=== PATIENT | male | born 1965 | race Two or more races ===

== ENCOUNTER → 2017-10-03 | Outpatient (CLI) | payer OTHER ==
--- NOTE | 2017-10-03 09:25 | MR ---
EXAMINATION TYPE: MR lumbar spine wo con DATE OF EXAM: 10/03/2017 COMPARISON: NONE HISTORY: Lumbosacral intervertebral disc disorder TECHNIQUE: Multiplanar, multisequence images of the lumbar spine were acquired. FINDINGS: There is a questionable exophytic lower pole left renal lesion seen on coronal survey image 3 only. T he lumbar spine maintains vertebral body heights and alignment. There is a focal T1/T2 hyperintense s ubcentimeter vertebral body hemangioma of L4. Hemangiomas also seen of L2. Slightly T1 hyperintense p robable hemangiomas also seen of L3. Conus medullaris is unremarkable terminating at T12-L1. L1-L2: Normal disc appearance without desiccation. No herniation, protrusion or disc bulging. No ca nal stenosis is present. Foramina are patent bilaterally. L2-L3: There is a broad-based disc bulge with disc desiccation without neural foraminal narrowing or spinal canal stenosis. L3-L4: A broad-based disc bulge is seen in combination with mild facet arthropathy. This results in m inimal bilateral neural foraminal narrowing. No spinal canal stenosis. L4-L5: There is a broad-based disc bulge with slight focality centrally relating to a very small disc herniation. No spinal canal stenosis or neural foraminal narrowing is seen. L5-S1: There is a central disc herniation/extrusion with annular tear and 4 mm cranial disc extension . There is no significant spinal canal stenosis or neural foraminal narrowing. IMPRESSION: 1. Small central disc herniation at L5-S1 with 4 mm cranial disc extension. No spinal canal stenosis or neural foraminal narrowing. 2. Very small central disc herniation at L4-L5 with no spinal canal stenosis or neural foraminal narr owing. 3. Degenerative disc disease at L3-L4 resulting in minimal bilateral neural foraminal narrowing. 4. Questionable left lower pole exophytic lesion seen on survey image 3 only. Renal ultrasound is rec ommended for further evaluation.
== END | disposition home or self-care (01) ==
LOC: RADMRIMAIN 08:02
PROVIDERS: ATTEND Family Medicine
DX: M99.73 Connective tissue and disc stenosis of intervertebral foramina of lumbar region (principal); M51.27 Other intervertebral disc displacement, lumbosacral region; M51.36 Other intervertebral disc degeneration, lumbar region
CPT/HCPCS: 72148

== ENCOUNTER 2018-11-29 12:45 | Day surgery (SDC) | payer OTHER ==
[2018-11-26 13:57] VITALS: BMI 28.2
--- NOTE | 2018-11-29 07:39 | P.GSHP ---
History of Present Illness H&P Date: 11/29/18 CHIEF COMPLAINT: Inguinal hernia, left HISTORY OF PRESENT ILLNESS: The patient is a 53-year-old male who presents with a history of swelling and pain along the left groin. He's noted increased swelling including pain of the area. Now he presents for repair of his inguinal hernia. PAST MEDICAL HISTORY: Please see list. PAST SURGICAL HISTORY: Please see list. MEDICATIONS: Please see list. ALLERGIES: Please see list. SOCIAL HISTORY: No illicit drug use FAMILY HISTORY: No reports of Crohn disease or ulcerative colitis. REVIEW OF ORGAN SYSTEMS: CONSTITUTIONAL: No reports of fevers or chills. No reports of weight loss despite prior attempts. GI: Denies any blood in stools or constipation. PHYSICAL EXAM: VITAL SIGNS: Stable GENERAL: Well-developed pleasant male in no acute distress. HEENT: No scleral icterus. Extraocular movements grossly intact. Moist buccal mucosa. NECK: Supple without lymphadenopathy. CHEST: Unlabored respirations. Equal bilateral excursions. CARDIOVASCULAR: Regular rate and rhythm. Distal 2+ pulses. ABDOMEN: Soft, nondistended. No peritoneal signs. Palpable defect of the left groin. MUSCULOSKELETAL: No clubbing, cyanosis, or edema. ASSESSMENT: 1. Inguinal hernia, left PLAN: 1. Recommend proceeding with a robotic inguinal repair with mesh with possible bilateral approach. 2. Benefits and risks of surgical intervention was discussed including possibility of open technique. 3. DVT prophylaxis. 4. Antibiotic prophylaxis. Past Medical History Past Medical History: Musculoskeletal Disorder, Prostate Disorder, Sleep Apnea/CPAP/BIPAP Additional Past Medical History / Comment(s): uses CPAP, back & leg pain related to herniated discs History of Any Multi-Drug Resistant Organisms: None Reported Additional Past Surgical History / Comment(s): epidural pain procedures, colonoscopy Past Anesthesia/Blood Transfusion Reactions: No Reported Reaction Smoking Status: Current every day smoker - Past Family History Brother(s) Family Medical History: Cancer Medications and Allergies Home Medications Medication Instructions Recorded Confirmed Type Acetaminophen Tab [Tylenol Tab] 500 mg PO Q6H PRN 11/26/18 11/26/18 History Gabapentin [Neurontin] 100 mg PO BID 11/26/18 11/26/18 History Ibuprofen [Motrin] 400 mg PO Q6HR PRN 11/26/18 11/26/18 History PARoxetine [Paxil] 20 mg PO DAILY 11/26/18 11/26/18 History traMADol HCL [Ultram] 50 mg PO TID 11/26/18 11/26/18 History Allergies Allergy/AdvReac Type Severity Reaction Status Date / Time No Known Allergies Allergy Verified 11/26/18 10:54
[~2018-11-29 12:45] MED LIST: DEXAMETHASONE SOD PHOSPHATE 10 MG/ML 1 ML VIAL IV ONE; HEPARIN SODIUM,PORCINE 5,000 UNIT/ML 1 ML VIAL SQ ONE; KETOROLAC 30 MG/ML 1 ML VIAL IVP SCH; LIDOCAINE 1% 20 ML VIAL (10MG/ML) FOR IV START INTRADERMA PRN; ONDANSETRON 4 MG/2 ML VIAL IVP ONE; ONDANSETRON 4 MG/2 ML VIAL IVP PRN; ceFAZolin IN SWFI 2 GM/20 ML SYRINGE IVP ONE
[2018-11-29] MEDS: LACTATED RINGERS 1,000 ML IV SCH (13:12)
[2018-11-29] MEDS ORDERED: fentaNYL (PF) 50 MCG/ML 2 ML AMP ONE (14:19)
[2018-11-29] MEDS ORDERED: NEOSTIGMINE 1 MG/ML 10 ML VIAL ONE (14:19)
[2018-11-29] MEDS ORDERED: GLYCOPYRROLATE 0.2 MG/ML 2 ML VIAL ONE (14:19)
[2018-11-29] MEDS ORDERED: PHENYLEPHRINE-0.9% NACL SYG 1 MG/10 ML SYRINGE ONE (14:19)
[2018-11-29] MEDS ORDERED: ROCURONIUM BROMIDE 10 MG/ML 10 ML VIAL IV ONE (14:19)
[2018-11-29] MEDS ORDERED: SUCCINYLCHOLINE CHLORIDE 100 MG/5 ML SYR IV ONE (14:19)
[2018-11-29] MEDS ORDERED: LIDOCAINE 1% INJ 10MG/ML (20 ML MDV) ONE (14:19)
[2018-11-29] MEDS ORDERED: MIDAZOLAM 2 MG/2 ML VIAL ONE (14:19)
[2018-11-29] MEDS ORDERED: PROPOFOL 10 MG/ML 20 ML VIAL IV ONE (14:19)
[2018-11-29] MEDS ORDERED: LIDOCAINE 1%-EPI 1:100,000 20 ML VIAL SQ ONE (14:39)
[2018-11-29 16:15] VITALS: TEMP 98.5
[2018-11-29] MEDS: HYDROmorphone 0.5 MG/0.5 ML SYRINGE IVP PRN ×3 (16:20→16:38)
[2018-11-29] MEDS ORDERED: TAMSULOSIN 0.4 MG CAP.ER.24H PO STA (16:33)
--- NOTE | 2018-11-29 16:33 | P.OP ---
Date of Procedure: 11/29/18 Description of Procedure: SURGEON: TERESITA BUTLER MD PREOPERATIVE DIAGNOSES: 1. Initial left inguinal hernia 2. Depressive disorder 3. Chronic pain syndrome 4. Obstructive sleep apnea 5. Obstructive uropathy POSTOPERATIVE DIAGNOSES: 1. Initial left inguinal hernia, indirect 3 cm, reducible 2. Depressive disorder 3. Chronic pain syndrome 4. Obstructive sleep apnea 5. Obstructive uropathy OPERATION: 1. Robotic assisted da Stephanie Xi laparoscopic reduction and repair of left inguinal hernia repair with ventralight ST mesh, 11.4 cm. Anesthesia: GETA, local Estimated Blood Loss (ml): 5 Pathology: other (Left inguinal sac) Condition: stable Disposition: floor COMPLICATIONS: None. Operative Findings: 1. Large left inguinal indirect hernia, 3 cm, Nyhus type II 2. Console time 32 minutes INDICATIONS: The patient is a 53-year-old gentleman who presents with history of left inguinal hernia. Now presents for definitive surgical intervention. Laparoscopic versus open and robotic approaches were discussed. Benefits and risks including bleeding, infection, injury to the vas deferens as well as sterility and chronic groin pain were reviewed. Placement of mesh was also described. Informed consent was obtained. DESCRIPTION: In the preoperative area, the patient was marked with indelible marker along the left groin. The patient was brought to the operating room and laid in supine position. After general induction, the abdomen had been prepped and draped in standard sterile fashion. Ioban draping was also placed. Prior to incision, a timeout protocol was confirmed with surgical team regarding patient's name including procedures to be performed and location along the left groin. Initial positioning for the robotic assisted ports were selected whereby 20 cm superior to the target anatomy, 0 degree 5 mm laparoscopic trocar entry was performed at the left upper quadrant. The abdomen was insufflated to 15 mmHg which he had tolerated well. Diagnostic laparoscopy demonstrated moderate omental adhesions from his previous open appendectomy. Additionally the sigmoid colon was incarcerated into the left groin with a large indirect left inguinal hernia over 3 cm in size. The right groin was unremarkable. Next, along the epigastrium, 8 mm robot trocar was placed. An 8-mm robotic trocar was placed under direct visualization at the right upper quadrant. The 5 mm port was exchanged for a 8 mm trocar. All trocars were positioned between 8 to 10-cm apart from each other. The patient was placed in steep reverse Trendelenburg position, 14. The [employer] XI robot was primed, draped, prepared for docking along the upper abdomen of the patient. I then went to the [employer] Xi console. The assistant activities director was at bedside for exchange of the robot arms and equipment. At the left groin, over 3 cm direct inguinal hernia was identified. The hernia sac was evaginated whereby the peritoneum was scored using Endo scissors with cautery. The hernia sac had reached to the scrotum and was transected using Vessel sealer. Once completely reduced into the abdominal cavity, the peritoneal sac of the hernia was identified. The sac was resected and then passed off for further pathological analysis. The size of the hernia defect was 3 cm with intraoperative films obtained. Using a 2-0 VLOC, the peritoneal defect of the left inguinal hernia site was closed using a pursestring suture. The defect was found to be completely closed with complete reduction of the left inguinal hernia was confirmed. As an onlay, an 11.[address] mesh by [employer] was cut in half and entered into the abdominal cavity via the 8 mm trocar. The mesh was tacked to the pelvis using 2-0 VLOC x 9-inch length sutures. The robot was undocked from the patient's bedside. I then rescrubbed into the case. Insufflation was released from the abdominal cavity and all instruments were removed from the abdominal cavity. Additional palm pressure was applied along the left groin as well as releasing any air along the scrotum and left groin. The rest of incisions were reapproximated using 4-0 Monocryl in a running subcuticular fashion. Local anesthetic was placed along the incision including for a groin block. Incisions were cleansed using dilute hydrogen peroxide. Liquid glue was applied to the skin. At the end of the procedure, the needle, sponge and instrument counts had been verified correct by the surgical elastic knitter. The patient had tolerated the procedure well and was taken to the postanesthesia care unit in stable condition. Intraoperative findings were described to the patient's family who were pleased with the level of care. Plan - Discharge Summary Discharge Rx Participant: Yes New Discharge Prescriptions: New Tamsulosin HCl [Flomax] 0.4 mg PO DAILY #30 cap Ibuprofen [Motrin] 600 mg PO Q8HR PRN #30 tab PRN Reason: Pain Continue PARoxetine [Paxil] 20 mg PO DAILY Ibuprofen [Motrin] 400 mg PO Q6HR PRN PRN Reason: Pain Acetaminophen Tab [Tylenol] 500 mg PO Q6H PRN PRN Reason: Pain traMADol HCL [Ultram] 50 mg PO TID Gabapentin [Neurontin] 100 mg PO BID Discharge Medication List Acetaminophen Tab [Tylenol] 500 mg PO Q6H PRN 11/26/18 [History] Gabapentin [Neurontin] 100 mg PO BID 11/26/18 [History] Ibuprofen [Motrin] 400 mg PO Q6HR PRN 11/26/18 [History] PARoxetine [Paxil] 20 mg PO DAILY 11/26/18 [History] traMADol HCL [Ultram] 50 mg PO TID 11/26/18 [History] Ibuprofen [Motrin] 600 mg PO Q8HR PRN #30 tab 11/29/18 [Rx] Tamsulosin HCl [Flomax] 0.4 mg PO DAILY #30 cap 11/29/18 [Rx] Follow up Appointment(s)/Referral(s): Teresita Butler MD [STAFF PHYSICIAN] - 12/11/18 Patient Instructions/Handouts: Laparoscopic Herniorrhaphy (DC) Activity/Diet/Wound Care/Special Instructions: No lifting over 4 pounds in 10 days until, December 06. October shower. No bath tub soaks until December 06 Discharge Disposition: HOME SELF-CARE
[2018-11-29] MEDS ORDERED: IBUPROFEN 200 MG TAB PO ONE (17:11)
[2018-11-29 17:15] VITALS: BP 107/83; PULSE 94; RESP 16
== END 2018-11-29 17:42 | disposition home or self-care (01) ==
LOC: OR 12:45
PROVIDERS: ATTEND Surgery Plastic and Reconstructive Surgery
DX: K40.30 Unilateral inguinal hernia, with obstruction, without gangrene, not specified as recurrent (principal); K40.90 Unilateral inguinal hernia, without obstruction or gangrene, not specified as recurrent; F32.9 Major depressive disorder, single episode, unspecified; G89.4 Chronic pain syndrome; G47.33 Obstructive sleep apnea (adult) (pediatric); N40.1 Benign prostatic hyperplasia with lower urinary tract symptoms; N13.8 Other obstructive and reflux uropathy; F17.200 Nicotine dependence, unspecified, uncomplicated; Z99.89 Dependence on other enabling machines and devices; Z79.891 Long term (current) use of opiate analgesic; Z79.1 Long term (current) use of non-steroidal anti-inflammatories (NSAID); Z79.899 Other long term (current) drug therapy
CPT/HCPCS: 88302; 49650; C1781; J2250; J1644; J1100; J2710; J2405; J2001; J3010; J2370; J0330; J2704; J1170; J0690

== ENCOUNTER → 2019-03-12 | Outpatient (CLI) | payer SELFPAY ==
--- NOTE | 2019-03-12 11:23 | US ---
EXAMINATION TYPE: US prostate transrectal DATE OF EXAM: 03/12/2019 COMPARISON: NONE CLINICAL HISTORY: N40.0 Benign prostatic hyperplasia without lower u. This examination was performed using the transrectal probe. EXAM MEASUREMENTS: Gland Size: 5.3 x 3.2 x 5.2cm Volume: 46.8 Predicted PSA: 5.6 Actual PSA (if available): not available No recent bloodwork for PSA, patient has trouble urinating. No masses seen in prostate, heterogeneous central zone. IMPRESSION: Heterogenous central zone relating to mild benign prostatic hyperplasia. No sonographic suspicious masses in the peripheral zone on today's exam. Predicted PSA = volume x 0.12 ng/ml Calculated Volume = 0.5236 x L x W x H
== END | disposition home or self-care (01) ==
LOC: RADUSWWP 08:14
PROVIDERS: ATTEND Family Medicine
DX: N40.0 Benign prostatic hyperplasia without lower urinary tract symptoms (principal)
CPT/HCPCS: 76872

== ENCOUNTER 2021-08-01 16:55 | Emergency (ER) | payer MEDICAID ==
[2021-08-01 17:02] VITALS: TEMP 98.9
[2021-08-01] MEDS ORDERED: ASPIRIN 81 MG PO STA (17:04)
[2021-08-01] MEDS ORDERED: KETOROLAC 15 MG/ML 1 ML VIAL IVP STA (17:11)
--- NOTE | 2021-08-01 17:20 | ED ---
General Adult HPI - General Chief complaint: Chest Pain Stated complaint: Chest pain Time Seen by Provider: 08/01/21 17:02 Source: patient, RN notes reviewed, old records reviewed Mode of arrival: wheelchair Limitations: no limitations - History of Present Illness Initial comments: Patient is a 55-year-old male with past medical history remarkable for sleep apnea, tobacco use presents emergency Department complaining of a two-day history of left-sided chest pain. Describes it sharp and worse with certain movements of his left arm, as well as torso. Denies any known trauma or injuries. States he woke up with it late Monday night, early fret Monday morning. Describes it as running along the inferior aspect of one of his ribs on the left side. States she'll fill it on left front as well as under his armpit. States it is pleuritic in nature, as it is slightly worsened when he takes a deep breath in. Denies any fevers, chills, cough. Denies any history of blood clots. Denies any orthopnea, PND. Does have an implanted sleep apnea device. Is not on hormonal therapy. No cardiac history. Patient became concerned as the pain did not improve at home. - Related Data Home Medications Medication Instructions Recorded Confirmed Gabapentin [Neurontin] 100 mg PO BID 11/26/18 08/01/21 PARoxetine [Paxil] 20 mg PO DAILY 11/26/18 08/01/21 traMADol HCL [Ultram] 50 mg PO TID PRN 11/26/18 08/01/21 Previous Rx's Medication Instructions Recorded Tamsulosin HCl [Flomax] 0.4 mg PO DAILY #30 cap 11/29/18 Lidocaine 5% Patch [Lidoderm 5% 1 patch TOPICAL DAILY PRN 7 Days 08/01/21 Patch] #7 patch methocarbamoL [Robaxin] 750 mg PO BID PRN 7 Days #14 tab 08/01/21 Allergies Allergy/AdvReac Type Severity Reaction Status Date / Time No Known Allergies Allergy Verified 08/01/21 18:05 Review of Systems ROS Statement: Those systems with pertinent positive or pertinent negative responses have been documented in the HPI. Review of Systems: CONST: Denies fever EYES: Denies blurry vision ENT: Denies nasal congestion C/V: Endorses chest wall pain. RESP: Denies shortness of breath GI: Denies abdominal pain : Denies dysuria SKIN: Denies rash. MSK: Denies joint pain. NEURO: Denies headache ROS Other: All systems not noted in ROS Statement are negative. Past Medical History Past Medical History: Musculoskeletal Disorder, Prostate Disorder, Sleep Apnea/CPAP/BIPAP Additional Past Medical History / Comment(s): uses CPAP, back & leg pain related to herniated discs History of Any Multi-Drug Resistant Organisms: None Reported Additional Past Surgical History / Comment(s): epidural pain procedures, colonoscopy Past Anesthesia/Blood Transfusion Reactions: No Reported Reaction Past Psychological History: Depression Smoking Status: Current every day smoker Past Alcohol Use History: None Reported Past Drug Use History: None Reported - Past Family History Brother(s) Family Medical History: Cancer General Exam - General Exam Comments Initial Comments: General: Appears in no acute distress. HEAD: Normal with no signs of head trauma. EYES: PERRLA, EOMI, conjunctiva normal, no discharge. Pupils are 3 mm equal bilaterally. ENT: Hearing grossly intact, normal oropharynx. RESPIRATORY: Clear breath sounds bilaterally. No wheezes, rales, or rhonchi. No hypoxia. C/V: Regular rate and rhythm. S1 and S2 auscultated, no edema, peripheral pulses 2+ and intact throughout. Patient's chest pain is reproducible on palpation Along the inferior aspect of rib 7 or 8 the midclavicular line, as as well as mildly in the midaxillary line. Does not appear to be a radiculopathy. ABD: Abd is soft, nontender, nondistended EXT: Normal range of motion, no obvious deformity SKIN: No rashes or lesions observed on exposed skin. NEURO: Alert and oriented 4. Limitations: no limitations Course Vital Signs 08/01/21 16:58 Temperature 98.9 F Pulse Rate 93 Respiratory 16 Rate Blood Pressure 137/76 O2 Sat by Pulse 97 Oximetry Medical Decision Making - Medical Decision Making Based on the patient's presentation and physical exam, I'm concerned for possible cardiac primary cause for his current symptoms. Also could be musculoskeletal in nature. However due to his age and risk factors we will obtain a cardiac workup. This will include a d-dimer, as the patient does not perc out. He was in agreement this plan. He will receive an aspirin as well as IV Toradol. Troponin, screening EKG, chest x-ray as well as d-dimer will be obtained. EKG showed no signs of ischemia. Laboratory studies were remarkable for a mild leukocytosis of 13. D-dimer is within normal limits. Troponin is negative. Remainder the labs are unremarkable. Chest x-ray revealed no acute cardiopulmonary process. Reevaluation come patient's pain is somewhat improved. I did discuss with him the results of his negative workup. Heart score is low at 2. I believe it is safe for him to be discharged home at this time. He was in agreement this plan. We discussed his pain appears to be mostly skeletal chest wall pain based on the workup as well as evaluation. I will provide the patient with a prescription for Robaxin, lidocaine patches. I instructed the patient to follow up with their PCP in the next 3 days. I explained that the patient should return to the emergency department if they experience any worsening symptoms. Strict return precautions were discussed with the patient. The patient expressed understanding of these instructions. I answered all questions that the patient had. The patient was discharged home in good condition with their prescriptions and follow up information. - Lab Data Result diagrams: 08/01/21 17:30 08/01/21 17:30 Lab Results 08/01/21 08/01/21 08/01/21 Range/Units 17:30 17:30 17:30 WBC 13.2 H (3.8-10.6) k/uL RBC 4.96 (4.30-5.90) m/uL Hgb 15.8 (13.0-17.5) gm/dL Hct 47.0 (39.0-53.0) % MCV 94.6 (80.0-100.0) fL MCH 31.8 (25.0-35.0) pg MCHC 33.6 (31.0-37.0) g/dL RDW 12.6 (11.5-15.5) % Plt Count 230 (150-450) k/uL MPV 8.6 Neutrophils % 70 % Lymphocytes % 21 % Monocytes % 5 % Eosinophils % 3 % Basophils % 1 % Neutrophils # 9.1 H (1.3-7.7) k/uL Lymphocytes # 2.7 (1.0-4.8) k/uL Monocytes # 0.6 (0-1.0) k/uL Eosinophils # 0.4 (0-0.7) k/uL Basophils # 0.1 (0-0.2) k/uL PT 10.4 (9.0-12.0) sec INR 1.0 (<1.2) APTT 26.1 (22.0-30.0) sec D-Dimer 0.39 (<0.60) mg/L FEU Sodium 140 (137-145) mmol/L Potassium 3.9 (3.5-5.1) mmol/L Chloride 104 (98-107) mmol/L Carbon Dioxide 27 (22-30) mmol/L Anion Gap 9 mmol/L BUN 10 (9-20) mg/dL Creatinine 0.80 (0.66-1.25) mg/dL Est GFR (CKD-EPI)AfAm >90 (>60 ml/min/1.73 sqM) Est GFR (CKD-EPI)NonAf >90 (>60 ml/min/1.73 sqM) Glucose 120 H (74-99) mg/dL Calcium 9.3 (8.4-10.2) mg/dL Magnesium 1.9 (1.6-2.3) mg/dL Total Bilirubin 0.4 (0.2-1.3) mg/dL AST 24 (17-59) U/L ALT 17 (4-49) U/L Alkaline Phosphatase 50 (38-126) U/L Troponin I (0.000-0.034) ng/mL Total Protein 7.2 (6.3-8.2) g/dL Albumin 4.5 (3.5-5.0) g/dL 08/01/21 Range/Units 17:30 WBC (3.8-10.6) k/uL RBC (4.30-5.90) m/uL Hgb (13.0-17.5) gm/dL Hct (39.0-53.0) % MCV (80.0-100.0) fL MCH (25.0-35.0) pg MCHC (31.0-37.0) g/dL RDW (11.5-15.5) % Plt Count (150-450) k/uL MPV Neutrophils % % Lymphocytes % % Monocytes % % Eosinophils % % Basophils % % Neutrophils # (1.3-7.7) k/uL Lymphocytes # (1.0-4.8) k/uL Monocytes # (0-1.0) k/uL Eosinophils # (0-0.7) k/uL Basophils # (0-0.2) k/uL PT (9.0-12.0) sec INR (<1.2) APTT (22.0-30.0) sec D-Dimer (<0.60) mg/L FEU Sodium (137-145) mmol/L Potassium (3.5-5.1) mmol/L Chloride (98-107) mmol/L Carbon Dioxide (22-30) mmol/L Anion Gap mmol/L BUN (9-20) mg/dL Creatinine (0.66-1.25) mg/dL Est GFR (CKD-EPI)AfAm (>60 ml/min/1.73 sqM) Est GFR (CKD-EPI)NonAf (>60 ml/min/1.73 sqM) Glucose (74-99) mg/dL Calcium (8.4-10.2) mg/dL Magnesium (1.6-2.3) mg/dL Total Bilirubin (0.2-1.3) mg/dL AST (17-59) U/L ALT (4-49) U/L Alkaline Phosphatase (38-126) U/L Troponin I <0.012 (0.000-0.034) ng/mL Total Protein (6.3-8.2) g/dL Albumin (3.5-5.0) g/dL - EKG Data -: EKG Interpreted by Me EKG Comments: 12-lead Electrocardiogram Interpretation Note EKG was reviewed and interpreted by myself. 12-lead ECG performed at 1713 is interpreted by me as revealing normal sinus rhythm at a rate of 81 beats per minute. [place] is normal. CO interval is 171 ms, QRS duration is 90 ms, QTc is 379 ms.. There were no ST or T wave abnormalities to suggest myocardial ischemia or injury. R wave progression across the precordium was satisfactory. By my interpretation this EKG is non-diagnostic for acute ischemia. Disposition Clinical Impression: Chest wall pain, Musculoskeletal pain Disposition: HOME SELF-CARE Condition: Good Instructions (If sedation given, give patient instructions): Chest Wall Pain (ED) Prescriptions: Lidocaine 5% Patch [Lidoderm 5% Patch] 1 patch TOPICAL DAILY PRN 7 Days #7 patch PRN Reason: Pain methocarbamoL [Robaxin] 750 mg PO BID PRN 7 Days #14 tab PRN Reason: Pain Is patient prescribed a controlled substance at d/c from ED?: No Referrals: Jt Liang MD [Primary Care Provider] - 1-2 days
[2021-08-01 18:06] LABS: Basophils # (A) 0.1 k/uL (0-0.2); Basophils % (A) 1 %; Eosinophils # (A) 0.4 k/uL (0-0.7); Eosinophils % (A) 3 %; HGB 15.8 gm/dL (13.0-17.5); Lymphocytes # (A) 2.7 k/uL (1.0-4.8); Lymphocytes % (A) 21 %; MCH 31.8 pg (25.0-35.0); MCHC 33.6 g/dL (31.0-37.0); MCV 94.6 fL (80.0-100.0); Mean Platelet Volume 8.6; Monocytes # (A) 0.6 k/uL (0-1.0); Monocytes % (A) 5 %; Neutrophils # (A) 9.1 k/uL (1.3-7.7); Neutrophils % (A) 70 %; Platelet Count 230 k/uL (150-450); RBC 4.96 m/uL (4.30-5.90); RDW 12.6 % (11.5-15.5); WBC 13.2 k/uL (3.8-10.6)
[2021-08-01 18:16] LABS: ALT 17 U/L (4-49); AST 24 U/L (17-59); African American GFR (CKD) >90 (>60 ml/min/1.73 sqM); Albumin 4.5 g/dL (3.5-5.0); Alkaline Phosphatase 50 U/L (38-126); Anion Gap 9 mmol/L; Blood Urea Nitrogen 10 mg/dL (9-20); Calcium 9.3 mg/dL (8.4-10.2); Carbon Dioxide 27 mmol/L (22-30); Chloride 104 mmol/L (98-107); Glucose 120 mg/dL (74-99); Magnesium 1.9 mg/dL (1.6-2.3); Non-African American GFR(CKD) >90 (>60 ml/min/1.73 sqM); Potassium 3.9 mmol/L (3.5-5.1); Sodium 140 mmol/L (137-145); Total Bilirubin 0.4 mg/dL (0.2-1.3); Total Protein 7.2 g/dL (6.3-8.2)
--- NOTE | 2021-08-01 18:19 | XR ---
EXAMINATION TYPE: XR chest 2V DATE OF EXAM: 08/01/2021 COMPARISON: NONE HISTORY: Chest pain TECHNIQUE: 2 views FINDINGS: Heart and mediastinum are normal. Lungs are clear. There is device implanted over the right anterior chest. There is no pleural effusion. There are no hilar masses. Bony thorax is intact. IMPRESSION: No active cardiopulmonary disease. Normal heart.
[2021-08-01 18:20] LABS: Partial Thromboplastin Time 26.1 sec (22.0-30.0); Prothrombin Time 10.4 sec (9.0-12.0)
[2021-08-01] MEDS ORDERED: LIDOCAINE 5% PATCH TOPICAL STA (18:47)
[2021-08-01 19:06] VITALS: BP 130/85; PULSE 74; RESP 18
== END 2021-08-01 19:14 | disposition home or self-care (01) ==
LOC: EC 16:55
DX: R07.89 Other chest pain (principal); F32.A Depression, unspecified; F17.200 Nicotine dependence, unspecified, uncomplicated
CPT/HCPCS: 99285; 96374; 36415; 93005; 85379; 80053; 83735; 84484; 85025; 85610; 85730; 71046; J1885

== ENCOUNTER 2021-09-10 14:22 | Inpatient (IN) | payer MEDICAID ==
[2021-09-10 14:55] LABS: Basophils # (A) 0.1 k/uL (0-0.2); Basophils % (A) 0 %; Eosinophils # (A) 0.2 k/uL (0-0.7); Eosinophils % (A) 1 %; HCT 42.6 % (39.0-53.0); HGB 14.2 gm/dL (13.0-17.5); Lymphocytes # (A) 0.8 k/uL (1.0-4.8); Lymphocytes % (A) 4 %; MCHC 33.4 g/dL (31.0-37.0); MCV 95.9 fL (80.0-100.0); Mean Platelet Volume 9.3; Monocytes # (A) 1.1 k/uL (0-1.0); Monocytes % (A) 6 %; Neutrophils % (A) 89 %; Platelet Count 151 k/uL (150-450); RBC 4.44 m/uL (4.30-5.90); WBC 19.1 k/uL (3.8-10.6)
[2021-09-10 15:10] LABS: ALT 65 U/L (4-49); AST 28 U/L (17-59); African American GFR (CKD) >90 (>60 ml/min/1.73 sqM); Alkaline Phosphatase 51 U/L (38-126); Anion Gap 5 mmol/L; Blood Urea Nitrogen 22 mg/dL (9-20); Calcium 8.5 mg/dL (8.4-10.2); Carbon Dioxide 31 mmol/L (22-30); Chloride 104 mmol/L (98-107); Glucose 157 mg/dL (74-99); Non-African American GFR(CKD) >90 (>60 ml/min/1.73 sqM); Potassium 3.9 mmol/L (3.5-5.1); Sodium 140 mmol/L (137-145); Total Bilirubin 0.6 mg/dL (0.2-1.3); Total Protein 6.3 g/dL (6.3-8.2)
--- NOTE | 2021-09-10 15:18 | XR ---
EXAMINATION TYPE: XR chest 2V DATE OF EXAM: 09/10/2021 COMPARISON: X-ray dated 08/01/2021 HISTORY: Weakness and palpitations with lower leg edema and elevated blood pressure TECHNIQUE: Frontal and lateral views of the chest are obtained. FINDINGS: Grossly unremarkable lungs. No pleural effusion or pneumothorax. No gross cardiomegaly. A stimulator device is seen superimposed on the right midlung zone, stable. No gross aggressive bone lesion. IMPRESSION: No definite acute pulmonary abnormality or gross lung lesion identified.
--- NOTE | 2021-09-10 15:38 | ED ---
General Adult HPI - General Chief complaint: Arrhythmia/Palpitations Stated complaint: Heart palpitations,weakness Time Seen by Provider: 09/10/21 14:25 Source: patient, RN notes reviewed, old records reviewed Mode of arrival: ambulatory Limitations: no limitations - History of Present Illness Initial comments: This is a 55-year-old male who presents emergency Department complaining that over the last 2-3 days he has noticed increased swelling of both of his feet he feels as though his abdomen is more distended and he feels as though his face posterior than normal. Patient also was noted that he is not urinating as much as he hasn't passed. Patient denies any problems breathing. Patient denies any chest pain. Patient denies any abdominal pain. Patient states he does feel some palpitations on occasion. Patient states the symptoms don't last for long but they come and go. Patient states she's had chronic lower back pain that he's been seeing a physician for. Patient denies any headache patient denies any lightheadedness or dizziness. Patient denies any numbness or weakness. Patient states he has tingling of both of his hands on occasion. - Related Data Home Medications Medication Instructions Recorded Confirmed PARoxetine [Paxil] 20 mg PO DAILY 11/26/18 09/10/21 traMADol HCL [Ultram] 50 mg PO TID PRN 11/26/18 09/10/21 Gabapentin 300 mg PO BID 09/10/21 09/10/21 Lidocaine 5% Patch [Lidoderm 5% 1 patch TOPICAL DAILY 09/10/21 09/10/21 Patch] Previous Rx's Medication Instructions Recorded Tamsulosin HCl [Flomax] 0.4 mg PO DAILY #30 cap 11/29/18 Allergies Allergy/AdvReac Type Severity Reaction Status Date / Time No Known Allergies Allergy Verified 09/10/21 16:34 Review of Systems ROS Statement: Those systems with pertinent positive or pertinent negative responses have been documented in the HPI. ROS Other: All systems not noted in ROS Statement are negative. Past Medical History Past Medical History: Musculoskeletal Disorder, Prostate Disorder, Sleep Apnea/CPAP/BIPAP Additional Past Medical History / Comment(s): uses CPAP, back & leg pain related to herniated discs History of Any Multi-Drug Resistant Organisms: None Reported Additional Past Surgical History / Comment(s): epidural pain procedures, colonoscopy Past Anesthesia/Blood Transfusion Reactions: No Reported Reaction Past Psychological History: Depression Smoking Status: Current every day smoker Past Alcohol Use History: None Reported Past Drug Use History: None Reported - Past Family History Brother(s) Family Medical History: Cancer General Exam - General Exam Comments Initial Comments: GENERAL: Patient is well-developed and well-nourished. Patient is nontoxic and well- hydrated and is in mild distress. ENT: Neck is soft and supple. No significant lymphadenopathy is noted. Oropharynx is clear. Moist mucous membranes. Neck has full range of motion without eliciting any pain. EYES: The sclera were anicteric and conjunctiva were pink and moist. Extraocular movements were intact and pupils were equal round and reactive to light. Eyelids were unremarkable. PULMONARY: Unlabored respirations. Good breath sounds bilaterally. No audible rales rhonchi or wheezing was noted. CARDIOVASCULAR: There is a regular rate and rhythm without any murmurs gallops or rubs. ABDOMEN: Soft and nontender with normal bowel sounds. SKIN: Skin is clear with no lesions or rashes and otherwise unremarkable. NEUROLOGIC: Patient is alert and oriented x3. Cranial nerves II through XII are grossly intact. Motor and sensory are also intact. Normal speech, volume and content. Symmetrical smile. MUSCULOSKELETAL: Normal extremities with adequate strength and full range of motion. 1+ edema bilateral legs LYMPHATICS: No significant lymphadenopathy is noted PSYCHIATRIC: Normal psychiatric evaluation. Limitations: no limitations Course Vital Signs 09/10/21 09/10/21 09/10/21 14:25 15:14 16:38 Temperature 98.5 F Pulse Rate 74 72 67 Respiratory 20 16 16 Rate Blood Pressure 171/89 170/96 157/91 O2 Sat by Pulse 96 95 93 L Oximetry Medical Decision Making - Medical Decision Making EKG shows sinus rhythm at 66 bpm NJ interval 152 QRS is 88 QT interval 367 QTC is 380. Patient's EKG shows no ST segment elevation or depression. - Lab Data Result diagrams: 09/10/21 14:41 09/10/21 14:41 Lab Results 09/10/21 09/10/21 09/10/21 Range/Units 14:41 14:41 14:41 WBC 19.1 H (3.8-10.6) k/uL RBC 4.44 (4.30-5.90) m/uL Hgb 14.2 (13.0-17.5) gm/dL Hct 42.6 (39.0-53.0) % MCV 95.9 (80.0-100.0) fL MCH 32.0 (25.0-35.0) pg MCHC 33.4 (31.0-37.0) g/dL RDW 14.0 (11.5-15.5) % Plt Count 151 (150-450) k/uL MPV 9.3 Neutrophils % 89 % Lymphocytes % 4 % Monocytes % 6 % Eosinophils % 1 % Basophils % 0 % Neutrophils # 17.0 H (1.3-7.7) k/uL Lymphocytes # 0.8 L (1.0-4.8) k/uL Monocytes # 1.1 H (0-1.0) k/uL Eosinophils # 0.2 (0-0.7) k/uL Basophils # 0.1 (0-0.2) k/uL Sodium 140 (137-145) mmol/L Potassium 3.9 (3.5-5.1) mmol/L Chloride 104 (98-107) mmol/L Carbon Dioxide 31 H (22-30) mmol/L Anion Gap 5 mmol/L BUN 22 H (9-20) mg/dL Creatinine 0.61 L (0.66-1.25) mg/dL Est GFR (CKD-EPI)AfAm >90 (>60 ml/min/1.73 sqM) Est GFR (CKD-EPI)NonAf >90 (>60 ml/min/1.73 sqM) Glucose 157 H (74-99) mg/dL Calcium 8.5 (8.4-10.2) mg/dL Magnesium (1.6-2.3) mg/dL Total Bilirubin 0.6 (0.2-1.3) mg/dL AST 28 (17-59) U/L ALT 65 H (4-49) U/L Alkaline Phosphatase 51 (38-126) U/L Troponin I 0.080 H* (0.000-0.034) ng/mL NT-Pro-B Natriuret Pep pg/mL Total Protein 6.3 (6.3-8.2) g/dL Albumin 4.0 (3.5-5.0) g/dL TSH (0.465-4.680) mIU/L Free T4 (0.78-2.19) ng/dL 09/10/21 09/10/21 Range/Units 14:41 15:45 WBC (3.8-10.6) k/uL RBC (4.30-5.90) m/uL Hgb (13.0-17.5) gm/dL Hct (39.0-53.0) % MCV (80.0-100.0) fL MCH (25.0-35.0) pg MCHC (31.0-37.0) g/dL RDW (11.5-15.5) % Plt Count (150-450) k/uL MPV Neutrophils % % Lymphocytes % % Monocytes % % Eosinophils % % Basophils % % Neutrophils # (1.3-7.7) k/uL Lymphocytes # (1.0-4.8) k/uL Monocytes # (0-1.0) k/uL Eosinophils # (0-0.7) k/uL Basophils # (0-0.2) k/uL Sodium (137-145) mmol/L Potassium (3.5-5.1) mmol/L Chloride (98-107) mmol/L Carbon Dioxide (22-30) mmol/L Anion Gap mmol/L BUN (9-20) mg/dL Creatinine (0.66-1.25) mg/dL Est GFR (CKD-EPI)AfAm (>60 ml/min/1.73 sqM) Est GFR (CKD-EPI)NonAf (>60 ml/min/1.73 sqM) Glucose (74-99) mg/dL Calcium (8.4-10.2) mg/dL Magnesium 2.6 H (1.6-2.3) mg/dL Total Bilirubin (0.2-1.3) mg/dL AST (17-59) U/L ALT (4-49) U/L Alkaline Phosphatase (38-126) U/L Troponin I (0.000-0.034) ng/mL NT-Pro-B Natriuret Pep 1240 pg/mL Total Protein (6.3-8.2) g/dL Albumin (3.5-5.0) g/dL TSH 0.300 L (0.465-4.680) mIU/L Free T4 0.64 L (0.78-2.19) ng/dL Disposition Clinical Impression: Palpitations, Pedal edema, Elevated troponin, Leukocytosis, Hypothyroid Disposition: ADMITTED IP TO THIS HOSP Referrals: Jt Liang MD [Primary Care Provider] - 1-2 days Time of Disposition: 19:12
[2021-09-10 15:54] LABS: Magnesium 2.6 mg/dL (1.6-2.3)
[2021-09-10 17:20] LABS: T4, Free (Free Thyroxine) 0.64 ng/dL (0.78-2.19)
[2021-09-10 19:13] LABS: Amorphous Sediment,Urine Rare /hpf; Appearance,Urine Cloudy (Clear); Bilirubin,Urine Negative (Negative); Blood,Urine Negative (Negative); Color,Urine Yellow; Glucose,Urine (UA) Negative (Negative); Ketones,Urine Negative (Negative); Leukocyte Esterase,Urine Negative (Negative); Mucus,Urine Rare /hpf; Nitrite,Urine Negative (Negative); PH, Urine 7.5 (5.0-8.0); Protein,Urine Trace (Negative); RBC,Urine 1 /hpf (0-5); Specific Gravity,Urine 1.019 (1.001-1.035); Urobilinogen,Urine <2.0 mg/dL (<2.0); WBC,Urine 1 /hpf (0-5)
[2021-09-10] MEDS: traMADol 50 MG TAB PO PRN (23:28)
[2021-09-10] MEDS: GABAPENTIN 300 MG CAP PO SCH (23:29)
[2021-09-11] MEDS ORDERED: ASPIRIN 325 MG TAB PO STA (00:31)
[2021-09-11] MEDS ORDERED: CLOPIDOGREL 75 MG TAB PO STA (00:31)
[2021-09-11] MEDS ORDERED: METOPROLOL TARTRATE 25 MG TAB PO STA (00:31)
[2021-09-11] MEDS ORDERED: ATORVASTATIN 80 MG TAB PO STA (00:32)
--- NOTE | 2021-09-11 04:54 | P.HPIM ---
History of Present Illness H&P Date: 09/10/21 The patient is a 53-year-old male with a PMH of BPH and chronic lower back pain, who presents to the emergency room with complaints of lower extremity swelling. The patient reports that over the past 2-3 days, he has noticed that his legs, scrotum, and abdomen have been gradually becoming swollen and distended. He also reports decreased urine output during this time. He denied any history of congestive heart failure. Reports experiencing PND but denied orthopnea. Denies fainting dysuria, urgency. Denied abdominal pain, chest discomfort, palpitations, nausea, vomiting, abdominal pain, diarrhea. Denied cough, fever, chills. Chest x-ray was unremarkable. With EKG showing sinus rhythm with sinus arrhythmia at 66 bpm. Laboratory evaluation was remarkable for WBC count of 19.1, troponin 0.080, proBNP 1240, TSH 0.3, free T4 0.64, glucose 157, and an unremarkable UA. Review of systems: Pertinent positives and negatives as discussed in HPI, a complete review of systems was performed and all other systems are negative. Physical examination: General: non toxic, no distress, appears at stated age, overweight Derm: no unusual rashes/lesions no unusual ecchymoses, warm, dry Head: atraumatic, normocephalic, symmetric Eyes: EOMI, no lid lag, anicteric sclera, pupils equal round reactive to light ENT: Nose and ears atraumatic, no thrush, no pharyngeal erythema Neck: No thyromegaly, no cervical lymphadenopathy, trachea midline, supple Mouth: no lip lesion, mucus membranes moist Cardiovascular: S1S2 reg, no murmur, positive posterior tibial pulse bilateral, 1+ bilateral lower extremity pitting edema to mid zavala, capillary refill less than 2 seconds Lungs: CTA bilateral, no rhonchi, no rales , no accessory muscle use Abdominal: soft, nontender to palpation, no guarding, no appreciable organomegaly, normal bowel sounds Ext: no gross muscle atrophy, muscle strength 5 out of 5 in all 4 extremities grossly, no contractures, Neuro: CN II-XI grossly intact, light touch intact all 4 extremities, finger to nose within normal limits, Psych: Alert, oriented, appropriate affect : No scrotal or penile abnormalities noted, tomasz testes palpable and non-tender Assessment/plan Bilateral lower extremity edema, suspected CHF -Obtain echocardiogram -Cardiology consult -[facility] -Cardiac monitoring Elevated troponin -Trend for now -Cardiac monitoring -Patient denying chest discomfort or shortness of breath Leukocytosis -Unclear etiology -F/u blood cultures -Monitor CBC for now Low TSH and Free T4 -Suspected secondary to acute illness -Obtain repeat TSH prior to discharge DVT prophylaxis -Heparin subq The patient is admitted with an anticipated greater than 2 midnight stay for evaluation of LE edema CODE STATUS: Full Code Discussed with: Patient Anticipated discharge date: 09/[address]: Home Past Medical History Past Medical History: Musculoskeletal Disorder, Prostate Disorder, Sleep Apnea/CPAP/BIPAP Additional Past Medical History / Comment(s): apnea implant, back & leg pain related to herniated discs History of Any Multi-Drug Resistant Organisms: None Reported Additional Past Surgical History / Comment(s): epidural pain procedures, colonoscopy Past Anesthesia/Blood Transfusion Reactions: No Reported Reaction Past Psychological History: Depression Smoking Status: Current every day smoker Past Alcohol Use History: None Reported Additional Past Alcohol Use History / Comment(s): down to <ppd for 30 years Past Drug Use History: None Reported - Past Family History Brother(s) Family Medical History: Cancer Medications and Allergies Home Medications Medication Instructions Recorded Confirmed Type PARoxetine [Paxil] 20 mg PO DAILY 11/26/18 09/10/21 History traMADol HCL [Ultram] 50 mg PO TID PRN 11/26/18 09/10/21 History Tamsulosin HCl [Flomax] 0.4 mg PO DAILY #30 cap 11/29/18 09/10/21 Rx Gabapentin 300 mg PO BID 09/10/21 09/10/21 History Lidocaine 5% Patch [Lidoderm 5% 1 patch TOPICAL DAILY 09/10/21 09/10/21 History Patch] Allergies Allergy/AdvReac Type Severity Reaction Status Date / Time No Known Allergies Allergy Verified 09/10/21 16:34 Physical Exam Vitals: Vital Signs Temp Pulse Pulse Resp BP BP Pulse Ox 09/10/21 21:37 70 16 164/93 95 09/10/21 19:40 98.5 F 68 18 137/67 93 L 09/10/21 16:38 67 16 157/91 93 L 09/10/21 15:14 72 16 170/96 95 09/10/21 14:25 98.5 F 74 20 171/89 96 Intake and Output 09/10/21 09/10/21 09/10/21 06:59 14:59 22:59 Intake Total 485 Balance 485 Intake: Oral 485 Other: # Voids 1 Weight 97.522 kg 97.522 kg Results CBC & Chem 7: 09/10/21 14:41 09/10/21 14:41 Labs: Abnormal Lab Results - Last 24 Hours (Table) 09/10/21 09/10/21 09/10/21 Range/Units 14:41 14:41 14:41 WBC 19.1 H (3.8-10.6) k/uL Neutrophils # 17.0 H (1.3-7.7) k/uL Lymphocytes # 0.8 L (1.0-4.8) k/uL Monocytes # 1.1 H (0-1.0) k/uL Carbon Dioxide 31 H (22-30) mmol/L BUN 22 H (9-20) mg/dL Creatinine 0.61 L (0.66-1.25) mg/dL Glucose 157 H (74-99) mg/dL Magnesium (1.6-2.3) mg/dL ALT 65 H (4-49) U/L Troponin I 0.080 H* (0.000-0.034) ng/mL TSH (0.465-4.680) mIU/L Free T4 (0.78-2.19) ng/dL Urine Protein (Negative) Amorphous Sediment (None) /hpf Urine Mucus (None) /hpf 09/10/21 09/10/21 Range/Units 15:45 18:57 WBC (3.8-10.6) k/uL Neutrophils # (1.3-7.7) k/uL Lymphocytes # (1.0-4.8) k/uL Monocytes # (0-1.0) k/uL Carbon Dioxide (22-30) mmol/L BUN (9-20) mg/dL Creatinine (0.66-1.25) mg/dL Glucose (74-99) mg/dL Magnesium 2.6 H (1.6-2.3) mg/dL ALT (4-49) U/L Troponin I (0.000-0.034) ng/mL TSH 0.300 L (0.465-4.680) mIU/L Free T4 0.64 L (0.78-2.19) ng/dL Urine Protein Trace H (Negative) Amorphous Sediment Rare H (None) /hpf Urine Mucus Rare H (None) /hpf
[2021-09-11] MEDS: FUROSEMIDE 10 MG/ML 4 ML VIAL IV SCH ×3 (06:45→20:39)
[2021-09-11] MEDS: traMADol 50 MG TAB PO PRN ×3 (08:07→21:58)
[2021-09-11] MEDS: PARoxetine 20 MG TAB PO SCH (08:07)
[2021-09-11] MEDS: TAMSULOSIN 0.4 MG CAP.ER.24H PO SCH (08:07)
[2021-09-11] MEDS: GABAPENTIN 300 MG CAP PO SCH ×2 (08:07→20:39)
[2021-09-11 09:18] LABS: HCT 43.3 % (39.0-53.0); HGB 14.2 gm/dL (13.0-17.5); MCH 31.7 pg (25.0-35.0); MCHC 32.7 g/dL (31.0-37.0); MCV 96.9 fL (80.0-100.0); Mean Platelet Volume 9.6; Platelet Count 143 k/uL (150-450); RBC 4.46 m/uL (4.30-5.90); RDW 14.1 % (11.5-15.5); WBC 15.9 k/uL (3.8-10.6)
[2021-09-11 09:25] LABS: African American GFR (CKD) >90 (>60 ml/min/1.73 sqM); Anion Gap 5 mmol/L; Blood Urea Nitrogen 19 mg/dL (9-20); Calcium 8.6 mg/dL (8.4-10.2); Carbon Dioxide 36 mmol/L (22-30); Chloride 101 mmol/L (98-107); Glucose 104 mg/dL (74-99); Magnesium 2.4 mg/dL (1.6-2.3); Non-African American GFR(CKD) >90 (>60 ml/min/1.73 sqM); Potassium 3.3 mmol/L (3.5-5.1); Sodium 142 mmol/L (137-145)
[2021-09-11] MEDS ORDERED: POTASSIUM CHLORIDE ER 20 MEQ TAB.ER PO STA (11:00)
--- NOTE | 2021-09-11 13:36 | ECHOF ---
Referral Reason:chf MEASUREMENTS -------- HEIGHT: 182.9 cm WEIGHT: 97.5 kg BP: 167/80 RVIDd: 3.3 cm (< 3.3) IVSd: 1.2 cm (0.6 - 1.1) LVIDd: 5.1 cm (3.9 - 5.3) LVPWd: 1.2 cm (0.6 - 1.1) IVSs: 1.8 cm LVIDs: 3.9 cm LVPWs: 1.6 cm LA Diam: 3.3 cm (2.7 - 3.8) LAESV Index (A-L): 28.57 ml/m Ao Diam: 3.3 cm (2.0 - 3.7) AV Cusp: 2.0 cm (1.5 - 2.6) MV EXCURSION: 8.330 mm (> 18.000) MV EF SLOPE: 73 mm/s (70 - 150) EPSS: 0.6 cm MV E Liang: 1.41 m/s MV DecT: 107 ms MV A Liang: 1.00 m/s MV E/A Ratio: 1.42 RAP: 15.00 mmHg RVSP: 51.02 mmHg FINDINGS -------- Sinus rhythm. This was a technically adequate study. The left ventricular size is normal. Left ventricular wall thickness is normal. Overall left vent ricular systolic function is normal with, an EF between 55 - 60 %. The right ventricle is mildly enlarged. LA is midly dilated 29-33ml/m2. The right atrium is normal in size. Interatrial and interventricular septum intact. Trace amount of aortic regurgitation. The mitral valve is normal. Mild tricuspid regurgitation present. There is moderate pulmonary hypertension. The right ventric ular systolic pressure, as measured by Doppler, is 51.02mmHg. Trace/mild (physiologic) pulmonic regurgitation. The aortic root size is normal. The inferior vena cava is dilated with no significant inspiratory collapse which is consistent estima champ right atrial pressure of >15 mmHg. There is no pericardial effusion. CONCLUSIONS -------- 1. The left ventricular size is normal. 2. Left ventricular wall thickness is normal. 3. Overall left ventricular systolic function is normal with, an EF between 55 - 60 %. 4. The right ventricle is mildly enlarged. 5. LA is midly dilated 29-33ml/m2. 6. Trace amount of aortic regurgitation. 7. Mild tricuspid regurgitation present. 8. There is moderate pulmonary hypertension. 9. The right ventricular systolic pressure, as measured by Doppler, is 51.02mmHg. 10. Trace/mild (physiologic) pulmonic regurgitation. 11. The inferior vena cava is dilated with no significant inspiratory collapse which is consistent es timated right atrial pressure of >15 mmHg. 12. There is no pericardial effusion. TIRE SPECIALIST: Tena Durant RDCS
--- NOTE | 2021-09-11 13:58 | P.PN ---
Subjective Progress Note Date: 09/11/21 History of Present Illness H&P Date: 09/10/21 The patient is a 53-year-old male with a PMH of BPH and chronic lower back pain, who presents to the emergency room with complaints of lower extremity swelling. The patient reports that over the past 2-3 days, he has noticed that his legs, scrotum, and abdomen have been gradually becoming swollen and distended. He als o reports decreased urine output during this time. He denied any history of congestive heart failure. Reports experiencing PND but denied orthopnea. Denies fainting dysuria, urgency. Denied abdominal pain, chest discomfort, palpitations, nausea, vomiting, abdominal pain, diarrhea. Denied cough, fever, chills. Chest x-ray was unremarkable. With EKG showing sinus rhythm with sinus arrhythmia at 66 bpm. Laboratory evaluation was remarkable for WBC count of 19.1, troponin 0.080, proBNP 1240, TSH 0.3, free T4 0.64, glucose 157, and an unremarkable UA. Objective - Vital Signs Vital signs: Vital Signs Temp 98.0 F 09/11/21 08:06 Pulse 64 09/11/21 13:07 Resp 18 09/11/21 12:00 BP 153/85 09/11/21 12:00 Pulse Ox 95 09/11/21 12:00 Intake & Output 09/10/21 09/11/21 09/11/21 18:59 06:59 18:59 Intake Total 970 Output Total 1900 Balance 970 -1900 Weight 97.522 kg 101.7 kg Intake: Oral 970 Output: Urine 1900 Other: Voiding Method Toilet Toilet Urinal # Voids 2 - Exam General: non toxic, no distress, appears at stated age Derm: warm, dry Head: atraumatic, normocephalic, symmetric Eyes: EOMI, no lid lag, anicteric sclera Mouth: no lip lesion, mucus membranes moist Cardiovascular: S1S2 reg, no murmur, positive posterior tibial pulse bilateral, Lungs: CTA bilateral, no rhonchi, no rales , no accessory muscle use Abdominal: soft, nontender to palpation, no guarding, no appreciable organomegaly Ext: no gross muscle atrophy, 1+ pitting edema bilaterally, no contractures Neuro: CN II-XI grossly intact, no focal neuro deficits Psych: Alert, oriented, appropriate affect - Labs CBC & Chem 7: 09/11/21 08:32 09/11/21 08:32 Labs: Abnormal Lab Results - Last 24 Hours (Table) 09/10/21 09/10/21 09/10/21 Range/Units 14:41 14:41 14:41 WBC 19.1 H (3.8-10.6) k/uL Plt Count (150-450) k/uL Neutrophils # 17.0 H (1.3-7.7) k/uL Lymphocytes # 0.8 L (1.0-4.8) k/uL Monocytes # 1.1 H (0-1.0) k/uL Potassium (3.5-5.1) mmol/L Carbon Dioxide 31 H (22-30) mmol/L BUN 22 H (9-20) mg/dL Creatinine 0.61 L (0.66-1.25) mg/dL Glucose 157 H (74-99) mg/dL Magnesium (1.6-2.3) mg/dL ALT 65 H (4-49) U/L Troponin I 0.080 H* (0.000-0.034) ng/mL TSH (0.465-4.680) mIU/L Free T4 (0.78-2.19) ng/dL Urine Protein (Negative) Amorphous Sediment (None) /hpf Urine Mucus (None) /hpf 09/10/21 09/10/21 09/11/21 Range/Units 15:45 18:57 01:05 WBC (3.8-10.6) k/uL Plt Count (150-450) k/uL Neutrophils # (1.3-7.7) k/uL Lymphocytes # (1.0-4.8) k/uL Monocytes # (0-1.0) k/uL Potassium (3.5-5.1) mmol/L Carbon Dioxide (22-30) mmol/L BUN (9-20) mg/dL Creatinine (0.66-1.25) mg/dL Glucose (74-99) mg/dL Magnesium 2.6 H (1.6-2.3) mg/dL ALT (4-49) U/L Troponin I 0.054 H* (0.000-0.034) ng/mL TSH 0.300 L (0.465-4.680) mIU/L Free T4 0.64 L (0.78-2.19) ng/dL Urine Protein Trace H (Negative) Amorphous Sediment Rare H (None) /hpf Urine Mucus Rare H (None) /hpf 09/11/21 09/11/21 Range/Units 08:32 08:32 WBC 15.9 H (3.8-10.6) k/uL Plt Count 143 L (150-450) k/uL Neutrophils # (1.3-7.7) k/uL Lymphocytes # (1.0-4.8) k/uL Monocytes # (0-1.0) k/uL Potassium 3.3 L (3.5-5.1) mmol/L Carbon Dioxide 36 H (22-30) mmol/L BUN (9-20) mg/dL Creatinine (0.66-1.25) mg/dL Glucose 104 H (74-99) mg/dL Magnesium 2.4 H (1.6-2.3) mg/dL ALT (4-49) U/L Troponin I (0.000-0.034) ng/mL TSH (0.465-4.680) mIU/L Free T4 (0.78-2.19) ng/dL Urine Protein (Negative) Amorphous Sediment (None) /hpf Urine Mucus (None) /hpf Assessment and Plan Assessment: Assessment and plan: Bilateral lower extremity edema, suspected CHF -Echocardiogram showed EF 55-60% with normal systolic function. Right ventricular is mildly enlarged. Left atrium is mildly dilated. Trace amount of regurgitation. Mild tricuspid regurgitation. Moderate pulmonary hypertension. Right ventricular systolic pressure is 51 mm -Cardiology following -Resume diuresis per cardiology -Due to the finding on echo we need to rule out PE. We'll Order CT of the chest and lower extremity venous Doppler -Cardiac monitoring Elevated troponin -Patient denies any chest pain or shortness of breath. With the Lorcet swelling order venous Doppler lower extremities and order CT of the chest to rule out PE -Cardiac monitoring Leukocytosis -Unclear etiology. Patient afebrile. Could be reactive secondary to above -Improving -F/u blood cultures -Monitor CBC for now Low TSH and Free T4 -Suspected due to euthyroid sick syndrome -Obtain repeat TSH prior to discharge Chronic back pain -Patient was restarted on Neurontin. He stated that he was having withdrawal symptoms since he was off gabapentin for 1 week and this may be caused his above symptoms DVT prophylaxis -Heparin subq The patient is admitted with an anticipated greater than 2 midnight stay for evaluation of LE edema CODE STATUS: Full Code Discussed with: Patient
--- NOTE | 2021-09-11 14:35 | P.CRDCN ---
History of Present Illness Consult date: 09/11/21 History of present illness: History of present illness: This is a 55-year-old male with past medical history of chronic back pain, obstructive sleep apnea, benign prostatic hypertrophy, tobacco use and dependence. Patient gives history over the past 3 days of having edema to his face, abdomen and legs and that his blood pressure was elevated. He thought it was related to worsening of his chronic back pain. He denies any chest pain. States he had an episode of palpitations that lasted for about 1 hour and went away and then subsequently had a couple episodes that were brief. He is also concerned that he had decreased urine output over the past 3 days. Yesterday morning he woke up and his arms "felt weird" and he came into the hospital for further evaluation. EKG sinus rhythm WBC 19.1, hemoglobin 14.2. CO2 31, BUN 22 creatinine 0.61. Magnesium 2.6. Ot her electrolytes within normal limits. AST 28, ALT 65 and alkaline phosphatase 51. Troponin 0.080 and 0.054. ProBNP 1240. TSH 0.3 and free T4 0.64. Echocardiogram reveals EF of 55-60%, trace aortic regurgitation, mild tricuspid regurgitation, moderate pulmonary hypertension, RVSP 51.02 mmHg. Inferior vena cava dilated with no significant respiratory collapse which is consistent with right arterial pressure greater than 15 mmHg. Chest x-ray reveals no definite acute pulmonary abnormality Review Of Systems: Constitutional: No fever, no chills. No weakness, fatigue or lethargy. EENT: No headache. No dizziness. reports facial edema Lungs: No shortness of breath, cough, no sputum production. No wheezing. Cardiovascular: No chest pain, reports lower extremity edema. No palpitatio ns. No paroxysmal nocturnal dyspnea. No orthopnea. No lightheadedness or dizziness. No syncopal episodes. Abdominal: No abdominal pain. No nausea, vomiting. No diarrhea. No constipation. No bloody or tarry stools.. No loss of appetite. Genitourinary: No dyuria, reports decreased urine output. No urinary retention. Musculoskeletal: No myalgias. No muscle weakness, no gait dysfunction, no frequent falls. No back pain. No neck pain. Integumentary: No wounds, no lesions. No rash or pruritus. No unusual bruising. Neurologic: No aphasia. No facial droop. No change in mentation. No head injury. No headache. No paralysis. No paresthesia. Psychiatric: No depression. No anxiety. Endocrine: No abnormal blood sugars. Physical examination: Gen: This is a a 55-year-old male. He is resting in bed and appears to be comfortable and in no acute distress. HEENT: Head is atraumatic, normocephalic. Pupils equal, round. Sclerae is anicteric. NECK: Supple. No JVD. No lymphadenopathy. No thyromegaly. LUNGS: Clear to auscultation. No wheezes or rhonchi. No intercostal retrac tions. HEART: Regular rate and rhythm. No murmur. ABDOMEN: Soft. Bowel sounds are present. No masses. No tenderness. EXTREMITIES: 1+ pedal edema. No calf tenderness. NEUROLOGICAL: Patient is awake, alert and oriented x3. Cranial nerves 2 through 12 are grossly intact. Assessment: Edema and possible ascites of unclear etiology, no clear signs of heart failure Palpitations Decreased urine output without renal failure Elevated troponins without chest pain Abnormal TSH and free T4 Moderate pulmonary hypertension Plan: Patient is currently on Lasix 40 mg IV every 12 hours Monitor I&O and daily weights Monitor renal function and electrolytes Further recommendations to follow based upon clinical course Thank you kindly for this consultation. Nurse practitioner note has been reviewed, I agree with documented findings and plan of care. Patient was seen and examined. Past Medical History Past Medical History: Musculoskeletal Disorder, Prostate Disorder, Sleep Apnea/CPAP/BIPAP Additional Past Medical History / Comment(s): apnea implant, back & leg pain related to herniated discs History of Any Multi-Drug Resistant Organisms: None Reported Additional Past Surgical History / Comment(s): epidural pain procedures, colonoscopy Past Anesthesia/Blood Transfusion Reactions: No Reported Reaction Past Psychological History: Depression Smoking Status: Current every day smoker Past Alcohol Use History: None Reported Additional Past Alcohol Use History / Comment(s): down to <ppd for 30 years Past Drug Use History: None Reported - Past Family History Brother(s) Family Medical History: Cancer Medications and Allergies Home Medications Medication Instructions Recorded Confirmed Type PARoxetine [Paxil] 20 mg PO DAILY 11/26/18 09/10/21 History traMADol HCL [Ultram] 50 mg PO TID PRN 11/26/18 09/10/21 History Tamsulosin HCl [Flomax] 0.4 mg PO DAILY #30 cap 11/29/18 09/10/21 Rx Gabapentin 300 mg PO BID 09/10/21 09/10/21 History Lidocaine 5% Patch [Lidoderm 5% 1 patch TOPICAL DAILY 09/10/21 09/10/21 History Patch] Allergies Allergy/AdvReac Type Severity Reaction Status Date / Time No Known Allergies Allergy Verified 09/10/21 16:34 Physical Exam Vitals: Vital Signs Temp Pulse Pulse Resp BP BP Pulse Ox 09/11/21 08:06 98.0 F 61 18 156/82 95 09/11/21 04:00 58 L 16 167/80 95 09/11/21 00:00 69 16 149/70 94 L 09/10/21 21:37 70 16 164/93 95 09/10/21 19:40 98.5 F 68 18 137/67 93 L 09/10/21 16:38 67 16 157/91 93 L 09/10/21 15:14 72 16 170/96 95 09/10/21 14:25 98.5 F 74 20 171/89 96 Intake and Output 09/10/21 09/11/21 09/11/21 22:59 06:59 14:59 Intake Total 485 485 Output Total 900 Balance 485 485 -900 Intake: Oral 485 485 Output: Urine 900 Other: Voiding Method Toilet Toilet Toilet Urinal # Voids 1 2 Weight 97.522 kg 101.7 kg Results 09/11/21 08:32 09/11/21 08:32 Cardiac Enzymes 09/10/21 09/10/21 09/11/21 Range/Units 14:41 14:41 01:05 AST 28 (17-59) U/L Troponin I 0.080 H* 0.054 H* (0.000-0.034) ng/mL CBC 09/10/21 09/11/21 Range/Units 14:41 08:32 WBC 19.1 H 15.9 H (3.8-10.6) k/uL RBC 4.44 4.46 (4.30-5.90) m/uL Hgb 14.2 14.2 (13.0-17.5) gm/dL Hct 42.6 43.3 (39.0-53.0) % Plt Count 151 143 L (150-450) k/uL Comprehensive Metabolic Panel 09/10/21 09/11/21 Range/Units 14:41 08:32 Sodium 140 142 (137-145) mmol/L Potassium 3.9 3.3 L (3.5-5.1) mmol/L Chloride 104 101 (98-107) mmol/L Carbon Dioxide 31 H 36 H (22-30) mmol/L BUN 22 H 19 (9-20) mg/dL Creatinine 0.61 L 0.70 (0.66-1.25) mg/dL Glucose 157 H 104 H (74-99) mg/dL Calcium 8.5 8.6 (8.4-10.2) mg/dL AST 28 (17-59) U/L ALT 65 H (4-49) U/L Alkaline Phosphatase 51 (38-126) U/L Total Protein 6.3 (6.3-8.2) g/dL Albumin 4.0 (3.5-5.0) g/dL Current Medications Generic Name Dose Route Start Last Admin Trade Name Freq PRN Reason Stop Dose Admin Furosemide 40 mg 09/11/21 05:00 09/11/21 10:38 Furosemide 10 Mg/Ml 4 Ml Vial IV 40 mg Q12HR AL Administration Gabapentin 300 mg 09/10/21 23:30 09/11/21 08:07 Gabapentin 300 Mg Cap PO 300 mg BID AL Administration Paroxetine HCl 20 mg 09/11/21 09:00 09/11/21 08:07 Paroxetine 20 Mg Tab PO 20 mg DAILY AL Administration Tamsulosin HCl 0.4 mg 09/11/21 09:00 09/11/21 08:07 Tamsulosin 0.4 Mg Cap.Er.24h PO 0.4 mg DAILY AL Administration Tramadol HCl 50 mg 09/10/21 22:48 09/11/21 08:07 Tramadol 50 Mg Tab PO 50 mg TID PRN Administration Pain Intake and Output 09/10/21 09/11/21 09/11/21 22:59 06:59 14:59 Intake Total 485 485 Output Total 900 Balance 485 485 -900 Intake: Oral 485 485 Output: Urine 900 Other: Voiding Method Toilet Toilet Toilet Urinal # Voids 1 2 Weight 97.522 kg 101.7 kg 09/11/21 08:32 09/11/21 08:32
--- NOTE | 2021-09-11 15:00 | CT ---
EXAMINATION TYPE: CT chest angio for PE DATE OF EXAM: 09/11/2021 COMPARISON: None HISTORY: Exertional dyspnea. CT DLP: 542.6 mGycm Automated exposure control for dose reduction was used. CONTRAST: Performed with IV Contrast, patient injected with 100ml mL of Isovue 370. There are Three-D postprocessed images. Images obtained from the thoracic inlet to the diaphragm with IV contrast. There is no mediastinal adenopathy. Thoracic aorta is intact. There is no evidence of aneurysm or dis section. Heart size is normal. There is no pericardial effusion. There is normal contrast opacificati on of the pulmonary arteries. No filling defect. There is small right pleural effusion. There is lobulated soft tissue mass measuring almost 3 cm in the posterior segment of the left upper lobe. There is a small 2.5 x 0.5 cm linear infiltrate in the lateral aspect of the left upper lobe. The bon y thorax is intact. There is no compression fracture. Sternum is intact. IMPRESSION: No evidence of pulmonary embolism. Masslike infiltrate left upper lobe suspicious for tumor. Follow-up is recommended. Small right pleural effusion and right basilar atelectasis.
--- NOTE | 2021-09-11 15:39 | US ---
EXAMINATION TYPE: US venous doppler duplex LE DATE OF EXAM: 09/11/2021 2:51 PM COMPARISON: NONE CLINICAL HISTORY: Swelling. Swelling. No hx of DVT. Patient does not take blood thinners. SIDE PERFORMED: Bilateral TECHNIQUE: The lower extremity deep venous system is examined utilizing real time linear array sonog brandon with graded compression, doppler sonography and color-flow sonography. VESSELS IMAGED: Common Femoral Vein Deep Femoral Vein Greater Saphenous Vein * Femoral Vein Popliteal Vein Small Saphenous Vein * Proximal Calf Veins (* superficial vessels) Right Leg: No evidence of DVT in veins imaged. Left Leg: No evidence of DVT in veins imaged. IMPRESSION: No evidence of deep vein thrombosis in both legs.
[2021-09-11] MEDS: ACETAMINOPHEN TAB 325 MG TAB PO PRN (17:12)
[2021-09-12] MEDS: FUROSEMIDE 10 MG/ML 4 ML VIAL IV SCH (07:46)
[2021-09-12] MEDS: TAMSULOSIN 0.4 MG CAP.ER.24H PO SCH (07:47)
[2021-09-12] MEDS: SPIRONOLACTONE 25 MG TAB PO SCH (07:47)
[2021-09-12] MEDS: GABAPENTIN 300 MG CAP PO SCH ×2 (07:47→20:26)
[2021-09-12] MEDS: PARoxetine 20 MG TAB PO SCH (07:47)
[2021-09-12] MEDS: traMADol 50 MG TAB PO PRN ×3 (07:47→22:41)
[2021-09-12 11:11] LABS: Basophils % (A) 0 %; Eosinophils % (A) 0 %; HCT 46.4 % (39.0-53.0); HGB 15.1 gm/dL (13.0-17.5); Lymphocytes # (A) 0.9 k/uL (1.0-4.8); Lymphocytes % (A) 5 %; MCHC 32.5 g/dL (31.0-37.0); MCV 95.3 fL (80.0-100.0); Mean Platelet Volume 9.6; Monocytes # (A) 1.6 k/uL (0-1.0); Monocytes % (A) 9 %; Neutrophils # (A) 14.9 k/uL (1.3-7.7); Neutrophils % (A) 84 %; Platelet Count 144 k/uL (150-450); RBC 4.87 m/uL (4.30-5.90); RDW 13.7 % (11.5-15.5); WBC 17.7 k/uL (3.8-10.6)
[2021-09-12] MEDS ORDERED: bisacodyL 5 MG TABLET.DR PO PRN (11:13)
[2021-09-12] MEDS ORDERED: MAGNESIUM HYDROXIDE 2,400 MG/10 ML CUP PO PRN (11:13)
[2021-09-12 11:42] LABS: ALT 67 U/L (4-49); AST 27 U/L (17-59); African American GFR (CKD) >90 (>60 ml/min/1.73 sqM); Alkaline Phosphatase 53 U/L (38-126); Anion Gap 7 mmol/L; Blood Urea Nitrogen 27 mg/dL (9-20); Calcium 8.5 mg/dL (8.4-10.2); Carbon Dioxide 39 mmol/L (22-30); Chloride 94 mmol/L (98-107); Glucose 90 mg/dL (74-99); Magnesium 2.3 mg/dL (1.6-2.3); Non-African American GFR(CKD) >90 (>60 ml/min/1.73 sqM); Sodium 140 mmol/L (137-145); Total Bilirubin 0.6 mg/dL (0.2-1.3); Total Protein 6.6 g/dL (6.3-8.2)
[2021-09-12 11:43] LABS: Potassium 2.7 mmol/L (3.5-5.1)
[2021-09-12] MEDS ORDERED: Potassium Replacement Protocol 1 EACH MISC MISCELLANE PRN (12:05)
[2021-09-12] MEDS: POTASSIUM CHLORIDE ER 20 MEQ TAB.ER PO SCH ×2 (12:10→14:10)
--- NOTE | 2021-09-12 12:11 | P.PN ---
Subjective Progress Note Date: 09/12/21 History of present illness: This is a 55-year-old male with past medical history of chronic back pain, obst ructive sleep apnea, benign prostatic hypertrophy, tobacco use and dependence. Patient gives history over the past 3 days of having edema to his face, abdomen and legs and that his blood pressure was elevated. He thought it was related to worsening of his chronic back pain. He denies any chest pain. States he had an episode of palpitations that lasted for about 1 hour and went away and then ndiaye bsequently had a couple episodes that were brief. He is also concerned that he had decreased urine output over the past 3 days. Yesterday morning he woke up and his arms "felt weird" and he came into the hospital for further evaluation. EKG sinus rhythm WBC 19.1, hemoglobin 14.2. CO2 31, BUN 22 creatinine 0.61. Magnesium 2.6. Other electrolytes within normal limits. AST 28, ALT 65 and alkaline phosphatase 51. Troponin 0.080 and 0.054. ProBNP 1240. TSH 0.3 and free T4 0.64. Echocardiogram reveals EF of 55-60%, trace aortic regurgitation, mild tricuspid regurgitation, moderate pulmonary hypertension, RVSP 51.02 mmHg. Inferior vena cava dilated with no significant respiratory collapse which is consistent with right arterial pressure greater than 15 mmHg. Chest x-ray reveals no definite acute pulmonary abnormality 09/12/2021 Overall edema is improving and patient has been urinating well on IV Lasix. He denies having any shortness of breath. Patient is complaining of constipation. monitoring tech is sinus rhythm. Patient will be started on Aldactone 12.5 mg daily. He is currently on Lasix 40 mg IV every 12 hours. Potassium is 2.7 and will be replaced with potassium 40 mEq 2. Recheck potassium tomorrow anticipate this will be improved with the addition of Aldactone. Reviewed results of CTA with the patient and recommended pulmonary consultation for further workup. CTA of the chest revealed no evidence of pulmonary embolism. Masslike infi ltrate left upper lobe suspicious for tumor. Ultrasound of lower extremities negative for DVT bilaterally. Physical examination: Gen: This is a a 55-year-old male. He is resting in bed and appears to be comfortable and in no acute distress. HEENT: Head is atraumatic, normocephalic. Pupils equal, round. Sclerae is anicteric. NECK: Supple. No JVD. No lymphadenopathy. No thyromegaly. LUNGS: Clear to auscultation. No wheezes or rhonchi. No intercostal retractions. HEART: Regular rate and rhythm. No murmur. ABDOMEN: Soft. Bowel sounds are present. No masses. No tenderness. EXTREMITIES: Trace bilateral pedal edema. No calf tenderness. NEUROLOGICAL: Patient is awake, alert and oriented x3. Cranial nerves 2 through 12 are grossly intact. Assessment: Edema and possible ascites of unclear etiology, no clear signs of heart failure Palpitations Decreased urine output without renal failure Elevated troponins without chest pain Abnormal TSH and free T4 Moderate pulmonary hypertension Masslike infiltrate left upper lobe suspicious for tumor on CT Plan: Patient is currently on Lasix 40 mg IV every 12 hours Add Aldactone 12.5 mg daily Replace potassium Monitor I&O and daily weights Monitor renal function and electrolytes Recommend pulmonary medicine evaluation for abnormal CAT scan results Further recommendations to follow based upon clinical course Thank you kindly for this consultation. Nurse practitioner note has been reviewed, I agree with documented findings and plan of care. Patient was seen and examined. Objective - Vital Signs Vital signs: Vital Signs Temp 98.7 F 09/12/21 07:43 Pulse 69 09/12/21 08:00 Resp 18 09/12/21 07:43 BP 145/68 09/12/21 07:43 Pulse Ox 94 L 09/12/21 07:43 Intake & Output 09/11/21 09/12/21 09/12/21 18:59 06:59 18:59 Intake Total 485 Output Total 3300 1900 Balance -3300 -1415 Weight 96.5 kg Intake: Oral 485 Output: Urine 3300 1900 Other: Voiding Method Toilet Urinal Urinal Urinal - Labs CBC & Chem 7: 09/12/21 10:26 09/12/21 10:26 Labs: Abnormal Lab Results - Last 24 Hours (Table) 09/11/21 09/11/21 Range/Units 15:15 15:15 D-Dimer 1.87 H (<0.60) mg/L FEU TSH 0.195 L (0.465-4.680) mIU/L Microbiology - Last 24 Hours (Table) 09/10/21 19:25 Blood Culture - Preliminary Blood No Growth after 24 hours 09/10/21 19:10 Blood Culture - Preliminary Blood No Growth after 24 hours
[2021-09-12] MEDS ORDERED: POTASSIUM CHLORIDE ER 20 MEQ TAB.ER PO SCH (13:00)
--- NOTE | 2021-09-12 14:36 | P.CNPUL ---
History of Present Illness Consult date: 09/12/21 Reason for consult: lung mass History of present illness: [age]-year-old male patient was admitted to the hospital because of increased edema and swelling of the face abdomen and legs and elevated blood pressure. The patient is a chronic smoker. No angina. No palpitation. He has some chronic exertional dyspnea. He was having several episodes of palpitation also. He came into the hospital and his EKG was in normal sinus rhythm. The patient white cell count was at 19.0 with hemoglobin 14.2 and a serum bicarb of 31 with a mean of 22 and a creatinine of 0.6. LFTs were nonelevated. Troponin was at 0.08 and 0.05 respectively and the proBNP level was 1240. The patient had a TSH of 0.3 with a free T4 of 0.64. At the same time, the echo of the heart showed a preserved LV function with an EF around 55-60% and the patient has a mild MR, mild TR, moderate degree of pulmonary hypertension with a PA pressure of 51. The patient had signs of right ventricular overload with absence of IVC collapsibility with inspiration. Chest x-ray showed no acute abnormalities. CT angiogram of the chest was done that showed no evidence of any pulmonary embolism. Nevertheless, a note was made of a 3 cm lesion in the left upper lobe there was quite suspicious for tumor. There is also some background COPD. No significant mediastinal lymphadenopathy. Small right-sided pleural effusion was also noted. Review of Systems Constitutional: No fever, no chills. No weakness, fatigue or lethargy. EENT: No headache. No dizziness. reports facial edema Lungs: No shortness of breath, cough, no sputum production. No wheezing. Cardiovascular: No chest pain, reports lower extremity edema. No palpitations. No paroxysmal nocturnal dyspnea. No orthopnea. No lightheadedness or dizziness. No syncopal episodes. Abdominal: No abdominal pain. No nausea, vomiting. No diarrhea. No constipation. No bloody or tarry stools.. No loss of appetite. Genitourinary: No dyuria, reports decreased urine output. No urinary retention. Musculoskeletal: No myalgias. No muscle weakness, no gait dysfunction, no frequent falls. No back pain. No neck pain. Integumentary: No wounds, no lesions. No rash or pruritus. No unusual bruising. Neurologic: No aphasia. No facial droop. No change in mentation. No head injury. No headache. No paralysis. No paresthesia. Psychiatric: No depression. No anxiety. Endocrine: No abnormal blood sugars. Past Medical History Past Medical History: Musculoskeletal Disorder, Prostate Disorder, Sleep Apnea/CPAP/BIPAP Additional Past Medical History / Comment(s): apnea implant, back & leg pain related to herniated discs History of Any Multi-Drug Resistant Organisms: None Reported Additional Past Surgical History / Comment(s): epidural pain procedures, colonoscopy Past Anesthesia/Blood Transfusion Reactions: No Reported Reaction Past Psychological History: Depression Smoking Status: Current every day smoker Past Alcohol Use History: None Reported Additional Past Alcohol Use History / Comment(s): down to <ppd for 30 years Past Drug Use History: None Reported - Past Family History Brother(s) Family Medical History: Cancer Medications and Allergies Home Medications Medication Instructions Recorded Confirmed Type PARoxetine [Paxil] 20 mg PO DAILY 11/26/18 09/10/21 History traMADol HCL [Ultram] 50 mg PO TID PRN 11/26/18 09/10/21 History Tamsulosin HCl [Flomax] 0.4 mg PO DAILY #30 cap 11/29/18 09/10/21 Rx Gabapentin 300 mg PO BID 09/10/21 09/10/21 History Lidocaine 5% Patch [Lidoderm 5% 1 patch TOPICAL DAILY 09/10/21 09/10/21 History Patch] Allergies Allergy/AdvReac Type Severity Reaction Status Date / Time No Known Allergies Allergy Verified 09/10/21 16:34 Physical Exam Vitals: Vital Signs Temp Pulse Resp BP Pulse Ox 09/12/21 11:10 65 18 154/83 93 L 09/12/21 08:00 69 09/12/21 07:43 98.7 F 69 18 145/68 94 L 09/12/21 04:00 97.8 F 60 16 148/75 95 09/12/21 02:00 62 16 09/12/21 00:00 98.2 F 62 16 137/66 96 09/11/21 20:00 98.4 F 52 L 16 148/74 98 09/11/21 15:21 98.6 F 76 18 143/67 95 Intake and Output 09/11/21 09/12/21 09/12/21 22:59 06:59 14:59 Intake Total 485 Output Total 2700 600 1400 Balance -8230 -863 -4648 Intake: Oral 485 Output: Urine 2700 600 1400 Other: Voiding Method Toilet Urinal Urinal Urinal Weight 96.5 kg Gen: This is a a 55-year-old male. He is resting in bed and appears to be comfortable and in no acute distress. The patient is currently on room air oxygen with a pulse ox of 93%. Blood pressure is under adequate control with a most recent BP is 154/83 Head exam was generally normal. There was no scleral icterus or corneal arcus. Mucous membranes were moist. HEENT: Head is atraumatic, normocephalic. Pupils equal, round. Sclerae is anicteric. NECK: Supple. No JVD. No lymphadenopathy. No thyromegaly. LUNGS: Clear to auscultation. No wheezes or rhonchi. No intercostal retractions. HEART: Regular rate and rhythm. No murmur. ABDOMEN: Soft. Bowel sounds are present. No masses. No tenderness. EXTREMITIES: 1+ pedal edema. No calf tenderness. Examination of the skin revealed no evidence of significant rashes, suspicious appearing nevi or other concerning lesions. NEUROLOGICAL: Patient is awake, alert and oriented x3. Cranial nerves 2 through 12 are grossly intact. Results - Laboratory Findings CBC and BMP: 09/12/21 10:26 09/12/21 10:26 PT/INR, D-dimer D-Dimer 1.87 mg/L FEU (<0.60) H 09/11/21 15:15 Abnormal lab findings: Abnormal Labs 09/10/21 09/10/21 09/10/21 14:41 14:41 14:41 WBC 19.1 H Plt Count Neutrophils # 17.0 H Lymphocytes # 0.8 L Monocytes # 1.1 H D-Dimer Potassium Chloride Carbon Dioxide 31 H BUN 22 H Creatinine 0.61 L Glucose 157 H Magnesium ALT 65 H Troponin I 0.080 H* TSH Free T4 Urine Protein Amorphous Sediment Urine Mucus 09/10/21 09/10/21 09/11/21 15:45 18:57 01:05 WBC Plt Count Neutrophils # Lymphocytes # Monocytes # D-Dimer Potassium Chloride Carbon Dioxide BUN Creatinine Glucose Magnesium 2.6 H ALT Troponin I 0.054 H* TSH 0.300 L Free T4 0.64 L Urine Protein Trace H Amorphous Sediment Rare H Urine Mucus Rare H 09/11/21 09/11/21 09/11/21 08:32 08:32 15:15 WBC 15.9 H Plt Count 143 L Neutrophils # Lymphocytes # Monocytes # D-Dimer 1.87 H Potassium 3.3 L Chloride Carbon Dioxide 36 H BUN Creatinine Glucose 104 H Magnesium 2.4 H ALT Troponin I TSH Free T4 Urine Protein Amorphous Sediment Urine Mucus 09/11/21 09/12/21 09/12/21 15:15 10:26 10:26 WBC 17.7 H Plt Count 144 L Neutrophils # 14.9 H Lymphocytes # 0.9 L Monocytes # 1.6 H D-Dimer Potassium 2.7 L* Chloride 94 L Carbon Dioxide 39 H BUN 27 H Creatinine Glucose Magnesium ALT 67 H Troponin I TSH 0.195 L Free T4 Urine Protein Amorphous Sediment Urine Mucus - Diagnostic Findings Chest x-ray: image reviewed CT scan - chest: image reviewed Assessment and Plan Plan: 1 left upper lobe related mass measuring 3 cm in size, high likelihood for malignancy 2 COPD with some scattered bilateral emphysematous changes as evident on the CAT scan of the chest, no signs of any acute exacerbation this point in time 3 hypertension 4 moderate degree of pulmonary hypertension based on echocardiogram with preserved LV function 5 obstructive sleep apnea. 6 BPH 7 chronic back pain 8 smoker Plan Obtain a CAT scan of the abdomen and pelvis to rule out any intra- abdominal/pelvic mass contributing to his abdominal and lower oximetry edema. I've already discussed the finding of the CAT scan of the chest with the patient did of visit is a concern for malignancy based on the CAT scan findings. My recommendation essentially is outpatient follow-up on this abnormality. The patient will need further investigation including PFT, PET scan and depending on those findings we'll make further decision if a biopsy is needed. For now, continue optimizing this patient volume status. Patient is being subjected to diuresis. Replace potassium. Continue diuretics. Control blood pressure. Smoking cessation counseling was done. We'll continue to follow.
[2021-09-12] MEDS: IOPAMIDOL CONTRAST (ORAL USE) VIAL PO PRN ×2 (15:04→15:59)
--- NOTE | 2021-09-12 16:55 | P.PN ---
Subjective Progress Note Date: 09/12/21 History of Present Illness H&P Date: 09/10/21 The patient is a 53-year-old male with a PMH of BPH and chronic lower back pain, who presents to the emergency room with complaints of lower extremity swelling. The patient reports that over the past 2-3 days, he has noticed that his legs, scrotum, and abdomen have been gradually becoming swollen and distended. He als o reports decreased urine output during this time. He denied any history of congestive heart failure. Reports experiencing PND but denied orthopnea. Denies fainting dysuria, urgency. Denied abdominal pain, chest discomfort, palpitations, nausea, vomiting, abdominal pain, diarrhea. Denied cough, fever, chills. Chest x-ray was unremarkable. With EKG showing sinus rhythm with sinus arrhythmia at 66 bpm. Laboratory evaluation was remarkable for WBC count of 19.1, troponin 0.080, proBNP 1240, TSH 0.3, free T4 0.64, glucose 157, and an unremarkable UA. Interval history: September 12 she was seen and examined at the bedside. Computed tomography scan of the chest yesterday showed 3 cm lobular soft tissue mass suspicious for malignancy. Pulmonary consulted and he ordered a computed tomography scan of the abdomen to rule out intra-abdominal malignancy that could explain his lower extremity edema. Patient denies any chest pain or shortness of breath. Potassium today 2.7 Objective - Vital Signs Vital signs: Vital Signs Temp 98.4 F 09/12/21 15:15 Pulse 66 09/12/21 15:15 Resp 18 09/12/21 15:15 BP 147/73 09/12/21 15:15 Pulse Ox 93 L 09/12/21 15:15 Intake & Output 09/11/21 09/12/21 09/12/21 18:59 06:59 18:59 Intake Total 485 Output Total 3300 1900 1400 Balance -3300 -1415 -1400 Weight 96.5 kg Intake: Oral 485 Output: Urine 3300 1900 1400 Other: Voiding Method Toilet Urinal Urinal Urinal - Exam General: non toxic, no distress, appears at stated age Derm: warm, dry Head: atraumatic, normocephalic, symmetric Eyes: EOMI, no lid lag, anicteric sclera Mouth: no lip lesion, mucus membranes moist Cardiovascular: S1S2 reg, no murmur, positive posterior tibial pulse bilateral, Lungs: CTA bilateral, no rhonchi, no rales , no accessory muscle use Abdominal: soft, nontender to palpation, no guarding, no appreciable organomegaly Ext: no gross muscle atrophy, 1+ pitting edema bilaterally, no contractures Neuro: CN II-XI grossly intact, no focal neuro deficits Psych: Alert, oriented, appropriate affect - Labs CBC & Chem 7: 09/12/21 10:26 09/12/21 10: Labs: Abnormal Lab Results - Last 24 Hours (Table) 09/12/21 09/12/21 Range/Units 10: 10: WBC 17.7 H (3.8-10.6) k/uL Plt Count 144 L (150-450) k/uL Neutrophils # 14.9 H (1.3-7.7) k/uL Lymphocytes # 0.9 L (1.0-4.8) k/uL Monocytes # 1.6 H (0-1.0) k/uL Potassium 2.7 L* (3.5-5.1) mmol/L Chloride 94 L (98-107) mmol/L Carbon Dioxide 39 H (22-30) mmol/L BUN 27 H (9-20) mg/dL ALT 67 H (4-49) U/L Microbiology - Last 24 Hours (Table) 09/10/21 19:25 Blood Culture - Preliminary Blood No Growth after 24 hours 09/10/21 19:10 Blood Culture - Preliminary Blood No Growth after 24 hours Assessment and Plan Assessment: Assessment and plan: Lung mass -New Finding, 3 cm lobulated soft tissue mass in the left upper lobe suspicious for malignancy -Pulmonary following -CT of the abdomen with contrast ordered to rule out intra-abdominal malignancy that could explain his lower extremity edema Bilateral lower extremity edema -Echocardiogram showed EF 55-60% with normal systolic function. Right ventricular is mildly enlarged. Left atrium is mildly dilated. Trace amount of regurgitation. Mild tricuspid regurgitation. Moderate pulmonary hypertension. Right ventricular systolic pressure is 51 mm -Cardiology following -Resume diuresis per cardiology -Lower extremity Doppler negative for DVT. A CT of the chest was negative for PE but showed evidence of lung mass -Cardiac monitoring Severe hypokalemia -Replaced -Secondary to diuretics -Decrease Lasix to 40 mg by mouth daily Elevated troponin -Patient denies any chest pain or shortness of breath.Computed tomography scan of the chest was negative for PE -Cardiac monitoring Leukocytosis -Could be secondary to malignancy -Pending computed tomography scan of the abdomen -Unclear etiology. Patient afebrile. -F/u blood cultures -Monitor CBC for now Low TSH and Free T4 -Suspected due to euthyroid sick syndrome -Obtain repeat TSH prior to discharge Chronic back pain -Patient was restarted on Neurontin. He stated that he was having withdrawal symptoms since he was off gabapentin for 1 week and this may be caused his above symptoms DVT prophylaxis -Heparin subq The patient is admitted with an anticipated greater than 2 midnight stay for evaluation of LE edema CODE STATUS: Full Code
--- NOTE | 2021-09-12 17:27 | CT ---
EXAMINATION TYPE: CT abdomen pelvis w con DATE OF EXAM: 09/12/2021 COMPARISON: None HISTORY: Abdominal swelling. CT DLP: 1455.9 mGycm Automated exposure control for dose reduction was used. CONTRAST: Performed with IV Contrast, patient injected with 100ml mL of Isovue 300. Images obtained from the diaphragm to the floor the pelvis with oral and IV contrast. Lung bases are clear with infiltrate. No pleural effusion. Heart size is normal. There is no pericard ial effusion. There is some pleural thickening right lung base. Liver and spleen are intact. Stomach is intact. The bile ducts are not dilated. There is no pancreati c mass. Gallbladder appears normal. There is no adrenal mass. Kidneys show satisfactory contrast opacification. There is no hydronephrosi s. Ureters are not dilated. There is no retroperitoneal adenopathy. Bladder distends smoothly. There is no inguinal hernia. There is no free fluid in the pelvis. There is lipoma in the right gluteal mus jamie. There is no mesenteric edema. No ascites or free air. No sign of a bowel obstruction. There is no edna dence of thickened appendix. Lumbar vertebrae have normal alignment. There is no compression fracture. Posterior elements are inta ct. There is mild spur formation. Bony pelvis is intact. The hip joints are intact. There is mild sub cutaneous edema over the posterior lumbar spine. There is mild edema around the umbilicus in the subc utaneous fat. IMPRESSION: There is some mild pleural reaction and thickening at the lateral right lung base. No evidence of renal stone or obstruction. No evidence of appendicitis. Mild subcutaneous edema.
[2021-09-12] MEDS: ACETAMINOPHEN TAB 325 MG TAB PO PRN (18:33)
[2021-09-13 07:55] LABS: Basophils # (A) 0.1 k/uL (0-0.2); Basophils % (A) 1 %; Eosinophils % (A) 0 %; HCT 44.1 % (39.0-53.0); HGB 14.5 gm/dL (13.0-17.5); Lymphocytes % (A) 6 %; MCH 31.2 pg (25.0-35.0); MCHC 32.9 g/dL (31.0-37.0); MCV 95.1 fL (80.0-100.0); Mean Platelet Volume 9.5; Monocytes # (A) 0.8 k/uL (0-1.0); Monocytes % (A) 5 %; Neutrophils # (A) 14.2 k/uL (1.3-7.7); Neutrophils % (A) 87 %; Platelet Count 136 k/uL (150-450); RBC 4.64 m/uL (4.30-5.90); RDW 13.5 % (11.5-15.5); WBC 16.3 k/uL (3.8-10.6)
[2021-09-13 08:17] LABS: ALT 59 U/L (4-49); AST 26 U/L (17-59); African American GFR (CKD) >90 (>60 ml/min/1.73 sqM); Albumin 3.9 g/dL (3.5-5.0); Alkaline Phosphatase 49 U/L (38-126); Anion Gap 7 mmol/L; Blood Urea Nitrogen 18 mg/dL (9-20); Calcium 8.6 mg/dL (8.4-10.2); Carbon Dioxide 35 mmol/L (22-30); Chloride 97 mmol/L (98-107); Glucose 136 mg/dL (74-99); Magnesium 2.4 mg/dL (1.6-2.3); Non-African American GFR(CKD) >90 (>60 ml/min/1.73 sqM); Potassium 3.4 mmol/L (3.5-5.1); Sodium 139 mmol/L (137-145); Total Bilirubin 0.6 mg/dL (0.2-1.3); Total Protein 6.4 g/dL (6.3-8.2)
[2021-09-13] MEDS: TAMSULOSIN 0.4 MG CAP.ER.24H PO SCH (08:27)
[2021-09-13] MEDS: GABAPENTIN 300 MG CAP PO SCH (08:27)
[2021-09-13] MEDS: SPIRONOLACTONE 25 MG TAB PO SCH (08:27)
[2021-09-13] MEDS: PARoxetine 20 MG TAB PO SCH (08:28)
[2021-09-13] MEDS: traMADol 50 MG TAB PO PRN (08:28)
[2021-09-13] MEDS ORDERED: FUROSEMIDE 40 MG TAB PO SCH (09:00)
[2021-09-13] MEDS ORDERED: POTASSIUM CHLORIDE ER 20 MEQ TAB.ER PO STA (09:38)
[2021-09-13] MEDS ORDERED: LOSARTAN 50 MG TAB PO SCH (10:15)
[2021-09-13 11:25] VITALS: BP 163/85; PULSE 63; RESP 16; TEMP 98.1
--- NOTE | 2021-09-13 13:02 | P.PN ---
Subjective This is a 55-year-old male with past medical history of chronic back pain, obstructive sleep apnea, benign prostatic hypertrophy, tobacco use and dep endence. Patient gives history over the past 3 days of having edema to his face, abdomen and legs and that his blood pressure was elevated. He thought it was related to worsening of his chronic back pain. He denies any chest pain. States he had an episode of palpitations that lasted for about 1 hour and went away and then subsequently had a couple episodes that were brief. He is also concerned that he had decreased urine output over the past 3 days. Yesterday morning he woke up and his arms "felt weird" and he came into the hospital for further evaluation. Echocardiogram revealed EF of 55-60%, trace aortic regurgitation, mild tricuspid regurgitation, moderate pulmonary hypertension, RVSP 51.02 mmHg. Inferior vena cava dilated with no significant respiratory collapse which is consistent with right arterial pressure greater than 15 mmHg. Chest x-ray revealed no definite acute pulmonary abnormality 09/13/2021 Patient seen and examined at bedside. Overall edema is improving and patient has been urinating well on IV Lasix. He denies having any shortness of breath. Patient is complaining of constipation. phototypesetting equipment monitor is sinus rhythm. Patient is currently on Lasix PO 40mg daily, Aldactone 12.5 mg daily. Patient with -4715mL fluid balance. CT A/P revealed mild edema around the umbilicus in the subcutaneous fat, mild subcutaneous edema over posterior lumbar spine, pleural thickening in the right lung base, heart size normal PHYSICAL EXAMINATION Gen: This is a a 55-year-old male. He is resting in bed and appears to be comfortable and in no acute distress. GENERAL: Well-appearing, well-nourished and in no acute distress. NECK: Supple without JVD or thyromegaly. LUNGS: Breath sounds clear to auscultation bilaterally. Respiration equal and unlabored. No wheezes, rales or rhonchi. HEART: Regular rate and rhythm without murmurs, rubs or gallops. S1 and S2 heard. EXTREMITIES: Normal range of motion, no edema. No clubbing or cyanosis. Peripheral pulses intact. ASSESSMENT Edema and possible ascites of unclear etiology, no clear signs of heart failure Palpitations Decreased urine output without renal failure Elevated troponins without chest pain Abnormal TSH and free T4 Moderate pulmonary hypertension Masslike infiltrate left upper lobe suspicious for tumor on CT PLAN: Agree with transition to PO lasix Continue Aldactone 12.5 mg daily Replace potassium From cardiology perspective, patient is discharged home. Follow up outpatient with Dr. Veronica Nurse practitioner note has been reviewed, I agree with documented findings and plan of care. Patient was seen and examined. Objective - Vital Signs Vital signs: Vital Signs Temp 98.1 F 09/13/21 11:23 Pulse 63 09/13/21 11:23 Resp 16 09/13/21 11:23 BP 163/85 09/13/21 11:23 Pulse Ox 93 L 09/13/21 11:23 Intake & Output 09/12/21 09/13/21 09/13/21 18:59 06:59 18:59 Intake Total 118 600 Output Total 1400 Balance -1282 600 Weight 97.2 kg Intake: Oral 118 600 Output: Urine 1400 Other: Voiding Method Urinal Urinal # Voids 2 1 - Labs CBC & Chem 7: 09/13/21 07:30 09/13/21 07:30 Labs: Abnormal Lab Results - Last 24 Hours (Table) 09/13/21 09/13/21 Range/Units 07:30 07:30 WBC 16.3 H (3.8-10.6) k/uL Plt Count 136 L (150-450) k/uL Neutrophils # 14.2 H (1.3-7.7) k/uL Potassium 3.4 L (3.5-5.1) mmol/L Chloride 97 L (98-107) mmol/L Carbon Dioxide 35 H (22-30) mmol/L Creatinine 0.64 L (0.66-1.25) mg/dL Glucose 136 H (74-99) mg/dL Magnesium 2.4 H (1.6-2.3) mg/dL ALT 59 H (4-49) U/L Microbiology - Last 24 Hours (Table) 09/10/21 19:25 Blood Culture - Preliminary Blood No Growth after 48 hours 09/10/21 19:10 Blood Culture - Preliminary Blood No Growth after 48 hours
--- NOTE | 2021-09-13 15:00 | P.DS ---
Providers Date of admission: 09/11/21 00:29 Attending physician: Sully Melo MD Consults: 09/10/21 19:14 Consult Physician Urgent Consulting Provider: [facility] Consult Reason/Comments: Elevated troponin, pedal edema Do you want consulting provider notified?: Yes 09/12/21 10:13 Consult Physician Routine Consulting Provider: Pato Ramirez Consult Reason/Comments: mass on CTA Do you want consulting provider notified?: Yes 09/12/21 11:10 Consult Physician Routine Consulting Provider: Pato Ramirez Consult Reason/Comments: lung mass Do you want consulting provider notified?: Yes Primary care physician: [facility] Course: The patient is a 53-year-old male with a PMH of BPH and chronic lower back pain, who presents to the emergency room with complaints of lower extremity swelling. The patient reports that over the past 2-3 days, he has noticed that his legs, scrotum, and abdomen have been gradually becoming swollen and distended. He also reports decreased urine output during this time. He denied any history of congestive heart failure. Reports experiencing PND but denied orthopnea. Denies fainting dysuria, urgency. Denied abdominal pain, chest discomfort, palpitations, nausea, vomiting, abdominal pain, diarrhea. Denied cough, fever, chills. Chest x-ray was unremarkable. With EKG showing sinus rhythm with sinus arrhythmia at 66 bpm. Laboratory evaluation was remarkable for WBC count of 19.1, troponin 0.080, proBNP 1240, TSH 0.3, free T4 0.64, glucose 157, and an unremarkable UA. Interval history: September 12 she was seen and examined at the bedside. Computed tomography scan of the chest yesterday showed 3 cm lobular soft tissue mass suspicious for malignancy. Pulmonary consulted and he ordered a computed tomography scan of the abdomen to rule out intra-abdominal malignancy that could explain his lower extremity edema. Patient denies any chest pain or shortness of breath. Potassium today 2.7 Hospital course in detail the problem list: Left upper lobe Lung mass -New Finding, 3 cm lobulated soft tissue mass in the left upper lobe suspicious for malignancy -Pulmonary following -CT of the abdomen with contrast unremarkable -Pulmonary recommended outpatient follow-up for PET scan and possible biopsy -Pulmonary cleared patient for discharge Bilateral lower extremity edema -Echocardiogram showed EF 55-60% with normal systolic function. Right ventricular is mildly enlarged. Left atrium is mildly dilated. Trace amount of regurgitation. Mild tricuspid regurgitation. Moderate pulmonary hypertension. Right ventricular systolic pressure is 51 mm -Cardiology following -Resume diuresis per cardiology -Lower extremity Doppler negative for DVT. A CT of the chest was negative for PE but showed evidence of lung mass -Cardiac monitoring -Cardiology recommended the patient be discharged on oral Lasix and Aldactone -Patient needs to follow-up with primary care physician within a week to check basic metabolic profile Severe hypokalemia -Replaced -Secondary to diuretics -Decrease Lasix to 40 mg by mouth daily Elevated troponin -Patient denies any chest pain or shortness of breath.Computed tomography scan of the chest was negative for PE -Echo reviewed as above -Cardiology cleared the patient for discharge -Cardiac monitoring Hypertension -Patient started on losartan 50 mg daily -Patient needs to follow with primary care physician within a week to check his blood profile Leukocytosis -Could be secondary to malignancy -Computed tomography scan of the abdomen came back unremarkable -Unclear etiology. Patient afebrile. -Blood culture no growth for 48 hours -PCP to monitor CBC count Low TSH and Free T4 -Suspected due to euthyroid sick syndrome -Obtain repeat TSH prior to discharge Chronic back pain -Patient was restarted on Neurontin. He stated that he was having withdrawal symptoms since he was off gabapentin for 1 week and this may be caused his above symptoms Physical examination on discharge: Gen: This is a a 55-year-old male. He is resting in bed and appears to be comfortable and in no acute distress. GENERAL: Well-appearing, well-nourished and in no acute distress. NECK: Supple without JVD or thyromegaly. LUNGS: Breath sounds clear to auscultation bilaterally. Respiration equal and unlabored. No wheezes, rales or rhonchi. HEART: Regular rate and rhythm without murmurs, rubs or gallops. S1 and S2 heard. EXTREMITIES: Normal range of motion, plus edema bilaterally. No clubbing or cyanosis. Peripheral pulses intact. Patient Condition at Discharge: Stable Plan - Discharge Summary Discharge Rx Participant: Yes New Discharge Prescriptions: New Spironolactone [Aldactone] 12.5 mg PO DAILY #30 tab Furosemide [Lasix] 40 mg PO DAILY #30 tab Losartan [Cozaar] 50 mg PO DAILY #30 tab Continue PARoxetine [Paxil] 20 mg PO DAILY traMADol HCL [Ultram] 50 mg PO TID PRN PRN Reason: Pain Tamsulosin HCl [Flomax] 0.4 mg PO DAILY #30 cap Gabapentin 300 mg PO BID Lidocaine 5% Patch [Lidoderm 5% Patch] 1 patch TOPICAL DAILY Discharge Medication List PARoxetine [Paxil] 20 mg PO DAILY 11/26/18 [History] traMADol HCL [Ultram] 50 mg PO TID PRN 11/26/18 [History] Tamsulosin HCl [Flomax] 0.4 mg PO DAILY #30 cap 11/29/18 [Rx] Gabapentin 300 mg PO BID 09/10/21 [History] Lidocaine 5% Patch [Lidoderm 5% Patch] 1 patch TOPICAL DAILY 09/10/21 [History] Furosemide [Lasix] 40 mg PO DAILY #30 tab 09/13/21 [Rx] Losartan [Cozaar] 50 mg PO DAILY #30 tab 09/13/21 [Rx] Spironolactone [Aldactone] 12.5 mg PO DAILY #30 tab 09/13/21 [Rx] Follow up Appointment(s)/Referral(s): Jt Liang MD [Primary Care Provider] - 1-2 days Acosta Veronica MD [STAFF PHYSICIAN] - 1 Week Pato Ramirez MD [STAFF PHYSICIAN] - 1 Week Patient Instructions/Handouts: Heart Healthy Diet (DC), Positron Emission Tomography Scan (DC) Activity/Diet/Wound Care/Special Instructions: Activities as tolerated. Heart healthy diet on discharge. Follow with primary care physician 1 week to check basic metabolic profile PET scan set-up outpatient for 10/01/21 at 8am - patient has paperwork and pres cription Discharge Disposition: HOME SELF-CARE
--- NOTE | 2021-09-13 15:38 | P.PN ---
Subjective Progress Note Date: 09/13/21 Principal diagnosis: Lung mass [age]-year-old male patient was admitted to the hospital because of increased edema and swelling of the face abdomen and legs and elevated blood pressure. The patient is a chronic smoker. No angina. No palpitation. He has some chronic exertional dyspnea. He was having several episodes of palpitation also. He came into the hospital and his EKG was in normal sinus rhythm. The patient white cell count was at 19.0 with hemoglobin 14.2 and a serum bicarb of 31 with a mean of 22 and a creatinine of 0.6. LFTs were nonelevated. Troponin was at 0.08 and 0.05 respectively and the proBNP level was 1240. The patient had a TSH of 0.3 with a free T4 of 0.64. At the same time, the echo of the heart showed a preserved LV function with an EF around 55-60% and the patient has a mild MR, mild TR, moderate degree of pulmonary hypertension with a PA pressure of 51. The patient had signs of right ventricular overload with absence of IVC collapsibility with inspiration. Chest x-ray showed no acute abnormalities. CT angiogram of the chest was done that showed no evidence of any pulmonary embolism. Nevertheless, a note was made of a 3 cm lesion in the left upper lobe there was quite suspicious for tumor. There is also some background COPD. No significant mediastinal lymphadenopathy. Small right-sided pleural effusion was also noted. On 09/13/2021 patient seen in follow-up on selective care unit, he is awake and alert, in no acute distress, breathing comfortably, room air pulse ox is 93-96%, no complaints of dyspnea cough, wheezing no complaint of chest discomfort. Vital signs have been stable, patient has been afebrile. Patient continues on oral diuretics, he is currently on oral Lasix 40 mg once daily, he is in -1282 and a negative fluid balance. Overall his net fluid volume status is improving, lower extremity edema is improved although patient still has some residual mild lower extremity edema. CT of the abdomen and pelvis showed no evidence of renal stone or obstruction, mild subcutaneous edema, no adrenal mass, no ascites or free air no sign of bowel obstruction. Objective - Vital Signs Vital signs: Vital Signs Temp 98.1 F 09/13/21 11:23 Pulse 63 09/13/21 11:23 Resp 16 09/13/21 11:23 BP 163/85 09/13/21 11:23 Pulse Ox 93 L 09/13/21 11:23 Intake & Output 09/12/21 09/13/21 09/13/21 18:59 06:59 18:59 Intake Total 118 720 Output Total 1400 Balance -1282 720 Weight 97.2 kg Intake: Oral 118 720 Output: Urine 1400 Other: Voiding Method Urinal Urinal # Voids 2 1 - Exam GENERAL EXAM: Alert, very pleasant, 55-year-old white male, on room air with a pulse ox of 93-96% comfortable in no apparent distress. HEAD: Normocephalic/atraumatic. EYES: Normal reaction of pupils, equal size. Conjunctiva pink, sclera white. NOSE: Clear with pink turbinates. THROAT: No erythema or exudates. NECK: No masses, no JVD, no thyroid enlargement, no adenopathy. CHEST: No chest wall deformity. Symmetrical expansion. LUNGS: Equal air entry with diminished breath sounds at the bases CVS: Regular rate and rhythm, normal S1 and S2, no gallops, no murmurs, no rubs ABDOMEN: Soft, nontender. No hepatosplenomegaly, normal bowel sounds, no guardi ng or rigidity. EXTREMITIES: No clubbing, mild pretibial edema, no cyanosis, 2+ pulses and upper and lower extremities. MUSCULOSKELETAL: Muscle strength and tone normal. SPINE: No scoliosis or deformity SKIN: No rashes CENTRAL NERVOUS SYSTEM: Alert and oriented -3. No focal deficits, tone is normal in all 4 extremities. PSYCHIATRIC: Alert and oriented -3. Appropriate affect. Intact judgment and insight. - Labs CBC & Chem 7: 09/13/21 07:30 09/13/21 07:30 Labs: Abnormal Lab Results - Last 24 Hours (Table) 09/13/21 09/13/21 Range/Units 07:30 07:30 WBC 16.3 H (3.8-10.6) k/uL Plt Count 136 L (150-450) k/uL Neutrophils # 14.2 H (1.3-7.7) k/uL Potassium 3.4 L (3.5-5.1) mmol/L Chloride 97 L (98-107) mmol/L Carbon Dioxide 35 H (22-30) mmol/L Creatinine 0.64 L (0.66-1.25) mg/dL Glucose 136 H (74-99) mg/dL Magnesium 2.4 H (1.6-2.3) mg/dL ALT 59 H (4-49) U/L Microbiology - Last 24 Hours (Table) 09/10/21 19:25 Blood Culture - Preliminary Blood No Growth after 48 hours 09/10/21 19:10 Blood Culture - Preliminary Blood No Growth after 48 hours Assessment and Plan Plan: Assessment: 1 left upper lobe related mass measuring 3 cm in size, high likelihood for malignancy 2 COPD with some scattered bilateral emphysematous changes as evident on the CAT scan of the chest, no signs of any acute exacerbation this point in time 3 hypertension 4 moderate degree of pulmonary hypertension based on echocardiogram with preserved LV function 5 obstructive sleep apnea. 6 BPH 7 chronic back pain 8 smoker Plan: Patient is stable from pulmonary perspective No worsening dyspnea, he is on room air, vital signs are stable CT of the abdomen and pelvis showed no evidence of ascites Patient continues on oral diuretics His overall net fluid volume status is improving, lower extremity edema is improving he will need outpatient follow-up and outpatient workup in regards to his left upper lobe mass He will need outpatient PFT. PET scan and decision will be made to proceed with bronchoscopy with possible biopsies based on the findings of his PET scan and PFTs This was discussed with the patient who is agreeable with the plan I have personally seen and examined the patient, performed the documentation and the assessment and plan as written. Number of minutes spent on the visit: [10] Time with Patient: Less than 30
== END 2021-09-13 16:00 | disposition home or self-care (01) | DRG 181 ==
LOC: EC 14:22 → 3SCARD 19:14 → OBSVTOIN 09-11 00:29
PROVIDERS: ADMIT Internal Medicine; ATTEND Internal Medicine
DX: C34.12 Malignant neoplasm of upper lobe, left bronchus or lung (principal); J90 Pleural effusion, not elsewhere classified; R18.8 Other ascites; D72.829 Elevated white blood cell count, unspecified; E03.9 Hypothyroidism, unspecified; E87.6 Hypokalemia; Z71.6 Tobacco abuse counseling; F17.210 Nicotine dependence, cigarettes, uncomplicated; F32.A Depression, unspecified; G47.33 Obstructive sleep apnea (adult) (pediatric); G89.29 Other chronic pain; I10 Essential (primary) hypertension; I27.20 Pulmonary hypertension, unspecified; J44.9 Chronic obstructive pulmonary disease, unspecified; K59.00 Constipation, unspecified; N40.0 Benign prostatic hyperplasia without lower urinary tract symptoms; T50.2X5A Adverse effect of carbonic-anhydrase inhibitors, benzothiadiazides and other diuretics, initial encounter; Z79.899 Other long term (current) drug therapy; R77.8 Other specified abnormalities of plasma proteins; Z98.890 Other specified postprocedural states
CPT/HCPCS: 36415; 71046; 71275; 74177; 80048; 80053; 81001; 83735; 83880; 84439; 84443; 84484; 85025; 85027; 85379; 87040; 93005; 93306; 93970; 99285

== ENCOUNTER → 2021-10-01 | Outpatient (CLI) | payer MEDICAID ==
--- NOTE | 2021-10-03 20:37 | PE ---
EXAMINATION TYPE: PET CT fusion skull to thigh DATE OF EXAM: 10/01/2021 COMPARISON: CTA chest September 11, 2021. CT abdomen and pelvis September 12, 2021 HISTORY: Abnormal CT, solitary pulmonary nodule TECHNIQUE: Following the intravenous administration of 10.99 mCi of F-18 FDG, whole body images are performed from the skull base to the midthigh. Images are reviewed on the computer in the coronal, a xial, and sagittal planes. Reconstructed rotating images are created on independent workstation and reviewed on the computer. A localization and attenuation correction CT is performed in conjunction with the PET scan. Blood glucose level equals 128 SCAN: Initial Scan FINDINGS: SKULL BASE AND NECK: No areas of abnormal hypermetabolic uptake. CHEST, MEDIASTINUM, AND HILAR REGION: Background mild underlying emphysematous changes redemonstrated . Persistent suspicious lobulated 2.5 x 2.5 cm nodule in the posterior aspect left upper lobe axial i mage 76 with abnormal hypermetabolic uptake, max SUV is 7.02 on axial image 78. No additional areas of abnormal hypermetabolic uptake. No suspicious adenopathy. ABDOMEN AND PELVIS: Normal excretion is seen. No definitive adrenal masses. OSSEOUS STRUCTURES: Abnormal hypermetabolic uptake in the left anterolateral sixth rib corresponding to area of lytic destruction near axial image 113, max SUV is 5.09. Additional subtle lytic lesion in the right upper sacrum axial image 205 with more prominent subtle l ytic area lateral to this showing abnormal hypermetabolic uptake. Suspicious sclerotic lesion left humeral head with abnormal hypermetabolic uptake. OTHER CT: Stimulator device in the right anterior neck is present. Low lung volumes with mild cardiom egaly. Bladder has mild to moderate concentric wall thickening. IMPRESSION: Confirmation of suspicious lesion suspected malignancy left upper lobe with subtle osseou s metastatic disease.
== END | disposition home or self-care (01) ==
LOC: RADPETMAIN 07:29
PROVIDERS: ATTEND Internal Medicine
DX: R91.1 Solitary pulmonary nodule (principal)
CPT/HCPCS: 78815; A9552

== ENCOUNTER 2021-10-14 12:44 | Day surgery (SDC) | payer MEDICAID ==
[2021-10-12 11:26] VITALS: BMI 28.2
[~2021-10-14 12:44] MED LIST changes: +ALBUTEROL NEB (CONC) 2.5 MG/0.5 ML INHALATION ONE; -DEXAMETHASONE SOD PHOSPHATE 10 MG/ML 1 ML VIAL IV ONE; -HEPARIN SODIUM,PORCINE 5,000 UNIT/ML 1 ML VIAL SQ ONE; -KETOROLAC 30 MG/ML 1 ML VIAL IVP SCH; +LACTATED RINGERS 1,000 ML IV SCH; -LIDOCAINE 1% 20 ML VIAL (10MG/ML) FOR IV START INTRADERMA PRN; +LIDOCAINE 2% (PF) 20 MG/ML 5 ML VIAL INHALATION ONE; +LIDOCAINE VISCOUS 300 MG/15 ML CUP MUCOUS MEM ONE; -ONDANSETRON 4 MG/2 ML VIAL IVP ONE; -ONDANSETRON 4 MG/2 ML VIAL IVP PRN; +SODIUM CHLORIDE 0.9% 1,000 ML IV SCH; -ceFAZolin IN SWFI 2 GM/20 ML SYRINGE IVP ONE
[2021-10-14] MEDS ORDERED: fentaNYL (PF) 50 MCG/ML 2 ML AMP ONE (14:16)
[2021-10-14] MEDS ORDERED: LIDOCAINE 2% INJ 20 MG/ML (2 ML VIAL) ONE (14:16)
[2021-10-14] MEDS ORDERED: PROPOFOL 10 MG/ML 20 ML VIAL IV ONE (14:16)
[2021-10-14] MEDS ORDERED: SUCCINYLCHOLINE CHLORIDE 100 MG/5 ML SYR IV ONE (14:16)
[2021-10-14] MEDS ORDERED: MIDAZOLAM 2 MG/2 ML VIAL ONE (14:16)
[2021-10-14] MEDS ORDERED: ePHEDrine 50 MG/ML 1 ML VIAL ONE (14:16)
[2021-10-14] MEDS ORDERED: SODIUM CHLORIDE 0.9% 500 ML 500 ML IV ONE (15:29)
--- NOTE | 2021-10-14 15:37 | P.PCN ---
Date of Procedure: 10/14/21 Operative Findings: Operative Findings: 1 right upper lobe mass Postoperative Diagnosis: 1 left upper lobe mass 2 endobronchial tumor visualized in the apical posterior subsegment in the left upper lobe (PRATEEK) Procedure(s) Performed: 1 flexible bronchoscopy, airway inspection 2 navigation bronchoscopy, transbronchial biopsy of a left upper lobe mass, bronchial alveolar lavage of the left upper lobe (PRATEEK) Surgeon: Pato Ramirez Pharmacy Operations Manager #1: Xenia Urban Estimated Blood Loss (ml): 0 cc Pathology: TBBX of the left upper lobe, brushing of the left upper lobe mass, bronchioloalveolar lavage of the left upper lobe mass Condition: stable Disposition: same day Operative Findings: The patient had a preoperative computed tomography scan of the chest using the Veran protocol. The CAT scan images were reviewed. The left upper lobe opacity was identified it was mapped appropriately. The CAT scan images are uploaded into a USB and then into the [employer] Navigation tower. After obtaining the consent the patient was taken to the OR suite he was intubated and put on mechanical ventilation by anesthesia then the scope was advanced to the ET tube until the Trachea was seen and it was normal and then the anup appears normal then the scope advanced to the left main and PRATEEK LB1- LB3 were seen and there was an endobronchial lesion originating from the apical posterior segment of the left upper lobe. This was seen in one of the subsegments on the tip of the tumor was quite dark and. And necrotic. Centrally, endobronchial lesion was more vascular and shiny. Following that, the scope advanced to the lingula and the LB4 and LB5 were seen and no endobronchial lesions were seen the scope retracted and advanced to the left lower lobes LB6 to LB12 were seen one by one and no endobronchial lesions, then the scope was retracted back to the anup and advanced to the Right main and RUL RB1 and RB2 and RB3 were seen one by one and no endobronchial lesions were seen the scope. The bronchoscope was then retracted and advanced to the BI and RML RB4 and RB5 were seen and no endobronchial lesions were seen then it was retracted and advanced to the RLL RB6 to RB12 were seen one by one and no endobronchial lesions. Navigation bronchoscopy was performed. The main anup and the secondary anup on the left were used as the reference points and appropriate calibration was done. Following that, using a navigation guidance , the bronchoscope was advanced to the left upper lobe posterior segment and various transbronchial biopsies of the left upper lobe opacity was done without any complications. I also performed and the bronchial biopsies of the left upper lobe endobronchial tumor and multiple fragments of tissue was obtained. Following that, the endobronchial brushing of the left upper lobe mass was done . Minimal endobronchial bleeding was encountered. A bronchial lavage (BAL) of the left upper lobe apico posterior segment was done. A total of 80 mL of fluid was infused and 20 mL was suctioned back and this will be sent for cytology and microbial cultures. The bronchoscope was removed, the patient will be extubated and then transferred to recovery. A follow-up chest x-ray will be done in recovery.
[2021-10-14 16:21] VITALS: TEMP 97
[2021-10-14] MEDS ORDERED: LABETALOL 5 MG/ML VIAL MDV IVP ONE ×2 (16:30→16:49)
[2021-10-14 17:14] VITALS: BP 162/89; PULSE 80; RESP 18
--- NOTE | 2021-10-14 20:59 | CT ---
EXAMINATION TYPE: CT Chest wo con Veran Protocol DATE OF EXAM: 10/14/2021 COMPARISON: PET scan dated 10/01/2021 HISTORY: navigational bronch, pulmonary mass CT DLP: 606 mGycm Automated exposure control for dose reduction was used. TECHNIQUE: Preoperative planning CT of the chest as per Veran protocol without IV contrast administra tion. FINDINGS: Known left upper lobe posterior segment lesion measuring 2.6 cm. Adjacent tubular structure probably representing bronchial impaction, endobronchial tumor spread cannot be excluded. Areas of focal infil tration seen in the left upper lobe, possibly metastatic. Subcentimeter nodules seen in the left lowe r lobe, lingula, middle lobe and right lower lobe, metastatic nodules cannot be excluded. Filling def ect is seen within the inferior aspect of the trachea as well as the right main bronchus, possibly re presenting intraluminal secretions. Mild COPD changes. No gross cardiomegaly. No pleural or pericardial effusion. Scattered arterial atherosclerotic calcification. The ascending a donna measures 4.1 cm. No obvious pathologically enlarged lymph nodes in the chest by this nonenhanced CT scan. Suspected stimulator device is seen in the right upper chest wall. Bulky liver with suspect ed hepatic steatosis. Faint hyperdensity is seen in the superior aspect of the right hepatic lobe, po ssibly artifactual. Lytic lesion is seen within the anterior aspect of the left sixth rib, possibly m etastatic. Recommend correlation with bone scan/PET scan results. IMPRESSION: PREOPERATIVE PLANNING CT FOR A KNOWN LEFT UPPER LUNG LOBE POSTERIOR LESION DEMONSTRATING OTHER FINDIN GS DETAILED ABOVE.
[2021-10-15 05:26] LABS: Appearance,BF Blood Tinged
== END 2021-10-14 18:00 | disposition home or self-care (01) ==
LOC: ORWHC2ENDO 12:44
PROVIDERS: ATTEND Internal Medicine Critical Care Medicine
DX: D49.1 Neoplasm of unspecified behavior of respiratory system (principal); J85.0 Gangrene and necrosis of lung; I10 Essential (primary) hypertension; I27.20 Pulmonary hypertension, unspecified; J90 Pleural effusion, not elsewhere classified; N40.0 Benign prostatic hyperplasia without lower urinary tract symptoms; R60.0 Localized edema; G89.29 Other chronic pain; M54.9 Dorsalgia, unspecified; G47.30 Sleep apnea, unspecified; Z80.9 Family history of malignant neoplasm, unspecified; F17.200 Nicotine dependence, unspecified, uncomplicated; Z98.890 Other specified postprocedural states; Z79.891 Long term (current) use of opiate analgesic; Z79.899 Other long term (current) drug therapy
CPT/HCPCS: 87798 ×3; 87496; 87498; 87529; 88104; 88305; 89050; 88342; 87252; 87502; 87634; 88341; 87070; 87205; 87116; 87102; 87077; 87186; 87206; 71250; 31625; 31623; 31624; 31627; J2250; J3010; J0330; J2704; J2001

== ENCOUNTER → 2021-11-02 | Outpatient (CLI) | payer MEDICAID ==
--- NOTE | 2021-11-02 17:13 | CT ---
EXAMINATION TYPE: CT brain wo con CT DLP: 1331 mGycm, Automated exposure control for dose reduction was used. 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 hx of lung ca TECHNIQUE: Brain: Multiple axial CT images of the brain were obtained without IV contrast. FINDINGS: Brain: Extra-axial spaces: No abnormal extra-axial fluid collections. Ventricular system: Within normal limits Cerebral parenchyma: No acute intraparenchymal hemorrhage or mass effect. The cordero-white junction is well differentiated. Cerebellum: Unremarkable. Mass effect: No evidence of midline shift. Intracranial vasculature: unremarkable Soft tissues: Normal. Calvarium/osseous structures: No depressed skull fracture. Paranasal sinuses and mastoid air cells: Mild scattered paranasal sinus disease. Visualized orbits: Orbital contents are intact. IMPRESSION: No acute intracranial process.
== END | disposition home or self-care (01) ==
LOC: RADCTMAIN 16:32
PROVIDERS: ATTEND Family Medicine
DX: R41.0 Disorientation, unspecified (principal)
CPT/HCPCS: 70450

== ENCOUNTER 2021-11-04 14:28 | Inpatient (IN) | payer MEDICAID ==
[2021-11-04] MEDS ORDERED: FLUCONAZOLE 150 MG TAB PO STA (15:00)
--- NOTE | 2021-11-04 15:12 | ED ---
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 Patient comes in today because the states over the last 2 weeks is becoming more and more confused. And his edema in his legs is getting worse and his throat is sore because he has thrush is gotten considerably worse. Patient has run out of the nystatin liquid. Patient has had no recent trauma. Patient denies headache patient denies any numbness or focal weakness. Patient denies any chest pain palpitations difficulty breathing or shortness of breath. Patient denies any recent fever chills or cough. Patient denies any abdominal pain patient denies nausea vomiting diarrhea. states the confusion is extremely bad to clear the night and the patient is unable to sleep and he gets up and walks around all night long and is very confused and often doesn't know what she is talking about. - Related Data Home Medications Medication Instructions Recorded Confirmed PARoxetine [Paxil] 20 mg PO DAILY 11/26/18 11/04/21 traMADol HCL [Ultram] 100 mg PO TID PRN 11/26/18 11/04/21 Gabapentin 300 mg PO Q6H 09/10/21 11/04/21 Tamsulosin HCl [Flomax] 0.4 mg PO HS 10/12/21 11/04/21 Empagliflozin [Jardiance] 25 mg PO DAILY 11/04/21 11/04/21 Furosemide [Lasix] 80 mg PO DAILY 11/04/21 11/04/21 Losartan Potassium 100 mg PO HS 11/04/21 11/04/21 Metoprolol Tartrate [Lopressor] 25 mg PO BID 11/04/21 11/04/21 Potassium Chloride ER [K-Dur 20] 40 meq PO BID 11/04/21 11/04/21 amLODIPine [Norvasc] 10 mg PO HS 11/04/21 11/04/21 fentaNYL 50MCG/HR PATCH [Duragesic 50 mcg TRANSDERM Q72H 11/04/21 11/04/21 50MCG/HR] Allergies Allergy/AdvReac Type Severity Reaction Status Date / Time No Known Allergies Allergy Verified 11/04/21 18:08 Review of Systems ROS Statement: Those systems with pertinent positive or pertinent negative responses have been documented in the HPI. ROS Other: All systems not noted in ROS Statement are negative. Past Medical History Past Medical History: Hypertension, Musculoskeletal Disorder, Prostate Disorder, Sleep Apnea/CPAP/BIPAP Additional Past Medical History / Comment(s): started having high blood pressure September 2021, mass in lung and lower spine,apnea implant-upper rt chest, back & leg pain related to herniated discs,hx enlarged prostate History of Any Multi-Drug Resistant Organisms: None Reported Past Surgical History: Hernia Repair Additional Past Surgical History / Comment(s): epidural pain procedures, c olonoscopy,left inguinal hernia repair Past Anesthesia/Blood Transfusion Reactions: Postoperative Nausea & Vomiting (PONV) Past Psychological History: Depression Smoking Status: Current every day smoker Past Alcohol Use History: None Reported Past Drug Use History: None Reported - Past Family History Brother(s) Family Medical History: Cancer Additional Family Medical History / Comment(s): had liver CA at age 12. General Exam - General Exam Comments Initial Comments: GENERAL: Patient is well-developed and well-nourished. Patient is nontoxic and well- hydrated and is in distress. ENT: Neck is soft and supple. No significant lymphadenopathy is noted. Patient has thrush in the oropharynx as well as the tongue.. Neck has full range of motion without eliciting any pain. EYES: The sclera were anicteric and conjunctiva were pink and moist. Extraocular movements were intact and pupils were equal round and reactive to light. Eyelids were unremarkable. PULMONARY: Unlabored respirations. Good breath sounds bilaterally. No audible rales rhonchi or wheezing was noted. CARDIOVASCULAR: There is a regular rate and rhythm without any murmurs gallops or rubs. ABDOMEN: Soft and nontender with normal bowel sounds. SKIN: Skin is clear with no lesions or rashes and otherwise unremarkable. NEUROLOGIC: Patient is alert and oriented x3. Cranial nerves II through XII are grossly intact. Motor and sensory are also intact. Normal speech, volume and content. Symmetrical smile. MUSCULOSKELETAL: Normal extremities with adequate strength and full range of motion. Patient is 4+ edema LYMPHATICS: No significant lymphadenopathy is noted PSYCHIATRIC: Normal psychiatric evaluation. Limitations: no limitations Course Vital Signs 11/04/21 11/04/21 11/04/21 14:35 15:04 15:30 Temperature 98.4 F Pulse Rate 87 95 Respiratory 18 18 Rate Blood Pressure 153/93 149/99 151/104 O2 Sat by Pulse 98 95 Oximetry 11/04/21 11/04/21 11/04/21 16:30 17:45 18:11 Temperature Pulse Rate 85 162 H 152 H Respiratory 18 18 Rate Blood Pressure 146/102 117/95 O2 Sat by Pulse 90 L 95 Oximetry 11/04/21 18:30 Temperature Pulse Rate 117 H Respiratory 18 Rate Blood Pressure 154/92 O2 Sat by Pulse 94 L Oximetry Medical Decision Making - Medical Decision Making EKG shows sinus rhythm at 64 bpm MD interval 248 uracil 98 QT interval 390 QTC is 399. Patient's EKG shows no ST segment elevation or depression. Patient's EKG shows atrial fibrillation with rapid ventricular response at 147 bpm QRS interval is 93 Q-T intervals 279 QTC is 363. Patient was started on Cardizem after Cardizem bolus. Patient was also started on heparin at this time. I spoke with sounds physician's and he agreed to admit the patient admitted the patient wrote a minute or so I consult cardiology. Patient had a EKG done after Cardizem was started. EKG showed sinus rhythm had converted at a rate of 81 bpm MD interval 243 QRS is 92 QT interval 370 QTC is 407. Patient's EKG shows no ST segment elevation. - Lab Data Result diagrams: 11/04/21 15:12 11/04/21 15:12 Lab Results 11/04/21 11/04/21 11/04/21 Range/Units 15:12 15:12 15:12 WBC 11.5 H (3.8-10.6) k/uL RBC 3.97 L (4.30-5.90) m/uL Hgb 12.3 L (13.0-17.5) gm/dL Hct 36.6 L (39.0-53.0) % MCV 92.1 (80.0-100.0) fL MCH 31.0 (25.0-35.0) pg MCHC 33.6 (31.0-37.0) g/dL RDW 14.0 (11.5-15.5) % Plt Count 189 (150-450) k/uL MPV 7.9 Neutrophils % 89 % Lymphocytes % 7 % Monocytes % 4 % Eosinophils % 0 % Basophils % 0 % Neutrophils # 10.2 H (1.3-7.7) k/uL Lymphocytes # 0.8 L (1.0-4.8) k/uL Monocytes # 0.4 (0-1.0) k/uL Eosinophils # 0.0 (0-0.7) k/uL Basophils # 0.0 (0-0.2) k/uL PT 10.0 (9.0-12.0) sec INR 0.9 (<1.2) APTT 20.1 L (22.0-30.0) sec Sodium (137-145) mmol/L Potassium (3.5-5.1) mmol/L Chloride (98-107) mmol/L Carbon Dioxide (22-30) mmol/L Anion Gap mmol/L BUN (9-20) mg/dL Creatinine (0.66-1.25) mg/dL Est GFR (CKD-EPI)AfAm (>60 ml/min/1.73 sqM) Est GFR (CKD-EPI)NonAf (>60 ml/min/1.73 sqM) Glucose (74-99) mg/dL Plasma Lactic Acid Garret (0.7-2.0) mmol/L Calcium (8.4-10.2) mg/dL Total Bilirubin (0.2-1.3) mg/dL AST (17-59) U/L ALT (4-49) U/L Alkaline Phosphatase (38-126) U/L Ammonia (<30) umol/L Troponin I (0.000-0.034) ng/mL Total Protein (6.3-8.2) g/dL Albumin (3.5-5.0) g/dL Urine Color Colorless Urine Appearance Clear (Clear) Urine pH 7.5 (5.0-8.0) Ur Specific Victoria 1.012 (1.001-1.035) Urine Protein Negative (Negative) Urine Glucose (UA) 4+ H (Negative) Urine Ketones Negative (Negative) Urine Blood Negative (Negative) Urine Nitrite Negative (Negative) Urine Bilirubin Negative (Negative) Urine Urobilinogen <2.0 (<2.0) mg/dL Ur Leukocyte Esterase Negative (Negative) Urine Opiates Screen Not Detected (NotDetected) Ur Oxycodone Screen Not Detected (NotDetected) Urine Methadone Screen Not Detected (NotDetected) Ur Propoxyphene Screen Not Detected (NotDetected) Ur Barbiturates Screen Not Detected (NotDetected) U Tricyclic Antidepress Not Detected (NotDetected) Ur Phencyclidine Scrn Not Detected (NotDetected) Ur Amphetamines Screen Not Detected (NotDetected) U Methamphetamines Scrn Not Detected (NotDetected) U Benzodiazepines Scrn Not Detected (NotDetected) Urine Cocaine Screen Not Detected (NotDetected) U Marijuana (THC) Screen Not Detected (NotDetected) 11/04/21 11/04/21 11/04/21 Range/Units 15:12 15:12 15:12 WBC (3.8-10.6) k/uL RBC (4.30-5.90) m/uL Hgb (13.0-17.5) gm/dL Hct (39.0-53.0) % MCV (80.0-100.0) fL MCH (25.0-35.0) pg MCHC (31.0-37.0) g/dL RDW (11.5-15.5) % Plt Count (150-450) k/uL MPV Neutrophils % % Lymphocytes % % Monocytes % % Eosinophils % % Basophils % % Neutrophils # (1.3-7.7) k/uL Lymphocytes # (1.0-4.8) k/uL Monocytes # (0-1.0) k/uL Eosinophils # (0-0.7) k/uL Basophils # (0-0.2) k/uL PT (9.0-12.0) sec INR (<1.2) APTT (22.0-30.0) sec Sodium 139 (137-145) mmol/L Potassium 2.5 L* (3.5-5.1) mmol/L Chloride 94 L (98-107) mmol/L Carbon Dioxide 41 H* (22-30) mmol/L Anion Gap 4 mmol/L BUN 22 H (9-20) mg/dL Creatinine 0.65 L (0.66-1.25) mg/dL Est GFR (CKD-EPI)AfAm >90 (>60 ml/min/1.73 sqM) Est GFR (CKD-EPI)NonAf >90 (>60 ml/min/1.73 sqM) Glucose 353 H (74-99) mg/dL Plasma Lactic Acid Garret 1.4 (0.7-2.0) mmol/L Calcium 8.5 (8.4-10.2) mg/dL Total Bilirubin 0.6 (0.2-1.3) mg/dL AST 18 (17-59) U/L ALT 41 (4-49) U/L Alkaline Phosphatase 93 (38-126) U/L Ammonia 15 (<30) umol/L Troponin I 0.039 H* (0.000-0.034) ng/mL Total Protein 5.8 L (6.3-8.2) g/dL Albumin 3.4 L (3.5-5.0) g/dL Urine Color Urine Appearance (Clear) Urine pH (5.0-8.0) Ur Specific Victoria (1.001-1.035) Urine Protein (Negative) Urine Glucose (UA) (Negative) Urine Ketones (Negative) Urine Blood (Negative) Urine Nitrite (Negative) Urine Bilirubin (Negative) Urine Urobilinogen (<2.0) mg/dL Ur Leukocyte Esterase (Negative) Urine Opiates Screen (NotDetected) Ur Oxycodone Screen (NotDetected) Urine Methadone Screen (NotDetected) Ur Propoxyphene Screen (NotDetected) Ur Barbiturates Screen (NotDetected) U Tricyclic Antidepress (NotDetected) Ur Phencyclidine Scrn (NotDetected) Ur Amphetamines Screen (NotDetected) U Methamphetamines Scrn (NotDetected) U Benzodiazepines Scrn (NotDetected) Urine Cocaine Screen (NotDetected) U Marijuana (THC) Screen (NotDetected) Critical Care Time Critical Care Time: Yes Total Critical Care Time: 35 Disposition Clinical Impression: Atrial fibrillation with rapid ventricular response, Peripheral edema, Thrush, History of lung cancer, Altered mental status, Hypokalemia Disposition: ADMITTED IP TO THIS [facility] Time of Disposition: 17:57
[2021-11-04 15:47] LABS: Lactic Acid, Venous 1.4 mmol/L (0.7-2.0)
[2021-11-04] MEDS ORDERED: HYDROmorphone 0.5 MG/0.5 ML SYRINGE IVP STA (15:49)
[2021-11-04 15:50] LABS: Appearance,Urine Clear (Clear); Bilirubin,Urine Negative (Negative); Blood,Urine Negative (Negative); Color,Urine Colorless; Glucose,Urine (UA) 4+ (Negative); Ketones,Urine Negative (Negative); Leukocyte Esterase,Urine Negative (Negative); Nitrite,Urine Negative (Negative); PH, Urine 7.5 (5.0-8.0); Protein,Urine Negative (Negative); Specific Gravity,Urine 1.012 (1.001-1.035); Urobilinogen,Urine <2.0 mg/dL (<2.0)
[2021-11-04 15:53] LABS: ALT 41 U/L (4-49); AST 18 U/L (17-59); African American GFR (CKD) >90 (>60 ml/min/1.73 sqM); Albumin 3.4 g/dL (3.5-5.0); Alkaline Phosphatase 93 U/L (38-126); Blood Urea Nitrogen 22 mg/dL (9-20); Calcium 8.5 mg/dL (8.4-10.2); Chloride 94 mmol/L (98-107); Glucose 353 mg/dL (74-99); Non-African American GFR(CKD) >90 (>60 ml/min/1.73 sqM); Sodium 139 mmol/L (137-145); Total Bilirubin 0.6 mg/dL (0.2-1.3); Total Protein 5.8 g/dL (6.3-8.2)
[2021-11-04 15:54] LABS: Basophils % (A) 0 %; Eosinophils % (A) 0 %; HCT 36.6 % (39.0-53.0); HGB 12.3 gm/dL (13.0-17.5); Lymphocytes # (A) 0.8 k/uL (1.0-4.8); Lymphocytes % (A) 7 %; MCHC 33.6 g/dL (31.0-37.0); MCV 92.1 fL (80.0-100.0); Mean Platelet Volume 7.9; Monocytes # (A) 0.4 k/uL (0-1.0); Monocytes % (A) 4 %; Neutrophils # (A) 10.2 k/uL (1.3-7.7); Neutrophils % (A) 89 %; Platelet Count 189 k/uL (150-450); RBC 3.97 m/uL (4.30-5.90); WBC 11.5 k/uL (3.8-10.6)
[2021-11-04 15:58] LABS: Amphetamine Screen,Urine Not Detected (NotDetected); Barbiturate Screen,Urine Not Detected (NotDetected); Benzodiazepines Screen,Urine Not Detected (NotDetected); Cocaine Screen,Urine Not Detected (NotDetected); Methadone Screen, Urine Not Detected (NotDetected); Opiate Screen,Urine Not Detected (NotDetected); Oxycodone Screen, Urine Not Detected (NotDetected); Phencyclidine Screen,Urine Not Detected (NotDetected); Tricyclic Antidepressant,Urine Not Detected (NotDetected); Urn Cannabinoid Scrn Not Detected (NotDetected)
[2021-11-04 15:59] LABS: Anion Gap 4 mmol/L
[2021-11-04 16:01] LABS: INR 0.9 (<1.2); Partial Thromboplastin Time 20.1 sec (22.0-30.0)
--- NOTE | 2021-11-04 16:03 | XR ---
EXAMINATION TYPE: XR chest 2V DATE OF EXAM: 11/04/2021 COMPARISON: 09/10/2021 TECHNIQUE: PA and lateral views submitted. HISTORY: Altered mental status FINDINGS: Left perihilar mass or consolidation. Large area of mass or consolidation in the medial aspect left u pper lobe. Additional masslike density in the left upper lobe measuring 2 cm. Suspect sclerotic meek e of the anterior margin of the left rib cage. Underlying metastases suspected. There is a stimulator metallic device with a catheter extending cephalad. Right lung grossly clear as visualized. Metallic device obscures portion of the lung. IMPRESSION: 1. Multifocal areas of consolidation involving the left lung. Suspect neoplasm favored over pneumonia . Bony metastasis to the anterior left rib cage suspected. Recommend CT chest.
[2021-11-04 16:14] LABS: Carbon Dioxide 41 mmol/L (22-30); Potassium 2.5 mmol/L (3.5-5.1)
[2021-11-04] MEDS ORDERED: POTASSIUM CHLORIDE 20 MEQ in WATER FOR INJECTION 1 100ML.BAG IVPB STA (16:27)
[2021-11-04] MEDS ORDERED: POTASSIUM CHLORIDE ER 20 MEQ TAB.ER PO STA (16:28)
[2021-11-04] MEDS ORDERED: HEPARIN SODIUM 1,000 UN/ML (10ML VL) IV ONE (17:54)
[2021-11-04] MEDS ORDERED: DILTIAZEM DRIP BOLUS FROM BAG 1 MG SOLN IV ONE (17:54)
[2021-11-04] MEDS: HEPARIN SOD,PORK IN 0.45% NACL 25,000 UNIT in 0.45% NACL 1 250ML.BAG IV SCH (18:08)
[2021-11-04] MEDS: DILTIAZEM 125 MG in SODIUM CHLORIDE 0.9% 100 ML IV SCH (18:10)
[2021-11-04] MEDS: GABAPENTIN 300 MG CAP PO SCH (19:22)
[2021-11-04] MEDS: traMADol 50 MG TAB PO PRN (19:33)
[2021-11-04 20:48] LABS: Glucose,Whole Blood 226 mg/dL (75-99)
--- NOTE | 2021-11-04 20:59 | P.PN ---
Progress Note - Text Progress Note Date: 11/04/21 patient met inpatient admission criteria, he is no doc , and should go to media monitor team EM, ED financial secretary notified.
[2021-11-04] MEDS ORDERED: METOPROLOL TARTRATE 25 MG TAB PO SCH (21:00)
[2021-11-04] MEDS: amLODIPine 10 MG TAB PO SCH (22:38)
[2021-11-04] MEDS: POTASSIUM CHLORIDE ER 20 MEQ TAB.ER PO SCH (22:39)
[2021-11-04] MEDS: HYDROcodone/APAP 5-325MG 1 EACH TAB PO PRN (22:43)
[2021-11-05] MEDS: GABAPENTIN 300 MG CAP PO SCH ×4 (02:19→21:58)
[2021-11-05] MEDS: traMADol 50 MG TAB PO PRN ×2 (04:23→13:54)
[2021-11-05] MEDS: DILTIAZEM 125 MG in SODIUM CHLORIDE 0.9% 100 ML IV SCH (04:25)
[2021-11-05 06:34] LABS: Glucose,Whole Blood 171 mg/dL (75-99)
[2021-11-05] MEDS: INSULIN ASPART (NovoLOG) 100 UNIT/ML VIAL SQ SCH ×4 (06:40→21:45)
[2021-11-05 07:53] LABS: African American GFR (CKD) >90 (>60 ml/min/1.73 sqM); Anion Gap 11 mmol/L; Blood Urea Nitrogen 17 mg/dL (9-20); Calcium 8.1 mg/dL (8.4-10.2); Carbon Dioxide 33 mmol/L (22-30); Chloride 96 mmol/L (98-107); Glucose 156 mg/dL (74-99); Non-African American GFR(CKD) >90 (>60 ml/min/1.73 sqM); Sodium 140 mmol/L (137-145)
[2021-11-05 08:10] LABS: Potassium 2.5 mmol/L (3.5-5.1)
[2021-11-05 08:11] LABS: Basophils # (A) 0.1 k/uL (0-0.2); Basophils % (A) 0 %; Eosinophils % (A) 0 %; HCT 34.3 % (39.0-53.0); HGB 11.7 gm/dL (13.0-17.5); Lymphocytes # (A) 0.9 k/uL (1.0-4.8); Lymphocytes % (A) 8 %; MCH 31.9 pg (25.0-35.0); MCHC 34.2 g/dL (31.0-37.0); MCV 93.4 fL (80.0-100.0); Mean Platelet Volume 7.9; Monocytes # (A) 0.3 k/uL (0-1.0); Monocytes % (A) 3 %; Neutrophils # (A) 9.4 k/uL (1.3-7.7); Neutrophils % (A) 87 %; Platelet Count 157 k/uL (150-450); RBC 3.67 m/uL (4.30-5.90); RDW 13.4 % (11.5-15.5); WBC 10.8 k/uL (3.8-10.6)
[2021-11-05] MEDS ORDERED: Potassium Replacement Protocol 1 EACH MISC MISCELLANE PRN (08:27)
[2021-11-05] MEDS ORDERED: FUROSEMIDE 80 MG TAB PO SCH (09:00)
[2021-11-05] MEDS ORDERED: FLUCONAZOLE 150 MG TAB PO SCH (09:00)
[2021-11-05] MEDS ORDERED: FUROSEMIDE 10 MG/ML 4 ML VIAL IV SCH (09:00)
[2021-11-05] MEDS ORDERED: DILTIAZEM 125 MG in SODIUM CHLORIDE 0.9% 100 ML IV SCH (09:00)
[2021-11-05] MEDS ORDERED: ASPIRIN 325 MG TAB PO SCH (09:00)
[2021-11-05] MEDS: PARoxetine 20 MG TAB PO SCH (09:06)
[2021-11-05] MEDS: METOPROLOL TARTRATE 50 MG TAB PO SCH ×2 (09:06→21:58)
[2021-11-05] MEDS: POTASSIUM CHLORIDE ER 20 MEQ TAB.ER PO SCH ×5 (09:08→21:58)
[2021-11-05 09:49] LABS: T4, Free (Free Thyroxine) 0.61 ng/dL (0.78-2.19)
[2021-11-05] MEDS: NON FORMULARY DRUG (Empagliflozin [Jardiance] 25 MG Tablet) PO SCH (10:10)
[2021-11-05] MEDS ORDERED: DEXTROSE 5% IN WATER 100 ML with AMIODARONE 150 MG IV ONE (11:08)
[2021-11-05] MEDS ORDERED: AMIODARONE 360 MG in DEXTROSE 5% IN WATER 200 ML IV ONE ×2 (11:08)
--- NOTE | 2021-11-05 11:27 | XR ---
EXAMINATION TYPE: XR chest 1V portable DATE OF EXAM: 11/05/2021 COMPARISON: Chest x-ray 11/04/2021 HISTORY: Hypoxemia, increasing oxygen requirement TECHNIQUE: Single frontal view of the chest is obtained. FINDINGS: Abnormal densities are present in the bilateral lungs similar to prior exam. No evident pn eumothorax or pleural effusion. Lung volumes are low. Right hemidiaphragm mildly elevated. Heart size is not significantly changed. There is a generator in the right pectoral region, lead is coursing ce phalad off the edge of the film. There are overlying leads. IMPRESSION: Patient with known lung mass left upper lobe, difficult to exclude pneumonia
--- NOTE | 2021-11-05 11:30 | P.CRDCN ---
History of Present Illness History of present illness: HISTORY OF PRESENTING ILLNESS This is a pleasant 55-year-old male past medical history significant for hypertension, new diagnosed lung cancer with metastasis to the bone, former tobacco use, chronic lower extremity edema, pulmonary hypertension, recent diagnosis of Type 2 Diabetes. He follows in the office with Dr Veronica . We have been asked to see in consultation for atrial fibrillation with RVR. Patient presents to the emergency department secondary to his concerned increased confusion, worsening lower extremity edema, worsening thrush and sore throat. On admission patient was in sinus rhythm, however, went into atrial fibrillation with RVR with HR 140s. Patient started on Cardizem and Heparin and converted to sinus rhythm HR 70s. Patient is seen and examined at bedside, he does remember his bringing him to the hospital. He endorses generalized pain. He denies any chest pain, shortness of breath, palpitations, lightheadedness, dizziness or syncope. He denies history of A fib, CAD, AL, Stroke. He was recently diagnosed with diabetes. DIAGNOSTICS Initial EKG- patient in sinus rhythm, HR [address] and T wave abnormalities in inferior and anterior leads. Repeat EKG- atrial fibrillation with rapid ventricular response heart rate 147. This morning patient in sinus rhythm with heart rate in the 70s-80s Chest xray multifocal areas of consolidation along the left lung, suspect neoplasm. Bony Metastasis to the anterior left rib cage. Laboratory WBC 10.8, hemoglobin 11.7, platelets 157, sodium 140, potassium 2.5, BUN 17, serum grams 0.6, troponin 0.03, 0.03, 0.042 Current home medications incamlodipine 10 mg nightly, potassium chloride 40 3 times a day, metoprolol titrate 25 mg by mouth daily, losartan 100 mg nightly, Lasix 80 mg daily, Jardiance 25 mg daily Most recent echocardiogram 09/2021 revealed EF 5560%, trace amount of aortic regurgitation, mild tricuspid regurgitation, moderate pulmonary hypertension with RVSP of 51 mmHg REVIEW OF SYSTEMS At the time of my exam: CONSTITUTIONAL: Denies fever or chills. CARDIOVASCULAR: Denies chest pain, shortness of breath, orthopnea, PND or palpitations. RESPIRATORY: Denies cough. GASTROINTESTINAL: Denies abdominal pain, diarrhea, constipation, nausea or vomiting. MUSCULOSKELETAL: Denies myalgias. NEUROLOGIC: Denies numbness, tingling, headacbe or weakness. ENDOCRINE: Denies fatigue, weight change, polydipsia or polyurina. GENITOURINARY: Denies burning, hematuria or urgency with micturation. HEMATOLOGIC: Denies history of anemia or bleeding. PHYSICAL EXAMINATION [id number], heart rate 75, afebrile, oxygen saturation is 92% on 2 L nasal cannula CONSTITUTIONAL: No apparent distress. HEENT: Head is normocephalic. Pupils are equal, round. Sclerae anicteric. Mucous membranes of the mouth are moist. No JVD. No carotid bruit. CHEST EXAMINATION: Lungs are rhonchi bilaterally to auscultation. No chest wall tenderness is noted on palpation or with deep breathing. HEART EXAMINATION: Regular rate and rhythm. S1, S2 heard. No murmurs, gallops or rub. ABDOMEN: Soft, nontender. Positive bowel sounds. EXTREMITIES: 2+ peripheral pulses, 3+ bilateral lower extremity edema and no calf tenderness. SKIN: pale, warm, dry NEUROLOGIC EXAMINATION: Patient is awake, alert and oriented x3. ASSESSMENT Paroxysmal atrial fibrillation with RVR, converted to sinus mechanism -[id number] score 2 Altered mental status, improved Shortness of breath New diagnosed lung cancer with metastasis to the bone Hypoxic respiratory failure, likely multifactorial with lung cancer, atrial fibrillation RVR, possible heart failure component Hypokalemia Elevated troponin, likely related to atrial fibrillation to RVR Hypertension Recent diagnosis of Type 2 Diabetes Pulmonary hypertension Chronic lower extremity edema Former tobacco use PLAN Patient converted to sinus rhythm this morning HR 70s, however, had increased shortness of breath, hypoxia and went back into atrial fibrillation with RVR HR 150-160s Discontinue cardizem Start IV amiodarone bolus and drip Continue IV heparin Increase metoprolol tartrate 50mg BID Continue IV Lasix Replace potassium per protocol Continue losartan Obtain 2D echocardiogram Pulmonary consulted Further recommendations base on clinical course Eliquis sent to pharmacy and case management consulted for coverage, per case management eliquis is covered. Nurse practitioner note has been reviewed by physician. Signing provider agrees with the documented findings, assessment, and plan of care. Past Medical History Past Medical History: Diabetes Mellitus, Hypertension, Musculoskeletal Disorder, Prostate Disorder, Sleep Apnea/CPAP/BIPAP Additional Past Medical History / Comment(s): started having high blood pressure September 2021, mass in lung and lower spine,apnea implant-upper rt chest, back & leg pain related to herniated discs,hx enlarged prostate History of Any Multi-Drug Resistant Organisms: None Reported Past Surgical History: Hernia Repair Additional Past Surgical History / Comment(s): epidural pain procedures, colonoscopy,left inguinal hernia repair Past Anesthesia/Blood Transfusion Reactions: No Reported Reaction Past Psychological History: Depression Smoking Status: Current every day smoker Past Alcohol Use History: None Reported Additional Past Alcohol Use History / Comment(s): quit smoking 4,down to <ppd started smoking at age 21 Past Drug Use History: None Reported - Past Family History Brother(s) Family Medical History: Cancer Additional Family Medical History / Comment(s): had liver CA at age 12. rhabdomyosarcoma Medications and Allergies Home Medications Medication Instructions Recorded Confirmed Type PARoxetine [Paxil] 20 mg PO DAILY 11/26/18 11/04/21 History traMADol HCL [Ultram] 100 mg PO TID PRN 11/26/18 11/04/21 History Gabapentin 300 mg PO Q6H 09/10/21 11/04/21 History Tamsulosin HCl [Flomax] 0.4 mg PO HS 10/12/21 11/04/21 History Empagliflozin [Jardiance] 25 mg PO DAILY 11/04/21 11/04/21 History Furosemide [Lasix] 80 mg PO DAILY 11/04/21 11/04/21 History Losartan Potassium 100 mg PO HS 11/04/21 11/04/21 History Metoprolol Tartrate [Lopressor] 25 mg PO BID 11/04/21 11/04/21 History Potassium Chloride ER [K-Dur 20] 40 meq PO BID 11/04/21 11/04/21 History amLODIPine [Norvasc] 10 mg PO HS 11/04/21 11/04/21 History fentaNYL 50MCG/HR PATCH [Duragesic 50 mcg TRANSDERM Q72H 11/04/21 11/04/21 History 50MCG/HR] Apixaban [Eliquis] 5 mg PO BID 30 Days #60 tab 11/05/21 Rx Allergies Allergy/AdvReac Type Severity Reaction Status Date / Time No Known Allergies Allergy Verified 11/04/21 18:08 Physical Exam Vitals: Vital Signs Temp Pulse Pulse Resp BP BP Pulse Ox 11/05/21 04:00 97.5 F L 75 20 155/83 92 L 11/04/21 23:45 97.6 F 76 18 160/85 87 L 11/04/21 21:26 97.7 F 80 18 162/90 91 L 11/04/21 20:40 97.7 F 80 18 162/90 91 L 11/04/21 20:20 150 H 22 144/84 97 11/04/21 19:17 85 20 148/102 97 11/04/21 18:30 117 H 18 154/92 94 L 11/04/21 18:11 152 H 18 117/95 95 11/04/21 17:45 162 H 11/04/21 16:30 85 18 146/102 90 L 11/04/21 15:30 151/104 11/04/21 15:04 95 18 149/99 95 11/04/21 14:35 98.4 F 87 18 153/93 98 Intake and Output 11/04/21 11/05/21 11/05/21 22:59 06:59 14:59 Intake Total 10.833 155.833 Output Total 2300 Balance 10.833 -2144.167 Intake: Intake, IV Titration 10.833 155.833 Amount Diltiazem 125 mg In 10.833 80.833 Sodium Chloride 0.9% 100 ml @ 5 MG/HR 5 mls/hr IV .Q24H [facility] Rx#:[id number] Heparin Sod,Pork in 0.45% 75 NaCl 25,000 unit In 0.45 % NaCl 1 250ml.bag @ 9. 886 UNITS/KG/HR 10 mls/hr IV .Q24H [facility] Rx#: [id number] Output: Urine 2300 Other: Voiding Method Urinal # Voids 1 Weight 101.151 kg 95 kg Results 11/05/21 07:00 11/05/21 09:23 Cardiac Enzymes 11/04/21 11/04/21 11/04/21 Range/Units 15:12 15:12 19:09 AST 18 (17-59) U/L Troponin I 0.039 H* 0.033 (0.000-0.034) ng/mL 11/04/21 Range/Units 21:10 AST (17-59) U/L Troponin I 0.042 H* (0.000-0.034) ng/mL Coagulation 11/04/21 11/05/21 Range/Units 15:12 00:35 PT 10.0 (9.0-12.0) sec APTT 20.1 L 32.8 H (22.0-30.0) sec CBC 11/04/21 Range/Units 15:12 WBC 11.5 H (3.8-10.6) k/uL RBC 3.97 L (4.30-5.90) m/uL Hgb 12.3 L (13.0-17.5) gm/dL Hct 36.6 L (39.0-53.0) % Plt Count 189 (150-450) k/uL Comprehensive Metabolic Panel 11/04/21 Range/Units 15:12 Sodium 139 (137-145) mmol/L Potassium 2.5 L* (3.5-5.1) mmol/L Chloride 94 L (98-107) mmol/L Carbon Dioxide 41 H* (22-30) mmol/L BUN 22 H (9-20) mg/dL Creatinine 0.65 L (0.66-1.25) mg/dL Glucose 353 H (74-99) mg/dL Calcium 8.5 (8.4-10.2) mg/dL AST 18 (17-59) U/L ALT 41 (4-49) U/L Alkaline Phosphatase 93 (38-126) U/L Total Protein 5.8 L (6.3-8.2) g/dL Albumin 3.4 L (3.5-5.0) g/dL Current Medications Generic Name Dose Route Start Last Admin Trade Name Freq PRN Reason Stop Dose Admin Hydrocodone Bitart/Acetaminophen 1 each 11/04/21 22:13 11/04/21 22:43 Hydrocodone/Apap 5-325mg 1 Each Tab PO 1 each Q6HR PRN Administration Pain Amlodipine Besylate 10 mg 11/04/21 21:00 11/04/21 22:38 Amlodipine 10 Mg Tab PO 10 mg HS AL Administration Aspirin 325 mg 11/05/21 09:00 Aspirin 325 Mg Tab PO DAILY [facility] Fluconazole 150 mg 11/05/21 09:00 Fluconazole 150 Mg Tab PO DAILY [facility] Protocol Furosemide 40 mg 11/05/21 09:00 Furosemide 10 Mg/Ml 4 Ml Vial IV Q12HR [facility] Gabapentin 300 mg 11/04/21 19:30 11/05/21 06:40 Gabapentin 300 Mg Cap PO 300 mg Q6H AL Administration Diltiazem HCl 125 mg/ Sodium 125 mls @ 5 mls/hr 11/04/21 18:00 11/05/21 04:25 Chloride IV 5 mg/hr .Q24H AL 5 mls/hr Administration 5 MG/HR Heparin Sodium/Sodium Chloride 250 mls @ 10 mls/hr 11/04/21 18:00 11/05/21 01:38 25,000 unit/ Sodium Chloride IV 12.886 units/kg/hr .Q24H AL 13.034 mls/hr Titration Protocol 9.886 UNITS/KG/HR Insulin Aspart 0 unit 11/05/21 07:30 11/05/21 06:40 Insulin Aspart (Novolog) 100 Unit/Ml Vial SQ 2 unit ACHS AL Administration Protocol Metoprolol Tartrate 25 mg 11/04/21 21:00 11/04/21 22:39 Metoprolol Tartrate 25 Mg Tab PO 25 mg BID AL Administration Non-Formulary Medication 25 mg 11/05/21 09:00 Empagliflozin [Jardiance] PO DAILY [facility] Paroxetine HCl 20 mg 11/05/21 09:00 Paroxetine 20 Mg Tab PO DAILY [facility] Potassium Chloride 40 meq 11/04/21 21:00 11/04/21 22:39 Potassium Chloride Er 20 Meq Tab.Er PO 40 meq BID AL Administration Tramadol HCl 100 mg 11/04/21 19:16 11/05/21 04:23 Tramadol 50 Mg Tab PO 100 mg TID PRN Administration Pain Intake and Output 11/04/21 11/05/21 11/05/21 22:59 06:59 14:59 Intake Total 10.833 155.833 Output Total 2300 Balance 10.833 -2144.167 Intake: Intake, IV Titration 10.833 155.833 Amount Diltiazem 125 mg In 10.833 80.833 Sodium Chloride 0.9% 100 ml @ 5 MG/HR 5 mls/hr IV .Q24H [facility] Rx#:[id number] Heparin Sod,Pork in 0.45% 75 NaCl 25,000 unit In 0.45 % NaCl 1 250ml.bag @ 9. 886 UNITS/KG/HR 10 mls/hr IV .Q24H [facility] Rx#: [id number] Output: Urine 2300 Other: Voiding Method Urinal # Voids 1 Weight 101.151 kg 95 kg 11/04/21 15:12 11/04/21 15:12
[2021-11-05 11:41] LABS: Chol/HDL Ratio 4.96 Ratio; LDL Cholesterol,Calculated 100.9 mg/dL (0.0-131.0)
[2021-11-05 11:52] LABS: Glucose,Whole Blood 380 mg/dL (75-99)
[2021-11-05] MEDS ORDERED: IPRATROPIUM-ALBUTEROL 3 ML NEB INHALATION PRN (13:06)
--- NOTE | 2021-11-05 13:41 | P.CNPUL ---
History of Present Illness Consult date: 11/05/21 Requesting physician: Trace Knight Reason for consult: dyspnea, COPD, hypoxemia, lung mass, abnormal CXR/CT Chief complaint: Shortness of breath. History of present illness: Pulmonary consult dated 11/05/2021. 55-year-old male seen in the emergency room, on November 04, initially with mental status changes, and shortness of breath. The patient is not a particularly good historian. The patient recently had a diagnosis of lung cancer given to him. Apparently he has metastases to the rib cage on the left side. The lung cancer is in the left chest. Apparently is a carcinoma, and he can't be further differentiated. Anyway, the patient is currently on the third floor. The patient did develop atrial fibrillation with RVR. He's currently on an amiodarone drip. He is receiving IV heparin. He is on a nonrebreather mass. He did apparently see the cancer doctor, but cannot remember the name of the cancer doctor. He states he is not receiving treatment as yet. He was a heavy smoker in the past. Does not smoke currently. He apparently has a history of hypertension, which is being treated, as well as a new diagnosis of metastatic lung cancer, and sleep apnea. He also has a history of BPH. Labs today include a white count of 10.8, he lobe 11.7, hematocrit 34.3, and a platelet count of 257,000. PTT is 35. Sodium 140, potassium is only 2.6, chlorides 96, CO2 33, BUN 17, and creatinine 0.60. There is significant abnormalities noted in the left lung. The right lung are relatively clear. Bony metastasis is are noted to the anterior left rib cage. Review of Systems REVIEW OF SYSTEMS: CONSTITUTIONAL: Weakness. NEUROLOGIC: Confusion with mental status changes. HEENT: [ Negative.] CARDIAC: Rapid heartbeat and palpitations. PULMONARY: Shortness of breath. GI: [Negative.] : [Negative.] RHEUMATOLOGIC: [ Negative.] IMMUNOLOGIC: [ Negative.] ENDOCRINE: [Negative. ] DERMATOLOGIC: [Negative.] Past Medical History Past Medical History: Diabetes Mellitus, Hypertension, Musculoskeletal Disorder, Prostate Disorder, Sleep Apnea/CPAP/BIPAP Additional Past Medical History / Comment(s): started having high blood pressure September 2021, mass in lung and lower spine,apnea implant-upper rt chest, back & leg pain related to herniated discs,hx enlarged prostate History of Any Multi-Drug Resistant Organisms: None Reported Past Surgical History: Hernia Repair Additional Past Surgical History / Comment(s): epidural pain procedures, colonoscopy,left inguinal hernia repair Past Anesthesia/Blood Transfusion Reactions: No Reported Reaction Past Psychological History: Depression Smoking Status: Current every day smoker Past Alcohol Use History: None Reported Additional Past Alcohol Use History / Comment(s): quit smoking 4-01-24,down to <ppd started smoking at age 21 Past Drug Use History: None Reported - Past Family History Brother(s) Family Medical History: Cancer Additional Family Medical History / Comment(s): had liver CA at age 12. rhabdomyosarcoma Medications and Allergies Home Medications Medication Instructions Recorded Confirmed Type PARoxetine [Paxil] 20 mg PO DAILY 11/26/18 11/04/21 History traMADol HCL [Ultram] 100 mg PO TID PRN 11/26/18 11/04/21 History Gabapentin 300 mg PO Q6H 09/10/21 11/04/21 History Tamsulosin HCl [Flomax] 0.4 mg PO HS 10/12/21 11/04/21 History Empagliflozin [Jardiance] 25 mg PO DAILY 11/04/21 11/04/21 History Furosemide [Lasix] 80 mg PO DAILY 11/04/21 11/04/21 History Losartan Potassium 100 mg PO HS 11/04/21 11/04/21 History Metoprolol Tartrate [Lopressor] 25 mg PO BID 11/04/21 11/04/21 History Potassium Chloride ER [K-Dur 20] 40 meq PO BID 11/04/21 11/04/21 History amLODIPine [Norvasc] 10 mg PO HS 11/04/21 11/04/21 History fentaNYL 50MCG/HR PATCH [Duragesic 50 mcg TRANSDERM Q72H 11/04/21 11/04/21 History 50MCG/HR] Apixaban [Eliquis] 5 mg PO BID 30 Days #60 tab 11/05/21 Rx Allergies Allergy/AdvReac Type Severity Reaction Status Date / Time No Known Allergies Allergy Verified 11/04/21 18:08 Physical Exam Osteopathic Statement: *. No significant issues noted on an osteopathic structural exam other than those noted in the History and Physical/Consult. Vitals: Vital Signs Temp Pulse Pulse Resp BP BP Pulse Ox 11/05/21 12:44 86 20 11/05/21 12:00 98.1 F 86 20 133/64 92 L 11/05/21 08:00 97.8 F 68 22 133/60 93 L 11/05/21 04:00 97.5 F L 75 20 155/83 92 L 11/04/21 23:45 97.6 F 76 18 160/85 87 L 11/04/21 21:26 97.7 F 80 18 162/90 91 L 11/04/21 20:40 97.7 F 80 18 162/90 91 L 11/04/21 20:20 150 H 22 144/84 97 11/04/21 19:17 85 20 148/102 97 11/04/21 18:30 117 H 18 154/92 94 L 11/04/21 18:11 152 H 18 117/95 95 11/04/21 17:45 162 H 11/04/21 16:30 85 18 146/102 90 L 11/04/21 15:30 151/104 11/04/21 15:04 95 18 149/99 95 11/04/21 14:35 98.4 F 87 18 153/93 98 Intake and Output 11/04/21 11/05/21 11/05/21 22:59 06:59 14:59 Intake Total 10.833 155.833 373.164 Output Total 2300 850 Balance 10.833 -2144.167 -476.836 Intake: Intake, IV Titration 10.833 155.833 133.164 Amount Diltiazem 125 mg In 10.833 80.833 Sodium Chloride 0.9% 100 ml @ 5 MG/HR 5 mls/hr IV .Q24H [facility] Rx#:[id number] Heparin Sod,Pork in 0.45% 75 133.164 NaCl 25,000 unit In 0.45 % NaCl 1 250ml.bag @ 9. 886 UNITS/KG/HR 10 mls/hr IV .Q24H [facility] Rx#: [id number] Oral 240 Output: Urine 2300 850 Uretheral ([place]) 500 Other: Voiding Method Urinal # Voids 1 Weight 101.151 kg 95 kg No acute distress, oriented 3. Nonrebreather mask in place. No audible wheezing. No conversational dyspnea. HEENT examination is grossly unremarkable. Neck supple. Full range of motion. No adenopathy thyromegaly or neck vein distention. Cardiovascular examination reveals regular rhythm rate. S1-S2 normal. No S3 or S4. No discernible murmur noted. Heart rate 86 bpm. Clearly in sinus rhythm at this time. Lungs reveal mild scattered rhonchi. No wheezes. No crackles. Breath sounds equal bilaterally. Saturations are 95% on the nonrebreather. Abdomen soft bowel sounds are heard. No masses or tenderness. Extremities are intact. No cyanosis clubbing or edema. Skin is without rash or lesion. Neurologic examination is brief but nonfocal. Results - Laboratory Findings CBC and BMP: 11/05/21 07:00 11/05/21 09:23 PT/INR, D-dimer PT 10.0 sec (9.0-12.0) 11/04/21 15:12 INR 0.9 (<1.2) 11/04/21 15:12 Abnormal lab findings: Abnormal Labs 11/04/21 11/04/21 11/04/21 15:12 15:12 15:12 WBC 11.5 H RBC 3.97 L Hgb 12.3 L Hct 36.6 L Neutrophils # 10.2 H Lymphocytes # 0.8 L APTT 20.1 L Potassium Chloride Carbon Dioxide BUN Creatinine Glucose POC Glucose (mg/dL) Hemoglobin A1c Calcium Troponin I Total Protein Albumin Triglycerides VLDL Cholesterol, Calc HDL Cholesterol TSH Free T4 Urine Glucose (UA) 4+ H 11/04/21 11/04/21 11/04/21 15:12 15:12 20:46 WBC RBC Hgb Hct Neutrophils # Lymphocytes # APTT Potassium 2.5 L* Chloride 94 L Carbon Dioxide 41 H* BUN 22 H Creatinine 0.65 L Glucose 353 H POC Glucose (mg/dL) 226 H Hemoglobin A1c Calcium Troponin I 0.039 H* Total Protein 5.8 L Albumin 3.4 L Triglycerides VLDL Cholesterol, Calc HDL Cholesterol TSH Free T4 Urine Glucose (UA) 11/04/21 11/05/21 11/05/21 21:10 00:35 06:32 WBC RBC Hgb Hct Neutrophils # Lymphocytes # APTT 32.8 H Potassium Chloride Carbon Dioxide BUN Creatinine Glucose POC Glucose (mg/dL) 171 H Hemoglobin A1c Calcium Troponin I 0.042 H* Total Protein Albumin Triglycerides VLDL Cholesterol, Calc HDL Cholesterol TSH Free T4 Urine Glucose (UA) 11/05/21 11/05/21 11/05/21 07:00 07:00 07:00 WBC RBC Hgb Hct Neutrophils # Lymphocytes # APTT 35.0 H Potassium 2.5 L* Chloride 96 L Carbon Dioxide 33 H BUN Creatinine 0.60 L Glucose 156 H POC Glucose (mg/dL) Hemoglobin A1c 9.3 H Calcium 8.1 L Troponin I Total Protein Albumin Triglycerides 234.00 H VLDL Cholesterol, Calc 46.80 H HDL Cholesterol 37.30 L TSH Free T4 Urine Glucose (UA) 11/05/21 11/05/21 11/05/21 07:00 07:00 09:23 WBC 10.8 H RBC 3.67 L Hgb 11.7 L Hct 34.3 L Neutrophils # 9.4 H Lymphocytes # 0.9 L APTT Potassium 2.6 L* Chloride Carbon Dioxide BUN Creatinine Glucose POC Glucose (mg/dL) Hemoglobin A1c Calcium Troponin I Total Protein Albumin Triglycerides VLDL Cholesterol, Calc HDL Cholesterol TSH 0.264 L Free T4 0.61 L Urine Glucose (UA) 11/05/21 11:51 WBC RBC Hgb Hct Neutrophils # Lymphocytes # APTT Potassium Chloride Carbon Dioxide BUN Creatinine Glucose POC Glucose (mg/dL) 380 H Hemoglobin A1c Calcium Troponin I Total Protein Albumin Triglycerides VLDL Cholesterol, Calc HDL Cholesterol TSH Free T4 Urine Glucose (UA) - Diagnostic Findings Chest x-ray: image reviewed Assessment and Plan Assessment: Shortness of breath, likely multifactorial, in part related to atrial fibrillation with RVR, possible underlying COPD, and also metastatic lung cancer. History of hypertension. History of BPH. History of diabetes. History of heavy tobacco use. History of sleep apnea syndrome. Plan: Plan dated 11/05/2021. The patient is back in sinus rhythm. He remains on IV heparin, and an amiodarone drip. He is on a nonrebreather mass. Because of his acute presentation, the patient should be checked for a pulmonary embolism. I'll put an order for a CT angiogram. Additional recommendations and suggestions are forthcoming. Prognosis is certainly guarded. The patient has not started treatment for his lung cancer as yet. He has apparently met the medical oncologists although he cannot remember his name. We will continue to follow make recommendations where appropriate. Labs, x-rays, and medications are reviewed. Time with Patient: Greater than 30
[2021-11-05] MEDS: HYDROcodone/APAP 5-325MG 1 EACH TAB PO PRN (13:54)
[2021-11-05] MEDS: FLUCONAZOLE IN NACL,ISO-OSM 100 MG in SALINE 1 50ML.BAG IVPB SCH (14:27)
[2021-11-05] MEDS: IPRATROPIUM-ALBUTEROL 3 ML NEB INHALATION SCH ×2 (15:12→20:29)
[2021-11-05] MEDS ORDERED: RX INFO: IV CONTRAST WAS GIVEN 1 EACH MISC MISCELLANE PRN (15:31)
--- NOTE | 2021-11-05 15:31 | P.CONS ---
History of Present Illness - Reason for Consult Consult date: 11/05/21 Lung Cancer - Chief Complaint Confusion - History of Present Illness Tyrone presented with Cough, weakness, loss of functional status, no weight loss. He was seen by Dr. Kraus on 10/21/2021 as outpatient. Had progressive massive edema in lower extremities X 2 weeks with negative dopplers. He was found to have 2.5 cm PRATEEK lesion > Brobchoscopy & Bx by Dr Medel: Poorly differentiated Carcinoma. The patient smoked 1-2 PPD X 40 years till 1 months ago. He is C/O low back pain X 4-6 weeks, denies Hx of trauma During this visit the plan for further evaluation of IVC thrombus, brain mets and targeted mutations was ordered. He was unable to have MRI due to implant so CT head was ordered. Unfortunety CT head without contrast is not the best to identify metastatic disease. He now presents after was concerned with increased confusion. Review of Systems ROS unobtainable: due to mental status All systems: negative Past Medical History Past Medical History: Diabetes Mellitus, Hypertension, Musculoskeletal Disorder, Prostate Disorder, Sleep Apnea/CPAP/BIPAP Additional Past Medical History / Comment(s): started having high blood pressure September 2021, mass in lung and lower spine,apnea implant-upper rt chest, back & leg pain related to herniated discs,hx enlarged prostate History of Any Multi-Drug Resistant Organisms: None Reported Past Surgical History: Hernia Repair Additional Past Surgical History / Comment(s): epidural pain procedures, colonoscopy,left inguinal hernia repair Past Anesthesia/Blood Transfusion Reactions: No Reported Reaction Past Psychological History: Depression Smoking Status: Current every day smoker Past Alcohol Use History: None Reported Additional Past Alcohol Use History / Comment(s): quit smoking 09-10-21,down to <ppd started smoking at age 21 Past Drug Use History: None Reported - Past Family History Brother(s) Family Medical History: Cancer Additional Family Medical History / Comment(s): had liver CA at age 12. rhabdomyosarcoma Medications and Allergies Home Medications Medication Instructions Recorded Confirmed Type PARoxetine [Paxil] 20 mg PO DAILY 11/26/18 11/04/21 History traMADol HCL [Ultram] 100 mg PO TID PRN 11/26/18 11/04/21 History Gabapentin 300 mg PO Q6H 09/10/21 11/04/21 History Tamsulosin HCl [Flomax] 0.4 mg PO HS 10/12/21 11/04/21 History Empagliflozin [Jardiance] 25 mg PO DAILY 11/04/21 11/04/21 History Furosemide [Lasix] 80 mg PO DAILY 11/04/21 11/04/21 History Losartan Potassium 100 mg PO HS 11/04/21 11/04/21 History Metoprolol Tartrate [Lopressor] 25 mg PO BID 11/04/21 11/04/21 History Potassium Chloride ER [K-Dur 20] 40 meq PO BID 11/04/21 11/04/21 History amLODIPine [Norvasc] 10 mg PO HS 11/04/21 11/04/21 History fentaNYL 50MCG/HR PATCH [Duragesic 50 mcg TRANSDERM Q72H 11/04/21 11/04/21 History 50MCG/HR] Apixaban [Eliquis] 5 mg PO BID 30 Days #60 tab 11/05/21 Rx Allergies Allergy/AdvReac Type Severity Reaction Status Date / Time No Known Allergies Allergy Verified 11/04/21 18:08 Physical Exam Vitals: Vital Signs Temp Pulse Pulse Resp BP BP Pulse Ox 11/05/21 12:44 86 20 11/05/21 12:00 98.1 F 86 20 133/64 92 L 11/05/21 08:00 97.8 F 68 22 133/60 93 L 11/05/21 04:00 97.5 F L 75 20 155/83 92 L 11/04/21 23:45 97.6 F 76 18 160/85 87 L 11/04/21 21:26 97.7 F 80 18 162/90 91 L 11/04/21 20:40 97.7 F 80 18 162/90 91 L 11/04/21 20:20 150 H 22 144/84 97 11/04/21 19:17 85 20 148/102 97 11/04/21 18:30 117 H 18 154/92 94 L 11/04/21 18:11 152 H 18 117/95 95 11/04/21 17:45 162 H 11/04/21 16:30 85 18 146/102 90 L 11/04/21 15:30 151/104 Intake and Output 11/05/21 11/05/21 11/05/21 06:59 14:59 22:59 Intake Total 155.833 373.164 Output Total 2300 850 Balance -2144.167 -476.836 Intake: Intake, IV Titration 155.833 133.164 Amount Diltiazem 125 mg In 80.833 Sodium Chloride 0.9% 100 ml @ 5 MG/HR 5 mls/hr IV .Q24H AL Rx#:[id number] Heparin Sod,Pork in 0.45% 75 133.164 NaCl 25,000 unit In 0.45 % NaCl 1 250ml.bag @ 9. 886 UNITS/KG/HR 10 mls/hr IV .Q24H AL Rx#: [id number] Oral 240 Output: Urine 2300 850 Uretheral (Palacios) 500 Other: # Voids 1 Weight 95 kg 95 kg Increased respiratory effort Non rebreather Irregular Abd soft BLE edema Results CBC & Chem 7: 11/06/21 08:53 11/05/21 09:23 Labs: Abnormal Lab Results - Last 24 Hours (Table) 11/04/21 11/04/21 11/04/21 Range/Units 15:12 15:12 15:12 WBC 11.5 H (3.8-10.6) k/uL RBC 3.97 L (4.30-5.90) m/uL Hgb 12.3 L (13.0-17.5) gm/dL Hct 36.6 L (39.0-53.0) % Neutrophils # 10.2 H (1.3-7.7) k/uL Lymphocytes # 0.8 L (1.0-4.8) k/uL APTT 20.1 L (22.0-30.0) sec Potassium (3.5-5.1) mmol/L Chloride (98-107) mmol/L Carbon Dioxide (22-30) mmol/L BUN (9-20) mg/dL Creatinine (0.66-1.25) mg/dL Glucose (74-99) mg/dL POC Glucose (mg/dL) (75-99) mg/dL Hemoglobin A1c (0.0-6.0) % Calcium (8.4-10.2) mg/dL Troponin I (0.000-0.034) ng/mL Total Protein (6.3-8.2) g/dL Albumin (3.5-5.0) g/dL Triglycerides (0.00-149.00) mg/dL VLDL Cholesterol, Calc (5.00-40.00) mg/dL HDL Cholesterol (40.00-60.00) mg/dL TSH (0.465-4.680) mIU/L Free T4 (0.78-2.19) ng/dL Urine Glucose (UA) 4+ H (Negative) 11/04/21 11/04/21 11/04/21 Range/Units 15:12 15:12 20:46 WBC (3.8-10.6) k/uL RBC (4.30-5.90) m/uL Hgb (13.0-17.5) gm/dL Hct (39.0-53.0) % Neutrophils # (1.3-7.7) k/uL Lymphocytes # (1.0-4.8) k/uL APTT (22.0-30.0) sec Potassium 2.5 L* (3.5-5.1) mmol/L Chloride 94 L (98-107) mmol/L Carbon Dioxide 41 H* (22-30) mmol/L BUN 22 H (9-20) mg/dL Creatinine 0.65 L (0.66-1.25) mg/dL Glucose 353 H (74-99) mg/dL POC Glucose (mg/dL) 226 H (75-99) mg/dL Hemoglobin A1c (0.0-6.0) % Calcium (8.4-10.2) mg/dL Troponin I 0.039 H* (0.000-0.034) ng/mL Total Protein 5.8 L (6.3-8.2) g/dL Albumin 3.4 L (3.5-5.0) g/dL Triglycerides (0.00-149.00) mg/dL VLDL Cholesterol, Calc (5.00-40.00) mg/dL HDL Cholesterol (40.00-60.00) mg/dL TSH (0.465-4.680) mIU/L Free T4 (0.78-2.19) ng/dL Urine Glucose (UA) (Negative) 11/04/21 11/05/21 11/05/21 Range/Units 21:10 00:35 06:32 WBC (3.8-10.6) k/uL RBC (4.30-5.90) m/uL Hgb (13.0-17.5) gm/dL Hct (39.0-53.0) % Neutrophils # (1.3-7.7) k/uL Lymphocytes # (1.0-4.8) k/uL APTT 32.8 H (22.0-30.0) sec Potassium (3.5-5.1) mmol/L Chloride (98-107) mmol/L Carbon Dioxide (22-30) mmol/L BUN (9-20) mg/dL Creatinine (0.66-1.25) mg/dL Glucose (74-99) mg/dL POC Glucose (mg/dL) 171 H (75-99) mg/dL Hemoglobin A1c (0.0-6.0) % Calcium (8.4-10.2) mg/dL Troponin I 0.042 H* (0.000-0.034) ng/mL Total Protein (6.3-8.2) g/dL Albumin (3.5-5.0) g/dL Triglycerides (0.00-149.00) mg/dL VLDL Cholesterol, Calc (5.00-40.00) mg/dL HDL Cholesterol (40.00-60.00) mg/dL TSH (0.465-4.680) mIU/L Free T4 (0.78-2.19) ng/dL Urine Glucose (UA) (Negative) 11/05/21 11/05/21 11/05/21 Range/Units 07:00 07:00 07:00 WBC (3.8-10.6) k/uL RBC (4.30-5.90) m/uL Hgb (13.0-17.5) gm/dL Hct (39.0-53.0) % Neutrophils # (1.3-7.7) k/uL Lymphocytes # (1.0-4.8) k/uL APTT 35.0 H (22.0-30.0) sec Potassium 2.5 L* (3.5-5.1) mmol/L Chloride 96 L (98-107) mmol/L Carbon Dioxide 33 H (22-30) mmol/L BUN (9-20) mg/dL Creatinine 0.60 L (0.66-1.25) mg/dL Glucose 156 H (74-99) mg/dL POC Glucose (mg/dL) (75-99) mg/dL Hemoglobin A1c 9.3 H (0.0-6.0) % Calcium 8.1 L (8.4-10.2) mg/dL Troponin I (0.000-0.034) ng/mL Total Protein (6.3-8.2) g/dL Albumin (3.5-5.0) g/dL Triglycerides 234.00 H (0.00-149.00) mg/dL VLDL Cholesterol, Calc 46.80 H (5.00-40.00) mg/dL HDL Cholesterol 37.30 L (40.00-60.00) mg/dL TSH (0.465-4.680) mIU/L Free T4 (0.78-2.19) ng/dL Urine Glucose (UA) (Negative) 11/05/21 11/05/21 11/05/21 Range/Units 07:00 07:00 09:23 WBC 10.8 H (3.8-10.6) k/uL RBC 3.67 L (4.30-5.90) m/uL Hgb 11.7 L (13.0-17.5) gm/dL Hct 34.3 L (39.0-53.0) % Neutrophils # 9.4 H (1.3-7.7) k/uL Lymphocytes # 0.9 L (1.0-4.8) k/uL APTT (22.0-30.0) sec Potassium 2.6 L* (3.5-5.1) mmol/L Chloride (98-107) mmol/L Carbon Dioxide (22-30) mmol/L BUN (9-20) mg/dL Creatinine (0.66-1.25) mg/dL Glucose (74-99) mg/dL POC Glucose (mg/dL) (75-99) mg/dL Hemoglobin A1c (0.0-6.0) % Calcium (8.4-10.2) mg/dL Troponin I (0.000-0.034) ng/mL Total Protein (6.3-8.2) g/dL Albumin (3.5-5.0) g/dL Triglycerides (0.00-149.00) mg/dL VLDL Cholesterol, Calc (5.00-40.00) mg/dL HDL Cholesterol (40.00-60.00) mg/dL TSH 0.264 L (0.465-4.680) mIU/L Free T4 0.61 L (0.78-2.19) ng/dL Urine Glucose (UA) (Negative) 11/05/21 Range/Units 11:51 WBC (3.8-10.6) k/uL RBC (4.30-5.90) m/uL Hgb (13.0-17.5) gm/dL Hct (39.0-53.0) % Neutrophils # (1.3-7.7) k/uL Lymphocytes # (1.0-4.8) k/uL APTT (22.0-30.0) sec Potassium (3.5-5.1) mmol/L Chloride (98-107) mmol/L Carbon Dioxide (22-30) mmol/L BUN (9-20) mg/dL Creatinine (0.66-1.25) mg/dL Glucose (74-99) mg/dL POC Glucose (mg/dL) 380 H (75-99) mg/dL Hemoglobin A1c (0.0-6.0) % Calcium (8.4-10.2) mg/dL Troponin I (0.000-0.034) ng/mL Total Protein (6.3-8.2) g/dL Albumin (3.5-5.0) g/dL Triglycerides (0.00-149.00) mg/dL VLDL Cholesterol, Calc (5.00-40.00) mg/dL HDL Cholesterol (40.00-60.00) mg/dL TSH (0.465-4.680) mIU/L Free T4 (0.78-2.19) ng/dL Urine Glucose (UA) (Negative) Assessment and Plan (1) Adenocarcinoma, lung Current Visit: Yes Status: Acute Code(s): C34.90 - MALIGNANT NEOPLASM OF UNSP PART OF UNSP BRONCHUS OR LUNG SNOMED Code(s): 935721177 (2) Acute hypoxemic respiratory failure Narrative/Plan: Pulmonology following Awaiting CTA Agree with active Hep drip Current Visit: Yes Status: Acute Code(s): J96.01 - ACUTE RESPIRATORY FAILURE WITH HYPOXIA SNOMED Code(s): 657379914 (3) Hyperthyroidism Narrative/Plan: Further work-up In alignment with metabolic picture Current Visit: Yes Status: Acute Code(s): E05.90 - THYROTOXICOSIS, UNSP WITHOUT THYROTOXIC CRISIS OR STORM SNOMED Code(s): 58126186 (4) Altered mental status Narrative/Plan: Await CTA for PE Repeat CT head but with contrast Possible component metabolic syndrome with marked elevation in glucose, marked hypokalemia, increased thyroid function - COrtisol Infectious work-up and treatment for thrush Current Visit: Yes Status: Acute Code(s): R41.82 - ALTERED MENTAL STATUS, UNSPECIFIED SNOMED Code(s): 144068651 (5) Atrial fibrillation with rapid ventricular response Current Visit: Yes Status: Acute Code(s): I48.91 - UNSPECIFIED ATRIAL FIBRILLATION SNOMED Code(s): 355715085713270 (6) Hypokalemia Narrative/Plan: Replace and check stat mag Cortisol pending Current Visit: Yes Status: Acute Code(s): E87.6 - HYPOKALEMIA SNOMED Code(s): 64708951 (7) Leukocytosis Narrative/Plan: Full loving cultures needed primary team has ordered await results Current Visit: No Status: Acute Code(s): D72.829 - ELEVATED WHITE BLOOD CELL COUNT, UNSPECIFIED SNOMED Code(s): 622273035 (8) Pedal edema Narrative/Plan: Doppler LE Current Visit: No Status: Acute Code(s): R60.0 - LOCALIZED EDEMA SNOMED Code(s): 254780994 Plan: PET scsan with FDG avity to bone, and only lung mass, ? acute situation as infectious versus actual progression. CT without contrast of HEad neg, will need with contrast Imaging regarding possible Thrombus IVC and Osseous mets not clear CT Bone scan ordered and Ultrasound with doppler abdomen Loving cultures respiratory work-up CTA Await resolution of acute issues then can determine ongoing treatment plan Guardian 360 without approved actionable mutations for lung ca - SOmatic BRCA2 and PIK mutations Plan for stabilization and further diagnostics and treatment plan can be deteremined Discussed in detail with Dr. Greer: I have completed the full history and physical and developed the complete impression and plan, agree with dictation dictated as a ascribe Add: The pt has significant b/l lung infiltrates - new from recent CT 2-3 wks ago. Thus pneumonia is much more likely that cancer progression given the short interval, though the latter is not totally ruled out. D/W pt and
[2021-11-05] MEDS: HYDROmorphone 0.5 MG/0.5 ML SYRINGE IVP PRN (16:25)
--- NOTE | 2021-11-05 16:31 | US ---
EXAMINATION TYPE: US venous doppler duplex LE BI DATE OF EXAM: 11/05/2021 4:08 PM COMPARISON: Prior study September 11, 2021 CLINICAL HISTORY: assess dvts. On IV heparin. Afib. Leg swelling. No redness. SIDE PERFORMED: Bilateral TECHNIQUE: The lower extremity deep venous system is examined utilizing real time linear array sonog brandon with graded compression, doppler sonography and color-flow sonography. VESSELS IMAGED: Common Femoral Vein Deep Femoral Vein Greater Saphenous Vein * Femoral Vein Popliteal Vein Small Saphenous Vein * Proximal Calf Veins (* superficial vessels) Right Leg: Negative for DVT Left Leg: Negative for DVT Grayscale, color doppler, spectral doppler imaging performed of the deep veins of the bilateral lower extremities. There is normal flow, compressibility, vascular waveforms. IMPRESSION: No ultrasound evidence for acute DVT on current study. No significant change from most r ecent prior.
[2021-11-05 16:40] LABS: Glucose,Whole Blood 167 mg/dL (75-99)
--- NOTE | 2021-11-05 17:17 | HP ---
HISTORY AND PHYSICAL DATE OF SERVICE: 11/05/2021 CHIEF COMPLAINTS: Change in mental status, shortness of breath, atrial fibrillation. HISTORY OF PRESENT ILLNESS: This 55-year-old gentleman with a past medical history of diabetes mellitus and hypertension was recently diagnosed with lung cancer with metastases per Dr. Ramirez and Dr. Kraus. The patient also was complaining of severe pain. Patient is on a fentanyl patch. Patient had some change in mental status. Recent CT scan of the brain was normal, but MRI could not be done apparently because patient had an apparatus for sleep apnea. Currently the patient is having change in mental status and also was found to have atrial fibrillation with fast ventricular rate, admitted on telemetry. Cardiology is planning amiodarone drip at this time. The patient also has significant bilateral leg edema. There is no history of any fever or rigors. The white count is elevated. Patient also had some thrush. The patient is unable to give a coherent history; patient is on BiPAP because of significant hypoxia. Most of the history is taken from my discussion with the patient's at the bedside and review of the chart. PAST MEDICAL HISTORY: History of diabetes mellitus and hypertension. MEDICATIONS: Home medications are reviewed include Norvasc, Ultram. Doses are reviewed. ALLERGIES: NONE. Family history, social history and review of systems could not be taken because of change in mental status. PHYSICAL EXAMINATION: Pulse is 86, blood pressure 130/64, respiration 20. Patient is stuporous. HEENT: Conjunctivae normal. NECK: No jugular venous distention. CARDIOVASCULAR: S1, S2 muffled. RESPIRATION: Breath sounds diminished at the bases. Bilateral scattered rhonchi. ABDOMEN: Soft. LEGS: Bilateral leg edema. NERVOUS SYSTEM: Diffusely weak. SKIN: No ulcer, rash, bleeding. JOINTS: No active deforming arthropathy. LABS: WBC 10.2, hemoglobin 11.7, sodium 140, potassium 2.4. ASSESSMENT: 1. Atrial fibrillation with a fast ventricular rate. 2. Change in mental status, metabolic encephalopathy. Rule out brain metastases. 3. Recently diagnosed lung cancer with metastases. 4. Possible chronic obstructive pulmonary disease, acute exacerbation, with acute hypoxic respiratory failure. 5. Severe hypokalemia. 6. Multiple medical issues. RECOMMENDATIONS AND DISCUSSION: In this 55-year-old gentleman who presented with multiple complex medical issues, we will monitor the patient closely, continue the current medications, continue symptomatic treatment. Otherwise at this time I would also recommend continuing with amiodarone drip. Empiric antibiotics. Obtain cultures. Infectious disease evaluation. Neurology evaluation. Overall prognosis is guarded because of multiple complex medical issues. I would recommend intensive bronchodilator treatment. Continue to monitor. Overall prognosis extremely guarded. Hematology/Oncology also will be consulted. Discussed with the patient and family at the bedside, who understand and agree. Further recommendations to follow. Please refer to [facility] notes also. MMODL / IJN: [id number] /
[2021-11-05 17:21] LABS: Partial Thromboplastin Time 40.2 sec (22.0-30.0); Prothrombin Time 10.8 sec (9.0-12.0)
[2021-11-05] MEDS: HEPARIN SOD,PORK IN 0.45% NACL 25,000 UNIT in 0.45% NACL 1 250ML.BAG IV SCH (17:48)
--- NOTE | 2021-11-05 17:52 | CA ---
Transthoracic Echo Report Name: Tyrone Teague Age: 55 Gender: M : 1965 Exam Date: 11/05/2021 14:09 Exam Location: [facility] Ht (in): 72 Wt (lb): 209 Ordering Physician: Inge Gonzalez Attending/Referring Phys: Ticket Counter Yasmeen Last RDCS Procedure CPT: Indications: new a fib Cardiac Hx: Technical Quality: Fair Contrast 1: Total Dose (mL): Contrast 2: Total Dose (mL): MEASUREMENTS (Male / Female) Normal Values 2D ECHO LV Diastolic Diameter PLAX 4.4 cm 4.2 - 5.9 / 3.9 - 5.3 cm LV Systolic Diameter PLAX 3.6 cm IVS Diastolic Thickness 1.3 cm 0.6 - 1.0 / 0.6 - 0.9 cm LVPW Diastolic Thickness 1.6 cm 0.6 - 1.0 / 0.6 - 0.9 cm LV Relative Wall Thickness 0.7 RV Internal Dim ED PLAX 4.5 cm M-MODE Aortic Root Diameter MM 3.4 cm DOPPLER AV Peak Velocity 172.6 cm/s AV Peak Gradient 11.9 mmHg LVOT Peak Velocity 116.6 cm/s LVOT Peak Gradient 5.4 mmHg MV Area PHT 3.7 cm??? Mitral E Point Velocity 138.6 cm/s Mitral A Point Velocity 96.8 cm/s Mitral E to A Ratio 1.4 MV Deceleration Time 203.3 ms MV E' Velocity 11.4 cm/s Mitral E to MV E' Ratio 12.1 FINDINGS Left Ventricle Mildly increased left ventricular wall thickness. Normal left ventricular systolic function with no obvious regional wall motion abnormalities. Left ventricular ejection fraction is estimated at 55-60 %. Right Ventricle Right ventricular dilatation. Right ventricular systolic pressure within normal limits. Right Atrium Normal right atrial size. Left Atrium Mild left atrial dilatation. Mitral Valve Structurally normal mitral valve. No mitral stenosis, regurgitation or prolapse. Aortic Valve No aortic stenosis. Trace aortic regurgitation. Tricuspid Valve Structurally normal tricuspid valve. Mild tricuspid regurgitation. Pulmonic Valve Structurally normal pulmonic valve. Pericardium No pericardial effusion. Aorta Aortic root and proximal ascending aorta not well visualized. CONCLUSIONS Mild LVH Normal left ventricular ejection fraction 55-60% Mild tricuspid regurgitation No pericardial effusion Previewed by: Dr. Mert Lockhart DO (Electronically Signed) Final Date: 05 November 2021 17:52
[2021-11-05 20:51] LABS: Glucose,Whole Blood 118 mg/dL (75-99)
[2021-11-05] MEDS: AMIODARONE 450 MG in DEXTROSE 5% IN WATER 250 ML IV SCH ×2 (21:55)
[2021-11-05] MEDS: LOSARTAN 50 MG TAB PO SCH (21:58)
[2021-11-05] MEDS: TAMSULOSIN 0.4 MG CAP.ER.24H PO SCH (21:58)
[2021-11-05] MEDS: amLODIPine 10 MG TAB PO SCH (21:58)
[2021-11-05] MEDS: FUROSEMIDE 10 MG/ML 4 ML VIAL IV SCH (21:58)
--- NOTE | 2021-11-05 22:34 | P.CONS ---
History of Present Illness - Reason for Consult Consult date: 11/05/21 - History of Present Illness Patient is a 55-year-old male with recent diagnosis of newly differentiated carcinoma with metastasis patient has not been started on chemotherapy yet patient did have evidence of extensive thrush and has been treated with nystatin swish and swallow and Diflucan patient now presenting to the hospital for evaluation of weakness loss of functional status did have significant swelling to bilateral lower extremity, patient on presentation to the hospital was afebrile and no fever have been recorded subsequently patient did have a hypoxemia requiring high flow oxygen patient did have white count of 11.5 with a left shift creatinine has been normal liver exams are normal urine has been negative urine drug screen was negative patient did have a chest x-ray multifocal areas of consolidation involving the left lung suspecting a possible over pneumonia patient did have a lower extremity Doppler that has been negative for DVT patient has been started on Rocephin and fluconazole infectious disease was consulted for further management of antibiotic concerning for possible pneumonia Past Medical History Past Medical History: Diabetes Mellitus, Hypertension, Musculoskeletal Disorder, Prostate Disorder, Sleep Apnea/CPAP/BIPAP Additional Past Medical History / Comment(s): started having high blood pressure September 2021, mass in lung and lower spine,apnea implant-upper rt chest, back & leg pain related to herniated discs,hx enlarged prostate History of Any Multi-Drug Resistant Organisms: None Reported Past Surgical History: Hernia Repair Additional Past Surgical History / Comment(s): epidural pain procedures, colonoscopy,left inguinal hernia repair Past Anesthesia/Blood Transfusion Reactions: No Reported Reaction Past Psychological History: Depression Smoking Status: Current every day smoker Past Alcohol Use History: None Reported Additional Past Alcohol Use History / Comment(s): quit smoking 09-10-21,down to <ppd started smoking at age 21 Past Drug Use History: None Reported - Past Family History Brother(s) Family Medical History: Cancer Additional Family Medical History / Comment(s): had liver CA at age 12. rhabdomyosarcoma Medications and Allergies Home Medications Medication Instructions Recorded Confirmed Type PARoxetine [Paxil] 20 mg PO DAILY 11/26/18 11/04/21 History traMADol HCL [Ultram] 100 mg PO TID PRN 11/26/18 11/04/21 History Gabapentin 300 mg PO Q6H 09/10/21 11/04/21 History Tamsulosin HCl [Flomax] 0.4 mg PO HS 10/12/21 11/04/21 History Empagliflozin [Jardiance] 25 mg PO DAILY 11/04/21 11/04/21 History Furosemide [Lasix] 80 mg PO DAILY 11/04/21 11/04/21 History Losartan Potassium 100 mg PO HS 11/04/21 11/04/21 History Metoprolol Tartrate [Lopressor] 25 mg PO BID 11/04/21 11/04/21 History Potassium Chloride ER [K-Dur 20] 40 meq PO BID 11/04/21 11/04/21 History amLODIPine [Norvasc] 10 mg PO HS 11/04/21 11/04/21 History fentaNYL 50MCG/HR PATCH [Duragesic 50 mcg TRANSDERM Q72H 11/04/21 11/04/21 History 50MCG/HR] Apixaban [Eliquis] 5 mg PO BID 30 Days #60 tab 11/05/21 Rx Allergies Allergy/AdvReac Type Severity Reaction Status Date / Time No Known Allergies Allergy Verified 11/04/21 18:08 Physical Exam Vitals: Vital Signs Temp Pulse Pulse Resp BP BP Pulse Ox 11/05/21 12:44 86 20 11/05/21 12:00 98.1 F 86 20 133/64 92 L 11/05/21 08:00 97.8 F 68 22 133/60 93 L 11/05/21 04:00 97.5 F L 75 20 155/83 92 L 11/04/21 23:45 97.6 F 76 18 160/85 87 L 11/04/21 21:26 97.7 F 80 18 162/90 91 L 11/04/21 20:40 97.7 F 80 18 162/90 91 L 11/04/21 20:20 150 H 22 144/84 97 11/04/21 19:17 85 20 148/102 97 11/04/21 18:30 117 H 18 154/92 94 L 11/04/21 18:11 152 H 18 117/95 95 11/04/21 17:45 162 H 11/04/21 16:30 85 18 146/102 90 L 11/04/21 15:30 151/104 11/04/21 15:04 95 18 149/99 95 11/04/21 14:35 98.4 F 87 18 153/93 98 Intake and Output 11/04/21 11/05/21 11/05/21 22:59 06:59 14:59 Intake Total 10.833 155.833 373.164 Output Total 2300 850 Balance 10.833 -2144.167 -476.836 Intake: Intake, IV Titration 10.833 155.833 133.164 Amount Diltiazem 125 mg In 10.833 80.833 Sodium Chloride 0.9% 100 ml @ 5 MG/HR 5 mls/hr IV .Q24H [facility] Rx#:[id number] Heparin Sod,Pork in 0.45% 75 133.164 NaCl 25,000 unit In 0.45 % NaCl 1 250ml.bag @ 9. 886 UNITS/KG/HR 10 mls/hr IV .Q24H [facility] Rx#: [id number] Oral 240 Output: Urine 2300 850 Uretheral (Palacios) 500 Other: Voiding Method Urinal # Voids 1 Weight 101.151 kg 95 kg Results CBC & Chem 7: 11/05/21 07:00 11/05/21 09:23 Labs: Abnormal Lab Results - Last 24 Hours (Table) 11/04/21 11/04/21 11/04/21 Range/Units 15:12 15:12 15:12 WBC 11.5 H (3.8-10.6) k/uL RBC 3.97 L (4.30-5.90) m/uL Hgb 12.3 L (13.0-17.5) gm/dL Hct 36.6 L (39.0-53.0) % Neutrophils # 10.2 H (1.3-7.7) k/uL Lymphocytes # 0.8 L (1.0-4.8) k/uL APTT 20.1 L (22.0-30.0) sec Potassium (3.5-5.1) mmol/L Chloride (98-107) mmol/L Carbon Dioxide (22-30) mmol/L BUN (9-20) mg/dL Creatinine (0.66-1.25) mg/dL Glucose (74-99) mg/dL POC Glucose (mg/dL) (75-99) mg/dL Hemoglobin A1c (0.0-6.0) % Calcium (8.4-10.2) mg/dL Troponin I (0.000-0.034) ng/mL Total Protein (6.3-8.2) g/dL Albumin (3.5-5.0) g/dL Triglycerides (0.00-149.00) mg/dL VLDL Cholesterol, Calc (5.00-40.00) mg/dL HDL Cholesterol (40.00-60.00) mg/dL TSH (0.465-4.680) mIU/L Free T4 (0.78-2.19) ng/dL Urine Glucose (UA) 4+ H (Negative) 11/04/21 11/04/21 11/04/21 Range/Units 15:12 15:12 20:46 WBC (3.8-10.6) k/uL RBC (4.30-5.90) m/uL Hgb (13.0-17.5) gm/dL Hct (39.0-53.0) % Neutrophils # (1.3-7.7) k/uL Lymphocytes # (1.0-4.8) k/uL APTT (22.0-30.0) sec Potassium 2.5 L* (3.5-5.1) mmol/L Chloride 94 L (98-107) mmol/L Carbon Dioxide 41 H* (22-30) mmol/L BUN 22 H (9-20) mg/dL Creatinine 0.65 L (0.66-1.25) mg/dL Glucose 353 H (74-99) mg/dL POC Glucose (mg/dL) 226 H (75-99) mg/dL Hemoglobin A1c (0.0-6.0) % Calcium (8.4-10.2) mg/dL Troponin I 0.039 H* (0.000-0.034) ng/mL Total Protein 5.8 L (6.3-8.2) g/dL Albumin 3.4 L (3.5-5.0) g/dL Triglycerides (0.00-149.00) mg/dL VLDL Cholesterol, Calc (5.00-40.00) mg/dL HDL Cholesterol (40.00-60.00) mg/dL TSH (0.465-4.680) mIU/L Free T4 (0.78-2.19) ng/dL Urine Glucose (UA) (Negative) 11/04/21 11/05/21 11/05/21 Range/Units 21:10 00:35 06:32 WBC (3.8-10.6) k/uL RBC (4.30-5.90) m/uL Hgb (13.0-17.5) gm/dL Hct (39.0-53.0) % Neutrophils # (1.3-7.7) k/uL Lymphocytes # (1.0-4.8) k/uL APTT 32.8 H (22.0-30.0) sec Potassium (3.5-5.1) mmol/L Chloride (98-107) mmol/L Carbon Dioxide (22-30) mmol/L BUN (9-20) mg/dL Creatinine (0.66-1.25) mg/dL Glucose (74-99) mg/dL POC Glucose (mg/dL) 171 H (75-99) mg/dL Hemoglobin A1c (0.0-6.0) % Calcium (8.4-10.2) mg/dL Troponin I 0.042 H* (0.000-0.034) ng/mL Total Protein (6.3-8.2) g/dL Albumin (3.5-5.0) g/dL Triglycerides (0.00-149.00) mg/dL VLDL Cholesterol, Calc (5.00-40.00) mg/dL HDL Cholesterol (40.00-60.00) mg/dL TSH (0.465-4.680) mIU/L Free T4 (0.78-2.19) ng/dL Urine Glucose (UA) (Negative) 11/05/21 11/05/21 11/05/21 Range/Units 07:00 07:00 07:00 WBC (3.8-10.6) k/uL RBC (4.30-5.90) m/uL Hgb (13.0-17.5) gm/dL Hct (39.0-53.0) % Neutrophils # (1.3-7.7) k/uL Lymphocytes # (1.0-4.8) k/uL APTT 35.0 H (22.0-30.0) sec Potassium 2.5 L* (3.5-5.1) mmol/L Chloride 96 L (98-107) mmol/L Carbon Dioxide 33 H (22-30) mmol/L BUN (9-20) mg/dL Creatinine 0.60 L (0.66-1.25) mg/dL Glucose 156 H (74-99) mg/dL POC Glucose (mg/dL) (75-99) mg/dL Hemoglobin A1c 9.3 H (0.0-6.0) % Calcium 8.1 L (8.4-10.2) mg/dL Troponin I (0.000-0.034) ng/mL Total Protein (6.3-8.2) g/dL Albumin (3.5-5.0) g/dL Triglycerides 234.00 H (0.00-149.00) mg/dL VLDL Cholesterol, Calc 46.80 H (5.00-40.00) mg/dL HDL Cholesterol 37.30 L (40.00-60.00) mg/dL TSH (0.465-4.680) mIU/L Free T4 (0.78-2.19) ng/dL Urine Glucose (UA) (Negative) 11/05/21 11/05/21 11/05/21 Range/Units 07:00 07:00 09:23 WBC 10.8 H (3.8-10.6) k/uL RBC 3.67 L (4.30-5.90) m/uL Hgb 11.7 L (13.0-17.5) gm/dL Hct 34.3 L (39.0-53.0) % Neutrophils # 9.4 H (1.3-7.7) k/uL Lymphocytes # 0.9 L (1.0-4.8) k/uL APTT (22.0-30.0) sec Potassium 2.6 L* (3.5-5.1) mmol/L Chloride (98-107) mmol/L Carbon Dioxide (22-30) mmol/L BUN (9-20) mg/dL Creatinine (0.66-1.25) mg/dL Glucose (74-99) mg/dL POC Glucose (mg/dL) (75-99) mg/dL Hemoglobin A1c (0.0-6.0) % Calcium (8.4-10.2) mg/dL Troponin I (0.000-0.034) ng/mL Total Protein (6.3-8.2) g/dL Albumin (3.5-5.0) g/dL Triglycerides (0.00-149.00) mg/dL VLDL Cholesterol, Calc (5.00-40.00) mg/dL HDL Cholesterol (40.00-60.00) mg/dL TSH 0.264 L (0.465-4.680) mIU/L Free T4 0.61 L (0.78-2.19) ng/dL Urine Glucose (UA) (Negative) 11/05/21 Range/Units 11:51 WBC (3.8-10.6) k/uL RBC (4.30-5.90) m/uL Hgb (13.0-17.5) gm/dL Hct (39.0-53.0) % Neutrophils # (1.3-7.7) k/uL Lymphocytes # (1.0-4.8) k/uL APTT (22.0-30.0) sec Potassium (3.5-5.1) mmol/L Chloride (98-107) mmol/L Carbon Dioxide (22-30) mmol/L BUN (9-20) mg/dL Creatinine (0.66-1.25) mg/dL Glucose (74-99) mg/dL POC Glucose (mg/dL) 380 H (75-99) mg/dL Hemoglobin A1c (0.0-6.0) % Calcium (8.4-10.2) mg/dL Troponin I (0.000-0.034) ng/mL Total Protein (6.3-8.2) g/dL Albumin (3.5-5.0) g/dL Triglycerides (0.00-149.00) mg/dL VLDL Cholesterol, Calc (5.00-40.00) mg/dL HDL Cholesterol (40.00-60.00) mg/dL TSH (0.465-4.680) mIU/L Free T4 (0.78-2.19) ng/dL Urine Glucose (UA) (Negative) Assessment and Plan Plan: 1patient presented to hospital with increasing shortness of breath and weakness in this patient did have a bilateral lower extremity swelling recent diagnosis of metastatic poorly differentiated carcinoma however has not yet been started on chemotherapy, patient did not have any fever or significant evaded white count underlying pneumonia less likely but not entirely excluded. 2we will obtain sputum for gram stain and culture and check a procalcitonin level. 3discontinue Rocephin and start the patient on Zosyn while awaiting further work-up to be completed. We will follow on clinical condition and cultures to further adjust medication if needed Thank you for this consultation will follow this patient along with you Time with Patient: Greater than 30
--- NOTE | 2021-11-05 23:28 | CT ---
EXAMINATION TYPE: CT brain wo/w con DATE OF EXAM: 11/05/2021 COMPARISON: None HISTORY: staging of mets CT DLP: 3010.9 mGycm Automated exposure control for dose reduction was used. CONTRAST: Performed with IV Contrast, patient injected with mL of Isovue 370. Images of the brain obtained without and with IV contrast. Ventricles have normal size. There is no mass effect nor midline shift. No sign of intracranial hemor rhage. There is no pathologic enhancement. Calvarium is intact. No evidence of cerebral edema. Skull base is intact. IMPRESSION: Negative exam. No evidence of metastatic disease.
[2021-11-06 00:37] LABS: Thyroid Peroxidase Antibodies <9.0 U/mL (0.0-33.0)
[2021-11-06] MEDS: HYDROmorphone 0.5 MG/0.5 ML SYRINGE IVP PRN ×3 (02:11→18:32)
[2021-11-06] MEDS: PIPERACILLIN-TAZOBACTAM 3.375 GM in SODIUM CHLORIDE 0.9% 100 ML IVPB SCH ×3 (02:25→15:39)
[2021-11-06] MEDS: GABAPENTIN 300 MG CAP PO SCH ×4 (02:25→21:12)
[2021-11-06 06:14] LABS: Glucose,Whole Blood 174 mg/dL (75-99)
[2021-11-06] MEDS: INSULIN ASPART (NovoLOG) 100 UNIT/ML VIAL SQ SCH ×3 (06:20→18:18)
[2021-11-06] MEDS: HEPARIN SOD,PORK IN 0.45% NACL 25,000 UNIT in 0.45% NACL 1 250ML.BAG IV SCH (07:15)
[2021-11-06] MEDS: HYDROcodone/APAP 5-325MG 1 EACH TAB PO PRN ×2 (07:16→15:40)
[2021-11-06] MEDS: IPRATROPIUM-ALBUTEROL 3 ML NEB INHALATION SCH ×3 (07:54→20:19)
--- NOTE | 2021-11-06 08:20 | US ---
EXAMINATION TYPE: US inferior vena cava DATE OF EXAM: 11/06/2021 COMPARISON: Multiple CT's CLINICAL HISTORY: assess for ?IVC thrombus, unable to have MRI. Lung lesions seen in CT IVC imaged proximal to distal with grayscale, color, and Doppler. No thrombus was visualized. Is appr opriate color Doppler flow without evidence of filling defect. IMPRESSION: No ultrasound evidence for inferior vena cava thrombus. Prior CT on 10/22/2021 also showe d no evidence of thrombosis within the inferior vena cava.
[2021-11-06 09:37] LABS: HCT 37.2 % (39.0-53.0); HGB 12.9 gm/dL (13.0-17.5); MCH 32.5 pg (25.0-35.0); MCHC 34.6 g/dL (31.0-37.0); Mean Platelet Volume 8.9; Platelet Count 116 k/uL (150-450); RBC 3.95 m/uL (4.30-5.90); RDW 14.3 % (11.5-15.5); WBC 10.6 k/uL (3.8-10.6)
[2021-11-06 09:52] LABS: Band Neutrophils % 14 %; Lymphocytes # (M) 1.17 k/uL (1.0-4.8); Monocytes # (M) 0.11 k/uL (0-1.0); Neutrophils % (M) 74 %; Nucleated Red Blood Cells 0 /100 WBC (0-0); Total Cells Counted 100
[2021-11-06] MEDS: FUROSEMIDE 10 MG/ML 4 ML VIAL IV SCH ×2 (09:57→21:11)
[2021-11-06] MEDS: FLUCONAZOLE IN NACL,ISO-OSM 100 MG in SALINE 1 50ML.BAG IVPB SCH (09:59)
[2021-11-06 10:13] LABS: ALT 34 U/L (4-49); Alkaline Phosphatase 77 U/L (38-126); Magnesium 2.1 mg/dL (1.6-2.3)
--- NOTE | 2021-11-06 11:08 | CT ---
EXAMINATION TYPE: CT angio chest CT DLP: 3010.9 mGycm, Automated exposure control for dose reduction was used. DATE OF EXAM: 11/06/2021 10:33 AM COMPARISON: 09/11/2021. PET 10/01/2021 CLINICAL INDICATION:Male, 55 years old with history of Rule out pulmonary embolism.; suspected PE TECHNIQUE/CONTRAST: CTA scan of the thorax is performed with IV Contrast, patient injected with 100 mL of Isovue 370, pul monary embolism protocol. MIP images are created and reviewed. FINDINGS: Pulmonary Artery: There is no evidence for a filling defect within the pulmonary vasculature to sugge st acute pulmonary embolism. The pulmonary artery is of normal size. Lungs/Pleura: Centrilobular emphysema changes. Previous left upper lobe masslike consolidation on 09/11/2021 now appears to have cavitation. Exact gianna surements are slightly limited given surrounding consolidation but there appears larger measuring 3.2 x 2.9 cm, previously 2.1 x 1.8 cm. Patchy consolidation changes are seen throughout the upper lung Patchy consolidation an groundglass opacities throughout the lungs most pronounced in the left and in volving the posterior and lower lungs. Airway: Opacities within the lower lung airways suggesting retained secretions and/or aspiration. Heart: Heart is within normal limits for size. Vasculature: No evidence of aortic aneurysm. Mediastinum: No gross evidence of adenopathy. Musculoskeletal: No evidence for acute fracture. There is an increase in size of soft tissue around t he medial aspect of left rib 6 destructive lesion. Additional left humeral head known metastatic dise ase is noted in the [id number]. Soft Tissues: Electronic device with leads terminating in the superior aspect of the film. Lower neck: No significant findings. Upper Abdomen: Has diffuse low-attenuation to the liver parenchyma. IMPRESSION: 1. No evidence of pulmonary embolism. 2. Enlarging left upper lung mass with cavitation on today's exam. Additional increase in left rib 6 lytic lesion with increased soft tissue consistent with PET findings 3. Patchy consolidation throughout the lungs most pronounced in the left side stranding the left uppe r lung mass and within the bases posteriorly. Findings likely represent pneumonia with possible aspir ation versus retained secretions given opacities within the large airways. Consider bronchoscopy. 4. Severe hepatic steatosis. 5. Emphysema changes.
--- NOTE | 2021-11-06 11:11 | P.PN ---
Subjective Progress Note Date: 11/06/21 HISTORY OF PRESENTING ILLNESS This is a pleasant 55-year-old male past medical history significant for hyp ertension, new diagnosed lung cancer with metastasis to the bone, former tobacco use, chronic lower extremity edema, pulmonary hypertension, recent diagnosis of Type 2 Diabetes. He follows in the office with Dr Veronica . We have been asked to see in consultation for atrial fibrillation with RVR. Patient presents to the emergency department secondary to his concerned increased confusion, worsening lower extremity edema, worsening thrush and sore throat. On admission patient was in sinus rhythm, however, went into atrial fibrillation with RVR with HR 140s. Patient started on Cardizem and Heparin and converted to sinus rhythm HR 70s. Patient is seen and examined at bedside, he does remember his bringing him to the hospital. He endorses generalized pain. He denies any chest pain, shortness of breath, palpitations, lightheadedness, dizziness or syncope. He denies history of A fib, CAD, NM, Stroke. He was recently diagnosed with diabetes. DIAGNOSTICS Initial EKG- patient in sinus rhythm, HR [address] and T wave abnormalities in inferior and anterior leads. Repeat EKG- atrial fibrillation with rapid ventricular response heart rate 147. This morning patient in sinus rhythm with heart rate in the 70s-80s Chest xray multifocal areas of consolidation along the left lung, suspect neoplasm. Bony Metastasis to the anterior left rib cage. Laboratory WBC 10.8, hemoglobin 11.7, platelets 157, sodium 140, potassium 2.5, BUN 17, serum grams 0.6, troponin 0.03, 0.03, 0.042 Current home medications incamlodipine 10 mg nightly, potassium chloride 40 3 times a day, metoprolol titrate 25 mg by mouth daily, losartan 100 mg nightly, Lasix 80 mg daily, Jardiance 25 mg daily Most recent echocardiogram 09/2021 revealed EF 5560%, trace amount of aortic regurgitation, mild tricuspid regurgitation, moderate pulmonary hypertension with RVSP of 51 mmHg 11/06/2021 Patient examined this morning at the bedside. Patient denies chest pain or pressure. He reports mild shortness of breath. He remains on IV heparin. Telemetry reveals sinus mechanism in the 80s. Echocardiogram completed revealing ejection fraction 55-60%, trace aortic regurgitation, mild tricuspid regurgitation. PHYSICAL EXAMINATION CONSTITUTIONAL: No apparent distress. HEENT: Head is normocephalic. Pupils are equal, round. Sclerae anicteric. Mucous membranes of the mouth are moist. No JVD. No carotid bruit. CHEST EXAMINATION: Lungs are rhonchi bilaterally to auscultation. No chest wall tenderness is noted on palpation or with deep breathing. HEART EXAMINATION: Regular rate and rhythm. S1, S2 heard. No murmurs, gallops or rub. ABDOMEN: Soft, nontender. Positive bowel sounds. EXTREMITIES: 2+ peripheral pulses, 3+ bilateral lower extremity edema and no calf tenderness. SKIN: pale, warm, dry NEUROLOGIC EXAMINATION: Patient is awake, alert and oriented x3. ASSESSMENT Paroxysmal atrial fibrillation with RVR, converted to sinus mechanism -[id number] score 2 Altered mental status, improved Shortness of breath New diagnosed lung cancer with metastasis to the bone Hypoxic respiratory failure, likely multifactorial with lung cancer, atrial fibrillation RVR, possible heart failure component Hypokalemia Elevated troponin, likely related to atrial fibrillation to RVR Hypertension Recent diagnosis of Type 2 Diabetes Pulmonary hypertension Chronic lower extremity edema Former tobacco use PLAN Discontinue IV amio. Begin oral amio 400mg BID Continue IV lasix Discontinue IV heparin. Begin Eliquis 5mg BID Continue additional cardiac medications Continue telemetry monitoring Further recommendations pending patient course Nurse practitioner note has been reviewed by physician. Signing provider agrees with the documented findings, assessment, and plan of care. Objective - Vital Signs Vital signs: Vital Signs Temp 98.3 F 11/06/21 04:00 Pulse 102 H 11/06/21 08:17 Resp 14 11/06/21 08:17 BP 156/85 11/06/21 08:17 Pulse Ox 92 L 11/06/21 08:17 FiO2 100 11/06/21 07:54 Intake & Output 11/05/21 11/06/21 11/06/21 18:59 06:59 18:59 Intake Total 415.000 Output Total 3050 4520 1999 Balance - Weight 95 kg 91 kg Intake: Intake, IV Titration 175.000 Amount Heparin Sod,Pork in 0.45% 175.000 NaCl 25,000 unit In 0.45 % NaCl 1 250ml.bag @ 9. 886 UNITS/KG/HR 10 mls/hr IV .Q24H [facility] Rx#: [id number] Oral 240 Output: Urine 3050 4520 2000 Uretheral (Palacios) 500 1200 Other: Voiding Method Indwelling Catheter - Labs CBC & Chem 7: 11/06/21 08:53 11/05/21 09:23 Labs: Abnormal Lab Results - Last 24 Hours (Table) 11/05/21 11/05/21 11/05/21 Range/Units 07:00 07:00 11:51 RBC (4.30-5.90) m/uL Hgb (13.0-17.5) gm/dL Hct (39.0-53.0) % Plt Count (150-450) k/uL Neutrophils # (Manual) (1.3-7.7) k/uL APTT (22.0-30.0) sec D-Dimer (<0.60) mg/L FEU POC Glucose (mg/dL) 380 H (75-99) mg/dL Hemoglobin A1c 9.3 H (0.0-6.0) % Lactate Dehydrogenase (313-618) U/L Triglycerides 234.00 H (0.00-149.00) mg/dL VLDL Cholesterol, Calc 46.80 H (5.00-40.00) mg/dL HDL Cholesterol 37.30 L (40.00-60.00) mg/dL Vitamin B12 (200.0-944.0) pg/mL Vitamin D 25-Hydroxy (30.0-100.0) ng/mL Free T3 pg/mL (2.8-5.3) pg/ml 11/05/21 11/05/21 11/05/21 Range/Units 16:39 16:43 16:43 RBC (4.30-5.90) m/uL Hgb (13.0-17.5) gm/dL Hct (39.0-53.0) % Plt Count (150-450) k/uL Neutrophils # (Manual) (1.3-7.7) k/uL APTT 40.2 H (22.0-30.0) sec D-Dimer 0.98 H (<0.60) mg/L FEU POC Glucose (mg/dL) 167 H (75-99) mg/dL Hemoglobin A1c (0.0-6.0) % Lactate Dehydrogenase 1164 H (313-618) U/L Triglycerides (0.00-149.00) mg/dL VLDL Cholesterol, Calc (5.00-40.00) mg/dL HDL Cholesterol (40.00-60.00) mg/dL Vitamin B12 1150.0 H (200.0-944.0) pg/mL Vitamin D 25-Hydroxy 7.9 L (30.0-100.0) ng/mL Free T3 pg/mL (2.8-5.3) pg/ml 11/05/21 11/05/21 11/06/21 Range/Units 16:43 20:49 06:12 RBC (4.30-5.90) m/uL Hgb (13.0-17.5) gm/dL Hct (39.0-53.0) % Plt Count (150-450) k/uL Neutrophils # (Manual) (1.3-7.7) k/uL APTT (22.0-30.0) sec D-Dimer (<0.60) mg/L FEU POC Glucose (mg/dL) 118 H 174 H (75-99) mg/dL Hemoglobin A1c (0.0-6.0) % Lactate Dehydrogenase (313-618) U/L Triglycerides (0.00-149.00) mg/dL VLDL Cholesterol, Calc (5.00-40.00) mg/dL HDL Cholesterol (40.00-60.00) mg/dL Vitamin B12 (200.0-944.0) pg/mL Vitamin D 25-Hydroxy (30.0-100.0) ng/mL Free T3 pg/mL 1.8 L (2.8-5.3) pg/ml 11/06/21 11/06/21 Range/Units 08:53 08:53 RBC 3.95 L (4.30-5.90) m/uL Hgb 12.9 L (13.0-17.5) gm/dL Hct 37.2 L (39.0-53.0) % Plt Count 116 L (150-450) k/uL Neutrophils # (Manual) 9.30 H (1.3-7.7) k/uL APTT 47.9 H (22.0-30.0) sec D-Dimer (<0.60) mg/L FEU POC Glucose (mg/dL) (75-99) mg/dL Hemoglobin A1c (0.0-6.0) % Lactate Dehydrogenase (313-618) U/L Triglycerides (0.00-149.00) mg/dL VLDL Cholesterol, Calc (5.00-40.00) mg/dL HDL Cholesterol (40.00-60.00) mg/dL Vitamin B12 (200.0-944.0) pg/mL Vitamin D 25-Hydroxy (30.0-100.0) ng/mL Free T3 pg/mL (2.8-5.3) pg/ml
[2021-11-06 11:12] LABS: AST 30 U/L (17-59); African American GFR (CKD) >90 (>60 ml/min/1.73 sqM); Anion Gap 12 mmol/L; Blood Urea Nitrogen 16 mg/dL (9-20); Calcium 8.5 mg/dL (8.4-10.2); Carbon Dioxide 29 mmol/L (22-30); Chloride 104 mmol/L (98-107); Glucose 149 mg/dL (74-99); Non-African American GFR(CKD) >90 (>60 ml/min/1.73 sqM); Sodium 145 mmol/L (137-145); Total Bilirubin 0.8 mg/dL (0.2-1.3); Total Protein 5.3 g/dL (6.3-8.2)
[2021-11-06] MEDS: NON FORMULARY DRUG (Empagliflozin [Jardiance] 25 MG Tablet) PO SCH (11:20)
--- NOTE | 2021-11-06 11:28 | P.CNNES ---
History of Present Illness Consult date: 11/05/21 Requesting physician: David Ward Reason for Consult: Altered mental status History of Present Illness: Patient is a 55-year-old male with metastatic lung cancer came to the hospital for 2 week history of confusion, edema in his legs, getting worse. Also had thrush in his throat. Patient's was also present, who provided the history. Patient has history of low back pain for 15 years, after he changed a flat tire in a blizzard. He was prescribed gabapentin and tramadol, but the back pain has got worse over years. About couple months ago, he started having palpitations, legs would swell. After walking 25 feet, he would feel as if there is fluid going down from his lower back to his legs. He has been di agnosed with atrial fibrillation. In the process of getting a cardiac workup, he was found to have a lung mass. PET scan showed metastasis to the left shoulder, sixth rib and lower spine to the left. Patient has not started any chemo or radiation yet. Patient has chronic nerve pain from lower back to the legs. At present he is on gabapentin 300 mg every 6 hours. When he was given gabapentin 600 mg dose, he developed breathing problems. He is currently not seeing any pain specialist or a neurologist. He usually walks with no assistive device. Patient's believes that his leg swelling is much improved since he has been started on heparin drip. EKG showed atrial fibrillation with rapid ventricular rate. Patient had a CT head done on 11/02/2021, which revealed no acute process. 2-D echo from this morning showed mild LVH, normal left ventricular ejection fraction 55-60%. Mild TR. Patient's blood test shows WBC 10.8 hemoglobin 11.7, normal platelets. Sodium is normal potassium 2.5, normal renal functions. Troponin is mildly elevated 0.042. Total cholesterol 185, LDL 100.9, HDL 37 and triglycerides 234. TSH is low 0.264, with free T4 also low 0.61. Patient's hemoglobin A1c 9.3, indicating new onset diabetes. Patient had an MRI of the lumbar spine on 10/03/2017, which revealed small central disc herniation at L5-S1 with 4 mm cranial disc extension. No spinal ca nal stenosis or neural foraminal narrowing. Very small central disc herniation at L4-L5 with no spinal canal stenosis or neural foraminal narrowing. Degenerative disc disease at L3 4 resulting in minimal bilateral neural foraminal narrowing. Patient's CT of abdomen and pelvis from 10/22/2021 showed no suspicious new mass or adenopathy to suggest new metastatic disease. Suspected possible osseous metastatic disease on at/CT of less well seen on the CT images. Venous Doppler of lower extremities performed today are normal. Patient has a "inspire device" implanted for sleep apnea, therefore he cannot have MRIs performed. Patient has smoked 1 pack per day for 25 years, quit in September 2021. No history of alcohol. 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 Review of Systems Patient denies headache, denies any chest pain. He does have back pain. Patient has significant lower extremity edema, that goes all the way to the hips. ROS unobtainable: due to mental status Past Medical History Past Medical History: Diabetes Mellitus, Hypertension, Musculoskeletal Disorder, Prostate Disorder, Sleep Apnea/CPAP/BIPAP Additional Past Medical History / Comment(s): started having high blood pressure September 2021, mass in lung and lower spine,apnea implant-upper rt chest, back & leg pain related to herniated discs,hx enlarged prostate History of Any Multi-Drug Resistant Organisms: None Reported Past Surgical History: Hernia Repair Additional Past Surgical History / Comment(s): epidural pain procedures, colonoscopy,left inguinal hernia repair Past Anesthesia/Blood Transfusion Reactions: No Reported Reaction Past Psychological History: Depression Smoking Status: Current every day smoker Past Alcohol Use History: None Reported Additional Past Alcohol Use History / Comment(s): quit smoking 4--,down to <ppd started smoking at age 21 Past Drug Use History: None Reported - Past Family History Brother(s) Family Medical History: Cancer Additional Family Medical History / Comment(s): had liver CA at age 12. rhabdomyosarcoma Medications and Allergies Home Medications Medication Instructions Recorded Confirmed Type PARoxetine [Paxil] 20 mg PO DAILY 11/26/18 11/04/21 History traMADol HCL [Ultram] 100 mg PO TID PRN 11/26/18 11/04/21 History Gabapentin 300 mg PO Q6H 09/10/21 11/04/21 History Tamsulosin HCl [Flomax] 0.4 mg PO HS 10/12/21 11/04/21 History Empagliflozin [Jardiance] 25 mg PO DAILY 11/04/21 11/04/21 History Furosemide [Lasix] 80 mg PO DAILY 11/04/21 11/04/21 History Losartan Potassium 100 mg PO HS 11/04/21 11/04/21 History Metoprolol Tartrate [Lopressor] 25 mg PO BID 11/04/21 11/04/21 History Potassium Chloride ER [K-Dur 20] 40 meq PO BID 11/04/21 11/04/21 History amLODIPine [Norvasc] 10 mg PO HS 11/04/21 11/04/21 History fentaNYL 50MCG/HR PATCH [Duragesic 50 mcg TRANSDERM Q72H 11/04/21 11/04/21 History 50MCG/HR] Apixaban [Eliquis] 5 mg PO BID 30 Days #60 tab 11/05/21 Rx Allergies Allergy/AdvReac Type Severity Reaction Status Date / Time No Known Allergies Allergy Verified 11/04/21 18:08 Physical Examination - Vital Signs Vital Signs: Vital Signs Temp Pulse Pulse Resp BP BP Pulse Ox 11/05/21 15:25 90 L 11/05/21 12:44 86 20 11/05/21 12:00 98.1 F 86 20 133/64 92 L 11/05/21 08:00 97.8 F 68 22 133/60 93 L 11/05/21 04:00 97.5 F L 75 20 155/83 92 L 11/04/21 23:45 97.6 F 76 18 160/85 87 L 11/04/21 21:26 97.7 F 80 18 162/90 91 L 11/04/21 20:40 97.7 F 80 18 162/90 91 L 11/04/21 20:20 150 H 22 144/84 97 11/04/21 19:17 85 20 148/102 97 11/04/21 18:30 117 H 18 154/92 94 L 11/04/21 18:11 152 H 18 117/95 95 11/04/21 17:45 162 H 11/04/21 16:30 85 18 146/102 90 L Intake and Output 11/05/21 11/05/21 11/05/21 06:59 14:59 22:59 Intake Total 155.833 373.164 Output Total 2300 850 Balance -2144.167 -476.836 Intake: Intake, IV Titration 155.833 133.164 Amount Diltiazem 125 mg In 80.833 Sodium Chloride 0.9% 100 ml @ 5 MG/HR 5 mls/hr IV .Q24H [facility] Rx#:[id number] Heparin Sod,Pork in 0.45% 75 133.164 NaCl 25,000 unit In 0.45 % NaCl 1 250ml.bag @ 9. 886 UNITS/KG/HR 10 mls/hr IV .Q24H [facility] Rx#: [id number] Oral 240 Output: Urine 2300 850 Uretheral (Palacios) 500 Other: # Voids 1 Weight 95 kg 95 kg Patient is a middle aged male, who appears slightly lethargic, slightly tachypneic, but no obvious respiratory distress. Patient is delirious, with fluctuating mental status. Appears encephalopathic Patient is rambling at times. He says is October 2021, and that he is in the [facility]. Speech and language functions are normal. Attention, concentration is diminished and fund of knowledge difficult to assess, because of his mental status. On cranial examination, pupils are round and reacting to light, visual amato are full on confrontation, extraocular muscles are intact with no nystagmus. Face is symmetric, tongue protrudes to the midline. Palatal elevation and sensation normal, hearing and shoulder shrug normal, facial sensation normal. Shoulder shrug normal. On muscle strength testing, there is no pronator drift and the strength is normal in arms distally and proximally. In the lower extremities his hip flexion is 2-3 bilaterally, ankle dorsiflexion 5-bilaterally. His legs are very heavy from peripheral edema. Patient's states that he always had "chicken legs". Deep tendon reflexes are absent all over and plantars are downgoing. Sensory to touch is equal with no neglect. Cerebellar function showed no ataxia for qarncm-vm-glks testing. Tone of muscles normal. Bulk of muscles decrease in the lower limbs. Gait not checked. On general examination, there is no carotid bruit or murmur, S1-S2 audible. Abdomen is soft nontender. Bowel sounds present. Chest is clear. Patient has very significant peripheral edema of the lower extremities all the way up to the hips. Peripheral pulses could not be felt. Results - Laboratory Findings CBC and BMP: 11/06/21 08:53 11/06/21 08:53 Abnormal Lab Findings: Abnormal Labs 11/04/21 11/04/21 11/04/21 15:12 15:12 15:12 WBC 11.5 H RBC 3.97 L Hgb 12.3 L Hct 36.6 L Neutrophils # 10.2 H Lymphocytes # 0.8 L APTT 20.1 L Potassium Chloride Carbon Dioxide BUN Creatinine Glucose POC Glucose (mg/dL) Hemoglobin A1c Calcium Troponin I Total Protein Albumin Triglycerides VLDL Cholesterol, Calc HDL Cholesterol TSH Free T4 Urine Glucose (UA) 4+ H 11/04/21 11/04/21 11/04/21 15:12 15:12 20:46 WBC RBC Hgb Hct Neutrophils # Lymphocytes # APTT Potassium 2.5 L* Chloride 94 L Carbon Dioxide 41 H* BUN 22 H Creatinine 0.65 L Glucose 353 H POC Glucose (mg/dL) 226 H Hemoglobin A1c Calcium Troponin I 0.039 H* Total Protein 5.8 L Albumin 3.4 L Triglycerides VLDL Cholesterol, Calc HDL Cholesterol TSH Free T4 Urine Glucose (UA) 11/04/21 11/05/21 11/05/21 21:10 00:35 06:32 WBC RBC Hgb Hct Neutrophils # Lymphocytes # APTT 32.8 H Potassium Chloride Carbon Dioxide BUN Creatinine Glucose POC Glucose (mg/dL) 171 H Hemoglobin A1c Calcium Troponin I 0.042 H* Total Protein Albumin Triglycerides VLDL Cholesterol, Calc HDL Cholesterol TSH Free T4 Urine Glucose (UA) 11/05/21 11/05/21 11/05/21 07:00 07:00 07:00 WBC RBC Hgb Hct Neutrophils # Lymphocytes # APTT 35.0 H Potassium 2.5 L* Chloride 96 L Carbon Dioxide 33 H BUN Creatinine 0.60 L Glucose 156 H POC Glucose (mg/dL) Hemoglobin A1c 9.3 H Calcium 8.1 L Troponin I Total Protein Albumin Triglycerides 234.00 H VLDL Cholesterol, Calc 46.80 H HDL Cholesterol 37.30 L TSH Free T4 Urine Glucose (UA) 11/05/21 11/05/21 11/05/21 07:00 07:00 09:23 WBC 10.8 H RBC 3.67 L Hgb 11.7 L Hct 34.3 L Neutrophils # 9.4 H Lymphocytes # 0.9 L APTT Potassium 2.6 L* Chloride Carbon Dioxide BUN Creatinine Glucose POC Glucose (mg/dL) Hemoglobin A1c Calcium Troponin I Total Protein Albumin Triglycerides VLDL Cholesterol, Calc HDL Cholesterol TSH 0.264 L Free T4 0.61 L Urine Glucose (UA) 11/05/21 11:51 WBC RBC Hgb Hct Neutrophils # Lymphocytes # APTT Potassium Chloride Carbon Dioxide BUN Creatinine Glucose POC Glucose (mg/dL) 380 H Hemoglobin A1c Calcium Troponin I Total Protein Albumin Triglycerides VLDL Cholesterol, Calc HDL Cholesterol TSH Free T4 Urine Glucose (UA) Assessment and Plan Assessment: * Altered mental status, likely due to toxic metabolic encephalopathy, exact cause uncertain, likely multifactorial as mentioned below. * Metastatic lung cancer (Adenocarcinoma). * Atrial fibrillation * Possible pneumonia * Chronic low back pain * Hypokalemia * New onset diabetes * Extensive peripheral edema. * Tobacco use Plan: * Patient cannot have MRI of the brain and lumbar spine because of presence of an "inspire device" for his sleep apnea. * We will check CT head. * Agree with bone scan to assess for bony metastasis. Oncology on board. * Patient's folic acid level is slightly low 6.5. We will start folate replacement. * B12 normal 1150. * TSH and free T4 are both abnormal. Will defer to IM. * Patient has possible pneumonia, on Zosyn and Ceftriaxone. ID on board. * Patient has new onset diabetes, with hemoglobin A1c 9.3. Treatment of diabetes as per IM. * Patient on heparin IV for atrial fibrillation. Patient's believes that his leg swelling is much improved since started on heparin drip. * Neurology will follow. Time with Patient: Greater than 30
[2021-11-06 11:31] LABS: Potassium 2.4 mmol/L (3.5-5.1)
[2021-11-06 11:40] LABS: Glucose,Whole Blood 182 mg/dL (75-99)
--- NOTE | 2021-11-06 11:42 | P.PN ---
Subjective Progress Note Date: 11/06/21 Principal diagnosis: Shortness of breath. Pulmonary consult dated 11/05/2021. 55-year-old male seen in the emergency room, on November 04, initially with mental status changes, and shortness of breath. The patient is not a particularly good historian. The patient recently had a diagnosis of lung cancer given to him. Apparently he has metastases to the rib cage on the left side. The lung cancer is in the left chest. Apparently is a carcinoma, and he can't be further differentiated. Anyway, the patient is currently on the third floor. The patient did develop atrial fibrillation with RVR. He's currently on an amiodarone drip. He is receiving IV heparin. He is on a nonrebreather mass. He did apparently see the cancer doctor, but cannot remember the name of the cancer doctor. He states he is not receiving treatment as yet. He was a heavy smoker in the past. Does not smoke currently. He apparently has a history of hypertension, which is being treated, as well as a new diagnosis of metastatic lung cancer, and sleep apnea. He also has a history of BPH. Labs today include a white count of 10.8, he lobe 11.7, hematocrit 34.3, and a platelet count of 257,000. PTT is 35. Sodium 140, potassium is only 2.6, chlorides 96, CO2 33, BUN 17, and creatinine 0.60. There is significant abnormalities noted in the left lung. The right lung are relatively clear. Bony metastasis is are noted to the anterior left rib cage. Progress note dated 11/06/2021. This is a 55-year-old male who was seen yesterday in consultation. He came in with shortness of breath, and mental status changes. The patient had a recent diagnosis of lung cancer given to him. He apparently has metastases to the rib cage on the left side. The patient was also found to have atrial fibrillation, and was started on amiodarone. Current vital signs show a saturation of 92% on high flow oxygen. White count 10.6, hemoglobin 12.9, hematocrit 37.2, and platelet count 116,000. Sodium 145, potassium 2.4, chlorides 104, CO2 29, BUN 16 and creatinine 0.59. The CT angiogram that was done yesterday showed no evidence of pulmonary embolism, enlarging left upper lobe lung mass, with cav itation, patchy consolidation throughout the lungs, more pronounced on the left side, with possible underlying pneumonia, severe hepatic steatosis, and emphysematous changes. Objective - Vital Signs Vital signs: Vital Signs Temp 98.3 F 11/06/21 04:00 Pulse 102 H 11/06/21 08:17 Resp 14 11/06/21 08:17 BP 156/85 11/06/21 08:17 Pulse Ox 92 L 11/06/21 08:17 FiO2 100 11/06/21 07:54 Intake & Output 11/05/21 11/06/21 11/06/21 18:59 06:59 18:59 Intake Total 415.000 Output Total 3050 4520 1999 Balance -2635.000 -4520 -1999 Weight 95 kg 91 kg Intake: Intake, IV Titration 175.000 Amount Heparin Sod,Pork in 0.45% 175.000 NaCl 25,000 unit In 0.45 % NaCl 1 250ml.bag @ 9. 886 UNITS/KG/HR 10 mls/hr IV .Q24H [facility] Rx#: [id number] Oral 240 Output: Urine 3050 4520 1999 Uretheral (Palacios) 500 1200 Other: Voiding Method Indwelling Catheter - Exam No acute distress, oriented 3. 13 L high flow nasal cannula noted. Saturations 92%. HEENT examination is grossly unremarkable. Neck supple. Full range of motion. No adenopathy thyromegaly or neck vein distention. Cardiovascular examination reveals regular rhythm rate. S1-S2 normal. No S3 or S4. No discernible murmur noted. Heart rate 100 bpm. Clearly in sinus rhythm at this time. Lungs reveal mild scattered rhonchi. No wheezes. No crackles. Breath sounds equal bilaterally. Saturations are 92% on high flow nasal cannula. Abdomen soft bowel sounds are heard. No masses or tenderness. Extremities are intact. No cyanosis clubbing or edema. Skin is without rash or lesion. Neurologic examination is brief but nonfocal. - Labs CBC & Chem 7: 11/06/21 08:53 11/06/21 08:53 Labs: Abnormal Lab Results - Last 24 Hours (Table) 11/05/21 11/05/21 11/05/21 Range/Units 07:00 07:00 11:51 RBC (4.30-5.90) m/uL Hgb (13.0-17.5) gm/dL Hct (39.0-53.0) % Plt Count (150-450) k/uL Neutrophils # (Manual) (1.3-7.7) k/uL APTT (22.0-30.0) sec D-Dimer (<0.60) mg/L FEU Potassium (3.5-5.1) mmol/L Creatinine (0.66-1.25) mg/dL Glucose (74-99) mg/dL POC Glucose (mg/dL) 380 H (75-99) mg/dL Hemoglobin A1c 9.3 H (0.0-6.0) % Lactate Dehydrogenase (313-618) U/L Total Protein (6.3-8.2) g/dL Albumin (3.5-5.0) g/dL Triglycerides 234.00 H (0.00-149.00) mg/dL VLDL Cholesterol, Calc 46.80 H (5.00-40.00) mg/dL HDL Cholesterol 37.30 L (40.00-60.00) mg/dL Vitamin B12 (200.0-944.0) pg/mL Vitamin D 25-Hydroxy (30.0-100.0) ng/mL Free T3 pg/mL (2.8-5.3) pg/ml 11/05/21 11/05/21 11/05/21 Range/Units 16:39 16:43 16:43 RBC (4.30-5.90) m/uL Hgb (13.0-17.5) gm/dL Hct (39.0-53.0) % Plt Count (150-450) k/uL Neutrophils # (Manual) (1.3-7.7) k/uL APTT 40.2 H (22.0-30.0) sec D-Dimer 0.98 H (<0.60) mg/L FEU Potassium (3.5-5.1) mmol/L Creatinine (0.66-1.25) mg/dL Glucose (74-99) mg/dL POC Glucose (mg/dL) 167 H (75-99) mg/dL Hemoglobin A1c (0.0-6.0) % Lactate Dehydrogenase 1164 H (313-618) U/L Total Protein (6.3-8.2) g/dL Albumin (3.5-5.0) g/dL Triglycerides (0.00-149.00) mg/dL VLDL Cholesterol, Calc (5.00-40.00) mg/dL HDL Cholesterol (40.00-60.00) mg/dL Vitamin B12 1150.0 H (200.0-944.0) pg/mL Vitamin D 25-Hydroxy 7.9 L (30.0-100.0) ng/mL Free T3 pg/mL (2.8-5.3) pg/ml 11/05/21 11/05/21 11/06/21 Range/Units 16:43 20:49 06:12 RBC (4.30-5.90) m/uL Hgb (13.0-17.5) gm/dL Hct (39.0-53.0) % Plt Count (150-450) k/uL Neutrophils # (Manual) (1.3-7.7) k/uL APTT (22.0-30.0) sec D-Dimer (<0.60) mg/L FEU Potassium (3.5-5.1) mmol/L Creatinine (0.66-1.25) mg/dL Glucose (74-99) mg/dL POC Glucose (mg/dL) 118 H 174 H (75-99) mg/dL Hemoglobin A1c (0.0-6.0) % Lactate Dehydrogenase (313-618) U/L Total Protein (6.3-8.2) g/dL Albumin (3.5-5.0) g/dL Triglycerides (0.00-149.00) mg/dL VLDL Cholesterol, Calc (5.00-40.00) mg/dL HDL Cholesterol (40.00-60.00) mg/dL Vitamin B12 (200.0-944.0) pg/mL Vitamin D 25-Hydroxy (30.0-100.0) ng/mL Free T3 pg/mL 1.8 L (2.8-5.3) pg/ml 11/06/21 11/06/21 11/06/21 Range/Units 08:53 08:53 08:53 RBC 3.95 L (4.30-5.90) m/uL Hgb 12.9 L (13.0-17.5) gm/dL Hct 37.2 L (39.0-53.0) % Plt Count 116 L (150-450) k/uL Neutrophils # (Manual) 9.30 H (1.3-7.7) k/uL APTT 47.9 H (22.0-30.0) sec D-Dimer (<0.60) mg/L FEU Potassium 2.4 L* (3.5-5.1) mmol/L Creatinine 0.59 L (0.66-1.25) mg/dL Glucose 149 H (74-99) mg/dL POC Glucose (mg/dL) (75-99) mg/dL Hemoglobin A1c (0.0-6.0) % Lactate Dehydrogenase (313-618) U/L Total Protein 5.3 L (6.3-8.2) g/dL Albumin 3.0 L (3.5-5.0) g/dL Triglycerides (0.00-149.00) mg/dL VLDL Cholesterol, Calc (5.00-40.00) mg/dL HDL Cholesterol (40.00-60.00) mg/dL Vitamin B12 (200.0-944.0) pg/mL Vitamin D 25-Hydroxy (30.0-100.0) ng/mL Free T3 pg/mL (2.8-5.3) pg/ml Assessment and Plan Assessment: Shortness of breath, likely multifactorial, in part related to atrial fibrillation with RVR, possible underlying COPD, and also metastatic lung cancer. History of hypertension. History of BPH. History of diabetes. History of heavy tobacco use. History of sleep apnea syndrome. Plan: Plan dated 11/05/2021. The patient is back in sinus rhythm. He remains on IV heparin, and an amiodarone drip. He is on a nonrebreather mass. Because of his acute presentation, the patient should be checked for a pulmonary embolism. I'll put an order for a CT angiogram. Additional recommendations and suggestions are forthcoming. Prognosis is certainly guarded. The patient has not started treatment for his lung cancer as yet. He has apparently met the medical oncologists although he cannot remember his name. We will continue to follow make recommendations where appropriate. Labs, x-rays, and medications are reviewed. Plan dated 11/06/2021. The patient's IV amiodarone was switched to oral amiodarone. The patient remains on other appropriate medications. The patient is getting Zosyn, and br eathing treatments. Additional recommendations and suggestions are forthcoming. Prognosis is certainly guarded. Labs, x-rays, medications are reviewed. We will continue to follow the patient and make recommendations were appropriate. He does know that he has lung cancer. Time with Patient: Less than 30
[2021-11-06 11:55] LABS: C Reactive Protein 44.9 mg/dL (<1.0)
[2021-11-06] MEDS: METOPROLOL TARTRATE 50 MG TAB PO SCH (12:16)
[2021-11-06] MEDS: POTASSIUM CHLORIDE ER 20 MEQ TAB.ER PO SCH ×4 (12:16→21:13)
[2021-11-06] MEDS: PARoxetine 20 MG TAB PO SCH (12:17)
[2021-11-06] MEDS: FOLIC ACID 1 MG TAB PO SCH (12:23)
[2021-11-06] MEDS: APIXABAN 5 MG TAB PO SCH ×2 (12:23→21:12)
[2021-11-06] MEDS ORDERED: Magnesium Replacement Protocol 1 EACH MISC MISCELLANE PRN (12:34)
[2021-11-06] MEDS ORDERED: Potassium Replacement Protocol 1 EACH MISC MISCELLANE PRN ×2 (12:34→14:00)
[2021-11-06] MEDS: AMIODARONE 200 MG TAB PO SCH ×2 (12:38→21:12)
--- NOTE | 2021-11-06 13:00 | PN ---
PROGRESS NOTE DATE OF SERVICE: 11/06/2021 This 55-year-old gentleman was admitted change in mental status and atrial fibrillation. Patient also had shortness of breath. Patient also has history of lung cancer diagnosed with metastases. Multiple consultants are following the patient closely. The patient apparently had COPD as well. The patient also had multiple electrolyte abnormalities. A CT of the brain was done. Neurology is following the patient closely. A chest CTA was also done which was reviewed personally by me; it showed multiple abnormalities and patchy consolidations. Past medical history reviewed. Review of systems could not be taken; the patient has some change in mental status. CURRENT MEDICATIONS: Reviewed. They include Hull, DuoNeb, Cordarone. Doses and the rest of the medications noted. PHYSICAL EXAMINATION: Pulse is 107, blood pressure 143/70, respiration 19. HEENT: Conjunctivae normal. NECK: No jugular venous distention. CARDIOVASCULAR: S1, S2 muffled. RESPIRATION: Bilateral scattered rhonchi and crackles. ABDOMEN: Soft, nontender. LEGS: No edema. No swelling. NERVOUS SYSTEM: Diffusely weak. LABS: WBC 10.7, hemoglobin 12.9, sodium 142, potassium 2.4. ASSESSMENT: 1. Atrial fibrillation with a fast ventricular rate. 2. Change in mental status, acute metabolic encephalopathy. CT scan negative. 3. Recently diagnosed lung cancer with metastases. 4. Possible aspiration pneumonia or post-obstructive pneumonia. 5. Possible chronic obstructive pulmonary disease, acute exacerbation, with acute hypoxic respiratory failure. 6. Severe hypokalemia. 7. Multiple medical issues. RECOMMENDATIONS AND DISCUSSION: I recommend to continue current medications, continue with the monitoring, symptomatic treatment. I will replace potassium and magnesium. Repeat electrolytes. Otherwise, we will continue to monitor. The patient is on Lasix as well. X-rays and CT scan reviewed personally. Discussed with family. Further recommendations to follow. MMODL / IJN: [id number] / MTDD
[2021-11-06] MEDS: AMIODARONE 450 MG in DEXTROSE 5% IN WATER 250 ML IV SCH ×2 (15:05)
[2021-11-06 16:44] LABS: Glucose,Whole Blood 287 mg/dL (75-99)
--- NOTE | 2021-11-06 19:59 | P.PN ---
Subjective Progress Note Date: 11/06/21 Principal diagnosis: Pneumonia Patient is a 55-year-old male with a recent diagnosis of poorly differentiated carcinoma with metastasis presented to hospital with increasing shortness of breath and lower extremity swelling chest x-ray with multifocal areas of consolidation concerning for possible pneumonia. On today's evaluation that is 11/06/2021, the patient denies having any fever or chills, the patient is breathing more comfortably, denies having any chest pain he did have a cough but not bringing up any sputum. No abdominal pain swelling to the lower extremity has slightly decreased Objective - Vital Signs Vital signs: Vital Signs Temp 97.6 F 11/06/21 16:07 Pulse 76 11/06/21 16:07 Resp 24 11/06/21 16:07 BP 144/73 11/06/21 16:07 Pulse Ox 95 11/06/21 16:07 FiO2 100 11/06/21 07:54 Intake & Output 11/05/21 11/06/21 11/06/21 18:59 06:59 18:59 Intake Total 415.000 Output Total 3050 4520 2750 Balance -2635.000 -4520 -2750 Weight 95 kg 91 kg Intake: Intake, IV Titration 175.000 Amount Heparin Sod,Pork in 0.45% 175.000 NaCl 25,000 unit In 0.45 % NaCl 1 250ml.bag @ 9. 886 UNITS/KG/HR 10 mls/hr IV .Q24H [facility] Rx#: [id number] Oral 240 Output: Urine 3050 4520 2750 Uretheral (Palacios) 500 1200 750 Other: Voiding Method Indwelling Catheter Indwelling Catheter - Exam GENERAL DESCRIPTION: A middle-age male lying in bed in no distress RESPIRATORY SYSTEM: Unlabored breathing , decreased breath sounds at bases HEART: S1 S2 regular rate and rhythm , ABDOMEN: Soft , no tenderness EXTREMITIES: One plus edema feet - Labs CBC & Chem 7: 11/06/21 08:53 11/06/21 08:53 Labs: Abnormal Lab Results - Last 24 Hours (Table) 11/05/21 11/05/21 11/05/21 Range/Units 16:39 16:43 16:43 RBC (4.30-5.90) m/uL Hgb (13.0-17.5) gm/dL Hct (39.0-53.0) % Plt Count (150-450) k/uL Neutrophils # (Manual) (1.3-7.7) k/uL APTT 40.2 H (22.0-30.0) sec D-Dimer 0.98 H (<0.60) mg/L FEU Potassium (3.5-5.1) mmol/L Creatinine (0.66-1.25) mg/dL Glucose (74-99) mg/dL POC Glucose (mg/dL) 167 H (75-99) mg/dL Lactate Dehydrogenase 1164 H (313-618) U/L C-Reactive Protein (<1.0) mg/dL Total Protein (6.3-8.2) g/dL Albumin (3.5-5.0) g/dL Vitamin B12 1150.0 H (200.0-944.0) pg/mL Vitamin D 25-Hydroxy 7.9 L (30.0-100.0) ng/mL Free T3 pg/mL (2.8-5.3) pg/ml 11/05/21 11/05/21 11/06/21 Range/Units 16:43 20:49 06:12 RBC (4.30-5.90) m/uL Hgb (13.0-17.5) gm/dL Hct (39.0-53.0) % Plt Count (150-450) k/uL Neutrophils # (Manual) (1.3-7.7) k/uL APTT (22.0-30.0) sec D-Dimer (<0.60) mg/L FEU Potassium (3.5-5.1) mmol/L Creatinine (0.66-1.25) mg/dL Glucose (74-99) mg/dL POC Glucose (mg/dL) 118 H 174 H (75-99) mg/dL Lactate Dehydrogenase (313-618) U/L C-Reactive Protein (<1.0) mg/dL Total Protein (6.3-8.2) g/dL Albumin (3.5-5.0) g/dL Vitamin B12 (200.0-944.0) pg/mL Vitamin D 25-Hydroxy (30.0-100.0) ng/mL Free T3 pg/mL 1.8 L (2.8-5.3) pg/ml 11/06/21 11/06/21 11/06/21 Range/Units 08:53 08:53 08:53 RBC 3.95 L (4.30-5.90) m/uL Hgb 12.9 L (13.0-17.5) gm/dL Hct 37.2 L (39.0-53.0) % Plt Count 116 L (150-450) k/uL Neutrophils # (Manual) 9.30 H (1.3-7.7) k/uL APTT 47.9 H (22.0-30.0) sec D-Dimer (<0.60) mg/L FEU Potassium 2.4 L* (3.5-5.1) mmol/L Creatinine 0.59 L (0.66-1.25) mg/dL Glucose 149 H (74-99) mg/dL POC Glucose (mg/dL) (75-99) mg/dL Lactate Dehydrogenase (313-618) U/L C-Reactive Protein 44.9 H (<1.0) mg/dL Total Protein 5.3 L (6.3-8.2) g/dL Albumin 3.0 L (3.5-5.0) g/dL Vitamin B12 (200.0-944.0) pg/mL Vitamin D 25-Hydroxy (30.0-100.0) ng/mL Free T3 pg/mL (2.8-5.3) pg/ml 11/06/21 Range/Units 11:38 RBC (4.30-5.90) m/uL Hgb (13.0-17.5) gm/dL Hct (39.0-53.0) % Plt Count (150-450) k/uL Neutrophils # (Manual) (1.3-7.7) k/uL APTT (22.0-30.0) sec D-Dimer (<0.60) mg/L FEU Potassium (3.5-5.1) mmol/L Creatinine (0.66-1.25) mg/dL Glucose (74-99) mg/dL POC Glucose (mg/dL) 182 H (75-99) mg/dL Lactate Dehydrogenase (313-618) U/L C-Reactive Protein (<1.0) mg/dL Total Protein (6.3-8.2) g/dL Albumin (3.5-5.0) g/dL Vitamin B12 (200.0-944.0) pg/mL Vitamin D 25-Hydroxy (30.0-100.0) ng/mL Free T3 pg/mL (2.8-5.3) pg/ml Assessment and Plan (1) Pneumonia Current Visit: Yes Status: Acute Code(s): J18.9 - PNEUMONIA, UNSPECIFIED ORGANISM SNOMED Code(s): 814642208 (2) Thrush Current Visit: Yes Status: Acute Code(s): B37.0 - CANDIDAL STOMATITIS SNOMED Code(s): 62181376 Plan: 1patient presented to hospital with increasing shortness of breath and weakness in this patient did have a bilateral lower extremity swelling recent diagnosis of metastatic poorly differentiated carcinoma however has not yet been started on chemotherapy, patient did not have any fever or significant evaded white cou nt underlying pneumonia less likely but not entirely excluded. 2patient did have elevated CRP procalcitonin level suggestive of pneumonia. 3patient continue on Zosyn, we'll try to obtain a sputum to narrow down on antibiotics Time with Patient: Less than 30
[2021-11-06] MEDS: TAMSULOSIN 0.4 MG CAP.ER.24H PO SCH (21:12)
[2021-11-06] MEDS: LOSARTAN 50 MG TAB PO SCH (21:12)
[2021-11-06] MEDS: amLODIPine 10 MG TAB PO SCH (21:12)
[2021-11-07] MEDS: HYDROmorphone 0.5 MG/0.5 ML SYRINGE IVP PRN ×4 (00:02→20:21)
[2021-11-07 00:46] LABS: Potassium 2.3 mmol/L (3.5-5.1)
[2021-11-07] MEDS: METOPROLOL TARTRATE 50 MG TAB PO SCH ×3 (01:00→20:20)
[2021-11-07] MEDS: POTASSIUM CHLORIDE ER 20 MEQ TAB.ER PO SCH ×6 (01:00→14:06)
[2021-11-07] MEDS: GABAPENTIN 300 MG CAP PO SCH ×4 (01:00→20:20)
[2021-11-07] MEDS: PIPERACILLIN-TAZOBACTAM 3.375 GM in SODIUM CHLORIDE 0.9% 100 ML IVPB SCH ×4 (01:00→23:58)
[2021-11-07] MEDS: INSULIN ASPART (NovoLOG) 100 UNIT/ML VIAL SQ SCH ×5 (01:15→20:55)
[2021-11-07] MEDS: HYDROcodone/APAP 5-325MG 1 EACH TAB PO PRN ×3 (03:38→16:37)
[2021-11-07 06:20] LABS: Glucose,Whole Blood 200 mg/dL (75-99)
--- NOTE | 2021-11-07 07:09 | XR ---
EXAMINATION TYPE: XR chest 1V portable DATE OF EXAM: 11/07/2021 COMPARISON: 11/05/2021 HISTORY: CHF TECHNIQUE: Single frontal view of the chest is obtained. FINDINGS: Consolidative opacity or mass left upper lobe unchanged. Diffuse interstitial density in t he left lung unchanged. The right lung is clear. Heart size is normal. There is no pneumothorax. There is a tiny left pleural effusion. The osseous structures are intact. Generator device overlying the progressing cephalad unchanged compared to previous. IMPRESSION: No interval change in the left lung opacities
[2021-11-07] MEDS: IPRATROPIUM-ALBUTEROL 3 ML NEB INHALATION SCH ×3 (07:34→20:05)
[2021-11-07 09:12] LABS: African American GFR (CKD) >90 (>60 ml/min/1.73 sqM); Anion Gap 10 mmol/L; Blood Urea Nitrogen 17 mg/dL (9-20); Calcium 8.4 mg/dL (8.4-10.2); Carbon Dioxide 33 mmol/L (22-30); Chloride 97 mmol/L (98-107); Glucose 274 mg/dL (74-99); Magnesium 1.9 mg/dL (1.6-2.3); Non-African American GFR(CKD) >90 (>60 ml/min/1.73 sqM); Sodium 140 mmol/L (137-145)
[2021-11-07] MEDS: APIXABAN 5 MG TAB PO SCH ×2 (09:20→20:20)
[2021-11-07] MEDS: FOLIC ACID 1 MG TAB PO SCH (09:20)
[2021-11-07] MEDS: PARoxetine 20 MG TAB PO SCH (09:20)
[2021-11-07] MEDS: FLUCONAZOLE IN NACL,ISO-OSM 100 MG in SALINE 1 50ML.BAG IVPB SCH (09:20)
[2021-11-07] MEDS: FUROSEMIDE 10 MG/ML 4 ML VIAL IV SCH ×2 (09:20→20:21)
[2021-11-07] MEDS: AMIODARONE 200 MG TAB PO SCH ×2 (09:21→20:20)
[2021-11-07] MEDS: NON FORMULARY DRUG (Empagliflozin [Jardiance] 25 MG Tablet) PO SCH (09:23)
[2021-11-07 09:29] LABS: HCT 35.5 % (39.0-53.0); HGB 11.7 gm/dL (13.0-17.5); MCH 31.3 pg (25.0-35.0); MCV 94.8 fL (80.0-100.0); Mean Platelet Volume 8.8; Platelet Count 127 k/uL (150-450); Potassium 2.6 mmol/L (3.5-5.1); RBC 3.75 m/uL (4.30-5.90); RDW 14.2 % (11.5-15.5); WBC 10.6 k/uL (3.8-10.6)
[2021-11-07] MEDS ORDERED: Potassium Replacement Protocol 1 EACH MISC MISCELLANE PRN (09:36)
[2021-11-07 10:11] LABS: Band Neutrophils % 8 %; Lymphocytes # (M) 0.64 k/uL (1.0-4.8); Metamyelocytes # (M) 0.21 k/uL (0); Metamyelocytes % 2 %; Monocytes # (M) 0.21 k/uL (0-1.0); Myelocytes # (M) 0.11 k/uL (0); Myelocytes % 1 %; Neutrophils % (M) 83 %; Nucleated Red Blood Cells 0 /100 WBC (0-0); Total Cells Counted 200
[2021-11-07 10:12] LABS: Toxic Granulation Present
[2021-11-07] MEDS: POTASSIUM CHLORIDE 20 MEQ in WATER FOR INJECTION 1 100ML.BAG IVPB SCH ×4 (10:54→16:28)
[2021-11-07 11:35] LABS: Glucose,Whole Blood 270 mg/dL (75-99)
--- NOTE | 2021-11-07 12:49 | P.PN ---
Subjective Progress Note Date: 11/07/21 HISTORY OF PRESENTING ILLNESS This is a pleasant 55-year-old male past medical history significant for hy pertension, new diagnosed lung cancer with metastasis to the bone, former tobacco use, chronic lower extremity edema, pulmonary hypertension, recent diagnosis of Type 2 Diabetes. He follows in the office with Dr Veronica . We have been asked to see in consultation for atrial fibrillation with RVR. Patient presents to the emergency department secondary to his concerned increased confusion, worsening lower extremity edema, worsening thrush and sore throat. On admission patient was in sinus rhythm, however, went into atrial fibrillation with RVR with HR 140s. Patient started on Cardizem and Heparin and converted to sinus rhythm HR 70s. Patient is seen and examined at bedside, he does remember his bringing him to the hospital. He endorses generalized pain. He denies any chest pain, shortness of breath, palpitations, lightheadedness, dizziness or syncope. He denies history of A fib, CAD, DE, Stroke. He was recently diagnosed with diabetes. DIAGNOSTICS Initial EKG- patient in sinus rhythm, HR [address] and T wave abnormalities in inferior and anterior leads. Repeat EKG- atrial fibrillation with rapid ventricular response heart rate 147. This morning patient in sinus rhythm with heart rate in the 70s-80s Chest xray multifocal areas of consolidation along the left lung, suspect neoplasm. Bony Metastasis to the anterior left rib cage. Laboratory WBC 10.8, hemoglobin 11.7, platelets 157, sodium 140, potassium 2.5, BUN 17, serum grams 0.6, troponin 0.03, 0.03, 0.042 Current home medications incamlodipine 10 mg nightly, potassium chloride 40 3 times a day, metoprolol titrate 25 mg by mouth daily, losartan 100 mg nightly, Lasix 80 mg daily, Jardiance 25 mg daily Most recent echocardiogram 09/2021 revealed EF 5560%, trace amount of aortic regurgitation, mild tricuspid regurgitation, moderate pulmonary hypertension with RVSP of 51 mmHg 11/06/2021 Patient examined this morning at the bedside. Patient denies chest pain or pressure. He reports mild shortness of breath. He remains on IV heparin. Telemetry reveals sinus mechanism in the 80s. Echocardiogram completed revealing ejection fraction 55-60%, trace aortic regurgitation, mild tricuspid regurgitation. 11/07: Patient has converted to sinus rhythm. He is maintained on amiodarone 400 mg twice daily and Lopressor 50 mg twice daily as well as eliquis 5 mg twice daily. IV Lasix is at 40 mg every 12 hours. Potassium is 2.6 and is being replaced. PHYSICAL EXAMINATION CONSTITUTIONAL: No apparent distress. HEENT: Head is normocephalic. Pupils are equal, round. Sclerae anicteric. Mucous membranes of the mouth are moist. No JVD. No carotid bruit. CHEST EXAMINATION: Lungs are rhonchi bilaterally to auscultation. No chest wall tenderness is noted on palpation or with deep breathing. HEART EXAMINATION: Regular rate and rhythm. S1, S2 heard. No murmurs, gallops or rub. ABDOMEN: Soft, nontender. Positive bowel sounds. EXTREMITIES: 2+ peripheral pulses, 3+ bilateral lower extremity edema and no calf tenderness. SKIN: pale, warm, dry NEUROLOGIC EXAMINATION: Patient is awake, alert and oriented x3. ASSESSMENT Paroxysmal atrial fibrillation with RVR, converted to sinus mechanism -[id number]- VASc score 2 Altered mental status, improved Shortness of breath New diagnosed lung cancer with metastasis to the bone Hypoxic respiratory failure, likely multifactorial with lung cancer, atrial fibr illation RVR, possible heart failure component Hypokalemia Elevated troponin, likely related to atrial fibrillation to RVR Hypertension Recent diagnosis of Type 2 Diabetes Pulmonary hypertension Chronic lower extremity edema Former tobacco use PLAN Continue oral amio 400mg BID, Lopressor 50 mg twice daily Continue IV lasix Continue Eliquis 5mg BID Continue additional cardiac medications Continue telemetry monitoring Replace potassium per protocol Further recommendations pending patient course Nurse practitioner note has been reviewed by physician. Signing provider agrees with the documented findings, assessment, and plan of care. Objective - Vital Signs Vital signs: Vital Signs Temp 97.5 F L 11/07/21 08:11 Pulse 102 H 11/07/21 08:11 Resp 21 11/07/21 09:48 BP 151/78 11/07/21 08:11 Pulse Ox 97 11/07/21 08:11 FiO2 100 11/06/21 07:54 Intake & Output 11/06/21 11/07/21 11/07/21 18:59 06:59 18:59 Intake Total 118 420 Output Total 3750 3800 1200 Balance -3632 -3800 -780 Weight 90.5 kg Intake: Oral 118 420 Output: Urine 3750 3800 1200 Uretheral (Palacios) 1750 Other: Voiding Method Indwelling Catheter Indwelling Catheter - Labs CBC & Chem 7: 11/07/21 08:17 11/07/21 08:17 Labs: Abnormal Lab Results - Last 24 Hours (Table) 11/06/21 11/06/21 11/06/21 Range/Units 08:53 08:53 11:38 RBC (4.30-5.90) m/uL Hgb (13.0-17.5) gm/dL Hct (39.0-53.0) % Plt Count (150-450) k/uL Potassium 2.4 L* (3.5-5.1) mmol/L Chloride (98-107) mmol/L Carbon Dioxide (22-30) mmol/L Creatinine 0.59 L (0.66-1.25) mg/dL Glucose 149 H (74-99) mg/dL POC Glucose (mg/dL) 182 H (75-99) mg/dL C-Reactive Protein 44.9 H (<1.0) mg/dL Total Protein 5.3 L (6.3-8.2) g/dL Albumin 3.0 L (3.5-5.0) g/dL Procalcitonin 3.35 H (0.02-0.09) ng/mL 11/06/21 11/07/21 11/07/21 Range/Units 16:41 00:09 06:19 RBC (4.30-5.90) m/uL Hgb (13.0-17.5) gm/dL Hct (39.0-53.0) % Plt Count (150-450) k/uL Potassium 2.3 L* (3.5-5.1) mmol/L Chloride 96 L (98-107) mmol/L Carbon Dioxide 36 H (22-30) mmol/L Creatinine (0.66-1.25) mg/dL Glucose (74-99) mg/dL POC Glucose (mg/dL) 287 H 200 H (75-99) mg/dL C-Reactive Protein (<1.0) mg/dL Total Protein (6.3-8.2) g/dL Albumin (3.5-5.0) g/dL Procalcitonin (0.02-0.09) ng/mL 11/07/21 11/07/21 Range/Units 08:17 08:17 RBC 3.75 L (4.30-5.90) m/uL Hgb 11.7 L (13.0-17.5) gm/dL Hct 35.5 L (39.0-53.0) % Plt Count 127 L (150-450) k/uL Potassium 2.6 L* (3.5-5.1) mmol/L Chloride 97 L (98-107) mmol/L Carbon Dioxide 33 H (22-30) mmol/L Creatinine (0.66-1.25) mg/dL Glucose 274 H (74-99) mg/dL POC Glucose (mg/dL) (75-99) mg/dL C-Reactive Protein (<1.0) mg/dL Total Protein (6.3-8.2) g/dL Albumin (3.5-5.0) g/dL Procalcitonin (0.02-0.09) ng/mL Microbiology - Last 24 Hours (Table) 11/05/21 16:43 Blood Culture - Preliminary Blood No Growth after 24 hours
--- NOTE | 2021-11-07 13:47 | P.PN ---
Subjective Progress Note Date: 11/07/21 Principal diagnosis: Shortness of breath. Pulmonary consult dated 11/05/2021. 55-year-old male seen in the emergency room, on November 04, initially with mental status changes, and shortness of breath. The patient is not a particularly good historian. The patient recently had a diagnosis of lung cancer given to him. Apparently he has metastases to the rib cage on the left side. The lung cancer is in the left chest. Apparently is a carcinoma, and he can't be further differentiated. Anyway, the patient is currently on the third floor. The patient did develop atrial fibrillation with RVR. He's currently on an amiodarone drip. He is receiving IV heparin. He is on a nonrebreather mass. He did apparently see the cancer doctor, but cannot remember the name of the cancer doctor. He states he is not receiving treatment as yet. He was a heavy smoker in the past. Does not smoke currently. He apparently has a history of hypertension, which is being treated, as well as a new diagnosis of metastatic lung cancer, and sleep apnea. He also has a history of BPH. Labs today include a white count of 10.8, he lobe 11.7, hematocrit 34.3, and a platelet count of 257,000. PTT is 35. Sodium 140, potassium is only 2.6, chlorides 96, CO2 33, BUN 17, and creatinine 0.60. There is significant abnormalities noted in the left lung. The right lung are relatively clear. Bony metastasis is are noted to the anterior left rib cage. Progress note dated 11/06/2021. This is a 55-year-old male who was seen yesterday in consultation. He came in with shortness of breath, and mental status changes. The patient had a recent diagnosis of lung cancer given to him. He apparently has metastases to the rib cage on the left side. The patient was also found to have atrial fibrillation, and was started on amiodarone. Current vital signs show a saturation of 92% on high flow oxygen. White count 10.6, hemoglobin 12.9, hematocrit 37.2, and platelet count 116,000. Sodium 145, potassium 2.4, chlorides 104, CO2 29, BUN 16 and creatinine 0.59. The CT angiogram that was done yesterday showed no evidence of pulmonary embolism, enlarging left upper lobe lung mass, with cav itation, patchy consolidation throughout the lungs, more pronounced on the left side, with possible underlying pneumonia, severe hepatic steatosis, and emphysematous changes. Progress note dated 11/07/2021. 55-year-old male who was seen a couple days ago in consultation. The patient came in with shortness of breath and mental status changes. The patient had a recent diagnosis of lung cancer. The patient appears to have metastasis to the left rib cage. He was admitted with atrial fibrillation, and started on amiodarone. Today's laboratory data includes a white count 10.6, hemoglobin 11.7, hematocrit 35.5, and platelet count of 127,000. Sodium 140, potassium 2.6, chlorides 97, CO2 33, BUN 17, creatinine 0.81. Chest x-ray shows consolidative opacity/mass, left upper lobe. This x-ray is essentially unchanged. Objective - Vital Signs Vital signs: Vital Signs Temp 96.4 F L 11/07/21 11:25 Pulse 62 11/07/21 11:25 Resp 20 11/07/21 11:25 BP 143/83 11/07/21 11:25 Pulse Ox 94 L 11/07/21 11:25 FiO2 100 11/06/21 07:54 Intake & Output 11/06/21 11/07/21 11/07/21 18:59 06:59 18:59 Intake Total 118 600 Output Total 3750 3800 3950 Balance -3632 -3800 -3350 Weight 90.5 kg Intake: Oral 118 600 Output: Urine 3750 3800 3950 Uretheral (Palacios) 1750 Other: Voiding Method Indwelling Catheter Indwelling Catheter - Exam No acute distress, oriented 3. The patient is on 15 L high flow nasal cannula, with a saturation of 94%. HEENT examination is grossly unremarkable. Neck supple. Full range of motion. No adenopathy thyromegaly or neck vein distention. Cardiovascular examination reveals regular rhythm rate. S1-S2 normal. No S3 or S4. No discernible murmur noted. Heart rate 62 bpm. Lungs reveal mild scattered rhonchi. No wheezes. No crackles. Breath sounds equal bilaterally. Saturations are 92% on high flow nasal cannula. Abdomen soft bowel sounds are heard. No masses or tenderness. Extremities are intact. No cyanosis clubbing or edema. Skin is without rash or lesion. Neurologic examination is brief but nonfocal. - Labs CBC & Chem 7: 11/07/21 08:17 11/07/21 08:17 Labs: Abnormal Lab Results - Last 24 Hours (Table) 11/06/21 11/06/21 11/07/21 Range/Units 08:53 16:41 00:09 RBC (4.30-5.90) m/uL Hgb (13.0-17.5) gm/dL Hct (39.0-53.0) % Plt Count (150-450) k/uL Neutrophils # (Manual) (1.3-7.7) k/uL Lymphocytes # (Manual) (1.0-4.8) k/uL Metamyelocytes # (Man) (0) k/uL Myelocytes # (Manual) (0) k/uL Potassium 2.3 L* (3.5-5.1) mmol/L Chloride 96 L (98-107) mmol/L Carbon Dioxide 36 H (22-30) mmol/L Glucose (74-99) mg/dL POC Glucose (mg/dL) 287 H (75-99) mg/dL Procalcitonin 3.35 H (0.02-0.09) ng/mL 11/07/21 11/07/21 11/07/21 Range/Units 06:19 08:17 08:17 RBC 3.75 L (4.30-5.90) m/uL Hgb 11.7 L (13.0-17.5) gm/dL Hct 35.5 L (39.0-53.0) % Plt Count 127 L (150-450) k/uL Neutrophils # (Manual) 9.60 H (1.3-7.7) k/uL Lymphocytes # (Manual) 0.64 L (1.0-4.8) k/uL Metamyelocytes # (Man) 0.21 H (0) k/uL Myelocytes # (Manual) 0.11 H (0) k/uL Potassium 2.6 L* (3.5-5.1) mmol/L Chloride 97 L (98-107) mmol/L Carbon Dioxide 33 H (22-30) mmol/L Glucose 274 H (74-99) mg/dL POC Glucose (mg/dL) 200 H (75-99) mg/dL Procalcitonin (0.02-0.09) ng/mL 11/07/21 Range/Units 11:32 RBC (4.30-5.90) m/uL Hgb (13.0-17.5) gm/dL Hct (39.0-53.0) % Plt Count (150-450) k/uL Neutrophils # (Manual) (1.3-7.7) k/uL Lymphocytes # (Manual) (1.0-4.8) k/uL Metamyelocytes # (Man) (0) k/uL Myelocytes # (Manual) (0) k/uL Potassium (3.5-5.1) mmol/L Chloride (98-107) mmol/L Carbon Dioxide (22-30) mmol/L Glucose (74-99) mg/dL POC Glucose (mg/dL) 270 H (75-99) mg/dL Procalcitonin (0.02-0.09) ng/mL Microbiology - Last 24 Hours (Table) 11/05/21 16:43 Blood Culture - Preliminary Blood No Growth after 24 hours Assessment and Plan Assessment: Shortness of breath, likely multifactorial, in part related to atrial fibrillation with RVR, possible underlying COPD, and also metastatic lung cancer. CTA, negative for pulmonary embolism. History of hypertension. History of BPH. History of diabetes. History of heavy tobacco use. History of sleep apnea syndrome. Plan: Plan dated 11/05/2021. The patient is back in sinus rhythm. He remains on IV heparin, and an amiodarone drip. He is on a nonrebreather mass. Because of his acute presentation, the patient should be checked for a pulmonary embolism. I'll put an order for a CT angiogram. Additional recommendations and suggestions are forthcoming. Prognosis is certainly guarded. The patient has not started treatment for his lung cancer as yet. He has apparently met the medical oncologists although he cannot remember his name. We will continue to follow make recommendations where appropriate. Labs, x-rays, and medications are reviewed. Plan dated 11/06/2021. The patient's IV amiodarone was switched to oral amiodarone. The patient remains on other appropriate medications. The patient is getting Zosyn, and breathing treatments. Additional recommendations and suggestions are forthcoming. Prognosis is certainly guarded. Labs, x-rays, medications are reviewed. We will continue to follow the patient and make recommendations were appropriate. He does know that he has lung cancer. Plan dated 11/07/2021. Currently, the patient's doing a bit better today. He does remain on 15 L high flow nasal cannula. He's no longer in atrial fibrillation. Labs, x-rays, and medications are reviewed. There is no evidence of pulmonary embolism on CT angiogram. We will continue to follow make recommendations wHere appropriate. Prognosis is certainly guarded. We did speak to the patient's family in the room. Time with Patient: Less than 30
--- NOTE | 2021-11-07 14:24 | PN ---
PROGRESS NOTE DATE OF SERVICE: 11/07/2021 This 55-year-old gentleman admitted with change in mental status and atrial fibrillation also had a history of recently diagnosed lung cancer with METS. The patient also was severely hypokalemic. The potassium yesterday was 2.3. After supplementation today, it is only 2.6. The patient is confused. Sensorium is slightly improved. The patient also had repeat chest x-ray, which was reviewed personally and showed bilateral lesions as well. Past medical history reviewed. Review of systems could not be taken, the patient is still confused. CURRENT MEDICATIONS: Reviewed and include: DuoNeb, Cordarone, doses reviewed. PHYSICAL EXAMINATION: Pulse is 62. Blood pressure 143/83, respiratory rate 28, HEENT: Conjunctivae normal. Neck: No JVD. Cardiovascular: S1, S2. Respiration: A few scattered rhonchi and crackles. Abdomen: Soft. Nervous system: Diffusely weak. LABS: WBC 10.6, hemoglobin 11.7, sodium 140, potassium 2.8. Accu-Cheks are noted. ASSESSMENT: 1. Atrial fibrillation with fast ventricular rate. 2. Change in mental status acute metabolic encephalopathy. CT scan negative. 3. Recently diagnosed lung cancer with METS. 4. Severe hypokalemia. 5. Possible aspiration pneumonia, post obstructive pneumonia on empiric antibiotics. 6. Chronic obstructive pulmonary disease, acute exacerbation with acute hypoxic respiratory failure. 7. Multiple medical issues. RECOMMENDATIONS AND DISCUSSION: Recommend to continue current medications, management and symptomatic treatment. Continue antibiotics. Continue with potassium. Add additional potassium and repeat lytes at 6 today, regular potassium also being recommended. The patient is on still on IV Lasix. Otherwise continue with IV antibiotics. Prognosis guarded because of multiple complex medical issues and further recommendations to follow. See orders for details. MMODL / IJN: [id number] /
[2021-11-07 16:19] LABS: Glucose,Whole Blood 258 mg/dL (75-99)
[2021-11-07] MEDS: BUDESONIDE 1 MG/2 ML NEBU INHALATION SCH (20:05)
[2021-11-07] MEDS: FORMOTEROL FUMARATE 20 MCG/2 ML NEBU INHALATION SCH (20:05)
[2021-11-07] MEDS: LOSARTAN 50 MG TAB PO SCH (20:20)
[2021-11-07] MEDS: amLODIPine 10 MG TAB PO SCH (20:20)
[2021-11-07] MEDS: TAMSULOSIN 0.4 MG CAP.ER.24H PO SCH (20:20)
[2021-11-07 20:24] LABS: Glucose,Whole Blood 295 mg/dL (75-99)
[2021-11-07] MEDS: traMADol 50 MG TAB PO PRN (23:16)
[2021-11-08] MEDS: GABAPENTIN 300 MG CAP PO SCH ×4 (01:31→19:03)
[2021-11-08] MEDS ORDERED: Potassium Replacement Protocol 1 EACH MISC MISCELLANE PRN ×3 (03:50→16:35)
[2021-11-08] MEDS: POTASSIUM CHLORIDE ER 20 MEQ TAB.ER PO SCH ×10 (03:53→20:18)
[2021-11-08] MEDS: HYDROcodone/APAP 5-325MG 1 EACH TAB PO PRN ×2 (04:50→16:49)
[2021-11-08 06:05] LABS: Glucose,Whole Blood 236 mg/dL (75-99)
[2021-11-08] MEDS: INSULIN ASPART (NovoLOG) 100 UNIT/ML VIAL SQ SCH ×4 (06:21→21:22)
[2021-11-08] MEDS: HYDROmorphone 0.5 MG/0.5 ML SYRINGE IVP PRN ×2 (06:54→14:52)
--- NOTE | 2021-11-08 07:53 | P.PN ---
Subjective Progress Note Date: 11/07/21 Principal diagnosis: Pneumonia Patient is a 55-year-old male with a recent diagnosis of poorly differentiated carcinoma with metastasis presented to hospital with increasing shortness of breath and lower extremity swelling chest x-ray with multifocal areas of consolidation concerning for possible pneumonia. On today's evaluation that is 11/07/2021, the patient remains to be afebrile, the patient is breathing more comfortably, the patient denies having any chest pain he did have a cough but not bringing up any sputum. No abdominal pain swelling to the lower extremity has slightly decreased Objective - Vital Signs Vital signs: Vital Signs Temp 96.4 F L 11/07/21 11:25 Pulse 62 11/07/21 11:25 Resp 20 11/07/21 11:25 BP 143/83 11/07/21 11:25 Pulse Ox 94 L 11/07/21 11:25 FiO2 100 11/06/21 07:54 Intake & Output 11/06/21 11/07/21 11/07/21 18:59 06:59 18:59 Intake Total 118 600 Output Total 3750 3800 3950 Balance -3632 -3800 -3350 Weight 90.5 kg Intake: Oral 118 600 Output: Urine 3750 3800 3950 Uretheral (Palacios) 1750 Other: Voiding Method Indwelling Catheter Indwelling Catheter - Exam GENERAL DESCRIPTION: A middle-age male lying in bed in no distress RESPIRATORY SYSTEM: Unlabored breathing , decreased breath sounds at bases HEART: S1 S2 regular rate and rhythm , ABDOMEN: Soft , no tenderness EXTREMITIES: One plus edema feet - Labs CBC & Chem 7: 11/07/21 08:17 11/07/21 19:55 Labs: Abnormal Lab Results - Last 24 Hours (Table) 11/06/21 11/06/21 11/07/21 Range/Units 08:53 16:41 00:09 RBC (4.30-5.90) m/uL Hgb (13.0-17.5) gm/dL Hct (39.0-53.0) % Plt Count (150-450) k/uL Neutrophils # (Manual) (1.3-7.7) k/uL Lymphocytes # (Manual) (1.0-4.8) k/uL Metamyelocytes # (Man) (0) k/uL Myelocytes # (Manual) (0) k/uL Potassium 2.3 L* (3.5-5.1) mmol/L Chloride 96 L (98-107) mmol/L Carbon Dioxide 36 H (22-30) mmol/L Glucose (74-99) mg/dL POC Glucose (mg/dL) 287 H (75-99) mg/dL Procalcitonin 3.35 H (0.02-0.09) ng/mL 11/07/21 11/07/21 11/07/21 Range/Units 06:19 08:17 08:17 RBC 3.75 L (4.30-5.90) m/uL Hgb 11.7 L (13.0-17.5) gm/dL Hct 35.5 L (39.0-53.0) % Plt Count 127 L (150-450) k/uL Neutrophils # (Manual) 9.60 H (1.3-7.7) k/uL Lymphocytes # (Manual) 0.64 L (1.0-4.8) k/uL Metamyelocytes # (Man) 0.21 H (0) k/uL Myelocytes # (Manual) 0.11 H (0) k/uL Potassium 2.6 L* (3.5-5.1) mmol/L Chloride 97 L (98-107) mmol/L Carbon Dioxide 33 H (22-30) mmol/L Glucose 274 H (74-99) mg/dL POC Glucose (mg/dL) 200 H (75-99) mg/dL Procalcitonin (0.02-0.09) ng/mL 11/07/21 Range/Units 11:32 RBC (4.30-5.90) m/uL Hgb (13.0-17.5) gm/dL Hct (39.0-53.0) % Plt Count (150-450) k/uL Neutrophils # (Manual) (1.3-7.7) k/uL Lymphocytes # (Manual) (1.0-4.8) k/uL Metamyelocytes # (Man) (0) k/uL Myelocytes # (Manual) (0) k/uL Potassium (3.5-5.1) mmol/L Chloride (98-107) mmol/L Carbon Dioxide (22-30) mmol/L Glucose (74-99) mg/dL POC Glucose (mg/dL) 270 H (75-99) mg/dL Procalcitonin (0.02-0.09) ng/mL Microbiology - Last 24 Hours (Table) 11/05/21 16:43 Blood Culture - Preliminary Blood No Growth after 24 hours Assessment and Plan (1) Pneumonia Current Visit: Yes Status: Acute Code(s): J18.9 - PNEUMONIA, UNSPECIFIED ORGANISM SNOMED Code(s): 465167950 (2) Thrush Current Visit: Yes Status: Acute Code(s): B37.0 - CANDIDAL STOMATITIS SNOMED Code(s): 65142807 Plan: 1patient presented to hospital with increasing shortness of breath and weakness in this patient did have a bilateral lower extremity swelling recent diagnosis of metastatic poorly differentiated carcinoma however has not yet been started on chemotherapy, patient did not have any fever or significant evaded white count underlying pneumonia less likely but not entirely excluded. 2patient did have elevated CRP and procalcitonin level suggestive of pneumonia. 3patient seems to have shown some clinical improvement and will continue on Zosyn, we'll try to obtain a sputum to narrow down on antibiotics Time with Patient: Less than 30
[2021-11-08] MEDS: PIPERACILLIN-TAZOBACTAM 3.375 GM in SODIUM CHLORIDE 0.9% 100 ML IVPB SCH ×2 (08:17→17:00)
[2021-11-08] MEDS: METOPROLOL TARTRATE 50 MG TAB PO SCH ×2 (08:18→20:17)
[2021-11-08] MEDS: AMIODARONE 200 MG TAB PO SCH ×2 (08:18→20:17)
[2021-11-08] MEDS: APIXABAN 5 MG TAB PO SCH ×2 (08:18→20:17)
[2021-11-08] MEDS: PARoxetine 20 MG TAB PO SCH (08:18)
[2021-11-08] MEDS: FLUCONAZOLE 100 MG TAB PO SCH (08:18)
[2021-11-08] MEDS: FUROSEMIDE 10 MG/ML 4 ML VIAL IV SCH (08:19)
[2021-11-08] MEDS: FOLIC ACID 1 MG TAB PO SCH (08:19)
[2021-11-08] MEDS: NON FORMULARY DRUG (Empagliflozin [Jardiance] 25 MG Tablet) PO SCH (08:28)
[2021-11-08] MEDS: BUDESONIDE 1 MG/2 ML NEBU INHALATION SCH ×2 (08:37→20:11)
[2021-11-08] MEDS: IPRATROPIUM-ALBUTEROL 3 ML NEB INHALATION SCH ×3 (08:37→20:11)
[2021-11-08] MEDS: FORMOTEROL FUMARATE 20 MCG/2 ML NEBU INHALATION SCH ×2 (08:37→20:24)
[2021-11-08 09:26] LABS: Basophils % (A) 0 %; Eosinophils % (A) 0 %; HCT 33.7 % (39.0-53.0); HGB 11.4 gm/dL (13.0-17.5); Lymphocytes # (A) 0.8 k/uL (1.0-4.8); Lymphocytes % (A) 7 %; MCH 31.6 pg (25.0-35.0); MCHC 33.8 g/dL (31.0-37.0); MCV 93.7 fL (80.0-100.0); Mean Platelet Volume 8.6; Monocytes # (A) 0.2 k/uL (0-1.0); Monocytes % (A) 2 %; Neutrophils # (A) 10.1 k/uL (1.3-7.7); Neutrophils % (A) 90 %; Platelet Count 119 k/uL (150-450); RDW 14.1 % (11.5-15.5); WBC 11.1 k/uL (3.8-10.6)
[2021-11-08 09:36] LABS: African American GFR (CKD) >90 (>60 ml/min/1.73 sqM); Anion Gap 7 mmol/L; Blood Urea Nitrogen 15 mg/dL (9-20); Calcium 8.2 mg/dL (8.4-10.2); Carbon Dioxide 35 mmol/L (22-30); Chloride 94 mmol/L (98-107); Glucose 294 mg/dL (74-99); Non-African American GFR(CKD) >90 (>60 ml/min/1.73 sqM); Sodium 136 mmol/L (137-145)
[2021-11-08 09:46] LABS: Potassium 2.7 mmol/L (3.5-5.1)
[2021-11-08] MEDS: traMADol 50 MG TAB PO PRN ×2 (10:58→20:14)
--- NOTE | 2021-11-08 11:23 | P.PN ---
Subjective Progress Note Date: 11/08/21 55-year-old male patient is being seen in follow-up on 11/08/2021 regarding his acute hypoxic respiratory failure and metastatic lung cancer. The patient is progressing fast as the patient had a follow-up CAT scan that showed enlargement in the left upper lobe mass in addition to enlargement and the skeletal metastases. He comes in with acute hypoxic respiratory failure and currently is on 15 L about 2 by nasal cannula. The patient was also admitted for A. fib RVR started on amiodarone. This morning, he is on oxygen at 15 L with a pulse ox of 96%. I reviewed the CAT scan of the chest and there is obvious new changes with new consolidation of the lung bases bilaterally along with some small effusions in addition to enlargement in the left upper lobe opacity and enlargement of the skeletal metastases as discussed earlier. The white cell count today's of 11.1 with a hemoglobin of 11.4. Platelet count 119, sodium is at 136 with a potassium level of 2.7, renal function is been essentially within normal limits. In terms of treatment, the patient is receiving bronchodilators, IV Zosyn as an empiric antibiotic coverage, IV Lasix 40 mg every 12 hours, and the patient is on amiodarone for rate control 400 mg twice a day and Eliquis 5 mg by mouth twice a day. He is also on metoprolol for rate control 50 mg by mouth twice a day. Calcitonin level was quite elevated at time of admission and was in the order of 3.35. Objective - Vital Signs Vital signs: Vital Signs Temp 98.4 F 11/08/21 08:05 Pulse 107 H 11/08/21 09:24 Resp 16 11/08/21 09:24 BP 116/70 11/08/21 08:05 Pulse Ox 96 11/08/21 08:54 FiO2 100 11/06/21 07:54 Intake & Output 11/07/21 11/08/21 11/08/21 18:59 06:59 18:59 Intake Total 780 Output Total 5200 4450 Balance -4420 -4450 Weight 92 kg Intake: Oral 780 Output: Urine 5200 4450 Other: Voiding Method Indwelling Catheter Indwelling Catheter # Bowel Movements 1 - Exam No acute distress, oriented 3. The patient is on 13 L high flow nasal cannula, with a saturation of 94%. HEENT examination is grossly unremarkable. Neck supple. Full range of motion. No adenopathy thyromegaly or neck vein distention. Cardiovascular examination reveals regular rhythm rate. S1-S2 normal. No S3 or S4. No discernible murmur noted. Heart rate 62 bpm. Lungs reveal mild scattered rhonchi. No wheezes. No crackles. Breath sounds equal bilaterally. Saturations are 92% on high flow nasal cannula. Abdomen soft bowel sounds are heard. No masses or tenderness. Extremities are intact. No cyanosis clubbing or edema. Skin is without rash or lesion. Neurologic examination is brief but nonfocal. - Labs CBC & Chem 7: 11/08/21 08:36 11/08/21 08:36 Labs: Abnormal Lab Results - Last 24 Hours (Table) 11/07/21 11/07/21 11/07/21 Range/Units 11:32 16:18 19:55 WBC (3.8-10.6) k/uL RBC (4.30-5.90) m/uL Hgb (13.0-17.5) gm/dL Hct (39.0-53.0) % Plt Count (150-450) k/uL Neutrophils # (1.3-7.7) k/uL Lymphocytes # (1.0-4.8) k/uL Sodium (137-145) mmol/L Potassium 3.3 L (3.5-5.1) mmol/L Chloride (98-107) mmol/L Carbon Dioxide (22-30) mmol/L Glucose (74-99) mg/dL POC Glucose (mg/dL) 270 H 258 H (75-99) mg/dL Calcium (8.4-10.2) mg/dL 11/07/21 11/08/21 11/08/21 Range/Units 20:22 06:04 08:36 WBC 11.1 H (3.8-10.6) k/uL RBC 3.60 L (4.30-5.90) m/uL Hgb 11.4 L (13.0-17.5) gm/dL Hct 33.7 L (39.0-53.0) % Plt Count 119 L (150-450) k/uL Neutrophils # 10.1 H (1.3-7.7) k/uL Lymphocytes # 0.8 L (1.0-4.8) k/uL Sodium (137-145) mmol/L Potassium (3.5-5.1) mmol/L Chloride (98-107) mmol/L Carbon Dioxide (22-30) mmol/L Glucose (74-99) mg/dL POC Glucose (mg/dL) 295 H 236 H (75-99) mg/dL Calcium (8.4-10.2) mg/dL 11/08/21 Range/Units 08:36 WBC (3.8-10.6) k/uL RBC (4.30-5.90) m/uL Hgb (13.0-17.5) gm/dL Hct (39.0-53.0) % Plt Count (150-450) k/uL Neutrophils # (1.3-7.7) k/uL Lymphocytes # (1.0-4.8) k/uL Sodium 136 L (137-145) mmol/L Potassium 2.7 L* (3.5-5.1) mmol/L Chloride 94 L (98-107) mmol/L Carbon Dioxide 35 H (22-30) mmol/L Glucose 294 H (74-99) mg/dL POC Glucose (mg/dL) (75-99) mg/dL Calcium 8.2 L (8.4-10.2) mg/dL Microbiology - Last 24 Hours (Table) 11/05/21 16:43 Blood Culture - Preliminary Blood No Growth after 48 hours Assessment and Plan Plan: Acute hypoxic respiratory failure currently on oxygen at 15 L per minute nasal cannula. I favor a combination of multilobar pneumonia with progression of his underlying metastatic lung cancer contributing to his hypoxic respiratory fa ilure. He was on 15 L and currently is on 13 L for now. Shortness of breath, likely multifactorial, in part related to atrial fibrillation with RVR, possible underlying COPD, and also metastatic lung cancer. CTA, negative for pulmonary embolism. As part of the chest that was done at time of admission on 11/06/2021 showed an enlarging left upper lobe mass with some internal cavitation. Addition to increase in the size of the left rib lytic lesion with increased soft tissue component consistent with metastases. At the same time, the patient patchy consolidation throughout the lung most pro nounced on the left, with a possibility of an underlying pneumonia. Despite the normal echocardiogram, the patient has diuresed excellent with IV Lasix and the patient has been very negative fluid balance of more than 10 L over the past few days. He remains on IV Lasix at a dose of 40 every 12 hours and the potassium levels are being replaced. Non-small cell lung cancer with left upper lobe mass measuring 2.5 cm in size in addition to mediastinal lymphadenopathy and metastases involving the skeletal system including the humerus, left rib cage. Pathology was consistent with poorly differentiated adenocarcinoma and the patient was referred to medical oncology regarding his underlying lung cancer. A. fib/RVR, current rhythm is sinus and the patient is on anticoagulation with Eliquis. History of hypertension. History of BPH. History of diabetes. History of heavy tobacco use. History of sleep apnea syndrome. 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
[2021-11-08 11:39] LABS: Glucose,Whole Blood 304 mg/dL (75-99)
--- NOTE | 2021-11-08 12:21 | P.PN ---
Subjective This is a pleasant 55-year-old male past medical history significant for hypertension, new diagnosed lung cancer with metastasis to the bone, former tobacco use, chronic lower extremity edema, pulmonary hypertension, recent diagnosis of Type 2 Diabetes. He follows in the office with Dr Veronica . We have been asked to see in consultation for atrial fibrillation with RVR. Patient presents to the emergency department secondary to his concerned increased confusion, worsening lower extremity edema, worsening thrush and sore throat. On admission patient was in sinus rhythm, however, went into atrial fibrillation with RVR with HR 140s. Patient started on Cardizem and Heparin and converted to sinus rhythm HR 70s. Patient went back into Atrial fibrillation with RVR. Was started on IV amiodarone, now transitioned to PO and has been maintaining sinus mechanism. 11/08/2021 Patient seen and examined at bedside. He is maintaining sinus mechanism. Blood pressure 124/75, heart rate 82, 92% on 13 L high flow nasal cannula. He is currently maintained on amiodarone 400 mg twice a day, amlodipine 10 mg nightly, Eliquis 5 mg twice a day, IV Lasix 40 mg twice a day, losartan 100 mg nightly, metoprolol tartrate 50 mg twice a day Patient with -7.4L output over the past 24 hours. Labs: WBC 11.1, hemoglobin 11.4, platelets 119, sodium 136, potassium 2.7, BUN 15, serum creatinine 0.7 PHYSICAL EXAMINATION Vitals reviewed CONSTITUTIONAL: No apparent distress. HEENT: Neck Supple. No JVD. No carotid bruit. CHEST EXAMINATION: Lungs are rhonchi bilaterally to auscultation. No chest wall tenderness is noted on palpation or with deep breathing. HEART EXAMINATION: Regular rate and rhythm. S1, S2 heard. No murmurs, gallops or rub. ABDOMEN: Soft, nontender. Positive bowel sounds. EXTREMITIES: 2+ peripheral pulses, 2-3+ bilateral lower extremity edema and no calf tenderness. SKIN: pale, warm, dry NEUROLOGIC EXAMINATION: Patient is awake, alert and oriented x3. ASSESSMENT Paroxysmal atrial fibrillation with RVR, converted to sinus mechanism -[id number] score 2 Altered mental status, improved Shortness of breath New diagnosed lung cancer with metastasis to the bone Hypoxic respiratory failure, likely multifactorial with lung cancer, atrial fibrillation RVR, possible heart failure component Hypokalemia Elevated troponin, likely related to atrial fibrillation to RVR Hypertension Recent diagnosis of Type 2 Diabetes Pulmonary hypertension Chronic lower extremity edema Former tobacco use PLAN Continue Amiodarone 400mg BID for 1 week. Take 200mg BID starting 11/13 for one month, and then 200mg Daily thereafter. Continue anticoagulation wtih Eliquis Continue metoprolol tartrate 50mg BID Transition to PO Lasix Replace potassium per protocol Continue losartan Eliquis sent to pharmacy and case management consulted for coverage, per case management eliquis is covered. Patient continues to maintain sinus mechanism. We will follow the patient has needed at this time. Close follow-up in the office as an outpatient. Nurse practitioner note has been reviewed by physician. Signing provider agrees with the documented findings, assessment, and plan of care. Objective - Vital Signs Vital signs: Vital Signs Temp 98.4 F 11/08/21 08:05 Pulse 82 11/08/21 11:48 Resp 18 11/08/21 11:48 BP 124/75 11/08/21 11:48 Pulse Ox 92 L 11/08/21 11:48 FiO2 100 11/06/21 07:54 Intake & Output 11/07/21 11/08/21 11/08/21 18:59 06:59 18:59 Intake Total 780 Output Total 5200 4450 Balance -4420 -4450 Weight 92 kg Intake: Oral 780 Output: Urine 5200 4450 Other: Voiding Method Indwelling Catheter Indwelling Catheter # Bowel Movements 1 - Labs CBC & Chem 7: 11/08/21 08:36 11/08/21 08:36 Labs: Abnormal Lab Results - Last 24 Hours (Table) 11/07/21 11/07/21 11/07/21 Range/Units 16:18 19:55 20:22 WBC (3.8-10.6) k/uL RBC (4.30-5.90) m/uL Hgb (13.0-17.5) gm/dL Hct (39.0-53.0) % Plt Count (150-450) k/uL Neutrophils # (1.3-7.7) k/uL Lymphocytes # (1.0-4.8) k/uL Sodium (137-145) mmol/L Potassium 3.3 L (3.5-5.1) mmol/L Chloride (98-107) mmol/L Carbon Dioxide (22-30) mmol/L Glucose (74-99) mg/dL POC Glucose (mg/dL) 258 H 295 H (75-99) mg/dL Calcium (8.4-10.2) mg/dL 11/08/21 11/08/21 11/08/21 Range/Units 06:04 08:36 08:36 WBC 11.1 H (3.8-10.6) k/uL RBC 3.60 L (4.30-5.90) m/uL Hgb 11.4 L (13.0-17.5) gm/dL Hct 33.7 L (39.0-53.0) % Plt Count 119 L (150-450) k/uL Neutrophils # 10.1 H (1.3-7.7) k/uL Lymphocytes # 0.8 L (1.0-4.8) k/uL Sodium 136 L (137-145) mmol/L Potassium 2.7 L* (3.5-5.1) mmol/L Chloride 94 L (98-107) mmol/L Carbon Dioxide 35 H (22-30) mmol/L Glucose 294 H (74-99) mg/dL POC Glucose (mg/dL) 236 H (75-99) mg/dL Calcium 8.2 L (8.4-10.2) mg/dL 11/08/21 Range/Units 11:35 WBC (3.8-10.6) k/uL RBC (4.30-5.90) m/uL Hgb (13.0-17.5) gm/dL Hct (39.0-53.0) % Plt Count (150-450) k/uL Neutrophils # (1.3-7.7) k/uL Lymphocytes # (1.0-4.8) k/uL Sodium (137-145) mmol/L Potassium (3.5-5.1) mmol/L Chloride (98-107) mmol/L Carbon Dioxide (22-30) mmol/L Glucose (74-99) mg/dL POC Glucose (mg/dL) 304 H (75-99) mg/dL Calcium (8.4-10.2) mg/dL Microbiology - Last 24 Hours (Table) 11/05/21 16:43 Blood Culture - Preliminary Blood No Growth after 48 hours
[2021-11-08 13:32] VITALS: BMI 27.5
--- NOTE | 2021-11-08 14:17 | NM ---
EXAMINATION TYPE: NM bone scan whole body DATE OF EXAM: 11/08/2021 COMPARISON: NONE HISTORY: Possible metastases Delayed whole-body scanning was performed following the injection of 25.4 mCi Tc 99m MDP. Images acq uired 5 hours post injection. FINDINGS: Spotty uptake seen in the calvarium is highly suggestive of Abnormal uptake involving the rib cage on the left compatible with destructive lesion. Spotty additio nal uptake in the rib cage and also suspected bilaterally suspicious for early metastases. Moderate uptake throughout the thoracic spine is nonspecific. Intense abnormal uptake involving the pubic symphysis is nonspecific. Abnormal uptake involving the feet, ankles, knees and shoulders most likely degenerative. IMPRESSION: 1. Spotty uptake involving the calvarium highly suggestive of metastasis. 2. Abnormal rib cage uptake concordant CT findings and compatible with metastases. 3. Nonspecific uptake involving the pubic symphysis. Recent CT scan did not demonstrate significant h ypertrophic changes in this region to account for the finding and therefore metastasis in the differe ntial diagnosis. 4. Consider MRI of the thoracic and lumbar spine for spotty mineralization seen by previous CT chest, abdomen and pelvis. Uptake seen throughout the thoracic and to a lesser extent the lumbar spine on t melody's exam could be degenerative but given the CT findings would recommend MRI to assess for metasta ses
--- NOTE | 2021-11-08 14:52 | P.PN ---
Subjective Progress Note Date: 11/08/21 This is a 55 year old male who presents with atrial fibrillation with RVR, and altered mental status. Patient was recently diagnosed with lung cancer not currently undergoing treatment. Bone scan today showing uptake involving the left rib is compatible with destructive lesions and also calvarium uptake highly suggestive of metastasis. There is also nonspecific uptake involving pubic symphysis and metastasis should also be in the differential. Currently rating pain a 4/10. Patient is on 13L high flow cannula with saturation of 92%, afebrile, heart rate controlled 92, blood pressure 124/75. Not currently wearing oxygen as outpatient. He has been transitioned to oral amiodarone and oral eliquis. He continues on IV zosyn, and has been transitioned to oral lasix. Potassium today 2.7 and patient has received additional replacement as well as 40 meq bid, pts expressed concern with ongoing low potassium prior to admission as well. Repeat potassium this afternoon. Oncology and pulmonary following along, cardiology has signed off as needed basis. Review of Systems Constitutional: Denied any fatigue denied any fever. Cardio vascular: denied any chest pain, palpitations Gastrointestinal: denied any nausea, vomiting, diarrhea Pulmonary: Denied any shortness of breath cough Neurologic denied any new focal deficits All inpatient medications were reviewed and appropriate changes in these medications as dictated in the interval history and assessment and plan. PHYSICAL EXAMINATION: GENERAL: The patient is alert and oriented x3, not in any acute distress. Well developed, well nourished. HEENT: Pupils are round and equally reacting to light. EOMI. No scleral icterus. No conjunctival pallor. Normocephalic, atraumatic. No pharyngeal erythema. No thyromegaly. CARDIOVASCULAR: S1 and S2 present. No murmurs, rubs, or gallops. PULMONARY: Chest is clear to auscultation, no wheezing or crackles. ABDOMEN: Soft, nontender, nondistended, normoactive bowel sounds. No palpable organomegaly. MUSCULOSKELETAL: No joint swelling or deformity. EXTREMITIES: No cyanosis, clubbing, or pedal edema. NEUROLOGICAL: Gross neurological examination did not reveal any focal deficits. SKIN: No rashes. Assessment and Plan Assessment Acute hypoxic respiratory failure which is multifactorial, component of bilateral pneumonia as well as lung cancer which has progessed. Continues on 13 L Hi flow cannula, he is also receiving empiric antibiotic coverage. Paroxysmal atrial fibrillation, maintaining sinus rhythm continues on oral amiodarone, anticoagulation with eliquis Altered mental status from acute metabolic encephalopathy, CT scan negative, improving mentation New diagnosis non-small cell lung cancer with metastasis to the bone COPD with acute exacerbation Hypokalemia Troponin leak most likely related to atrial fibrillation with RVR Diabetes Mellitus type 2 with hyperglycemia, recent diagnosis Hyperthyroidism with TSH 0.264, Free T4 0.61. Pulmonary hypertension History of hypertension History of sleep apnea with CPAP use Former tobacco use GI Prophylaxis DVT Prophylaxis Plan Continue on IV zosyn Transitioned to oral lasix Amiodarone taper per cardiology Replace potassium and repeat this afternoon Follow up labs in AM Cardiology has signed off Pulmonary team following Oncology following Patients prognosis is guarded given his current multiple medical conditions and progression of cancer The impression and plan of care has been dictated by Angi Castaneda Nurse Practitioner as directed. Dr. Dick MD I have performed a history and physical examination and medical decision making of this patient, discussed the same with the dictator, and agree with the dictators assessment and plan as written, documented as a scribe. Based on total visit time, I have performed more than 50% of this visit. Objective - Vital Signs Vital signs: Vital Signs Temp 98.4 F 11/08/21 08:05 Pulse 88 11/08/21 12:23 Resp 18 11/08/21 11:48 BP 124/75 11/08/21 11:48 Pulse Ox 92 L 11/08/21 11:48 FiO2 100 11/06/21 07:54 Intake & Output 11/07/21 11/08/21 11/08/21 18:59 06:59 18:59 Intake Total 780 Output Total 5200 4450 Balance -4420 -4450 Weight 92 kg 92 kg Intake: Oral 780 Output: Urine 5200 4450 Other: Voiding Method Indwelling Catheter Indwelling Catheter # Bowel Movements 1 - Labs CBC & Chem 7: 11/08/21 08:36 11/08/21 08:36 Labs: Abnormal Lab Results - Last 24 Hours (Table) 11/07/21 11/07/21 11/07/21 Range/Units 16:18 19:55 20:22 WBC (3.8-10.6) k/uL RBC (4.30-5.90) m/uL Hgb (13.0-17.5) gm/dL Hct (39.0-53.0) % Plt Count (150-450) k/uL Neutrophils # (1.3-7.7) k/uL Lymphocytes # (1.0-4.8) k/uL Sodium (137-145) mmol/L Potassium 3.3 L (3.5-5.1) mmol/L Chloride (98-107) mmol/L Carbon Dioxide (22-30) mmol/L Glucose (74-99) mg/dL POC Glucose (mg/dL) 258 H 295 H (75-99) mg/dL Calcium (8.4-10.2) mg/dL 11/08/21 11/08/21 11/08/21 Range/Units 06:04 08:36 08:36 WBC 11.1 H (3.8-10.6) k/uL RBC 3.60 L (4.30-5.90) m/uL Hgb 11.4 L (13.0-17.5) gm/dL Hct 33.7 L (39.0-53.0) % Plt Count 119 L (150-450) k/uL Neutrophils # 10.1 H (1.3-7.7) k/uL Lymphocytes # 0.8 L (1.0-4.8) k/uL Sodium 136 L (137-145) mmol/L Potassium 2.7 L* (3.5-5.1) mmol/L Chloride 94 L (98-107) mmol/L Carbon Dioxide 35 H (22-30) mmol/L Glucose 294 H (74-99) mg/dL POC Glucose (mg/dL) 236 H (75-99) mg/dL Calcium 8.2 L (8.4-10.2) mg/dL 11/08/21 Range/Units 11:35 WBC (3.8-10.6) k/uL RBC (4.30-5.90) m/uL Hgb (13.0-17.5) gm/dL Hct (39.0-53.0) % Plt Count (150-450) k/uL Neutrophils # (1.3-7.7) k/uL Lymphocytes # (1.0-4.8) k/uL Sodium (137-145) mmol/L Potassium (3.5-5.1) mmol/L Chloride (98-107) mmol/L Carbon Dioxide (22-30) mmol/L Glucose (74-99) mg/dL POC Glucose (mg/dL) 304 H (75-99) mg/dL Calcium (8.4-10.2) mg/dL Microbiology - Last 24 Hours (Table) 11/05/21 16:43 Blood Culture - Preliminary Blood No Growth after 48 hours Assessment and Plan Time with Patient: Less than 30
[2021-11-08 16:46] LABS: Glucose,Whole Blood 365 mg/dL (75-99)
[2021-11-08] MEDS: FUROSEMIDE 40 MG TAB PO SCH (17:00)
--- NOTE | 2021-11-08 17:09 | P.PN ---
Subjective Progress Note Date: 11/08/21 Principal diagnosis: metastatic lung carcinoma In f/u today pt states feeling better then he did on admit. He seems to be thinking more clearly. Denies fever, nausea, oral irritation, he does require O2 for comfort, no expectoration, abd pain, acute changes in bowel or bladder habits. Objective - Vital Signs Vital signs: Vital Signs Temp 98.1 F 11/08/21 16:43 Pulse 89 11/08/21 16:43 Resp 18 11/08/21 16:43 BP 151/91 11/08/21 16:43 Pulse Ox 97 11/08/21 16:43 FiO2 100 11/06/21 07:54 Intake & Output 11/07/21 11/08/21 11/08/21 18:59 06:59 18:59 Intake Total 780 476 Output Total 5200 4450 2100 Balance -8429 -5290 -1624 Weight 92 kg 92 kg Intake: Oral 780 476 Output: Urine 5200 4450 2100 Other: Voiding Method Indwelling Catheter Indwelling Catheter # Bowel Movements 1 - Constitutional General appearance: Present: average body habitus, cooperative, no acute distress - EENT Eyes: Present: anicteric sclerae, EOMI ENT: Present: hearing grossly normal, normal oropharynx - Respiratory Respiratory: bilateral: diminished (L>R) - Cardiovascular Rhythm: regular Heart sounds: normal: S1, S2 Abnormal Heart Sounds: Absent: systolic murmur, diastolic murmur, rub, S3 Gallop, S4 Gallop, click, other - Peripheral edema leg Peripheral Edema: bilateral: 1+ - Gastrointestinal General gastrointestinal: Present: normal bowel sounds, soft. Absent: absent bowel sounds, decreased bowel sounds, distended, hepatomegaly, hyperactive bowel sounds, organomegaly, rigid, scaphoid, splenomegaly, tenderness, umbilical hernia, ventral hernia - Neurologic Neurologic: Present: CNII-XII intact (grossly) - Psychiatric Psychiatric Comment(s): flat affect, intact judgment, admits to some trouble with recall of events Psychiatric: Present: A&O x's 3 - Labs CBC & Chem 7: 11/08/21 08:36 11/08/21 15:17 Labs: Abnormal Lab Results - Last 24 Hours (Table) 11/07/21 11/07/21 11/08/21 Range/Units 19:55 20:22 06:04 WBC (3.8-10.6) k/uL RBC (4.30-5.90) m/uL Hgb (13.0-17.5) gm/dL Hct (39.0-53.0) % Plt Count (150-450) k/uL Neutrophils # (1.3-7.7) k/uL Lymphocytes # (1.0-4.8) k/uL Sodium (137-145) mmol/L Potassium 3.3 L (3.5-5.1) mmol/L Chloride (98-107) mmol/L Carbon Dioxide (22-30) mmol/L Glucose (74-99) mg/dL POC Glucose (mg/dL) 295 H 236 H (75-99) mg/dL Calcium (8.4-10.2) mg/dL 11/08/21 11/08/21 11/08/21 Range/Units 08:36 08:36 11:35 WBC 11.1 H (3.8-10.6) k/uL RBC 3.60 L (4.30-5.90) m/uL Hgb 11.4 L (13.0-17.5) gm/dL Hct 33.7 L (39.0-53.0) % Plt Count 119 L (150-450) k/uL Neutrophils # 10.1 H (1.3-7.7) k/uL Lymphocytes # 0.8 L (1.0-4.8) k/uL Sodium 136 L (137-145) mmol/L Potassium 2.7 L* (3.5-5.1) mmol/L Chloride 94 L (98-107) mmol/L Carbon Dioxide 35 H (22-30) mmol/L Glucose 294 H (74-99) mg/dL POC Glucose (mg/dL) 304 H (75-99) mg/dL Calcium 8.2 L (8.4-10.2) mg/dL 11/08/21 11/08/21 Range/Units 15:17 16:41 WBC (3.8-10.6) k/uL RBC (4.30-5.90) m/uL Hgb (13.0-17.5) gm/dL Hct (39.0-53.0) % Plt Count (150-450) k/uL Neutrophils # (1.3-7.7) k/uL Lymphocytes # (1.0-4.8) k/uL Sodium (137-145) mmol/L Potassium 2.8 L (3.5-5.1) mmol/L Chloride (98-107) mmol/L Carbon Dioxide (22-30) mmol/L Glucose (74-99) mg/dL POC Glucose (mg/dL) 365 H (75-99) mg/dL Calcium (8.4-10.2) mg/dL Microbiology - Last 24 Hours (Table) 11/05/21 16:43 Blood Culture - Preliminary Blood No Growth after 48 hours - Imaging and Cardiology CT scan - chest: report reviewed CT Scan - head: report reviewed Venous US: report reviewed (IVC-no thrombus) NM bone scan report reviewed after pt seen, will review with pt and tomorrow Assessment and Plan (1) Carcinoma Current Visit: Yes Status: Acute Priority: High Code(s): C80.1 - MALIGNANT (PRIMARY) NEOPLASM, UNSPECIFIED SNOMED Code(s): 191007089 Plan: Recent lung biopsy + carcinoma, unable to be further classified. Not enough material for NGS testing on tumor. Guardant testing was ordered on blood for cfDNA when pt was seen-no actionable mutations. PD-L1 returned<1%. had multiple questions that I did not have the answers for. I will meet with tomorrow to clarify answers to her questions and provide them with Dr. Kraus's recommendations. Brain CT with contrast, no evidence of mets. did confirm that implanted device for apnea is compatible with MRI of limbs and head. Will confirm with Primary Onc if MRI still wanted. NM bone scan reported after pt seen, multiple sites of mets, will review with pt and tomorrow. Time with Patient: Greater than 30
[2021-11-08] MEDS: TAMSULOSIN 0.4 MG CAP.ER.24H PO SCH (20:16)
[2021-11-08] MEDS: LOSARTAN 50 MG TAB PO SCH (20:17)
[2021-11-08] MEDS: amLODIPine 10 MG TAB PO SCH (20:17)
[2021-11-08 20:49] LABS: Glucose,Whole Blood 338 mg/dL (75-99)
[2021-11-08] MEDS: INSULIN DETEMIR (LEVEMIR) 100 UNIT/ML SYR SQ SCH (22:19)
[2021-11-09] MEDS: PIPERACILLIN-TAZOBACTAM 3.375 GM in SODIUM CHLORIDE 0.9% 100 ML IVPB SCH ×4 (00:04→23:44)
[2021-11-09] MEDS: GABAPENTIN 300 MG CAP PO SCH ×3 (01:59→13:19)
[2021-11-09] MEDS ORDERED: INSULIN ASPART (NovoLOG) 100 UNIT/ML VIAL SQ ONE (02:00)
[2021-11-09 02:01] LABS: Glucose,Whole Blood 224 mg/dL (75-99)
[2021-11-09] MEDS: HYDROcodone/APAP 5-325MG 1 EACH TAB PO PRN ×4 (03:27→21:25)
[2021-11-09 06:16] LABS: Glucose,Whole Blood 144 mg/dL (75-99)
[2021-11-09] MEDS: INSULIN ASPART (NovoLOG) 100 UNIT/ML VIAL SQ SCH ×7 (06:39→21:22)
[2021-11-09] MEDS: traMADol 50 MG TAB PO PRN (08:00)
[2021-11-09] MEDS: BUDESONIDE 1 MG/2 ML NEBU INHALATION SCH ×2 (08:02→20:41)
[2021-11-09] MEDS: IPRATROPIUM-ALBUTEROL 3 ML NEB INHALATION SCH ×3 (08:03→20:41)
[2021-11-09] MEDS: FORMOTEROL FUMARATE 20 MCG/2 ML NEBU INHALATION SCH ×2 (08:03→20:41)
[2021-11-09 08:12] LABS: Magnesium 1.7 mg/dL (1.6-2.3); Potassium 3.2 mmol/L (3.5-5.1)
[2021-11-09 08:32] LABS: Basophils % (A) 0 %; Eosinophils % (A) 0 %; HCT 27.6 % (39.0-53.0); Lymphocytes # (A) 0.9 k/uL (1.0-4.8); Lymphocytes % (A) 8 %; MCH 32.7 pg (25.0-35.0); MCHC 35.1 g/dL (31.0-37.0); MCV 93.2 fL (80.0-100.0); Mean Platelet Volume 8.9; Monocytes # (A) 0.3 k/uL (0-1.0); Monocytes % (A) 3 %; Neutrophils # (A) 10.3 k/uL (1.3-7.7); Neutrophils % (A) 88 %; Platelet Count 101 k/uL (150-450); RBC 2.96 m/uL (4.30-5.90); RDW 14.4 % (11.5-15.5); WBC 11.6 k/uL (3.8-10.6)
[2021-11-09 08:36] LABS: HGB 9.7 gm/dL (13.0-17.5)
[2021-11-09] MEDS: HYDROmorphone 0.5 MG/0.5 ML SYRINGE IVP PRN ×4 (09:12→23:43)
[2021-11-09] MEDS: PARoxetine 20 MG TAB PO SCH (09:14)
[2021-11-09] MEDS: FLUCONAZOLE 100 MG TAB PO SCH (09:14)
[2021-11-09] MEDS: APIXABAN 5 MG TAB PO SCH ×2 (09:14→21:25)
[2021-11-09] MEDS: FOLIC ACID 1 MG TAB PO SCH (09:14)
[2021-11-09] MEDS: AMIODARONE 200 MG TAB PO SCH ×2 (09:15→21:25)
[2021-11-09] MEDS: POTASSIUM CHLORIDE ER 20 MEQ TAB.ER PO SCH ×2 (09:15→21:00)
[2021-11-09] MEDS: FUROSEMIDE 40 MG TAB PO SCH (09:15)
[2021-11-09] MEDS: NON FORMULARY DRUG (Empagliflozin [Jardiance] 25 MG Tablet) PO SCH (09:15)
[2021-11-09] MEDS: METOPROLOL TARTRATE 50 MG TAB PO SCH ×2 (09:15→21:29)
[2021-11-09] MEDS ORDERED: POTASSIUM CHLORIDE ER 20 MEQ TAB.ER PO ONE (09:28)
--- NOTE | 2021-11-09 11:00 | P.PN ---
Subjective Progress Note Date: 11/09/21 55-year-old male patient is being seen in follow-up on 11/08/2021 regarding his acute hypoxic respiratory failure and metastatic lung cancer. The patient is progressing fast as the patient had a follow-up CAT scan that showed enlargement in the left upper lobe mass in addition to enlargement and the skeletal metastases. He comes in with acute hypoxic respiratory failure and currently is on 15 L about 2 by nasal cannula. The patient was also admitted for A. fib RVR started on amiodarone. This morning, he is on oxygen at 15 L with a pulse ox of 96%. I reviewed the CAT scan of the chest and there is obvious new changes with new consolidation of the lung bases bilaterally along with some small effusions in addition to enlargement in the left upper lobe opacity and enlargement of the skeletal metastases as discussed earlier. The white cell count today's of 11.1 with a hemoglobin of 11.4. Platelet count 119, sodium is at 136 with a potassium level of 2.7, renal function is been essentially within normal limits. In terms of treatment, the patient is receiving bronchodilators, IV Zosyn as an empiric antibiotic coverage, IV Lasix 40 mg every 12 hours, and the patient is on amiodarone for rate control 400 mg twice a day and Eliquis 5 mg by mouth twice a day. He is also on metoprolol for rate control 50 mg by mouth twice a day. Calcitonin level was quite elevated at time of admission and was in the order of 3.35. 11/09/2021, the patient is still doing very poor. His pain is under better control with a combination of tramadol and Dilaudid. Nevertheless, the bone scan showed multiple skeletal metastases and there was also concern of thoracic spine involvement and MRI of the spine was recommended. Nevertheless, compatibility with his sleep apnea device is being checked prior to this patient going for an MRI. His respiratory status is stable. He is on 15 L of oxygen by nasal cannula. He remains on IV Zosyn. His cardiac status is stable. He remains on diuretics with IV Lasix. The patient is trying to achieve a negative fluid balance. No other significant events overnight. Is awake and alert. Family is at the bedside. I had a lengthy discussion with the sister and explained to her his condition and his rapid disease progression. Nevertheless, the patient is awake and alert on today's evaluation. He is not having any major respiratory distress. He was able to eat without any reported aspiration. The patient white cell count is at 11.6 with a hemoglobin of 0.7 and a platelet count of 101. He remains on oral amiodarone. He remains on bronchodilators around the clock. He is on Levemir insulin 10 units along with sliding scale coverage. He remains on oral Lasix 40 mg twice a day. Objective - Vital Signs Vital signs: Vital Signs Temp 98.1 F 11/09/21 03:25 Pulse 88 11/09/21 08:27 Resp 12 11/09/21 03:25 BP 117/66 11/09/21 03:25 Pulse Ox 93 L 11/09/21 03:25 FiO2 100 11/06/21 07:54 Intake & Output 11/08/21 11/09/21 11/09/21 18:59 06:59 18:59 Intake Total 1016 Output Total 3400 1200 Balance -2384 -1200 Weight 92 kg 96.5 kg Intake: Oral 1016 Output: Urine 3400 1200 Other: Voiding Method Indwelling Catheter Indwelling Catheter - Exam No acute distress, oriented 3. The patient is on 13 L high flow nasal cannula, with a saturation of 94%. HEENT examination is grossly unremarkable. Neck supple. Full range of motion. No adenopathy thyromegaly or neck vein distention. Cardiovascular examination reveals regular rhythm rate. S1-S2 normal. No S3 or S4. No discernible murmur noted. Heart rate 62 bpm. Lungs reveal mild scattered rhonchi. No wheezes. No crackles. Breath sounds equal bilaterally. Saturations are 92% on high flow nasal cannula. Abdomen soft bowel sounds are heard. No masses or tenderness. Extremities are intact. No cyanosis clubbing or edema. Skin is without rash or lesion. Neurologic examination is brief but nonfocal. - Labs CBC & Chem 7: 11/09/21 07:30 11/09/21 07:30 Labs: Abnormal Lab Results - Last 24 Hours (Table) 11/08/21 11/08/21 11/08/21 Range/Units 08:36 11:35 15:17 WBC (3.8-10.6) k/uL RBC (4.30-5.90) m/uL Hgb (13.0-17.5) gm/dL Hct (39.0-53.0) % Plt Count (150-450) k/uL Neutrophils # (1.3-7.7) k/uL Lymphocytes # (1.0-4.8) k/uL Potassium 2.8 L (3.5-5.1) mmol/L POC Glucose (mg/dL) 304 H (75-99) mg/dL Procalcitonin 3.69 H (0.02-0.09) ng/mL 11/08/21 11/08/21 11/08/21 Range/Units 16:41 20:48 21:50 WBC (3.8-10.6) k/uL RBC (4.30-5.90) m/uL Hgb (13.0-17.5) gm/dL Hct (39.0-53.0) % Plt Count (150-450) k/uL Neutrophils # (1.3-7.7) k/uL Lymphocytes # (1.0-4.8) k/uL Potassium 3.0 L (3.5-5.1) mmol/L POC Glucose (mg/dL) 365 H 338 H (75-99) mg/dL Procalcitonin (0.02-0.09) ng/mL 11/09/21 11/09/21 11/09/21 Range/Units 01:59 06:15 07:30 WBC 11.6 H (3.8-10.6) k/uL RBC 2.96 L (4.30-5.90) m/uL Hgb 9.7 L D (13.0-17.5) gm/dL Hct 27.6 L (39.0-53.0) % Plt Count 101 L (150-450) k/uL Neutrophils # 10.3 H (1.3-7.7) k/uL Lymphocytes # 0.9 L (1.0-4.8) k/uL Potassium (3.5-5.1) mmol/L POC Glucose (mg/dL) 224 H 144 H (75-99) mg/dL Procalcitonin (0.02-0.09) ng/mL 11/09/21 Range/Units 07:30 WBC (3.8-10.6) k/uL RBC (4.30-5.90) m/uL Hgb (13.0-17.5) gm/dL Hct (39.0-53.0) % Plt Count (150-450) k/uL Neutrophils # (1.3-7.7) k/uL Lymphocytes # (1.0-4.8) k/uL Potassium 3.2 L (3.5-5.1) mmol/L POC Glucose (mg/dL) (75-99) mg/dL Procalcitonin (0.02-0.09) ng/mL Microbiology - Last 24 Hours (Table) 11/05/21 16:43 Blood Culture - Preliminary Blood No Growth after 72 hours Assessment and Plan Plan: Acute hypoxic respiratory failure currently on oxygen at 13 L per minute nasal cannula. I favor a combination of multilobar pneumonia with progression of his underlying metastatic lung cancer contributing to his hypoxic respiratory failure. The patient is currently stable and the patient is on antibiotics and diuretics. I reviewed the CAT scan again and I think is a combination of pneumonia and she will progression. Shortness of breath, likely multifactorial, in part related to atrial fibrillation with RVR, possible underlying COPD, and also metastatic lung cancer. CTA, negative for pulmonary embolism. As part of the chest that was done at time of admission on 11/06/2021 showed an enlarging left upper lobe mass with some internal cavitation. Addition to increase in the size of the left rib lytic lesion with increased soft tissue component consistent with metastases. At the same time, the patient patchy consolidation throughout the lung most pronounced on the left, with a possibility of an underlying pneumonia. Despite the normal echocardiogram, the patient has diuresed excellent with IV Lasix and the patient has been very negative fluid balance of more than 10 L over the past few days. The patient has been switched to oral Lasix. Non-small cell lung cancer with left upper lobe mass measuring 2.5 cm in size in addition to mediastinal lymphadenopathy and metastases involving the skeletal system including the humerus, left rib cage. Pathology was consistent with poorly differentiated adenocarcinoma and the patient was referred to medical oncology regarding his underlying lung cancer. The bone scan also showed evidence of skeletal metastases. There is involvement of the thoracic spine. Please refer to the details of the bone scan. A. fib/RVR, current rhythm is sinus and the patient is on anticoagulation with Eliquis. History of hypertension. History of BPH. History of diabetes. History of heavy tobacco use. History of sleep apnea syndrome. Back pain without any evidence of metastases to his spine Plan: Keep oxygen at 13 L Continue IV Zosyn Follow-up pro-calcitonin level Continue diuretics [facility] onc[facility] Carries a very poor prognosis because of his aggressive poorly differentiated metastatic carcinoma of the lung which has been progressing quite rapidly and based on the CAT scan images May need an MRI of the spine to further evaluate his ongoing difficulties with mobility and pain in his lower spine. We'll check compatibility with his sleep apnea device would also need a MRI of the brain if the sleep apnea device is compatible with our MRI machine. The patient's pro-calcitonin level was elevated and I think is a component of aspiration pneumonia in addition to fluid overload. As such, we'll going to continue the Zosyn, continue diuresis with IV Lasix will continue to follow. Repeat chest x-ray in the morning. Adequate pain control with Dilaudid and tramadol. A poor prognosis of this is explained to the sister and the .
[2021-11-09 11:42] LABS: Glucose,Whole Blood 190 mg/dL (75-99)
[2021-11-09] MEDS: MAGNESIUM SULFATE-D5W PMX 1 GM in DEXTROSE/WATER 1 100ML.BAG IVPB SCH ×2 (13:21→15:09)
--- NOTE | 2021-11-09 14:05 | P.PN ---
Subjective Progress Note Date: 11/09/21 This is a 55 year old male who presents with atrial fibrillation with RVR, and altered mental status. Patient was recently diagnosed with lung cancer not currently undergoing treatment. Bone scan today showing uptake involving the left rib is compatible with destructive lesions and also calvarium uptake highly suggestive of metastasis. There is also nonspecific uptake involving pubic symphysis and metastasis should also be in the differential. Currently rating pain a 4/10. Patient is on 13L high flow cannula with saturation of 92%, afebrile, heart rate controlled 92, blood pressure 124/75. Not currently wearing oxygen as outpatient. He has been transitioned to oral amiodarone and oral eliquis. He continues on IV zosyn, and has been transitioned to oral lasix. Potassium today 2.7 and patient has received additional replacement as well as 40 meq bid, pts expressed concern with ongoing low potassium prior to admission as well. Repeat potassium this afternoon. Oncology and pulmonary following along, cardiology has signed off as needed basis. 11/09/2021 Patient evaluated today resting in bed, family at the bedside. Continues on 13L HF cannula, denies shortness of breath at rest, tolerating diet. Patient was taking lasix and hydrochlorothiazide outpatient which were new medications in September of this year. He remains off hctz and has been started on IV lasix today. Potassium 3.2, magnesium 1.7 which were supplemented. White count 11.6, hgb 9.7, platelet count 101. Procalcitonin level remains elevated at 3.69. Continues on eliquis and amiodarone taper. He continues on IV zosyn, bronchodilators. Blood glucose has improved with addition of levemir and increase in novolog. Continue with current treatment plan. Patient and family updated on bone scan results, all questions were answered. Review of Systems Constitutional: Denied any fatigue denied any fever. Cardio vascular: denied any chest pain, palpitations Gastrointestinal: denied any nausea, vomiting, diarrhea Pulmonary: Denied any shortness of breath cough Neurologic denied any new focal deficits All inpatient medications were reviewed and appropriate changes in these medications as dictated in the interval history and assessment and plan. PHYSICAL EXAMINATION: GENERAL: The patient is alert and oriented x3, not in any acute distress. Well developed, well nourished. HEENT: Pupils are round and equally reacting to light. EOMI. No scleral icterus. No conjunctival pallor. Normocephalic, atraumatic. No pharyngeal erythema. No thyromegaly. CARDIOVASCULAR: S1 and S2 present. No murmurs, rubs, or gallops. PULMONARY: Coarse rhonchi scattered, no wheezing noted. ABDOMEN: Soft, nontender, nondistended, normoactive bowel sounds. No palpable organomegaly. MUSCULOSKELETAL: No joint swelling or deformity. EXTREMITIES: No cyanosis, clubbing, or pedal edema. NEUROLOGICAL: Gross neurological examination did not reveal any focal deficits. SKIN: No rashes. Assessment and Plan Assessment Acute hypoxic respiratory failure which is multifactorial, component of bilateral pneumonia as well as lung cancer which has progressed. Continues on 13 L Hi flow cannula, he is also receiving empiric antibiotic coverage. 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 COPD with acute exacerbation Hypokalemia Troponin leak most likely related to atrial fibrillation with RVR Diabetes Mellitus type 2 with hyperglycemia, recent diagnosis Oral thrush Sick euthyroid syndrome Pulmonary hypertension History of hypertension History of sleep apnea with CPAP use, also has an implanted sleep apnea device Former tobacco use Chronic back pain GI Prophylaxis DVT Prophylaxis Plan Continue on IV zosyn, bronchodilators Continues on IV lasix with strict I & O Amiodarone taper per cardiology Electrolyte replacement Follow up labs in AM Cardiology has signed off Pulmonary team following Oncology following Patients prognosis is poor given his current multiple medical conditions and progression of cancer The impression and plan of care has been dictated by Angi Castaneda, Nurse Practitioner as directed. Dr. Dick MD I have performed a history and physical examination and medical decision making of this patient, discussed the same with the dictator, and agree with the dictators assessment and plan as written, documented as a scribe. Based on total visit time, I have performed more than 50% of this visit. Objective - Vital Signs Vital signs: Vital Signs Temp 98.1 F 11/09/21 03:25 Pulse 84 11/09/21 11:44 Resp 12 11/09/21 03:25 BP 117/66 11/09/21 03:25 Pulse Ox 93 L 11/09/21 03:25 FiO2 100 11/06/21 07:54 Intake & Output 11/08/21 11/09/21 11/09/21 18:59 06:59 18:59 Intake Total 1016 Output Total 3400 1200 Balance -2384 -1200 Weight 92 kg 96.5 kg Intake: Oral 1016 Output: Urine 3400 1200 Other: Voiding Method Indwelling Catheter Indwelling Catheter - Labs CBC & Chem 7: 11/09/21 07:30 11/09/21 07:30 Labs: Abnormal Lab Results - Last 24 Hours (Table) 11/08/21 11/08/21 11/08/21 Range/Units 08:36 15:17 16:41 WBC (3.8-10.6) k/uL RBC (4.30-5.90) m/uL Hgb (13.0-17.5) gm/dL Hct (39.0-53.0) % Plt Count (150-450) k/uL Neutrophils # (1.3-7.7) k/uL Lymphocytes # (1.0-4.8) k/uL Potassium 2.8 L (3.5-5.1) mmol/L POC Glucose (mg/dL) 365 H (75-99) mg/dL Procalcitonin 3.69 H (0.02-0.09) ng/mL 11/08/21 11/08/21 11/09/21 Range/Units 20:48 21:50 01:59 WBC (3.8-10.6) k/uL RBC (4.30-5.90) m/uL Hgb (13.0-17.5) gm/dL Hct (39.0-53.0) % Plt Count (150-450) k/uL Neutrophils # (1.3-7.7) k/uL Lymphocytes # (1.0-4.8) k/uL Potassium 3.0 L (3.5-5.1) mmol/L POC Glucose (mg/dL) 338 H 224 H (75-99) mg/dL Procalcitonin (0.02-0.09) ng/mL 11/09/21 11/09/21 11/09/21 Range/Units 06:15 07:30 07:30 WBC 11.6 H (3.8-10.6) k/uL RBC 2.96 L (4.30-5.90) m/uL Hgb 9.7 L D (13.0-17.5) gm/dL Hct 27.6 L (39.0-53.0) % Plt Count 101 L (150-450) k/uL Neutrophils # 10.3 H (1.3-7.7) k/uL Lymphocytes # 0.9 L (1.0-4.8) k/uL Potassium 3.2 L (3.5-5.1) mmol/L POC Glucose (mg/dL) 144 H (75-99) mg/dL Procalcitonin (0.02-0.09) ng/mL 11/09/21 Range/Units 11:41 WBC (3.8-10.6) k/uL RBC (4.30-5.90) m/uL Hgb (13.0-17.5) gm/dL Hct (39.0-53.0) % Plt Count (150-450) k/uL Neutrophils # (1.3-7.7) k/uL Lymphocytes # (1.0-4.8) k/uL Potassium (3.5-5.1) mmol/L POC Glucose (mg/dL) 190 H (75-99) mg/dL Procalcitonin (0.02-0.09) ng/mL Microbiology - Last 24 Hours (Table) 11/05/21 16:43 Blood Culture - Preliminary Blood No Growth after 72 hours Assessment and Plan Time with Patient: Greater than 30
--- NOTE | 2021-11-09 16:27 | P.PN ---
Subjective Progress Note Date: 11/09/21 I am seeing the patient for the first time for neurological management. Please refer to Dr. Voss's note for further details. Per the nurse could not obtain MRI since patient has "inspire device" for his sl eep apnea. Patient had a whole bone scan on which is reported as spotty uptake involving the calvarium highly suggestive of metastasis. Abnormal rib cage uptake concordant had CT finding compatible with metastasis. Nonspecific uptake involving the pubic symphysis. Recent CT did not demonstrate significant hypertrophic changes in this region to account for finding and therefore metasta sis in the differential diagnosis. is at bedside and stated if we can go up on Gabapentin to help control with pain since feels Gabapentin is helping. Objective - Vital Signs Vital signs: Vital Signs Temp 98.1 F 11/09/21 03:25 Pulse 84 11/09/21 11:44 Resp 12 11/09/21 03:25 BP 117/66 11/09/21 03:25 Pulse Ox 93 L 11/09/21 03:25 FiO2 100 11/06/21 07:54 Intake & Output 11/08/21 11/09/21 11/09/21 18:59 06:59 18:59 Intake Total 1016 Output Total 3400 1200 Balance -2384 -1200 Weight 92 kg 96.5 kg Intake: Oral 1016 Output: Urine 3400 1200 Other: Voiding Method Indwelling Catheter Indwelling Catheter - Exam Physical exam: Limited since patient was sleeping. No facial weakness. SOME OF THE WORK-UP IN THIS ADMISSION CONSISTED OF: * Patient's folic acid level is slightly low 6.5. * B12 normal 1150. * TSH: 0.264 (low) and free T4: 0.61 (low). Thyroid peroxidase ab <9.0 Thyroglubulin 11.7 * HbA1c: 9.3 * CT of the head w/ and w/o is reported as negative exam. No evidence of metastatic disease. * whole bone scan on which is reported as spotty uptake involving the calvarium highly suggestive of metastasis. Abnormal rib cage uptake concordant had CT finding compatible with metastasis. Nonspecific uptake involving the pubic symphysis. Recent CT did not demonstrate significant hypertrophic changes in this region to account for finding and therefore metastasis in the differential diagnosis. - Labs CBC & Chem 7: 11/09/21 07:30 11/09/21 07:30 Labs: Abnormal Lab Results - Last 24 Hours (Table) 11/08/21 11/08/21 11/08/21 Range/Units 08:36 15:17 16:41 WBC (3.8-10.6) k/uL RBC (4.30-5.90) m/uL Hgb (13.0-17.5) gm/dL Hct (39.0-53.0) % Plt Count (150-450) k/uL Neutrophils # (1.3-7.7) k/uL Lymphocytes # (1.0-4.8) k/uL Potassium 2.8 L (3.5-5.1) mmol/L POC Glucose (mg/dL) 365 H (75-99) mg/dL Procalcitonin 3.69 H (0.02-0.09) ng/mL 11/08/21 11/08/21 11/09/21 Range/Units 20:48 21:50 01:59 WBC (3.8-10.6) k/uL RBC (4.30-5.90) m/uL Hgb (13.0-17.5) gm/dL Hct (39.0-53.0) % Plt Count (150-450) k/uL Neutrophils # (1.3-7.7) k/uL Lymphocytes # (1.0-4.8) k/uL Potassium 3.0 L (3.5-5.1) mmol/L POC Glucose (mg/dL) 338 H 224 H (75-99) mg/dL Procalcitonin (0.02-0.09) ng/mL 11/09/21 11/09/21 11/09/21 Range/Units 06:15 07:30 07:30 WBC 11.6 H (3.8-10.6) k/uL RBC 2.96 L (4.30-5.90) m/uL Hgb 9.7 L D (13.0-17.5) gm/dL Hct 27.6 L (39.0-53.0) % Plt Count 101 L (150-450) k/uL Neutrophils # 10.3 H (1.3-7.7) k/uL Lymphocytes # 0.9 L (1.0-4.8) k/uL Potassium 3.2 L (3.5-5.1) mmol/L POC Glucose (mg/dL) 144 H (75-99) mg/dL Procalcitonin (0.02-0.09) ng/mL 11/09/21 Range/Units 11:41 WBC (3.8-10.6) k/uL RBC (4.30-5.90) m/uL Hgb (13.0-17.5) gm/dL Hct (39.0-53.0) % Plt Count (150-450) k/uL Neutrophils # (1.3-7.7) k/uL Lymphocytes # (1.0-4.8) k/uL Potassium (3.5-5.1) mmol/L POC Glucose (mg/dL) 190 H (75-99) mg/dL Procalcitonin (0.02-0.09) ng/mL Microbiology - Last 24 Hours (Table) 11/05/21 16:43 Blood Culture - Preliminary Blood No Growth after 72 hours Assessment and Plan Assessment: * Altered mental status, likely due to toxic metabolic encephalopathy, exact cause uncertain, likely multifactorial as mentioned below. * Metastatic lung cancer (Adenocarcinoma). * Atrial fibrillation * Possible pneumonia * Chronic low back pain * Hypokalemia * New onset diabetes * Extensive peripheral edema. * Tobacco use Plan: * Patient cannot have MRI of the brain and lumbar spine because of presence of an "inspire device" for his sleep apnea. * CT of the head w/ and w/o is reported as negative exam. No evidence of metastatic disease. * whole bone scan on which is reported as spotty uptake involving the calvarium highly suggestive of metastasis. Abnormal rib cage uptake concordant had CT finding compatible with metastasis. Nonspecific uptake involving the pubic symphysis. Recent CT did not demonstrate significant hypertrophic changes in this region to account for finding and therefore metastasis in the differential diagnosis. * Recommend MRI Brain and Lumbosacral w/ and w/o as outpatient that is compatible for his device. * I will increase Gabapentin from 300mg 1 tab qid to 400mg qid to help with his pain (per , it seems to be helping). Patient is also on Cash and Dilaudid for pain. * Regarding his thyroid abnormality will defer management to primary team. * Oncology is on board. * Pulmonary team is on board. * Cardiology team is on board. Cardiology has patient on eliquis for his A-fib. * Will defer rest of management to primary team. * Recommend patient to follow-up with neurologist as outpatient within 1-2 weeks as outpatient. The plan is discussed with patient's family and his nurse. Otherwise no additional work-up is needed. Notify neurology team is any further concerns. Andre Valentine M.D. Neuro-Hospitalist Time with Patient: Less than 30
[2021-11-09 16:58] LABS: Glucose,Whole Blood 321 mg/dL (75-99)
--- NOTE | 2021-11-09 17:17 | P.PN ---
Subjective Progress Note Date: 11/09/21 Principal diagnosis: metastatic lung carcinoma In f/u today pt states feeling better then he did on admit. He seems to be thinking more clearly. Denies fever, nausea, oral irritation. He is on 13 L high flow O2. Objective - Vital Signs Vital signs: Vital Signs Temp 98.8 F 11/09/21 08:00 Pulse 74 11/09/21 14:00 Resp 12 11/09/21 14:00 BP 145/74 11/09/21 08:00 Pulse Ox 96 11/09/21 08:00 FiO2 100 11/06/21 07:54 Intake & Output 11/08/21 11/09/21 11/09/21 18:59 06:59 18:59 Intake Total 1016 Output Total 3400 1200 Balance -2384 -1200 Weight 92 kg 96.5 kg Intake: Oral 1016 Output: Urine 3400 1200 Other: Voiding Method Indwelling Catheter Indwelling Catheter Indwelling Catheter - Constitutional General appearance: Present: average body habitus, cooperative - EENT Eyes: Present: anicteric sclerae, EOMI ENT: Present: hearing grossly normal - Respiratory Respiratory: bilateral: diminished - Cardiovascular Heart sounds: normal: S1, S2 - Peripheral edema leg Peripheral Edema: bilateral: Trace - Gastrointestinal General gastrointestinal: Present: normal bowel sounds, soft - Neurologic Neurologic: Present: CNII-XII intact (grossly) - Musculoskeletal Musculoskeletal: Present: generalized weakness - Psychiatric Psychiatric: Present: A&O x's 3, appropriate affect - Labs CBC & Chem 7: 11/09/21 07:30 11/09/21 07:30 Labs: Abnormal Lab Results - Last 24 Hours (Table) 11/08/21 11/08/21 11/08/21 Range/Units 08:36 20:48 21:50 WBC (3.8-10.6) k/uL RBC (4.30-5.90) m/uL Hgb (13.0-17.5) gm/dL Hct (39.0-53.0) % Plt Count (150-450) k/uL Neutrophils # (1.3-7.7) k/uL Lymphocytes # (1.0-4.8) k/uL Potassium 3.0 L (3.5-5.1) mmol/L POC Glucose (mg/dL) 338 H (75-99) mg/dL Procalcitonin 3.69 H (0.02-0.09) ng/mL 11/09/21 11/09/21 11/09/21 Range/Units 01:59 06:15 07:30 WBC 11.6 H (3.8-10.6) k/uL RBC 2.96 L (4.30-5.90) m/uL Hgb 9.7 L D (13.0-17.5) gm/dL Hct 27.6 L (39.0-53.0) % Plt Count 101 L (150-450) k/uL Neutrophils # 10.3 H (1.3-7.7) k/uL Lymphocytes # 0.9 L (1.0-4.8) k/uL Potassium (3.5-5.1) mmol/L POC Glucose (mg/dL) 224 H 144 H (75-99) mg/dL Procalcitonin (0.02-0.09) ng/mL 11/09/21 11/09/21 Range/Units 07:30 11:41 WBC (3.8-10.6) k/uL RBC (4.30-5.90) m/uL Hgb (13.0-17.5) gm/dL Hct (39.0-53.0) % Plt Count (150-450) k/uL Neutrophils # (1.3-7.7) k/uL Lymphocytes # (1.0-4.8) k/uL Potassium 3.2 L (3.5-5.1) mmol/L POC Glucose (mg/dL) 190 H (75-99) mg/dL Procalcitonin (0.02-0.09) ng/mL Microbiology - Last 24 Hours (Table) 11/05/21 16:43 Blood Culture - Preliminary Blood No Growth after 72 hours - Imaging and Cardiology nuclear medicine bone scan report reviewed Assessment and Plan (1) Carcinoma Current Visit: Yes Status: Acute Priority: High Code(s): C80.1 - MALIGNANT (PRIMARY) NEOPLASM, UNSPECIFIED SNOMED Code(s): 766610476 Plan: Recent lung biopsy + carcinoma, unable to be further classified. Not enough material for NGS testing on tumor. Guardant testing was ordered on blood for cfDNA when pt was seen-no actionable mutations. PD-L1 returned<1%. NM bone s can reported after pt seen, multiple sites of mets. Clarified the very poorly differentiated carcinoma, mostly likely a lung primary but, there is a slight chance that it could be another primary-ie pancreatic. Reviewed this with pt over the phone today. Spoke directly with MRI re: device compatibility. Needed to have make an model number. Contacted and got the information. The patient's particular model can only be placed in a 1.5T MRI machine. Therefore, MRI cannot be done at this facility. It will have to be scheduled outpatient. Discussed case with Pulmonary. Patient is requiring 13 L high flow O2. Patient is not able to move without being short of breath. His performance status is continuing to decline. Treatment options for the patient are limited, carboplatinum and Taxol were discussed with the patient and the at their visit with Dr. Kraus. Treatment is not on a curative intent. Time with Patient: Greater than 30
[2021-11-09] MEDS: GABAPENTIN 400 MG CAP PO SCH ×2 (17:37→23:43)
[2021-11-09 20:24] LABS: Glucose,Whole Blood 378 mg/dL (75-99)
[2021-11-09] MEDS: FUROSEMIDE 10 MG/ML 4 ML VIAL IV SCH (21:22)
[2021-11-09] MEDS: INSULIN DETEMIR (LEVEMIR) 100 UNIT/ML SYR SQ SCH (21:23)
[2021-11-09] MEDS: TAMSULOSIN 0.4 MG CAP.ER.24H PO SCH (21:25)
[2021-11-09] MEDS: LOSARTAN 50 MG TAB PO SCH (21:26)
[2021-11-09] MEDS: amLODIPine 10 MG TAB PO SCH (21:26)
[2021-11-10] MEDS: traMADol 50 MG TAB PO PRN ×3 (01:34→21:15)
[2021-11-10 02:05] LABS: Glucose,Whole Blood 135 mg/dL (75-99)
[2021-11-10] MEDS: HYDROmorphone 0.5 MG/0.5 ML SYRINGE IVP PRN ×6 (03:49→23:31)
[2021-11-10 05:58] LABS: Glucose,Whole Blood 71 mg/dL (75-99)
[2021-11-10] MEDS: GABAPENTIN 400 MG CAP PO SCH ×4 (06:34→23:29)
[2021-11-10] MEDS: HYDROcodone/APAP 5-325MG 1 EACH TAB PO PRN (06:34)
--- NOTE | 2021-11-10 07:09 | P.PN ---
Subjective Progress Note Date: 11/08/21 Principal diagnosis: Pneumonia Patient is a 55-year-old male with a recent diagnosis of poorly differentiated carcinoma with metastasis presented to hospital with increasing shortness of breath and lower extremity swelling chest x-ray with multifocal areas of consolidation concerning for possible pneumonia. On today's evaluation that is 11/08/2021, the patient continues to be afebrile, the patient is breathing more comfortably however still requiring high flow oxyg en, the patient denies having any chest pain he did have a cough but not bringing up any sputum. No abdominal pain swelling to the lower extremity has decreased in intensity Objective - Vital Signs Vital signs: Vital Signs Temp 98.4 F 11/08/21 08:05 Pulse 88 11/08/21 12:23 Resp 18 11/08/21 11:48 BP 124/75 11/08/21 11:48 Pulse Ox 92 L 11/08/21 11:48 FiO2 100 11/06/21 07:54 Intake & Output 11/07/21 11/08/21 11/08/21 18:59 06:59 18:59 Intake Total 780 Output Total 5200 4450 Balance -4420 -4450 Weight 92 kg Intake: Oral 780 Output: Urine 5200 4450 Other: Voiding Method Indwelling Catheter Indwelling Catheter # Bowel Movements 1 - Exam GENERAL DESCRIPTION: A middle-age male lying in bed in no distress RESPIRATORY SYSTEM: Unlabored breathing , decreased breath sounds at bases HEART: S1 S2 regular rate and rhythm , ABDOMEN: Soft , no tenderness EXTREMITIES: One plus edema feet - Labs CBC & Chem 7: 11/09/21 07:30 11/09/21 07:30 Labs: Abnormal Lab Results - Last 24 Hours (Table) 11/07/21 11/07/21 11/07/21 Range/Units 16:18 19:55 20:22 WBC (3.8-10.6) k/uL RBC (4.30-5.90) m/uL Hgb (13.0-17.5) gm/dL Hct (39.0-53.0) % Plt Count (150-450) k/uL Neutrophils # (1.3-7.7) k/uL Lymphocytes # (1.0-4.8) k/uL Sodium (137-145) mmol/L Potassium 3.3 L (3.5-5.1) mmol/L Chloride (98-107) mmol/L Carbon Dioxide (22-30) mmol/L Glucose (74-99) mg/dL POC Glucose (mg/dL) 258 H 295 H (75-99) mg/dL Calcium (8.4-10.2) mg/dL 11/08/21 11/08/21 11/08/21 Range/Units 06:04 08:36 08:36 WBC 11.1 H (3.8-10.6) k/uL RBC 3.60 L (4.30-5.90) m/uL Hgb 11.4 L (13.0-17.5) gm/dL Hct 33.7 L (39.0-53.0) % Plt Count 119 L (150-450) k/uL Neutrophils # 10.1 H (1.3-7.7) k/uL Lymphocytes # 0.8 L (1.0-4.8) k/uL Sodium 136 L (137-145) mmol/L Potassium 2.7 L* (3.5-5.1) mmol/L Chloride 94 L (98-107) mmol/L Carbon Dioxide 35 H (22-30) mmol/L Glucose 294 H (74-99) mg/dL POC Glucose (mg/dL) 236 H (75-99) mg/dL Calcium 8.2 L (8.4-10.2) mg/dL 11/08/21 Range/Units 11:35 WBC (3.8-10.6) k/uL RBC (4.30-5.90) m/uL Hgb (13.0-17.5) gm/dL Hct (39.0-53.0) % Plt Count (150-450) k/uL Neutrophils # (1.3-7.7) k/uL Lymphocytes # (1.0-4.8) k/uL Sodium (137-145) mmol/L Potassium (3.5-5.1) mmol/L Chloride (98-107) mmol/L Carbon Dioxide (22-30) mmol/L Glucose (74-99) mg/dL POC Glucose (mg/dL) 304 H (75-99) mg/dL Calcium (8.4-10.2) mg/dL Microbiology - Last 24 Hours (Table) 11/05/21 16:43 Blood Culture - Preliminary Blood No Growth after 48 hours Assessment and Plan (1) Pneumonia Current Visit: Yes Status: Acute Code(s): J18.9 - PNEUMONIA, UNSPECIFIED ORGANISM SNOMED Code(s): 548294442 (2) Thrush Current Visit: Yes Status: Acute Code(s): B37.0 - CANDIDAL STOMATITIS SNOMED Code(s): 03473884 Plan: 1patient presented to hospital with increasing shortness of breath and weakness in this patient did have a bilateral lower extremity swelling recent diagnosis of metastatic poorly differentiated carcinoma however has not yet been started on chemotherapy, patient did not have any fever or significant evaded white count underlying pneumonia not entirely excluded, patient did have elevated CRP and procalcitonin level suggestive of pneumonia. 2patient blood culture has been negative and was unable to provide any sputum 3patient seems to have shown some clinical improvement and will continue on Zosyn, procalcitonin is trending down Time with Patient: Less than 30
--- NOTE | 2021-11-10 07:11 | P.PN ---
Subjective Progress Note Date: 11/09/21 Principal diagnosis: Pneumonia Patient is a 55-year-old male with a recent diagnosis of poorly differentiated carcinoma with metastasis presented to hospital with increasing shortness of breath and lower extremity swelling chest x-ray with multifocal areas of consolidation concerning for possible pneumonia. On today's evaluation that is 11/09/2021, the patient denies any fever or chills, the patient is breathing more comfortably and requiring less supplemental oxygen, the patient denies having any chest pain he did have a cough but not bringing up any sputum. Patient denies abdominal and no diarrhea Objective - Vital Signs Vital signs: Vital Signs Temp 98.1 F 11/09/21 03:25 Pulse 84 11/09/21 11:44 Resp 12 11/09/21 03:25 BP 117/66 11/09/21 03:25 Pulse Ox 93 L 11/09/21 03:25 FiO2 100 11/06/21 07:54 Intake & Output 11/08/21 11/09/21 11/09/21 18:59 06:59 18:59 Intake Total 1016 Output Total 3400 1200 Balance -2384 -1200 Weight 92 kg 96.5 kg Intake: Oral 1016 Output: Urine 3400 1200 Other: Voiding Method Indwelling Catheter Indwelling Catheter - Exam GENERAL DESCRIPTION: A middle-age male lying in bed in no distress RESPIRATORY SYSTEM: Unlabored breathing , decreased breath sounds at bases HEART: S1 S2 regular rate and rhythm , ABDOMEN: Soft , no tenderness EXTREMITIES: One plus edema feet - Labs CBC & Chem 7: 11/09/21 07:30 11/09/21 07:30 Labs: Abnormal Lab Results - Last 24 Hours (Table) 11/08/21 11/08/21 11/08/21 Range/Units 08:36 15:17 16:41 WBC (3.8-10.6) k/uL RBC (4.30-5.90) m/uL Hgb (13.0-17.5) gm/dL Hct (39.0-53.0) % Plt Count (150-450) k/uL Neutrophils # (1.3-7.7) k/uL Lymphocytes # (1.0-4.8) k/uL Potassium 2.8 L (3.5-5.1) mmol/L POC Glucose (mg/dL) 365 H (75-99) mg/dL Procalcitonin 3.69 H (0.02-0.09) ng/mL 11/08/21 11/08/21 11/09/21 Range/Units 20:48 21:50 01:59 WBC (3.8-10.6) k/uL RBC (4.30-5.90) m/uL Hgb (13.0-17.5) gm/dL Hct (39.0-53.0) % Plt Count (150-450) k/uL Neutrophils # (1.3-7.7) k/uL Lymphocytes # (1.0-4.8) k/uL Potassium 3.0 L (3.5-5.1) mmol/L POC Glucose (mg/dL) 338 H 224 H (75-99) mg/dL Procalcitonin (0.02-0.09) ng/mL 11/09/21 11/09/21 11/09/21 Range/Units 06:15 07:30 07:30 WBC 11.6 H (3.8-10.6) k/uL RBC 2.96 L (4.30-5.90) m/uL Hgb 9.7 L D (13.0-17.5) gm/dL Hct 27.6 L (39.0-53.0) % Plt Count 101 L (150-450) k/uL Neutrophils # 10.3 H (1.3-7.7) k/uL Lymphocytes # 0.9 L (1.0-4.8) k/uL Potassium 3.2 L (3.5-5.1) mmol/L POC Glucose (mg/dL) 144 H (75-99) mg/dL Procalcitonin (0.02-0.09) ng/mL 11/09/21 Range/Units 11:41 WBC (3.8-10.6) k/uL RBC (4.30-5.90) m/uL Hgb (13.0-17.5) gm/dL Hct (39.0-53.0) % Plt Count (150-450) k/uL Neutrophils # (1.3-7.7) k/uL Lymphocytes # (1.0-4.8) k/uL Potassium (3.5-5.1) mmol/L POC Glucose (mg/dL) 190 H (75-99) mg/dL Procalcitonin (0.02-0.09) ng/mL Microbiology - Last 24 Hours (Table) 11/05/21 16:43 Blood Culture - Preliminary Blood No Growth after 72 hours Assessment and Plan (1) Pneumonia Current Visit: Yes Status: Acute Code(s): J18.9 - PNEUMONIA, UNSPECIFIED ORGANISM SNOMED Code(s): 783384395 (2) Thrush Current Visit: Yes Status: Acute Code(s): B37.0 - CANDIDAL STOMATITIS SNOMED Code(s): 33147434 Plan: 1patient presented to hospital with increasing shortness of breath and weakness in this patient did have a bilateral lower extremity swelling recent diagnosis of metastatic poorly differentiated carcinoma however has not yet been started on chemotherapy, patient did not have any fever or significant evaded white count underlying pneumonia not entirely excluded, patient did have elevated CRP and procalcitonin level suggestive of pneumonia. 2patient blood culture has been negative and was unable to provide any sputum 3patient is slowly clinically improving and will continue Zosyn and transitioned to oral antibiotics on discharge Time with Patient: Less than 30
[2021-11-10] MEDS: BUDESONIDE 1 MG/2 ML NEBU INHALATION SCH ×2 (07:53→20:54)
[2021-11-10] MEDS: FORMOTEROL FUMARATE 20 MCG/2 ML NEBU INHALATION SCH ×2 (07:53→20:54)
[2021-11-10] MEDS: IPRATROPIUM-ALBUTEROL 3 ML NEB INHALATION SCH ×3 (07:54→20:54)
[2021-11-10] MEDS: PIPERACILLIN-TAZOBACTAM 3.375 GM in SODIUM CHLORIDE 0.9% 100 ML IVPB SCH ×3 (08:23→23:29)
--- NOTE | 2021-11-10 09:09 | XR ---
EXAMINATION TYPE: XR chest 1V portable DATE OF EXAM: 11/10/2021 COMPARISON: 11/07/2021 HISTORY: Shortness of breath TECHNIQUE: Single frontal view of the chest is obtained. FINDINGS: Bilateral large areas of consolidation. There is a device overlying the right hemithorax l ead extending cephalad. There is a small right pleural effusion with no pneumothorax. Heart size is n ormal. Hypertrophic and degenerative changes of the spine. IMPRESSION: Bilateral areas of multifocal infiltrate correlate for pneumonia. Findings stable. Under lying neoplasm in the differential diagnosis.
[2021-11-10] MEDS: PARoxetine 20 MG TAB PO SCH (09:29)
[2021-11-10] MEDS: APIXABAN 5 MG TAB PO SCH ×2 (09:29→21:10)
[2021-11-10] MEDS: METOPROLOL TARTRATE 50 MG TAB PO SCH ×2 (09:29→21:10)
[2021-11-10] MEDS: FLUCONAZOLE 100 MG TAB PO SCH (09:29)
[2021-11-10] MEDS: AMIODARONE 200 MG TAB PO SCH ×2 (09:29→21:10)
[2021-11-10] MEDS: FOLIC ACID 1 MG TAB PO SCH (09:29)
[2021-11-10] MEDS: FUROSEMIDE 10 MG/ML 4 ML VIAL IV SCH ×2 (09:30→21:11)
[2021-11-10] MEDS: INSULIN ASPART (NovoLOG) 100 UNIT/ML VIAL SQ SCH ×7 (09:31→21:10)
[2021-11-10] MEDS: NON FORMULARY DRUG (Empagliflozin [Jardiance] 25 MG Tablet) PO SCH (09:31)
[2021-11-10] MEDS: POTASSIUM CHLORIDE ER 20 MEQ TAB.ER PO SCH ×5 (09:37→21:10)
[2021-11-10 09:56] LABS: HCT 31.6 % (39.0-53.0); HGB 10.6 gm/dL (13.0-17.5); MCH 31.6 pg (25.0-35.0); MCHC 33.6 g/dL (31.0-37.0); MCV 93.9 fL (80.0-100.0); Mean Platelet Volume 8.7; Platelet Count 114 k/uL (150-450); RBC 3.37 m/uL (4.30-5.90); RDW 14.4 % (11.5-15.5)
[2021-11-10 10:10] LABS: ALT 40 U/L (4-49); AST 30 U/L (17-59); African American GFR (CKD) >90 (>60 ml/min/1.73 sqM); Albumin 2.8 g/dL (3.5-5.0); Alkaline Phosphatase 106 U/L (38-126); Anion Gap 6 mmol/L; Blood Urea Nitrogen 14 mg/dL (9-20); Calcium 7.9 mg/dL (8.4-10.2); Carbon Dioxide 35 mmol/L (22-30); Chloride 98 mmol/L (98-107); Glucose 195 mg/dL (74-99); Non-African American GFR(CKD) >90 (>60 ml/min/1.73 sqM); Potassium 3.1 mmol/L (3.5-5.1); Sodium 139 mmol/L (137-145); Total Bilirubin 0.6 mg/dL (0.2-1.3); Total Protein 5.1 g/dL (6.3-8.2)
[2021-11-10] MEDS ORDERED: POTASSIUM CHLORIDE ER 20 MEQ TAB.ER PO SCH (11:00)
[2021-11-10 11:36] LABS: Glucose,Whole Blood 312 mg/dL (75-99)
[2021-11-10 14:24] LABS: Band Neutrophils % 2 %; Lymphocytes # (M) 1.09 k/uL (1.0-4.8); Metamyelocytes # (M) 0.12 k/uL (0); Metamyelocytes % 1 %; Monocytes # (M) 0.48 k/uL (0-1.0); Myelocytes # (M) 0.48 k/uL (0); Myelocytes % 4 %; Neutrophils % (M) 81 %; Nucleated Red Blood Cells 1 /100 WBC (0-0); Total Cells Counted 200; WBC 12.1 k/uL (3.8-10.6)
[2021-11-10] MEDS: HYDROcodone/APAP 10-325MG 1 EACH TAB PO PRN (14:24)
--- NOTE | 2021-11-10 16:23 | P.PN ---
Subjective Progress Note Date: 11/10/21 This is a 55 year old male who presents with atrial fibrillation with RVR, and altered mental status. Patient was recently diagnosed with lung cancer not currently undergoing treatment. Bone scan today showing uptake involving the left rib is compatible with destructive lesions and also calvarium uptake highly suggestive of metastasis. There is also nonspecific uptake involving pubic symphysis and metastasis should also be in the differential. Currently rating pain a 4/10. Patient is on 13L high flow cannula with saturation of 92%, afebrile, heart rate controlled 92, blood pressure 124/75. Not currently wearing oxygen as outpatient. He has been transitioned to oral amiodarone and oral eliquis. He continues on IV zosyn, and has been transitioned to oral lasix. Potassium today 2.7 and patient has received additional replacement as well as 40 meq bid, pts expressed concern with ongoing low potassium prior to admission as well. Repeat potassium this afternoon. Oncology and pulmonary following along, cardiology has signed off as needed basis. 11/09/2021 Patient evaluated today resting in bed, family at the bedside. Continues on 13L HF cannula, denies shortness of breath at rest, tolerating diet. Patient was taking lasix and hydrochlorothiazide outpatient which were new medications in September of this year. He remains off hctz and has been started on IV lasix today. Potassium 3.2, magnesium 1.7 which were supplemented. White count 11.6, hgb 9.7, platelet count 101. Procalcitonin level remains elevated at 3.69. Continues on eliquis and amiodarone taper. He continues on IV zosyn, bronchodilators. Blood glucose has improved with addition of levemir and increase in novolog. Continue with current treatment plan. Patient and family updated on bone scan results, all questions were answered. 11/10/2021 Today patient is reporting pain to the left side of his head states there is a soft spot he can feel, additionally the pain he reports from the left rib region has been the most prevalent. He is also experiencing peripheral neuropathy which he is receiving gabapentin for. He states the pain medication is helping when he is receiving it but the dilaudid wears off fast, he is also using norco and tramadol alternating. Family at the bedside states that his pain is not controlled. Adjustments were made today. Family is waiting to meet with oncology. Patient needs outpatient MRI as his sleep apnea device is not compatible with MRI at this hospital. It was discussed with family that with his respiratory status and disease progression he most likely won't become stable enough for discharge. Family and patient would like to meet with pulmonary as well. Oxygen dropped to 89% on 13L High flow cannula this morning. Potassium today 3.1, was supplemented. Magnesium today improved to 2.0. White count 12.1, hgb 10.6. Procalcitonin yesterday 2.62. Repeat chest xray today showing b ilateral areas of multifocal infiltrate correlate for pneumonia. Findings are stable, with underlying neoplasm redemonstrated. Continues on IV Zosyn, IV lasix 40 mg Q 12, he is negative 4.5 L in the last 24 hours. Per family at the bedside this morning they are waiting for patients to arrive and will be meeting with oncology. Review of Systems Constitutional: Denied any fatigue denied any fever. Cardio vascular: denied any chest pain, palpitations Gastrointestinal: denied any nausea, vomiting, diarrhea Pulmonary: Reports worsening shortness of breath with movement, Neurologic denied any new focal deficits All inpatient medications were reviewed and appropriate changes in these medications as dictated in the interval history and assessment and plan. PHYSICAL EXAMINATION: GENERAL: The patient is alert and oriented x3, not in any acute distress. Well developed, well nourished. HEENT: Pupils are round and equally reacting to light. EOMI. No scleral icterus. No conjunctival pallor. Normocephalic, atraumatic. No pharyngeal erythema. No thyromegaly. CARDIOVASCULAR: S1 and S2 present. No murmurs, rubs, or gallops. PULMONARY: Coarse rhonchi scattered, no wheezing noted. ABDOMEN: Soft, nontender, nondistended, normoactive bowel sounds. No palpable organomegaly. MUSCULOSKELETAL: No joint swelling or deformity. EXTREMITIES: No cyanosis, clubbing, or pedal edema. NEUROLOGICAL: Gross neurological examination did not reveal any focal deficits. SKIN: No rashes. Assessment and Plan Assessment Acute hypoxic respiratory failure which is multifactorial, component of bilateral pneumonia as well as lung cancer which has progressed. Continues on 13 L Hi flow cannula, he is also receiving empiric antibiotic coverage. 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 COPD with acute exacerbation Hypokalemia Troponin leak most likely related to atrial fibrillation with RVR Diabetes Mellitus type 2 with hyperglycemia, recent diagnosis Oral thrush Sick euthyroid syndrome Pulmonary hypertension History of hypertension History of sleep apnea with CPAP use, also has an implanted sleep apnea device Former tobacco use Chronic back pain GI Prophylaxis DVT Prophylaxis Plan Continue on IV zosyn, bronchodilators Continues on IV lasix with strict I & O Amiodarone taper per cardiology Electrolyte replacement Follow up labs in AM Cardiology has signed off Pulmonary and oncology following Patients prognosis is poor given his current multiple medical conditions and progression of cancer The impression and plan of care has been dictated by Angi Castaneda Nurse Practitioner as directed. Dr. Dick MD I have performed a history and physical examination and medical decision making of this patient, discussed the same with the dictator, and agree with the dictators assessment and plan as written, documented as a scribe. Based on total visit time, I have performed more than 50% of this visit. Objective - Vital Signs Vital signs: Vital Signs Temp 98.4 F 11/10/21 04:00 Pulse 105 H 11/10/21 08:18 Resp 20 11/10/21 04:00 BP 132/82 11/10/21 04:00 Pulse Ox 94 L 11/10/21 07:57 FiO2 100 11/06/21 07:54 Intake & Output 11/09/21 11/10/21 11/10/21 18:59 06:59 18:59 Intake Total 540 Output Total 4550 850 Balance -4550 -310 Weight 97.5 kg Intake: Oral 540 Output: Urine 4550 850 Other: Voiding Method Indwelling Catheter Indwelling Catheter - Labs CBC & Chem 7: 11/10/21 08:33 11/10/21 08:33 Labs: Abnormal Lab Results - Last 24 Hours (Table) 11/09/21 11/09/21 11/09/21 Range/Units 07:30 11:41 16:56 POC Glucose (mg/dL) 190 H 321 H (75-99) mg/dL Procalcitonin 2.62 H (0.02-0.09) ng/mL 11/09/21 11/10/21 11/10/21 Range/Units 20:23 02:04 05:57 POC Glucose (mg/dL) 378 H 135 H 71 L (75-99) mg/dL Procalcitonin (0.02-0.09) ng/mL Microbiology - Last 24 Hours (Table) 11/05/21 16:43 Blood Culture - Preliminary Blood No Growth after 96 hours Assessment and Plan Time with Patient: Less than 30
[2021-11-10 16:35] LABS: Glucose,Whole Blood 273 mg/dL (75-99)
--- NOTE | 2021-11-10 18:24 | P.PN ---
Subjective Progress Note Date: 11/10/21 Principal diagnosis: metastatic lung carcinoma In f/u today pt drifts off to sleep easily and can abruptly awaken, takes a minute to orient himself. He states breathing comfortably at rest, he cannot ambulate, is able to get to beside commode. He is down to 10L O2 this evening. Objective - Vital Signs Vital signs: Vital Signs Temp 97.4 F L 11/10/21 08:00 Pulse 70 11/10/21 14:00 Resp 18 11/10/21 14:00 BP 139/84 11/10/21 12:00 Pulse Ox 94 L 11/10/21 12:00 FiO2 100 11/06/21 07:54 Intake & Output 11/09/21 11/10/21 11/10/21 18:59 06:59 18:59 Intake Total 780 Output Total 4550 850 Balance -4550 -70 Weight 97.5 kg Intake: Oral 780 Output: Urine 4550 850 Other: Voiding Method Indwelling Catheter Indwelling Catheter Indwelling Catheter - Constitutional General appearance: Present: average body habitus, cooperative, no acute distress - EENT Eyes: Present: anicteric sclerae, EOMI ENT: Present: hearing grossly normal - Respiratory Respiratory: bilateral: diminished - Cardiovascular Rhythm: regular Heart sounds: normal: S1, S2 Abnormal Heart Sounds: Absent: systolic murmur, diastolic murmur, rub, S3 Gallop, S4 Gallop, click, other - Peripheral edema leg Peripheral Edema: bilateral: None - Gastrointestinal General gastrointestinal: Present: normal bowel sounds, soft - Integumentary Integumentary: Present: pale - Neurologic Neurologic: Present: CNII-XII intact (grossly) - Musculoskeletal Musculoskeletal: Present: generalized weakness - Psychiatric Psychiatric Comment(s): Easily drifts off to sleep, flat affect - Labs CBC & Chem 7: 11/10/21 08:33 11/10/21 16:43 Labs: Abnormal Lab Results - Last 24 Hours (Table) 11/09/21 11/10/21 11/10/21 Range/Units 20:23 02:04 05:57 WBC (3.8-10.6) k/uL RBC (4.30-5.90) m/uL Hgb (13.0-17.5) gm/dL Hct (39.0-53.0) % Plt Count (150-450) k/uL Neutrophils # (Manual) (1.3-7.7) k/uL Metamyelocytes # (Man) (0) k/uL Myelocytes # (Manual) (0) k/uL Nucleated RBCs (0-0) /100 WBC Potassium (3.5-5.1) mmol/L Carbon Dioxide (22-30) mmol/L Glucose (74-99) mg/dL POC Glucose (mg/dL) 378 H 135 H 71 L (75-99) mg/dL Calcium (8.4-10.2) mg/dL Total Protein (6.3-8.2) g/dL Albumin (3.5-5.0) g/dL 11/10/21 11/10/21 11/10/21 Range/Units 08:33 08:33 11:35 WBC 12.1 H (3.8-10.6) k/uL RBC 3.37 L (4.30-5.90) m/uL Hgb 10.6 L (13.0-17.5) gm/dL Hct 31.6 L (39.0-53.0) % Plt Count 114 L (150-450) k/uL Neutrophils # (Manual) 10.00 H (1.3-7.7) k/uL Metamyelocytes # (Man) 0.12 H (0) k/uL Myelocytes # (Manual) 0.48 H (0) k/uL Nucleated RBCs 1 H (0-0) /100 WBC Potassium 3.1 L (3.5-5.1) mmol/L Carbon Dioxide 35 H (22-30) mmol/L Glucose 195 H (74-99) mg/dL POC Glucose (mg/dL) 312 H (75-99) mg/dL Calcium 7.9 L (8.4-10.2) mg/dL Total Protein 5.1 L (6.3-8.2) g/dL Albumin 2.8 L (3.5-5.0) g/dL 11/10/21 11/10/21 Range/Units 16:33 16:43 WBC (3.8-10.6) k/uL RBC (4.30-5.90) m/uL Hgb (13.0-17.5) gm/dL Hct (39.0-53.0) % Plt Count (150-450) k/uL Neutrophils # (Manual) (1.3-7.7) k/uL Metamyelocytes # (Man) (0) k/uL Myelocytes # (Manual) (0) k/uL Nucleated RBCs (0-0) /100 WBC Potassium 3.2 L (3.5-5.1) mmol/L Carbon Dioxide (22-30) mmol/L Glucose (74-99) mg/dL POC Glucose (mg/dL) 273 H (75-99) mg/dL Calcium (8.4-10.2) mg/dL Total Protein (6.3-8.2) g/dL Albumin (3.5-5.0) g/dL Microbiology - Last 24 Hours (Table) 11/05/21 16:43 Blood Culture - Preliminary Blood No Growth after 96 hours - Imaging and Cardiology Chest x-ray: report reviewed Assessment and Plan (1) Carcinoma Current Visit: Yes Status: Acute Priority: High Code(s): C80.1 - MALIGNANT (PRIMARY) NEOPLASM, UNSPECIFIED SNOMED Code(s): 104479063 Plan: Recent lung biopsy + carcinoma, unable to be further classified. Not enough material for NGS testing on tumor. Guardant testing was ordered on blood for cfDNA when pt was seen-no actionable mutations. PD-L1 returned<1%. NM bone scan, multiple sites of mets. Dr. ranulfo pinto had a meeting with patient, and sister. Diagnosis, prognosis, treatment options, risks versus benefit all reviewed. Single agent carboplatinum offered. Understanding is that #1) intent of treatment is palliative, reduce symptoms, possibly give pt a little more time #2) around a 50% chance of the treatment having meaningful impact on the disease, #3) Impact of treatment on disease is going to evaluated based on patient's symptoms. Symptoms would be expected to improve within the next week if treatment is successful, #4) no plans for MRI of the brain at this time. all of the patient, and her sister's questions were answered to their satisfaction. 90 minutes spent counseling and coordinating care. Patient and family will inform nursing of decision if patient would like to receive treatment. Contacted Pharmacy, they do have carboplatin available. Contacted Oncology unit to inform them of the possible need for a bed and a chemotherapy infusion R mikhail. attests: I preformed history and physical exam,seen and examined patient, developed impression and plan of care. Discussed with dictator. Agree with do cumentation, dictated as a scribe Time with Patient: Greater than 30
[2021-11-10 20:14] LABS: Glucose,Whole Blood 339 mg/dL (75-99)
[2021-11-10] MEDS ORDERED: INSULIN DETEMIR (LEVEMIR) 100 UNIT/ML SYR SQ SCH (21:00)
[2021-11-10] MEDS: TAMSULOSIN 0.4 MG CAP.ER.24H PO SCH (21:09)
[2021-11-10] MEDS: amLODIPine 10 MG TAB PO SCH (21:10)
[2021-11-10] MEDS: LOSARTAN 50 MG TAB PO SCH (21:10)
[2021-11-10] MEDS: DOCUSATE 100 MG CAP PO SCH (21:10)
[2021-11-11] MEDS: HYDROmorphone 0.5 MG/0.5 ML SYRINGE IVP PRN ×4 (02:31→20:24)
[2021-11-11] MEDS: GABAPENTIN 400 MG CAP PO SCH ×3 (05:48→18:13)
[2021-11-11] MEDS: traMADol 50 MG TAB PO PRN (06:17)
[2021-11-11 07:12] LABS: Glucose,Whole Blood 168 mg/dL (75-99)
[2021-11-11] MEDS: INSULIN ASPART (NovoLOG) 100 UNIT/ML VIAL SQ SCH ×7 (07:38→20:57)
[2021-11-11] MEDS: FORMOTEROL FUMARATE 20 MCG/2 ML NEBU INHALATION SCH ×2 (08:16→20:02)
[2021-11-11] MEDS: IPRATROPIUM-ALBUTEROL 3 ML NEB INHALATION SCH ×3 (08:16→20:01)
[2021-11-11] MEDS: BUDESONIDE 1 MG/2 ML NEBU INHALATION SCH ×2 (08:16→20:02)
[2021-11-11] MEDS: FUROSEMIDE 10 MG/ML 4 ML VIAL IV SCH (08:31)
[2021-11-11] MEDS: AMIODARONE 200 MG TAB PO SCH ×2 (08:32→20:25)
[2021-11-11] MEDS: METOPROLOL TARTRATE 50 MG TAB PO SCH ×2 (08:32→20:25)
[2021-11-11] MEDS: DOCUSATE 100 MG CAP PO SCH ×2 (08:32→20:25)
[2021-11-11] MEDS: FLUCONAZOLE 100 MG TAB PO SCH (08:32)
[2021-11-11] MEDS: FOLIC ACID 1 MG TAB PO SCH (08:32)
[2021-11-11] MEDS: POTASSIUM CHLORIDE ER 20 MEQ TAB.ER PO SCH ×4 (08:32→20:25)
[2021-11-11] MEDS: PARoxetine 20 MG TAB PO SCH (08:33)
[2021-11-11] MEDS: APIXABAN 5 MG TAB PO SCH ×2 (08:33→20:25)
[2021-11-11] MEDS: PIPERACILLIN-TAZOBACTAM 3.375 GM in SODIUM CHLORIDE 0.9% 100 ML IVPB SCH ×2 (08:34→15:10)
[2021-11-11] MEDS: NON FORMULARY DRUG (Empagliflozin [Jardiance] 25 MG Tablet) PO SCH (08:35)
--- NOTE | 2021-11-11 10:49 | P.PN ---
Subjective Progress Note Date: 11/11/21 55-year-old male patient is being seen in follow-up on 11/08/2021 regarding his acute hypoxic respiratory failure and metastatic lung cancer. The patient is progressing fast as the patient had a follow-up CAT scan that showed enlargement in the left upper lobe mass in addition to enlargement and the skeletal metastases. He comes in with acute hypoxic respiratory failure and currently is on 15 L about 2 by nasal cannula. The patient was also admitted for A. fib RVR started on amiodarone. This morning, he is on oxygen at 15 L with a pulse ox of 96%. I reviewed the CAT scan of the chest and there is obvious new changes with new consolidation of the lung bases bilaterally along with some small effusions in addition to enlargement in the left upper lobe opacity and enlargement of the skeletal metastases as discussed earlier. The white cell count today's of 11.1 with a hemoglobin of 11.4. Platelet count 119, sodium is at 136 with a potassium level of 2.7, renal function is been essentially within normal limits. In terms of treatment, the patient is receiving bronchodilators, IV Zosyn as an empiric antibiotic coverage, IV Lasix 40 mg every 12 hours, and the patient is on amiodarone for rate control 400 mg twice a day and Eliquis 5 mg by mouth twice a day. He is also on metoprolol for rate control 50 mg by mouth twice a day. Calcitonin level was quite elevated at time of admission and was in the order of 3.35. 11/09/2021, the patient is still doing very poor. His pain is under better control with a combination of tramadol and Dilaudid. Nevertheless, the bone scan showed multiple skeletal metastases and there was also concern of thoracic spine involvement and MRI of the spine was recommended. Nevertheless, compatibility with his sleep apnea device is being checked prior to this patient going for an MRI. His respiratory status is stable. He is on 15 L of oxygen by nasal cannula. He remains on IV Zosyn. His cardiac status is stable. He remains on diuretics with IV Lasix. The patient is trying to achieve a negative fluid balance. No other significant events overnight. Is awake and alert. Family is at the bedside. I had a lengthy discussion with the sister and explained to her his condition and his rapid disease progression. Nevertheless, the patient is awake and alert on today's evaluation. He is not having any major respiratory distress. He was able to eat without any reported aspiration. The patient white cell count is at 11.6 with a hemoglobin of 0.7 and a platelet count of 101. He remains on oral amiodarone. He remains on bronchodilators around the clock. He is on Levemir insulin 10 units along with sliding scale coverage. He remains on oral Lasix 40 mg twice a day. 11/11/2021, pain is under better control with Dilaudid and the patient received a dose of Dilaudid at around 7:00 this morning. He wasn't sleeping comfortably on 10 L of oxygen by nasal cannula. I had the opportunity to wake him up. Apparently he did have some breakfast this morning. On and off is still confused. He is extremely weak and debilitated. He is still receiving IV Lasix and the patient has been negative fluid balance. Diuresed adequately more than 12 L since he came into the hospital. Doppler of the lower extremities is been negative. Echo of the heart has been within normal limits. On scan was positive for metastatic disease involving the rib cage and the calvarium and the symphysis pubis. The tumor was poorly differentiated. Oncology is considering the possibility of starting the patient on chemotherapy. I think is a component of pneumonia in addition. The patient had lower lobe consolidation and the patient's cousin IV Zosyn. Pro-calcitonin level was at 2.6, improved. Objective - Vital Signs Vital signs: Vital Signs Temp 97.4 F L 11/11/21 08:18 Pulse 86 11/11/21 08:39 Resp 18 11/11/21 08:18 BP 161/88 11/11/21 08:18 Pulse Ox 91 L 11/11/21 08:19 FiO2 100 11/06/21 07:54 Intake & Output 11/10/21 11/11/21 11/11/21 18:59 06:59 18:59 Intake Total 780 370 120 Output Total 3750 3775 650 Balance -2970 -8299 -530 Weight 96.4 kg Intake: IV 20 Invasive Line 3 10 Invasive Line 4 10 Oral 780 120 Tube Feeding 350 Output: Urine 3750 3775 650 Uretheral (Palacios) 650 Other: Voiding Method Indwelling Catheter Indwelling Catheter Indwelling Catheter - Exam No acute distress, oriented 3. The patient is on 10 L high flow nasal cannula, with a saturation of 94%. HEENT examination is grossly unremarkable. Neck supple. Full range of motion. No adenopathy thyromegaly or neck vein distention. Cardiovascular examination reveals regular rhythm rate. S1-S2 normal. No S3 or S4. No discernible murmur noted. Heart rate 62 bpm. Lungs reveal mild scattered rhonchi. No wheezes. No crackles. Breath sounds equal bilaterally. Saturations are 92% on high flow nasal cannula. Abdomen soft bowel sounds are heard. No masses or tenderness. Extremities are intact. No cyanosis clubbing or edema. Skin is without rash or lesion. Neurologic examination is brief but nonfocal. - Labs CBC & Chem 7: 11/10/21 08:33 11/10/21 16:43 Labs: Abnormal Lab Results - Last 24 Hours (Table) 11/10/21 11/10/21 11/10/21 Range/Units 08:33 11:35 16:33 WBC 12.1 H (3.8-10.6) k/uL Neutrophils # (Manual) 10.00 H (1.3-7.7) k/uL Metamyelocytes # (Man) 0.12 H (0) k/uL Myelocytes # (Manual) 0.48 H (0) k/uL Nucleated RBCs 1 H (0-0) /100 WBC Potassium (3.5-5.1) mmol/L POC Glucose (mg/dL) 312 H 273 H (75-99) mg/dL 11/10/21 11/10/21 11/11/21 Range/Units 16:43 20:12 07:10 WBC (3.8-10.6) k/uL Neutrophils # (Manual) (1.3-7.7) k/uL Metamyelocytes # (Man) (0) k/uL Myelocytes # (Manual) (0) k/uL Nucleated RBCs (0-0) /100 WBC Potassium 3.2 L (3.5-5.1) mmol/L POC Glucose (mg/dL) 339 H 168 H (75-99) mg/dL Microbiology - Last 24 Hours (Table) 11/05/21 16:43 Blood Culture - Preliminary Blood No Growth after 120 hours Assessment and Plan Plan: Acute hypoxic respiratory failure currently on oxygen at 10 L per minute nasal cannula. I favor a combination of multilobar pneumonia with progression of his underlying metastatic lung cancer contributing to his hypoxic respiratory failure. The patient is currently stable and the patient is on antibiotics and diuretics. I reviewed the CAT scan again and I think is a combination of pneumonia and she will progression. On today's evaluation, there has been mild improvement in the oxygenation level and the patient is currently on 10 L of oxygen by nasal cannula. Most recent chest x-ray from yesterday is showing a evidence of multifocal infiltrates bilaterally. There is also device over the right anterior chest area related to obstructive sleep apnea. Her stimulated treatment. The patient also has a masslike structures in the left apex and in the left midlung area, unchanged. Shortness of breath, likely multifactorial, in part related to atrial fibri llation with RVR, possible underlying COPD, and also metastatic lung cancer. CTA, negative for pulmonary embolism. As part of the chest that was done at time of admission on 11/06/2021 showed an enlarging left upper lobe mass with some internal cavitation. Addition to increase in the size of the left rib lytic lesion with increased soft tissue component consistent with metastases. At the same time, the patient patchy consolidation throughout the lung most pronounced on the left, with a possibility of an underlying pneumonia. Despite the normal echocardiogram, the patient has diuresed excellent with IV Lasix and the patient has been very negative fluid balance of more than 12 L over the past few days. The patient has been switched to oral Lasix. Non-small cell lung cancer with left upper lobe mass measuring 2.5 cm in size in addition to mediastinal lymphadenopathy and metastases involving the skeletal system including the humerus, left rib cage. Pathology was consistent with poo rly differentiated adenocarcinoma and the patient was referred to medical oncology regarding his underlying lung cancer. The bone scan also showed evidence of skeletal metastases. There is involvement of the thoracic spine. Please refer to the details of the bone scan. A. fib/RVR, current rhythm is sinus and the patient is on anticoagulation with Eliquis. History of hypertension. History of BPH. History of diabetes. History of heavy tobacco use. History of sleep apnea syndrome. 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 Long-term prognosis going to be extremely poor. The patient would have a repeat chest x-ray in the morning in addition to repeat blood work. Adequate pain control with Dilaudid and tramadol. A poor prognosis of this is explained to the sister and the .
[2021-11-11 11:41] LABS: African American GFR (CKD) >90 (>60 ml/min/1.73 sqM); Anion Gap 4 mmol/L; Blood Urea Nitrogen 15 mg/dL (9-20); Calcium 7.7 mg/dL (8.4-10.2); Carbon Dioxide 37 mmol/L (22-30); Chloride 99 mmol/L (98-107); Glucose 255 mg/dL (74-99); Non-African American GFR(CKD) >90 (>60 ml/min/1.73 sqM); Potassium 3.1 mmol/L (3.5-5.1); Sodium 140 mmol/L (137-145)
[2021-11-11 12:08] LABS: Glucose,Whole Blood 341 mg/dL (75-99)
[2021-11-11] MEDS ORDERED: POTASSIUM CHLORIDE ER 20 MEQ TAB.ER PO STA (12:27)
[2021-11-11] MEDS: HYDROcodone/APAP 10-325MG 1 EACH TAB PO PRN ×2 (12:34→18:13)
[2021-11-11 13:47] LABS: HGB 10.2 gm/dL (13.0-17.5); MCH 31.9 pg (25.0-35.0); MCHC 33.9 g/dL (31.0-37.0); MCV 94.1 fL (80.0-100.0); Mean Platelet Volume 9.4; Platelet Count 109 k/uL (150-450); RBC 3.19 m/uL (4.30-5.90); RDW 13.8 % (11.5-15.5)
[2021-11-11] MEDS ORDERED: MELATONIN 5 MG TABLET PO PRN (14:59)
[2021-11-11] MEDS ORDERED: polyethylene glycoL 3350 17 GM POWD.PACK PO PRN (14:59)
[2021-11-11] MEDS ORDERED: DEXAMETHASONE SOD PHOSPHATE 10 MG/ML 1 ML VIAL IVP ONE (15:00)
[2021-11-11] MEDS ORDERED: ONDANSETRON 16 MG in SODIUM CHLORIDE 0.9% 50 ML IVPB ONE (15:00)
[2021-11-11] MEDS ORDERED: FAMOTIDINE 20 MG/2 ML VIAL IVP ONE (15:00)
--- NOTE | 2021-11-11 15:05 | P.PN ---
Subjective Progress Note Date: 11/11/21 This is a 55 year old male who presents with atrial fibrillation with RVR, and altered mental status. Patient was recently diagnosed with lung cancer not currently undergoing treatment. Bone scan today showing uptake involving the left rib is compatible with destructive lesions and also calvarium uptake highly suggestive of metastasis. There is also nonspecific uptake involving pubic symphysis and metastasis should also be in the differential. Currently rating pain a 4/10. Patient is on 13L high flow cannula with saturation of 92%, afebrile, heart rate controlled 92, blood pressure 124/75. Not currently wearing oxygen as outpatient. He has been transitioned to oral amiodarone and oral eliquis. He continues on IV zosyn, and has been transitioned to oral lasix. Potassium today 2.7 and patient has received additional replacement as well as 40 meq bid, pts expressed concern with ongoing low potassium prior to admission as well. Repeat potassium this afternoon. Oncology and pulmonary following along, cardiology has signed off as needed basis. 11/09/2021 Patient evaluated today resting in bed, family at the bedside. Continues on 13L HF cannula, denies shortness of breath at rest, tolerating diet. Patient was taking lasix and hydrochlorothiazide outpatient which were new medications in September of this year. He remains off hctz and has been started on IV lasix today. Potassium 3.2, magnesium 1.7 which were supplemented. White count 11.6, hgb 9.7, platelet count 101. Procalcitonin level remains elevated at 3.69. Continues on eliquis and amiodarone taper. He continues on IV zosyn, bronchodilators. Blood glucose has improved with addition of levemir and increase in novolog. Continue with current treatment plan. Patient and family updated on bone scan results, all questions were answered. 11/10/2021 Today patient is reporting pain to the left side of his head states there is a soft spot he can feel, additionally the pain he reports from the left rib region has been the most prevalent. He is also experiencing peripheral neuropathy which he is receiving gabapentin for. He states the pain medication is helping when he is receiving it but the dilaudid wears off fast, he is also using norco and tramadol alternating. Family at the bedside states that his pain is not controlled. Adjustments were made today. Family is waiting to meet with oncology. Patient needs outpatient MRI as his sleep apnea device is not compatible with MRI at this hospital. It was discussed with family that with his respiratory status and disease progression he most likely won't become stable enough for discharge. Family and patient would like to meet with pulmonary as well. Oxygen dropped to 89% on 13L High flow cannula this morning. Potassium today 3.1, was supplemented. Magnesium today improved to 2.0. White count 12.1, hgb 10.6. Procalcitonin yesterday 2.62. Repeat chest xray today showing b ilateral areas of multifocal infiltrate correlate for pneumonia. Findings are stable, with underlying neoplasm redemonstrated. Continues on IV Zosyn, IV lasix 40 mg Q 12, he is negative 4.5 L in the last 24 hours. Per family at the bedside this morning they are waiting for patients to arrive and will be meeting with oncology. 11/11/2021 Per patient his pain seems controlled at the time of my examination. Per family he had alot of pain this morning and states that patient is not sleeping well, then states he got dilaudid 4 hours ago and seems groggy. Offered a mild sleeping aide, which was refused by family as they do not want him to sleep through the night and then wake up in excruciating pain. Patient does not say much during this conversation although all questions are directed at patient. Plan today is for transfer to oncology unit when bed available and patient is offered palliative chemotherapy with carboplatin. Reinforced that the goal is not curative, but to possibly stabilize patient enough to be able to discharge home with family. He continues on 10L high flow cannula with oxygenation 92-95%, he is afebrile, heart rate 78, blood pressure 137/77. Labs today showing white count 12.8, hgb 10.2, sodium 140, potassium 3.1. He did receive a dose of IV decadron today. IV lasix has been decreased to daily. He continues on duonebs, pulmicort, perforomist. He is also continued on IV zosyn. He is also on potassium 60 meq BID. He remains in negative fluid balance. Pain management with tramadol 100 mg TID, norco 10 q4, dilaudid 0.4 mg Q3. He is also on gabapentin for neuropathy. Review of Systems Constitutional: Reports fatigue, denied any fever. Cardio vascular: denied any chest pain, palpitations Gastrointestinal: denied any nausea, vomiting, diarrhea Pulmonary: Reports worsening shortness of breath with movement, reports interm ittent cough Neurologic denied any new focal deficits All inpatient medications were reviewed and appropriate changes in these medications as dictated in the interval history and assessment and plan. PHYSICAL EXAMINATION: GENERAL: The patient is alert and oriented x3. Well developed, well nourished. He is more quiet today. HEENT: Pupils are round and equally reacting to light. EOMI. No scleral icterus. No conjunctival pallor. Normocephalic, atraumatic. No pharyngeal erythema. No thyromegaly. CARDIOVASCULAR: S1 and S2 present. No murmurs, rubs, or gallops. PULMONARY: Coarse rhonchi scattered, no wheezing noted. ABDOMEN: Soft, nontender, nondistended, normoactive bowel sounds. No palpable organomegaly. MUSCULOSKELETAL: No joint swelling or deformity. EXTREMITIES: No cyanosis, clubbing, or pedal edema. NEUROLOGICAL: Gross neurological examination did not reveal any focal deficits. SKIN: No rashes. Assessment and Plan Assessment Acute hypoxic respiratory failure which is multifactorial, component of bilateral pneumonia as well as lung cancer which has progressed. Continues on Hi flow cannula which has been decreased to 10 L today, he is also receiving empiric antibiotic coverage. 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 Troponin leak most likely related to atrial fibrillation with RVR Diabetes Mellitus type 2, recent diagnosis Steroid induced hyperglycemia Oral thrush Sick euthyroid syndrome Pulmonary hypertension History of hypertension History of sleep apnea with CPAP use, also has an implanted sleep apnea device Former tobacco use Chronic back pain GI Prophylaxis DVT Prophylaxis Plan Patient will be moved to oncology unit today for chemotherapy Continue on high flow oxygen support Continue on IV zosyn, bronchodilators IV lasix decreased today Amiodarone taper per cardiology Electrolyte replacement Follow up labs in AM Cardiology has signed off Pulmonary and oncology following Patients prognosis is poor given his current multiple medical conditions and progression of cancer The impression and plan of care has been dictated by Angi Castaneda Nurse Practitioner as directed. Dr. Dick MD I have performed a history and physical examination and medical decision making of this patient, discussed the same with the dictator, and agree with the dictators assessment and plan as written, documented as a scribe. Based on total visit time, I have performed more than 50% of this visit. Objective - Vital Signs Vital signs: Vital Signs Temp 97.4 F L 11/11/21 08:18 Pulse 84 11/11/21 12:07 Resp 18 11/11/21 12:00 BP 135/77 11/11/21 12:00 Pulse Ox 92 L 11/11/21 12:00 FiO2 100 11/06/21 07:54 Intake & Output 11/10/21 11/11/21 11/11/21 18:59 06:59 18:59 Intake Total 780 370 120 Output Total 3750 3775 1950 Balance -2970 -3405 -1830 Weight 96.4 kg Intake: IV 20 Invasive Line 3 10 Invasive Line 4 10 Oral 780 120 Tube Feeding 350 Output: Urine 3750 3775 1950 Uretheral (Palacios) 650 Other: Voiding Method Indwelling Catheter Indwelling Catheter Indwelling Catheter - Labs CBC & Chem 7: 11/11/21 10:51 11/11/21 10:51 Labs: Abnormal Lab Results - Last 24 Hours (Table) 11/10/21 11/10/21 11/10/21 Range/Units 08:33 16:33 16:43 WBC 12.1 H (3.8-10.6) k/uL Neutrophils # (Manual) 10.00 H (1.3-7.7) k/uL Metamyelocytes # (Man) 0.12 H (0) k/uL Myelocytes # (Manual) 0.48 H (0) k/uL Nucleated RBCs 1 H (0-0) /100 WBC Potassium 3.2 L (3.5-5.1) mmol/L Carbon Dioxide (22-30) mmol/L Creatinine (0.66-1.25) mg/dL Glucose (74-99) mg/dL POC Glucose (mg/dL) 273 H (75-99) mg/dL Calcium (8.4-10.2) mg/dL 11/10/21 11/11/21 11/11/21 Range/Units 20:12 07:10 10:51 WBC (3.8-10.6) k/uL Neutrophils # (Manual) (1.3-7.7) k/uL Metamyelocytes # (Man) (0) k/uL Myelocytes # (Manual) (0) k/uL Nucleated RBCs (0-0) /100 WBC Potassium 3.1 L (3.5-5.1) mmol/L Carbon Dioxide 37 H (22-30) mmol/L Creatinine 0.58 L (0.66-1.25) mg/dL Glucose 255 H (74-99) mg/dL POC Glucose (mg/dL) 339 H 168 H (75-99) mg/dL Calcium 7.7 L (8.4-10.2) mg/dL 11/11/21 Range/Units 12:06 WBC (3.8-10.6) k/uL Neutrophils # (Manual) (1.3-7.7) k/uL Metamyelocytes # (Man) (0) k/uL Myelocytes # (Manual) (0) k/uL Nucleated RBCs (0-0) /100 WBC Potassium (3.5-5.1) mmol/L Carbon Dioxide (22-30) mmol/L Creatinine (0.66-1.25) mg/dL Glucose (74-99) mg/dL POC Glucose (mg/dL) 341 H (75-99) mg/dL Calcium (8.4-10.2) mg/dL Microbiology - Last 24 Hours (Table) 11/05/21 16:43 Blood Culture - Preliminary Blood No Growth after 120 hours Assessment and Plan Time with Patient: Less than 30
[2021-11-11 15:14] LABS: Band Neutrophils % 5 %; Lymphocytes # (M) 1.02 k/uL (1.0-4.8); Metamyelocytes % 2 %; Monocytes # (M) 0.51 k/uL (0-1.0); Myelocytes # (M) 0.38 k/uL (0); Myelocytes % 3 %; Neutrophils % (M) 80 %; Nucleated Red Blood Cells 1 /100 WBC (0-0); Total Cells Counted 200
[2021-11-11 15:15] LABS: Metamyelocytes # (M) 0.25 k/uL (0); WBC 12.7 k/uL (3.8-10.6)
[2021-11-11 15:18] LABS: RBC Morphology Normal
[2021-11-11 17:39] LABS: Glucose,Whole Blood 283 mg/dL (75-99)
--- NOTE | 2021-11-11 17:39 | P.PN ---
Subjective Progress Note Date: 11/11/21 Principal diagnosis: metastatic lung carcinoma In f/u today pt sitting up in bed, eating lunch, much more awake and interactive. He had a good nights sleep, still has not ambulated, 10L O2 Objective - Vital Signs Vital signs: Vital Signs Temp 97.8 F 11/11/21 14:09 Pulse 78 11/11/21 14:09 Resp 18 11/11/21 14:09 BP 137/77 11/11/21 14:09 Pulse Ox 95 11/11/21 14:09 FiO2 100 11/06/21 07:54 Intake & Output 11/10/21 11/11/21 11/11/21 18:59 06:59 18:59 Intake Total 780 370 120 Output Total 3750 3775 2950 Balance -2970 -3405 -2830 Weight 96.4 kg Intake: IV 20 Invasive Line 3 10 Invasive Line 4 10 Oral 780 120 Tube Feeding 350 Output: Urine 3750 3775 2950 Uretheral (Palacios) 650 Other: Voiding Method Indwelling Catheter Indwelling Catheter Indwelling Catheter - Constitutional General appearance: Present: average body habitus, cooperative, no acute distr ess - EENT Eyes: Present: anicteric sclerae, EOMI ENT: Present: hearing grossly normal - Respiratory Respiratory: bilateral: diminished, other (shallow resp) - Musculoskeletal Musculoskeletal: Present: generalized weakness - Psychiatric Psychiatric: Present: A&O x's 3 - Labs CBC & Chem 7: 11/11/21 10:51 11/11/21 10:51 Labs: Abnormal Lab Results - Last 24 Hours (Table) 11/10/21 11/11/21 11/11/21 Range/Units 20:12 07:10 10:51 WBC (3.8-10.6) k/uL RBC (4.30-5.90) m/uL Hgb (13.0-17.5) gm/dL Hct (39.0-53.0) % Plt Count (150-450) k/uL Neutrophils # (Manual) (1.3-7.7) k/uL Metamyelocytes # (Man) (0) k/uL Myelocytes # (Manual) (0) k/uL Nucleated RBCs (0-0) /100 WBC Potassium 3.1 L (3.5-5.1) mmol/L Carbon Dioxide 37 H (22-30) mmol/L Creatinine 0.58 L (0.66-1.25) mg/dL Glucose 255 H (74-99) mg/dL POC Glucose (mg/dL) 339 H 168 H (75-99) mg/dL Calcium 7.7 L (8.4-10.2) mg/dL 11/11/21 11/11/21 Range/Units 10:51 12:06 WBC 12.7 H (3.8-10.6) k/uL RBC 3.19 L (4.30-5.90) m/uL Hgb 10.2 L (13.0-17.5) gm/dL Hct 30.0 L (39.0-53.0) % Plt Count 109 L (150-450) k/uL Neutrophils # (Manual) 10.70 H (1.3-7.7) k/uL Metamyelocytes # (Man) 0.25 H (0) k/uL Myelocytes # (Manual) 0.38 H (0) k/uL Nucleated RBCs 1 H (0-0) /100 WBC Potassium (3.5-5.1) mmol/L Carbon Dioxide (22-30) mmol/L Creatinine (0.66-1.25) mg/dL Glucose (74-99) mg/dL POC Glucose (mg/dL) 341 H (75-99) mg/dL Calcium (8.4-10.2) mg/dL Microbiology - Last 24 Hours (Table) 11/05/21 16:43 Blood Culture - Preliminary Blood No Growth after 120 hours Assessment and Plan (1) Carcinoma Current Visit: Yes Status: Acute Priority: High Code(s): C80.1 - MALIGNANT (PRIMARY) NEOPLASM, UNSPECIFIED SNOMED Code(s): 532505802 Plan: Recent lung biopsy + carcinoma, unable to be further classified. Not enough material for NGS testing on tumor. Guardant testing was ordered on blood for cfDNA when pt was seen-no actionable mutations. PD-L1 returned<1%. NM bone scan, multiple sites of mets. Dr. Kraus had a meeting with patient, and sister last night. Diagnosis, prognosis, treatment options, risks versus benefit all reviewed. Single agent carboplatinum offered. Understanding is that #1) intent of treatment is palliative, reduce symptoms, possibly give pt a little more time #2) around a 50% chance of the treatment having meaningful impact on the disease, #3) Impact of treatment on disease is going to evaluated based on patient's symptoms. Symptoms would be expected to improve within the next week if treatment is successful, #4) no plans for MRI of the brain at this time. All of the patient, and her sister's questions were answered to their satisfaction. Pt and family decided on treatment. Orders written, sent to Oncology unit, Pharmacy. Spoke with Attending MICA LAMINATING MACHINE FEEDER. Ok to move pt to Oncology unit, cont tele. Time with Patient: Greater than 30
[2021-11-11] MEDS: LOSARTAN 50 MG TAB PO SCH (20:26)
[2021-11-11] MEDS: amLODIPine 10 MG TAB PO SCH (20:26)
[2021-11-11] MEDS: TAMSULOSIN 0.4 MG CAP.ER.24H PO SCH (20:26)
[2021-11-11 20:27] LABS: Glucose,Whole Blood 335 mg/dL (75-99)
[2021-11-11] MEDS: INSULIN DETEMIR (LEVEMIR) 100 UNIT/ML SYR SQ SCH (20:57)
[2021-11-12] MEDS: HYDROcodone/APAP 10-325MG 1 EACH TAB PO PRN ×4 (00:03→19:18)
[2021-11-12] MEDS: GABAPENTIN 400 MG CAP PO SCH ×5 (00:03→23:21)
[2021-11-12] MEDS: PIPERACILLIN-TAZOBACTAM 3.375 GM in SODIUM CHLORIDE 0.9% 100 ML IVPB SCH ×4 (00:03→23:19)
[2021-11-12] MEDS: HYDROmorphone 0.5 MG/0.5 ML SYRINGE IVP PRN ×2 (02:40→08:28)
[2021-11-12 07:15] LABS: Glucose,Whole Blood 147 mg/dL (75-99)
[2021-11-12] MEDS: BUDESONIDE 1 MG/2 ML NEBU INHALATION SCH ×2 (07:45→19:25)
[2021-11-12] MEDS: IPRATROPIUM-ALBUTEROL 3 ML NEB INHALATION SCH ×3 (07:45→19:25)
[2021-11-12] MEDS: FORMOTEROL FUMARATE 20 MCG/2 ML NEBU INHALATION SCH ×2 (07:45→19:25)
[2021-11-12] MEDS: CHOLECALCIFEROL 125 MCG (5000 IU) TABLET PO SCH (08:21)
[2021-11-12] MEDS: DOCUSATE 100 MG CAP PO SCH ×2 (08:22→20:27)
[2021-11-12] MEDS: FOLIC ACID 1 MG TAB PO SCH (08:22)
[2021-11-12] MEDS: POTASSIUM CHLORIDE ER 20 MEQ TAB.ER PO SCH ×4 (08:22→20:29)
[2021-11-12] MEDS: METOPROLOL TARTRATE 50 MG TAB PO SCH ×2 (08:22→20:28)
[2021-11-12] MEDS: APIXABAN 5 MG TAB PO SCH ×2 (08:22→20:27)
[2021-11-12] MEDS: PARoxetine 20 MG TAB PO SCH (08:23)
[2021-11-12] MEDS: FUROSEMIDE 10 MG/ML 4 ML VIAL IV SCH (08:23)
[2021-11-12] MEDS: FLUCONAZOLE 100 MG TAB PO SCH (08:23)
[2021-11-12] MEDS: INSULIN ASPART (NovoLOG) 100 UNIT/ML VIAL SQ SCH ×7 (08:24→20:27)
[2021-11-12] MEDS: AMIODARONE 200 MG TAB PO SCH ×2 (08:25→20:23)
[2021-11-12] MEDS: FAMOTIDINE 20 MG TAB PO SCH ×2 (08:42→20:27)
[2021-11-12 08:54] LABS: HCT 29.8 % (39.0-53.0); HGB 9.9 gm/dL (13.0-17.5); MCH 31.2 pg (25.0-35.0); MCHC 33.3 g/dL (31.0-37.0); MCV 93.7 fL (80.0-100.0); Mean Platelet Volume 8.6; Platelet Count 109 k/uL (150-450); RBC 3.19 m/uL (4.30-5.90); RDW 13.7 % (11.5-15.5); WBC 13.4 k/uL (3.8-10.6)
[2021-11-12] MEDS: NON FORMULARY DRUG (Empagliflozin [Jardiance] 25 MG Tablet) PO SCH (09:05)
[2021-11-12] MEDS: HYDROmorphone 1 MG/ML 1 ML SYRINGE IVP PRN ×3 (10:45→20:29)
[2021-11-12 10:55] LABS: African American GFR (CKD) 130.3 (60.0-200.0); Anion Gap 7.3 mmol/L (10.00-18.00); BUN/Creat Ratio 21.67 Ratio (12.00-20.00); Calcium 8.2 mg/dL (8.7-10.3); Carbon Dioxide 33.7 mmol/L (20.0-27.5); Magnesium 1.8 mg/dL (1.5-2.4); Non-African American GFR(CKD) 112.4 (60.0-200.0); Potassium 3.4 mmol/L (3.5-5.5)
[2021-11-12 11:50] LABS: Glucose,Whole Blood 256 mg/dL (75-99)
[2021-11-12 11:52] LABS: Band Neutrophils % 4 %; Lymphocytes # (M) 1.21 k/uL (1.0-4.8); Metamyelocytes # (M) 0.13 k/uL (0); Metamyelocytes % 1 %; Monocytes # (M) 0.54 k/uL (0-1.0); Myelocytes # (M) 0.27 k/uL (0); Myelocytes % 2 %; Neutrophils % (M) 81 %; Nucleated Red Blood Cells 0 /100 WBC (0-0); RBC Morphology Normal; Total Cells Counted 200
[2021-11-12 11:53] LABS: Toxic Granulation Present
--- NOTE | 2021-11-12 13:10 | XR ---
EXAMINATION TYPE: XR chest 1V portable DATE OF EXAM: 11/12/2021 COMPARISON: 11/10/2021 HISTORY: Lung mass, pneumonia TECHNIQUE: Single frontal view of the chest is obtained. FINDINGS: Bilateral large areas of consolidation. There is a device overlying the right hemithorax l ead extending cephalad. There is a small right pleural effusion with no pneumothorax. Heart size is n ormal. Hypertrophic and degenerative changes of the spine. Prominent bowel loops in the upper abdomen . Abnormal appearance of the anterior margin left sixth and seventh ribs. IMPRESSION: 1. Bilateral areas of multifocal infiltrate correlate for pneumonia. Findings stable. Underlying neop lasm in the differential diagnosis. 2. Suspect destructive lesion left sixth and seventh ribs. 3. Prominent bowel loops in the upper abdomen.
--- NOTE | 2021-11-12 14:23 | P.PAINCN ---
History of Present Illness - Reason for Consult Consult date: 11/12/21 - History of Present Illness This is 55 years old male, with a history of lung cancer with metastases to the bone pubic symphysis , and left ribs, patient was admitted to [facility] with the diagnosis of atrial fibrillation with RVR, patient being treated for A. fib and he is currently onELIQIS, patient complaining of chronic severe generalized pain but mostly low back pain with radiation to lower extrem ity associated with numbness and tingling sensation and also with radiation to the upper back area, patient currently under chemotherapy, and he is on pain medications to manage his chronic pain, he is on [place] 10/325 every 4 hours and Ultram 100 mg 3 times a day, and Dilaudid 1 mg IV every 3 hours when necessary, patient was on Neurontin 300 mg every 6 hours to manage his neuropathic pain which was increased 2 days ago to 400 mg every 6 hours, patient and his reported that Neurontin is helping his pain to some degree Past Medical History Past Medical History: Diabetes Mellitus, Hypertension, Musculoskeletal Disorder, Prostate Disorder, Sleep Apnea/CPAP/BIPAP Additional Past Medical History / Comment(s): started having high blood pressure September 2021, mass in lung and lower spine,apnea implant-upper rt chest, back & le g pain related to herniated discs,hx enlarged prostate History of Any Multi-Drug Resistant Organisms: None Reported Past Surgical History: Hernia Repair Additional Past Surgical History / Comment(s): epidural pain procedures, colonoscopy,left inguinal hernia repair Past Anesthesia/Blood Transfusion Reactions: No Reported Reaction Past Psychological History: Depression Smoking Status: Current every day smoker Past Alcohol Use History: None Reported Additional Past Alcohol Use History / Comment(s): quit smoking 09-10-21,down to <ppd started smoking at age 21 Past Drug Use History: None Reported - Past Family History Brother(s) Family Medical History: Cancer Additional Family Medical History / Comment(s): had liver CA at age 12. rhabdomyosarcoma Medications and Allergies Home Medications Medication Instructions Recorded Confirmed Type PARoxetine [Paxil] 20 mg PO DAILY 11/26/18 11/04/21 History traMADol HCL [Ultram] 100 mg PO TID PRN 11/26/18 11/04/21 History Gabapentin 300 mg PO Q6H 09/10/21 11/04/21 History Tamsulosin HCl [Flomax] 0.4 mg PO HS 10/12/21 11/04/21 History Empagliflozin [Jardiance] 25 mg PO DAILY 11/04/21 11/04/21 History Furosemide [Lasix] 80 mg PO DAILY 11/04/21 11/04/21 History Losartan Potassium 100 mg PO HS 11/04/21 11/04/21 History Metoprolol Tartrate [Lopressor] 25 mg PO BID 11/04/21 11/04/21 History Potassium Chloride ER [K-Dur 20] 40 meq PO BID 11/04/21 11/04/21 History amLODIPine [Norvasc] 10 mg PO HS 11/04/21 11/04/21 History fentaNYL 50MCG/HR PATCH [Duragesic 50 mcg TRANSDERM Q72H 11/04/21 11/04/21 History 50MCG/HR] Apixaban [Eliquis] 5 mg PO BID 30 Days #60 tab 11/05/21 Rx Amiodarone [Cordarone] 200 mg PO BID #120 tab 11/08/21 Rx Allergies Allergy/AdvReac Type Severity Reaction Status Date / Time No Known Allergies Allergy Verified 11/04/21 18:08 Physical Exam Vitals: Vital Signs Temp Pulse Pulse Resp BP BP Pulse Ox 11/12/21 11:37 80 11/12/21 11:27 78 11/12/21 11:02 65 16 11/12/21 08:05 82 11/12/21 07:57 80 11/12/21 07:56 80 11/12/21 07:46 80 11/12/21 04:45 98.2 F 65 16 131/63 97 11/12/21 00:48 18 11/11/21 20:26 88 11/11/21 20:16 84 11/11/21 20:15 84 11/11/21 20:03 86 93 L 11/11/21 20:00 20 11/11/21 19:10 97.5 F L 90 20 139/82 91 L 11/11/21 14:09 97.8 F 78 18 137/77 95 Intake and Output 11/11/21 11/12/21 11/12/21 22:59 06:59 14:59 Intake Total 120 240 Output Total 1600 1500 Balance -1480 -1260 Intake: Oral 120 240 Output: Urine 1600 1500 Uretheral (Palacios) 1500 Other: Voiding Method Indwelling Catheter Indwelling Catheter Review of Systems Constitutional: Reports fatigue, denied any fever. Cardio vascular: denied any chest pain, palpitations Gastrointestinal: denied any nausea, vomiting, diarrhea Pulmonary: Reports worsening shortness of breath with movement, reports intermittent cough Neurologic denied any new focal deficits All inpatient medications were reviewed and appropriate changes in these medications as dictated in the interval history and assessment and plan. - Constitutional Physical Examinations : -Constitutiona : Cooperative , not in acute distress . -HEENT : nech : supple , no Lymphadenopathy , normal thyroid size . : eyes : no ptosis , no icterus, no photophobia . - neurologic : Cranial nerve II to XII intact , no focal neurological deffecit . -psychatric : alert , oriented X 3 , appropriate affect , intact judgment and insight . -Lymphatic : no Lymphadenopathy . - musculoskeltal : Lumber spine moter stegnth lower extremities ,thigh and legs 5/5 Right side , 5/5 Left side deep tendon reflexes : normal Knee Jerk , normal ankle Jerk lumber facet Loading Test =positive Right , positive Left Range of motion of the lumbar spine Flexion 30 degrees, extension 10 degrees strait leg raising test = positive at 30 degree Fabere test= positive Right , and positive LT . Sever tenderness over the Sacroiliac joint on the Right , and Left sides Gaenslen test= positive right ,and positive left . Results CBC & Chem 7: 11/12/21 08:02 11/12/21 08:02 Labs: Abnormal Lab Results - Last 24 Hours (Table) 11/11/21 11/11/21 11/11/21 Range/Units 10:51 10:51 17:38 WBC 12.7 H (3.8-10.6) k/uL RBC (4.30-5.90) m/uL Hgb (13.0-17.5) gm/dL Hct (39.0-53.0) % Plt Count (150-450) k/uL Neutrophils # (Manual) 10.70 H (1.3-7.7) k/uL Metamyelocytes # (Man) 0.25 H (0) k/uL Myelocytes # (Manual) 0.38 H (0) k/uL Nucleated RBCs 1 H (0-0) /100 WBC Potassium (3.5-5.5) mmol/L Carbon Dioxide (20.0-27.5) mmol/L Anion Gap (10.00-18.00) mmol/L BUN/Creatinine Ratio (12.00-20.00) Ratio Glucose (70-110) mg/dL POC Glucose (mg/dL) 283 H (75-99) mg/dL Calcium (8.7-10.3) mg/dL Procalcitonin 1.87 H (0.02-0.09) ng/mL 11/11/21 11/12/21 11/12/21 Range/Units 20:25 07:13 08:02 WBC 13.4 H (3.8-10.6) k/uL RBC 3.19 L (4.30-5.90) m/uL Hgb 9.9 L (13.0-17.5) gm/dL Hct 29.8 L (39.0-53.0) % Plt Count 109 L (150-450) k/uL Neutrophils # (Manual) 11.30 H (1.3-7.7) k/uL Metamyelocytes # (Man) 0.13 H (0) k/uL Myelocytes # (Manual) 0.27 H (0) k/uL Nucleated RBCs (0-0) /100 WBC Potassium (3.5-5.5) mmol/L Carbon Dioxide (20.0-27.5) mmol/L Anion Gap (10.00-18.00) mmol/L BUN/Creatinine Ratio (12.00-20.00) Ratio Glucose (70-110) mg/dL POC Glucose (mg/dL) 335 H 147 H (75-99) mg/dL Calcium (8.7-10.3) mg/dL Procalcitonin (0.02-0.09) ng/mL 11/12/21 11/12/21 Range/Units 08:02 11:48 WBC (3.8-10.6) k/uL RBC (4.30-5.90) m/uL Hgb (13.0-17.5) gm/dL Hct (39.0-53.0) % Plt Count (150-450) k/uL Neutrophils # (Manual) (1.3-7.7) k/uL Metamyelocytes # (Man) (0) k/uL Myelocytes # (Manual) (0) k/uL Nucleated RBCs (0-0) /100 WBC Potassium 3.4 L (3.5-5.5) mmol/L Carbon Dioxide 33.7 H (20.0-27.5) mmol/L Anion Gap 7.30 L (10.00-18.00) mmol/L BUN/Creatinine Ratio 21.67 H (12.00-20.00) Ratio Glucose 141 H (70-110) mg/dL POC Glucose (mg/dL) 256 H (75-99) mg/dL Calcium 8.2 L (8.7-10.3) mg/dL Procalcitonin (0.02-0.09) ng/mL Microbiology - Last 24 Hours (Table) 11/05/21 16:43 Blood Culture - Final Blood No Growth after 144 hours Comments: MRI of the lumbar spine= 1 in 2018 showed the patient had multilevel lumbar degenerative disc disease and that his lumbar herniated disc at L4 5 and there is foraminal stenosis, lumbar facet arthropathy Assessment and Plan Plan: Assessment and plan=1-lung cancer with metastases to the bone, pubic symphysis, and ribs. 2-pain secondary to malignancy. 3-neuropathic pain chemotherapy . 4-lumbar herniated disc disease and currently on [place] 10/325 every 6 hours, Dilaudid 1 mg IV every 3 hours when necessary, Ultram 100 mg 3 times a day, Neurontin 400 mg every 6 hours and currently on Eliquis secondary to A. fib. recommend continue current treatment ,Neurontin just increased to 400 mg every 6 hours ,( increased from 300 mg every 6 hours. patient can follow-up in the pain clinic as an outpatient once discharged home and once the A. fib under control Time with Patient: Greater than 30 PQRS Measure Charge Sheet - Pain Location Generalized Non-Pharmacological Interventions: Darkened Room Pharmacological Interventions: PRN Medication Back Non-Pharmacological Interventions: Darkened Room, Environmental Control, Position/Reposition, Reduce Environmental Stimuli Pharmacological Interventions: PRN Medication PQRS Narrative: Smoking Status Current every day smoker Do You Want the Pneumonia Vaccine Up to Date Vaccine AT THIS TIME? Blood Pressure [Left Arm] 131/63 Blood Pressure [Right Arm] 137/77 Blood Pressure 144/84 Pain Intensity [Back] 4 Pain Intensity [Generalized] 8 Pain Intensity 6 Pain Scale Used Numeric (1 - 10) Scale Used Numeric (1 - 10) Home Medications: Ambulatory Orders PARoxetine [Paxil] 20 mg PO DAILY 11/26/18 traMADol HCL [Ultram] 100 mg PO TID PRN 11/26/18 Gabapentin 300 mg PO Q6H 09/10/21 Tamsulosin HCl [Flomax] 0.4 mg PO HS 10/12/21 Empagliflozin [Jardiance] 25 mg PO DAILY 11/04/21 Furosemide [Lasix] 80 mg PO DAILY 11/04/21 Losartan Potassium 100 mg PO HS 11/04/21 Metoprolol Tartrate [Lopressor] 25 mg PO BID 11/04/21 Potassium Chloride ER [K-Dur 20] 40 meq PO BID 11/04/21 amLODIPine [Norvasc] 10 mg PO HS 11/04/21 fentaNYL 50MCG/HR PATCH [Duragesic 50MCG/HR] 50 mcg TRANSDERM Q72H 11/04/21 Apixaban [Eliquis] 5 mg PO BID 30 Days #60 tab 11/05/21 Amiodarone [Cordarone] 200 mg PO BID #120 tab 11/08/21
--- NOTE | 2021-11-12 15:30 | P.PN ---
Subjective Progress Note Date: 11/12/21 This is a 55 year old male who presents with atrial fibrillation with RVR, and altered mental status. Patient was recently diagnosed with lung cancer not currently undergoing treatment. Bone scan today showing uptake involving the left rib is compatible with destructive lesions and also calvarium uptake highly suggestive of metastasis. There is also nonspecific uptake involving pubic symphysis and metastasis should also be in the differential. Currently rating pain a 4/10. Patient is on 13L high flow cannula with saturation of 92%, afebrile, heart rate controlled 92, blood pressure 124/75. Not currently wearing oxygen as outpatient. He has been transitioned to oral amiodarone and oral eliquis. He continues on IV zosyn, and has been transitioned to oral lasix. Potassium today 2.7 and patient has received additional replacement as well as 40 meq bid, pts expressed concern with ongoing low potassium prior to admission as well. Repeat potassium this afternoon. Oncology and pulmonary following along, cardiology has signed off as needed basis. 11/09/2021 Patient evaluated today resting in bed, family at the bedside. Continues on 13L HF cannula, denies shortness of breath at rest, tolerating diet. Patient was taking lasix and hydrochlorothiazide outpatient which were new medications in September of this year. He remains off hctz and has been started on IV lasix today. Potassium 3.2, magnesium 1.7 which were supplemented. White count 11.6, hgb 9.7, platelet count 101. Procalcitonin level remains elevated at 3.69. Continues on eliquis and amiodarone taper. He continues on IV zosyn, bronchodilators. Blood glucose has improved with addition of levemir and increase in novolog. Continue with current treatment plan. Patient and family updated on bone scan results, all questions were answered. 11/10/2021 Today patient is reporting pain to the left side of his head states there is a soft spot he can feel, additionally the pain he reports from the left rib region has been the most prevalent. He is also experiencing peripheral neuropathy which he is receiving gabapentin for. He states the pain medication is helping when he is receiving it but the dilaudid wears off fast, he is also using norco and tramadol alternating. Family at the bedside states that his pain is not controlled. Adjustments were made today. Family is waiting to meet with oncology. Patient needs outpatient MRI as his sleep apnea device is not compatible with MRI at this hospital. It was discussed with family that with his respiratory status and disease progression he most likely won't become stable enough for discharge. Family and patient would like to meet with pulmonary as well. Oxygen dropped to 89% on 13L High flow cannula this morning. Potassium today 3.1, was supplemented. Magnesium today improved to 2.0. White count 12.1, hgb 10.6. Procalcitonin yesterday 2.62. Repeat chest xray today showing b ilateral areas of multifocal infiltrate correlate for pneumonia. Findings are stable, with underlying neoplasm redemonstrated. Continues on IV Zosyn, IV lasix 40 mg Q 12, he is negative 4.5 L in the last 24 hours. Per family at the bedside this morning they are waiting for patients to arrive and will be meeting with oncology. 11/11/2021 Per patient his pain seems controlled at the time of my examination. Per family he had alot of pain this morning and states that patient is not sleeping well, then states he got dilaudid 4 hours ago and seems groggy. Offered a mild sleeping aide, which was refused by family as they do not want him to sleep through the night and then wake up in excruciating pain. Patient does not say much during this conversation although all questions are directed at patient. Plan today is for transfer to oncology unit when bed available and patient is offered palliative chemotherapy with carboplatin. Reinforced that the goal is not curative, but to possibly stabilize patient enough to be able to discharge home with family. He continues on 10L high flow cannula with oxygenation 92-95%, he is afebrile, heart rate 78, blood pressure 137/77. Labs today showing white count 12.8, hgb 10.2, sodium 140, potassium 3.1. He did receive a dose of IV decadron today. IV lasix has been decreased to daily. He continues on duonebs, pulmicort, perforomist. He is also continued on IV zosyn. He is also on potassium 60 meq BID. He remains in negative fluid balance. Pain management with tramadol 100 mg TID, norco 10 q4, dilaudid 0.4 mg Q3. He is also on gabapentin for neuropathy. 11/12/2021 Patient is sitting up in the chair today, he is in good spirits. Tolerated vicente motherapy well yest. Maintaining on 10 L High flow cannula, saturation 94%. Incentive spirometer has been ordered, he dose have improved aeration today. Follow up chest xray showing bilateral multifocal infiltrate correlate for pneumonia stable with underlying neoplasm. There is suspected metastasis to 6 and 7th rib. There are prominent bowel loops upper abdomen. He states he is moving bowels, and continues on colace BID with miralax as needed. Also has been started on oral pepcid BID. Discussed this with patient. He did state he slept well last night, there is melatonin as needed. Per family they feel patients pain is still not being managed although he reports pain is more controlled when in room. Pain management has been consulted. Continues on IV lasix daily he is in negative fluid balance. With mild peripheral edema. Labs reviewed today showing white count 13.4, hgb 9.9, sodium 143, potassium 3.4, mag 1.8. Review of Systems Constitutional: Reports fatigue, denied any fever. Cardio vascular: denied any chest pain, palpitations Gastrointestinal: denied any nausea, vomiting, diarrhea Pulmonary: Stable breathing, he is short of breath with ambulation, reports intermittent productive cough Neurologic denied any new focal deficits All inpatient medications were reviewed and appropriate changes in these medications as dictated in the interval history and assessment and plan. PHYSICAL EXAMINATION: GENERAL: The patient is alert and oriented x3. Well developed, well nourished. HEENT: Pupils are round and equally reacting to light. EOMI. No scleral icterus. No conjunctival pallor. Normocephalic, atraumatic. No pharyngeal erythema. No thyromegaly. CARDIOVASCULAR: S1 and S2 present. No murmurs, rubs, or gallops. PULMONARY: No crackles, no wheezing noted. He has diminished lung sounds. ABDOMEN: Soft, nontender, nondistended, normoactive bowel sounds. No palpable organomegaly. MUSCULOSKELETAL: No joint swelling or deformity. EXTREMITIES: No cyanosis, clubbing, or pedal edema. Mild lower extremity peripheral edema. NEUROLOGICAL: Gross neurological examination did not reveal any focal deficits. SKIN: No rashes. Assessment and Plan Assessment Acute hypoxic respiratory failure which is multifactorial, component of bilateral pneumonia as well as lung cancer which has progressed. Continues on 10 L high flow cannula. He is also receiving empiric antibiotic coverage. 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 Continue on high flow oxygen support Continue on IV zosyn, bronchodilators Continue on IV lasix daily Indwelling catheter Amiodarone taper per cardiology Electrolyte replacement Pain management consultation Follow up labs in AM Cardiology has signed off Pulmonary and oncology following Patients prognosis is poor given his current multiple medical conditions and progression of cancer The impression and plan of care has been dictated by Angi Castaneda Nurse Practitioner as directed. Dr. Dick MD I have performed a history and physical examination and medical decision making of this patient, discussed the same with the dictator, and agree with the dictators assessment and plan as written, documented as a scribe. Based on total visit time, I have performed more than 50% of this visit. Objective - Vital Signs Vital signs: Vital Signs Temp 98.2 F 11/12/21 04:45 Pulse 82 11/12/21 08:05 Resp 16 11/12/21 04:45 BP 131/63 11/12/21 04:45 Pulse Ox 97 11/12/21 04:45 FiO2 100 11/06/21 07:54 Intake & Output 11/11/21 11/12/21 11/12/21 18:59 06:59 18:59 Intake Total 120 360 Output Total 3550 1500 Balance -3430 -1140 Intake: Oral 120 360 Output: Urine 3550 1500 Uretheral (Palacios) 650 1500 Other: Voiding Method Indwelling Catheter Indwelling Catheter - Labs CBC & Chem 7: 11/12/21 08:02 11/12/21 08:02 Labs: Abnormal Lab Results - Last 24 Hours (Table) 11/11/21 11/11/21 11/11/21 Range/Units 10:51 10:51 10:51 WBC 12.7 H (3.8-10.6) k/uL RBC 3.19 L (4.30-5.90) m/uL Hgb 10.2 L (13.0-17.5) gm/dL Hct 30.0 L (39.0-53.0) % Plt Count 109 L (150-450) k/uL Neutrophils # (Manual) 10.70 H (1.3-7.7) k/uL Metamyelocytes # (Man) 0.25 H (0) k/uL Myelocytes # (Manual) 0.38 H (0) k/uL Nucleated RBCs 1 H (0-0) /100 WBC Potassium 3.1 L (3.5-5.1) mmol/L Carbon Dioxide 37 H (22-30) mmol/L Creatinine 0.58 L (0.66-1.25) mg/dL Glucose 255 H (74-99) mg/dL POC Glucose (mg/dL) (75-99) mg/dL Calcium 7.7 L (8.4-10.2) mg/dL Procalcitonin 1.87 H (0.02-0.09) ng/mL 11/11/21 11/11/21 11/11/21 Range/Units 12:06 17:38 20:25 WBC (3.8-10.6) k/uL RBC (4.30-5.90) m/uL Hgb (13.0-17.5) gm/dL Hct (39.0-53.0) % Plt Count (150-450) k/uL Neutrophils # (Manual) (1.3-7.7) k/uL Metamyelocytes # (Man) (0) k/uL Myelocytes # (Manual) (0) k/uL Nucleated RBCs (0-0) /100 WBC Potassium (3.5-5.1) mmol/L Carbon Dioxide (22-30) mmol/L Creatinine (0.66-1.25) mg/dL Glucose (74-99) mg/dL POC Glucose (mg/dL) 341 H 283 H 335 H (75-99) mg/dL Calcium (8.4-10.2) mg/dL Procalcitonin (0.02-0.09) ng/mL 11/12/21 11/12/21 Range/Units 07:13 08:02 WBC 13.4 H (3.8-10.6) k/uL RBC 3.19 L (4.30-5.90) m/uL Hgb 9.9 L (13.0-17.5) gm/dL Hct 29.8 L (39.0-53.0) % Plt Count 109 L (150-450) k/uL Neutrophils # (Manual) (1.3-7.7) k/uL Metamyelocytes # (Man) (0) k/uL Myelocytes # (Manual) (0) k/uL Nucleated RBCs (0-0) /100 WBC Potassium (3.5-5.1) mmol/L Carbon Dioxide (22-30) mmol/L Creatinine (0.66-1.25) mg/dL Glucose (74-99) mg/dL POC Glucose (mg/dL) 147 H (75-99) mg/dL Calcium (8.4-10.2) mg/dL Procalcitonin (0.02-0.09) ng/mL Microbiology - Last 24 Hours (Table) 11/05/21 16:43 Blood Culture - Final Blood No Growth after 144 hours Assessment and Plan Time with Patient: Less than 30
[2021-11-12 15:49] LABS: Prothrombin Time 10.8 sec (9.0-12.0)
[2021-11-12 15:55] LABS: Total Bilirubin 0.4 mg/dL (0.2-1.3)
[2021-11-12] MEDS: MAGNESIUM SULFATE-D5W PMX 1 GM in DEXTROSE/WATER 1 100ML.BAG IVPB SCH ×2 (16:13→17:24)
[2021-11-12 17:52] LABS: Glucose,Whole Blood 296 mg/dL (75-99)
--- NOTE | 2021-11-12 19:13 | P.PN ---
Subjective Progress Note Date: 11/12/21 Principal diagnosis: Poorly differentiated carcinoma, unknown primary More alert and awake today Objective - Vital Signs Vital signs: Vital Signs Temp 98.2 F 11/12/21 04:45 Pulse 78 11/12/21 11:27 Resp 16 11/12/21 11:02 BP 131/63 11/12/21 04:45 Pulse Ox 97 11/12/21 04:45 FiO2 100 11/06/21 07:54 Intake & Output 11/11/21 11/12/21 11/12/21 18:59 06:59 18:59 Intake Total 120 360 Output Total 3550 1500 Balance -3430 -1140 Intake: Oral 120 360 Output: Urine 3550 1500 Uretheral (Palacios) 650 1500 Other: Voiding Method Indwelling Catheter Indwelling Catheter Indwelling Catheter - Exam - Constitutional General appearance: Present: average body habitus, cooperative, no acute distress - EENT Eyes: Present: anicteric sclerae, EOMI ENT: Present: hearing grossly normal - Respiratory Respiratory: bilateral: diminished, other (shallow resp) - Musculoskeletal Musculoskeletal: Present: generalized weakness - Psychiatric Psychiatric: Present: A&O x's 3 - Labs CBC & Chem 7: 11/12/21 08:02 11/12/21 08:02 Labs: Abnormal Lab Results - Last 24 Hours (Table) 11/11/21 11/11/21 11/11/21 Range/Units 10:51 10:51 10:51 WBC 12.7 H (3.8-10.6) k/uL RBC 3.19 L (4.30-5.90) m/uL Hgb 10.2 L (13.0-17.5) gm/dL Hct 30.0 L (39.0-53.0) % Plt Count 109 L (150-450) k/uL Neutrophils # (Manual) 10.70 H (1.3-7.7) k/uL Metamyelocytes # (Man) 0.25 H (0) k/uL Myelocytes # (Manual) 0.38 H (0) k/uL Nucleated RBCs 1 H (0-0) /100 WBC Potassium 3.1 L (3.5-5.1) mmol/L Carbon Dioxide 37 H (22-30) mmol/L Anion Gap (10.00-18.00) mmol/L Creatinine 0.58 L (0.66-1.25) mg/dL BUN/Creatinine Ratio (12.00-20.00) Ratio Glucose 255 H (74-99) mg/dL POC Glucose (mg/dL) (75-99) mg/dL Calcium 7.7 L (8.4-10.2) mg/dL Procalcitonin 1.87 H (0.02-0.09) ng/mL 11/11/21 11/11/21 11/11/21 Range/Units 12:06 17:38 20:25 WBC (3.8-10.6) k/uL RBC (4.30-5.90) m/uL Hgb (13.0-17.5) gm/dL Hct (39.0-53.0) % Plt Count (150-450) k/uL Neutrophils # (Manual) (1.3-7.7) k/uL Metamyelocytes # (Man) (0) k/uL Myelocytes # (Manual) (0) k/uL Nucleated RBCs (0-0) /100 WBC Potassium (3.5-5.1) mmol/L Carbon Dioxide (22-30) mmol/L Anion Gap (10.00-18.00) mmol/L Creatinine (0.66-1.25) mg/dL BUN/Creatinine Ratio (12.00-20.00) Ratio Glucose (74-99) mg/dL POC Glucose (mg/dL) 341 H 283 H 335 H (75-99) mg/dL Calcium (8.4-10.2) mg/dL Procalcitonin (0.02-0.09) ng/mL 11/12/21 11/12/21 11/12/21 Range/Units 07:13 08:02 08:02 WBC 13.4 H (3.8-10.6) k/uL RBC 3.19 L (4.30-5.90) m/uL Hgb 9.9 L (13.0-17.5) gm/dL Hct 29.8 L (39.0-53.0) % Plt Count 109 L (150-450) k/uL Neutrophils # (Manual) (1.3-7.7) k/uL Metamyelocytes # (Man) (0) k/uL Myelocytes # (Manual) (0) k/uL Nucleated RBCs (0-0) /100 WBC Potassium 3.4 L (3.5-5.1) mmol/L Carbon Dioxide 33.7 H (22-30) mmol/L Anion Gap 7.30 L (10.00-18.00) mmol/L Creatinine (0.66-1.25) mg/dL BUN/Creatinine Ratio 21.67 H (12.00-20.00) Ratio Glucose 141 H (74-99) mg/dL POC Glucose (mg/dL) 147 H (75-99) mg/dL Calcium 8.2 L (8.4-10.2) mg/dL Procalcitonin (0.02-0.09) ng/mL Microbiology - Last 24 Hours (Table) 11/05/21 16:43 Blood Culture - Final Blood No Growth after 144 hours Assessment and Plan (1) Adenocarcinoma, lung Current Visit: Yes Status: Acute Code(s): C34.90 - MALIGNANT NEOPLASM OF UNSP PART OF UNSP BRONCHUS OR LUNG SNOMED Code(s): 930638680 (2) Acute hypoxemic respiratory failure Narrative/Plan: Pulmonology following Current Visit: Yes Status: Acute Code(s): J96.01 - ACUTE RESPIRATORY FAILURE WITH HYPOXIA SNOMED Code(s): 614662516 (3) Hyperthyroidism Current Visit: Yes Status: Acute Code(s): E05.90 - THYROTOXICOSIS, UNSP WITHOUT THYROTOXIC CRISIS OR STORM SNOMED Code(s): 63485848 (4) Altered mental status Narrative/Plan: Improved today Possible component metabolic syndrome with marked elevation in glucose, marked h ypokalemia, increased thyroid function - h Current Visit: Yes Status: Acute Code(s): R41.82 - ALTERED MENTAL STATUS, UNSPECIFIED SNOMED Code(s): 793744171 (5) Atrial fibrillation with rapid ventricular response Current Visit: Yes Status: Acute Code(s): I48.91 - UNSPECIFIED ATRIAL FIBRILLATION SNOMED Code(s): 884684144267737 (6) Hypokalemia Current Visit: Yes Status: Acute Code(s): E87.6 - HYPOKALEMIA SNOMED Code(s): 53772027 (7) Leukocytosis Narrative/Plan: Full loving cultures needed primary team has ordered await results Current Visit: No Status: Acute Code(s): D72.829 - ELEVATED WHITE BLOOD CELL COUNT, UNSPECIFIED SNOMED Code(s): 276876330 (8) Pedal edema Narrative/Plan: Doppler LE Current Visit: No Status: Acute Code(s): R60.0 - LOCALIZED EDEMA SNOMED Code(s): 440480451 Plan: PET scsan with FDG avity to bone, and only lung mass, ? acute situation as infectious versus actual progression. CT without contrast of HEad neg, will need with contrast Imaging regarding possible Thrombus IVC and Osseous mets not clear CT Bone scan ordered and Ultrasound with doppler abdomen Await resolution of acute issues then can determine ongoing treatment plan and confirmation of primary location Guardian 360 without approved actionable mutations for anticipated lung ca - SOmatic BRCA2 and PIK mutations Plan for stabilization and further diagnostics and treatment plan can be deteremined Dr. Greer: I have completed the full history and physical and developed the complete impression and plan, agree with dictation dictated as a ascribe
[2021-11-12 20:20] LABS: Glucose,Whole Blood 377 mg/dL (75-99)
[2021-11-12] MEDS: amLODIPine 10 MG TAB PO SCH (20:27)
[2021-11-12] MEDS: INSULIN DETEMIR (LEVEMIR) 100 UNIT/ML SYR SQ SCH (20:28)
[2021-11-12] MEDS: LOSARTAN 50 MG TAB PO SCH (20:28)
[2021-11-12] MEDS: TAMSULOSIN 0.4 MG CAP.ER.24H PO SCH (20:29)
--- NOTE | 2021-11-12 22:19 | P.PN ---
Subjective Progress Note Date: 11/10/21 Principal diagnosis: Pneumonia Patient is a 55-year-old male with a recent diagnosis of poorly differentiated carcinoma with metastasis presented to hospital with increasing shortness of breath and lower extremity swelling chest x-ray with multifocal areas of consolidation concerning for possible pneumonia. On today's evaluation that is 11/10/2021, the patient remains to be afebrile, the patient is breathing more comfortably and requiring less supplemental oxygen, the patient denies having any chest pain , the patient did have a cough but not bringing up any sputum. Patient denies abdominal and no diarrhea has been reported Objective - Vital Signs Vital signs: Vital Signs Temp 97.4 F L 11/10/21 08:00 Pulse 105 H 11/10/21 08:18 Resp 18 11/10/21 08:00 BP 129/76 11/10/21 08:00 Pulse Ox 89 L 11/10/21 08:00 FiO2 100 11/06/21 07:54 Intake & Output 11/09/21 11/10/21 11/10/21 18:59 06:59 18:59 Intake Total 660 Output Total 4550 850 Balance -4550 -190 Weight 97.5 kg Intake: Oral 660 Output: Urine 4550 850 Other: Voiding Method Indwelling Catheter Indwelling Catheter Indwelling Catheter - Exam GENERAL DESCRIPTION: A middle-age male lying in bed in no distress RESPIRATORY SYSTEM: Unlabored breathing , decreased breath sounds at bases HEART: S1 S2 regular rate and rhythm , ABDOMEN: Soft , no tenderness EXTREMITIES: One plus edema feet - Labs CBC & Chem 7: 11/12/21 08:02 11/12/21 08:02 Labs: Abnormal Lab Results - Last 24 Hours (Table) 11/09/21 11/09/21 11/09/21 Range/Units 07:30 16:56 20:23 WBC (3.8-10.6) k/uL RBC (4.30-5.90) m/uL Hgb (13.0-17.5) gm/dL Hct (39.0-53.0) % Plt Count (150-450) k/uL Neutrophils # (Manual) (1.3-7.7) k/uL Metamyelocytes # (Man) (0) k/uL Myelocytes # (Manual) (0) k/uL Nucleated RBCs (0-0) /100 WBC Potassium (3.5-5.1) mmol/L Carbon Dioxide (22-30) mmol/L Glucose (74-99) mg/dL POC Glucose (mg/dL) 321 H 378 H (75-99) mg/dL Calcium (8.4-10.2) mg/dL Total Protein (6.3-8.2) g/dL Albumin (3.5-5.0) g/dL Procalcitonin 2.62 H (0.02-0.09) ng/mL 11/10/21 11/10/21 11/10/21 Range/Units 02:04 05:57 08:33 WBC 12.1 H (3.8-10.6) k/uL RBC 3.37 L (4.30-5.90) m/uL Hgb 10.6 L (13.0-17.5) gm/dL Hct 31.6 L (39.0-53.0) % Plt Count 114 L (150-450) k/uL Neutrophils # (Manual) 10.00 H (1.3-7.7) k/uL Metamyelocytes # (Man) 0.12 H (0) k/uL Myelocytes # (Manual) 0.48 H (0) k/uL Nucleated RBCs 1 H (0-0) /100 WBC Potassium (3.5-5.1) mmol/L Carbon Dioxide (22-30) mmol/L Glucose (74-99) mg/dL POC Glucose (mg/dL) 135 H 71 L (75-99) mg/dL Calcium (8.4-10.2) mg/dL Total Protein (6.3-8.2) g/dL Albumin (3.5-5.0) g/dL Procalcitonin (0.02-0.09) ng/mL 11/10/21 11/10/21 Range/Units 08:33 11:35 WBC (3.8-10.6) k/uL RBC (4.30-5.90) m/uL Hgb (13.0-17.5) gm/dL Hct (39.0-53.0) % Plt Count (150-450) k/uL Neutrophils # (Manual) (1.3-7.7) k/uL Metamyelocytes # (Man) (0) k/uL Myelocytes # (Manual) (0) k/uL Nucleated RBCs (0-0) /100 WBC Potassium 3.1 L (3.5-5.1) mmol/L Carbon Dioxide 35 H (22-30) mmol/L Glucose 195 H (74-99) mg/dL POC Glucose (mg/dL) 312 H (75-99) mg/dL Calcium 7.9 L (8.4-10.2) mg/dL Total Protein 5.1 L (6.3-8.2) g/dL Albumin 2.8 L (3.5-5.0) g/dL Procalcitonin (0.02-0.09) ng/mL Microbiology - Last 24 Hours (Table) 11/05/21 16:43 Blood Culture - Preliminary Blood No Growth after 96 hours Assessment and Plan (1) Pneumonia Current Visit: Yes Status: Acute Code(s): J18.9 - PNEUMONIA, UNSPECIFIED ORGANISM SNOMED Code(s): 570211069 (2) Thrush Current Visit: Yes Status: Acute Code(s): B37.0 - CANDIDAL STOMATITIS SNOMED Code(s): 59906929 Plan: 1patient presented to hospital with increasing shortness of breath and weakness in this patient did have a bilateral lower extremity swelling recent diagnosis of metastatic poorly differentiated carcinoma however has not yet been started on chemotherapy, patient did not have any fever or significant evaded white count underlying pneumonia not entirely excluded, patient did have elevated CRP and procalcitonin level suggestive of pneumonia. 2patient blood culture has been negative and was unable to provide any sputum 3patient has shown some clinical improvement on Zosyn which will be continued while inpatient Time with Patient: Less than 30
--- NOTE | 2021-11-12 22:21 | P.PN ---
Subjective Progress Note Date: 11/11/21 Principal diagnosis: Pneumonia Patient is a 55-year-old male with a recent diagnosis of poorly differentiated carcinoma with metastasis presented to hospital with increasing shortness of breath and lower extremity swelling chest x-ray with multifocal areas of consolidation concerning for possible pneumonia. On today's evaluation that is 11/11/2021, the patient continues to be afebrile, the patient is breathing comfortably on a nasal cannula oxygen, the patient jeff es having any chest pain , the patient did have a cough but not bringing up any sputum. Patient denies abdominal and no diarrhea has been reported Objective - Vital Signs Vital signs: Vital Signs Temp 97.4 F L 11/11/21 08:18 Pulse 84 11/11/21 12:07 Resp 18 11/11/21 12:00 BP 135/77 11/11/21 12:00 Pulse Ox 92 L 11/11/21 12:00 FiO2 100 11/06/21 07:54 Intake & Output 11/10/21 11/11/21 11/11/21 18:59 06:59 18:59 Intake Total 780 370 120 Output Total 3750 3775 1950 Balance -2970 -5895 -1830 Weight 96.4 kg Intake: IV 20 Invasive Line 3 10 Invasive Line 4 10 Oral 780 120 Tube Feeding 350 Output: Urine 3750 3775 1950 Uretheral (Palacios) 650 Other: Voiding Method Indwelling Catheter Indwelling Catheter Indwelling Catheter - Exam GENERAL DESCRIPTION: A middle-age male lying in bed in no distress RESPIRATORY SYSTEM: Unlabored breathing , decreased breath sounds at bases, no wheeze HEART: S1 S2 regular rate and rhythm , ABDOMEN: Soft , no tenderness EXTREMITIES: Trace edema feet - Labs CBC & Chem 7: 11/12/21 08:02 11/12/21 08:02 Labs: Abnormal Lab Results - Last 24 Hours (Table) 11/10/21 11/10/21 11/10/21 Range/Units 08:33 16:33 16:43 WBC 12.1 H (3.8-10.6) k/uL Neutrophils # (Manual) 10.00 H (1.3-7.7) k/uL Metamyelocytes # (Man) 0.12 H (0) k/uL Myelocytes # (Manual) 0.48 H (0) k/uL Nucleated RBCs 1 H (0-0) /100 WBC Potassium 3.2 L (3.5-5.1) mmol/L Carbon Dioxide (22-30) mmol/L Creatinine (0.66-1.25) mg/dL Glucose (74-99) mg/dL POC Glucose (mg/dL) 273 H (75-99) mg/dL Calcium (8.4-10.2) mg/dL 11/10/21 11/11/21 11/11/21 Range/Units 20:12 07:10 10:51 WBC (3.8-10.6) k/uL Neutrophils # (Manual) (1.3-7.7) k/uL Metamyelocytes # (Man) (0) k/uL Myelocytes # (Manual) (0) k/uL Nucleated RBCs (0-0) /100 WBC Potassium 3.1 L (3.5-5.1) mmol/L Carbon Dioxide 37 H (22-30) mmol/L Creatinine 0.58 L (0.66-1.25) mg/dL Glucose 255 H (74-99) mg/dL POC Glucose (mg/dL) 339 H 168 H (75-99) mg/dL Calcium 7.7 L (8.4-10.2) mg/dL 11/11/21 Range/Units 12:06 WBC (3.8-10.6) k/uL Neutrophils # (Manual) (1.3-7.7) k/uL Metamyelocytes # (Man) (0) k/uL Myelocytes # (Manual) (0) k/uL Nucleated RBCs (0-0) /100 WBC Potassium (3.5-5.1) mmol/L Carbon Dioxide (22-30) mmol/L Creatinine (0.66-1.25) mg/dL Glucose (74-99) mg/dL POC Glucose (mg/dL) 341 H (75-99) mg/dL Calcium (8.4-10.2) mg/dL Microbiology - Last 24 Hours (Table) 11/05/21 16:43 Blood Culture - Preliminary Blood No Growth after 120 hours Assessment and Plan (1) Pneumonia Current Visit: Yes Status: Acute Code(s): J18.9 - PNEUMONIA, UNSPECIFIED ORGANISM SNOMED Code(s): 918502433 (2) Thrush Current Visit: Yes Status: Acute Code(s): B37.0 - CANDIDAL STOMATITIS SNOMED Code(s): 35057688 Plan: 1patient presented to hospital with increasing shortness of breath and weakness in this patient did have a bilateral lower extremity swelling recent diagnosis of metastatic poorly differentiated carcinoma , patient did not have any fever or significant elevated white count underlying pneumonia not entirely excluded, patient did have elevated CRP and procalcitonin level suggestive of pneumonia. 2patient blood culture has been negative and was unable to provide any sputum 3patient is slowly clinical improvement and will continue with the Zosyn Time with Patient: Less than 30
--- NOTE | 2021-11-12 22:23 | P.PN ---
Subjective Progress Note Date: 11/12/21 Principal diagnosis: Pneumonia Patient is a 55-year-old male with a recent diagnosis of poorly differentiated carcinoma with metastasis presented to hospital with increasing shortness of breath and lower extremity swelling chest x-ray with multifocal areas of consolidation concerning for possible pneumonia. On today's evaluation that is 11/12/2021, the patient denies any fever or chills, the patient is breathing comfortably on a nasal cannula oxygen, the patient denies having any chest pain , the patient denies any worsening cough and not bringing up any sputum. Patient denies abdominal and no diarrhea Objective - Vital Signs Vital signs: Vital Signs Temp 98.2 F 11/12/21 04:45 Pulse 80 11/12/21 11:37 Resp 16 11/12/21 11:02 BP 131/63 11/12/21 04:45 Pulse Ox 97 11/12/21 04:45 FiO2 100 11/06/21 07:54 Intake & Output 11/11/21 11/12/21 11/12/21 18:59 06:59 18:59 Intake Total 120 360 Output Total 3550 1500 Balance -3430 -1140 Intake: Oral 120 360 Output: Urine 3550 1500 Uretheral ([place]acios) 650 1500 Other: Voiding Method Indwelling Catheter Indwelling Catheter Indwelling Catheter - Exam GENERAL DESCRIPTION: A middle-age male lying in bed in no distress RESPIRATORY SYSTEM: Unlabored breathing , decreased breath sounds at bases, no wheeze HEART: S1 S2 regular rate and rhythm , ABDOMEN: Soft , no tenderness EXTREMITIES: Trace edema feet - Labs CBC & Chem 7: 11/12/21 08:02 11/12/21 08:02 Labs: Abnormal Lab Results - Last 24 Hours (Table) 11/11/21 11/11/21 11/11/21 Range/Units 10:51 10:51 17:38 WBC 12.7 H (3.8-10.6) k/uL RBC 3.19 L (4.30-5.90) m/uL Hgb 10.2 L (13.0-17.5) gm/dL Hct 30.0 L (39.0-53.0) % Plt Count 109 L (150-450) k/uL Neutrophils # (Manual) 10.70 H (1.3-7.7) k/uL Metamyelocytes # (Man) 0.25 H (0) k/uL Myelocytes # (Manual) 0.38 H (0) k/uL Nucleated RBCs 1 H (0-0) /100 WBC Potassium (3.5-5.5) mmol/L Carbon Dioxide (20.0-27.5) mmol/L Anion Gap (10.00-18.00) mmol/L BUN/Creatinine Ratio (12.00-20.00) Ratio Glucose (70-110) mg/dL POC Glucose (mg/dL) 283 H (75-99) mg/dL Calcium (8.7-10.3) mg/dL Procalcitonin 1.87 H (0.02-0.09) ng/mL 11/11/21 11/12/21 11/12/21 Range/Units 20:25 07:13 08:02 WBC 13.4 H (3.8-10.6) k/uL RBC 3.19 L (4.30-5.90) m/uL Hgb 9.9 L (13.0-17.5) gm/dL Hct 29.8 L (39.0-53.0) % Plt Count 109 L (150-450) k/uL Neutrophils # (Manual) 11.30 H (1.3-7.7) k/uL Metamyelocytes # (Man) 0.13 H (0) k/uL Myelocytes # (Manual) 0.27 H (0) k/uL Nucleated RBCs (0-0) /100 WBC Potassium (3.5-5.5) mmol/L Carbon Dioxide (20.0-27.5) mmol/L Anion Gap (10.00-18.00) mmol/L BUN/Creatinine Ratio (12.00-20.00) Ratio Glucose (70-110) mg/dL POC Glucose (mg/dL) 335 H 147 H (75-99) mg/dL Calcium (8.7-10.3) mg/dL Procalcitonin (0.02-0.09) ng/mL 11/12/21 11/12/21 Range/Units 08:02 11:48 WBC (3.8-10.6) k/uL RBC (4.30-5.90) m/uL Hgb (13.0-17.5) gm/dL Hct (39.0-53.0) % Plt Count (150-450) k/uL Neutrophils # (Manual) (1.3-7.7) k/uL Metamyelocytes # (Man) (0) k/uL Myelocytes # (Manual) (0) k/uL Nucleated RBCs (0-0) /100 WBC Potassium 3.4 L (3.5-5.5) mmol/L Carbon Dioxide 33.7 H (20.0-27.5) mmol/L Anion Gap 7.30 L (10.00-18.00) mmol/L BUN/Creatinine Ratio 21.67 H (12.00-20.00) Ratio Glucose 141 H (70-110) mg/dL POC Glucose (mg/dL) 256 H (75-99) mg/dL Calcium 8.2 L (8.7-10.3) mg/dL Procalcitonin (0.02-0.09) ng/mL Microbiology - Last 24 Hours (Table) 11/05/21 16:43 Blood Culture - Final Blood No Growth after 144 hours Assessment and Plan (1) Pneumonia Current Visit: Yes Status: Acute Code(s): J18.9 - PNEUMONIA, UNSPECIFIED ORGANISM SNOMED Code(s): 885384477 (2) Thrush Current Visit: Yes Status: Acute Code(s): B37.0 - CANDIDAL STOMATITIS SNOMED Code(s): 60586668 Plan: 1patient presented to hospital with increasing shortness of breath and weakness in this patient did have a bilateral lower extremity swelling recent diagnosis of metastatic poorly differentiated carcinoma , possibly combination of fluid overload plus minus a component of pneumonia, patient did have elevated CRP and procalcitonin level suggestive of pneumonia. 2patient blood culture has been negative and was unable to provide any sputum 3patient is currently being treated with the Zosyn and consideration for starting his chemo we will recheck his inflammatory markers and procalcitonin.. Time with Patient: Less than 30
[2021-11-12] MEDS: traMADol 50 MG TAB PO PRN (23:21)
[2021-11-13] MEDS: HYDROmorphone 1 MG/ML 1 ML SYRINGE IVP PRN ×5 (00:41→17:45)
[2021-11-13] MEDS: HYDROcodone/APAP 10-325MG 1 EACH TAB PO PRN ×4 (02:47→22:54)
[2021-11-13] MEDS: GABAPENTIN 400 MG CAP PO SCH ×3 (05:47→17:12)
[2021-11-13 07:21] LABS: Glucose,Whole Blood 152 mg/dL (75-99)
[2021-11-13] MEDS: NON FORMULARY DRUG (Empagliflozin [Jardiance] 25 MG Tablet) PO SCH (07:44)
[2021-11-13] MEDS: MAGNESIUM OXIDE 400 MG TAB PO SCH ×2 (08:00→20:27)
[2021-11-13] MEDS: CHOLECALCIFEROL 125 MCG (5000 IU) TABLET PO SCH (08:00)
[2021-11-13] MEDS: DOCUSATE 100 MG CAP PO SCH ×2 (08:00→20:28)
[2021-11-13] MEDS: FOLIC ACID 1 MG TAB PO SCH (08:00)
[2021-11-13] MEDS: POTASSIUM CHLORIDE ER 20 MEQ TAB.ER PO SCH ×4 (08:00→20:27)
[2021-11-13] MEDS: FAMOTIDINE 20 MG TAB PO SCH ×2 (08:00→20:27)
[2021-11-13] MEDS: FUROSEMIDE 10 MG/ML 4 ML VIAL IV SCH (08:01)
[2021-11-13] MEDS: APIXABAN 5 MG TAB PO SCH ×2 (08:01→20:27)
[2021-11-13] MEDS: AMIODARONE 200 MG TAB PO SCH ×2 (08:01→20:25)
[2021-11-13] MEDS: METOPROLOL TARTRATE 50 MG TAB PO SCH ×2 (08:01→20:27)
[2021-11-13] MEDS: FLUCONAZOLE 100 MG TAB PO SCH (08:02)
[2021-11-13] MEDS: PIPERACILLIN-TAZOBACTAM 3.375 GM in SODIUM CHLORIDE 0.9% 100 ML IVPB SCH ×2 (08:03→17:12)
[2021-11-13] MEDS: INSULIN ASPART (NovoLOG) 100 UNIT/ML VIAL SQ SCH ×7 (08:03→20:46)
[2021-11-13] MEDS: PARoxetine 20 MG TAB PO SCH (08:03)
[2021-11-13] MEDS: IPRATROPIUM-ALBUTEROL 3 ML NEB INHALATION SCH ×3 (08:25→19:14)
[2021-11-13] MEDS: BUDESONIDE 1 MG/2 ML NEBU INHALATION SCH ×2 (08:25→19:14)
[2021-11-13] MEDS: FORMOTEROL FUMARATE 20 MCG/2 ML NEBU INHALATION SCH ×2 (08:25→19:28)
[2021-11-13 08:29] LABS: ALT 33 U/L (4-49); AST 24 U/L (17-59); African American GFR (CKD) >90 (>60 ml/min/1.73 sqM); Albumin 2.6 g/dL (3.5-5.0); Albumin/Globulin Ratio 1.1; Alkaline Phosphatase 90 U/L (38-126); Anion Gap 2 mmol/L; Blood Urea Nitrogen 17 mg/dL (9-20); C Reactive Protein 6.6 mg/dL (<1.0); Calcium 7.8 mg/dL (8.4-10.2); Carbon Dioxide 38 mmol/L (22-30); Chloride 99 mmol/L (98-107); Globulin 2.4 g/dL; Glucose 134 mg/dL (74-99); Magnesium 2.2 mg/dL (1.6-2.3); Non-African American GFR(CKD) >90 (>60 ml/min/1.73 sqM); Potassium 3.1 mmol/L (3.5-5.1); Sodium 139 mmol/L (137-145); Total Bilirubin 0.5 mg/dL (0.2-1.3)
[2021-11-13] MEDS ORDERED: POTASSIUM CHLORIDE ER 20 MEQ TAB.ER PO STA (11:17)
[2021-11-13 11:28] LABS: HCT 29.2 % (39.6-50.0); HGB 9.7 g/dL (13.0-17.0); MCHC 33.2 g/dL (32.0-37.0); MCV 93.3 fL (80.0-97.0); NRBC Per 100 WBC 0.2 /100 WBCS (0.0-0.0); Platelet Count 118 X 10*3/uL (140-440); RBC 3.13 X 10*6/uL (4.40-5.60); RDW 14.3 % (11.5-14.5); WBC 14.41 X 10*3/uL (4.50-10.00)
[2021-11-13 12:23] LABS: Glucose,Whole Blood 283 mg/dL (75-99)
[2021-11-13 12:28] LABS: Basophils # (M) 0 X 10*3/uL (0.00-0.10); Eosinophils # (M) 0 X 10*3/uL (0.04-0.35); Lymphocytes # (M) 0.58 X 10*3/uL (0.90-5.00); Metamyelocytes % 1 % (0-0); Monocytes # (M) 0 X 10*3/uL (0.20-1.00); Myelocytes % 3 % (0-0); Neutrophils # (M) 13.26 X 10*3/uL (2.00-8.90); Neutrophils % (M) 92 %; RBC Morphology NORMAL
--- NOTE | 2021-11-13 14:14 | P.PN ---
Subjective Progress Note Date: 11/13/21 Principal diagnosis: Pneumonia Patient is a 55-year-old male with a recent diagnosis of poorly differentiated carcinoma with metastasis presented to hospital with increasing shortness of breath and lower extremity swelling chest x-ray with multifocal areas of consolidation concerning for possible pneumonia. On today's evaluation that is 11/13/2021, the patient remains to be afebrile, the patient is breathing comfortably on a nasal cannula oxygen, the patient denies chest pain , the patient continued to have cough but not bringing up any sputum. Patient denies abdominal and no diarrhea Objective - Vital Signs Vital signs: Vital Signs Temp 97.7 F 11/13/21 12:16 Pulse 70 11/13/21 12:16 Resp 18 11/13/21 12:16 BP 142/77 11/13/21 12:16 Pulse Ox 99 11/13/21 12:16 FiO2 100 11/06/21 07:54 Intake & Output 11/12/21 11/13/21 11/13/21 18:59 06:59 18:59 Intake Total 200 Output Total 3400 2500 3225 Balance -3400 -2300 -3225 Intake: Intake, IV Titration 200 Amount Piperacillin-Tazobactam 3 200 .375 gm In Sodium Chloride 0.9% 100 ml @ 25 mls/hr IVPB Q8HR [facility] Rx# :[id number] Output: Urine 3400 2500 3225 Other: Voiding Method Indwelling Catheter Indwelling Catheter Indwelling Catheter - Exam GENERAL DESCRIPTION: A middle-age male lying in bed in no distress RESPIRATORY SYSTEM: Unlabored breathing , decreased breath sounds at bases, no wheeze HEART: S1 S2 regular rate and rhythm , ABDOMEN: Soft , no tenderness EXTREMITIES: Trace edema feet - Labs CBC & Chem 7: 11/13/21 07:48 11/13/21 07:48 Labs: Abnormal Lab Results - Last 24 Hours (Table) 11/12/21 11/12/21 11/12/21 Range/Units 15:00 17:49 20:18 WBC (4.50-10.00) X 10*3/uL RBC (4.40-5.60) X 10*6/uL Hgb (13.0-17.0) g/dL Hct (39.6-50.0) % Plt Count (140-440) X 10*3/uL Plt Count Comment Absolute Nucleated RBC (0.00-0.00) X 10*3/uL Metamyelocytes % (0-0) % Myelocytes % (0-0) % Neutrophils # (Manual) (2.00-8.90) X 10*3/uL Lymphocytes # (Manual) (0.90-5.00) X 10*3/uL Monocytes # (Manual) (0.20-1.00) X 10*3/uL Eosinophils # (Manual) (0.04-0.35) X 10*3/uL NRBC/100 WBC Diff (0.0-0.0) /100 WBCS Potassium (3.5-5.1) mmol/L Carbon Dioxide (22-30) mmol/L Glucose (74-99) mg/dL POC Glucose (mg/dL) 296 H 377 H (75-99) mg/dL Calcium (8.4-10.2) mg/dL Lactate Dehydrogenase 2263 H (313-618) U/L C-Reactive Protein (<1.0) mg/dL Total Protein (6.3-8.2) g/dL Albumin (3.5-5.0) g/dL Procalcitonin (0.02-0.09) ng/mL 11/13/21 11/13/21 11/13/21 Range/Units 07:17 07:48 07:48 WBC 14.41 H (4.50-10.00) X 10*3/uL RBC 3.13 L (4.40-5.60) X 10*6/uL Hgb 9.7 L (13.0-17.0) g/dL Hct 29.2 L (39.6-50.0) % Plt Count 118 L (140-440) X 10*3/uL Plt Count Comment DECREASED A Absolute Nucleated RBC 0.03 H (0.00-0.00) X 10*3/uL Metamyelocytes % 1 H (0-0) % Myelocytes % 3 H (0-0) % Neutrophils # (Manual) 13.26 H (2.00-8.90) X 10*3/uL Lymphocytes # (Manual) 0.58 L (0.90-5.00) X 10*3/uL Monocytes # (Manual) 0 L (0.20-1.00) X 10*3/uL Eosinophils # (Manual) 0 L (0.04-0.35) X 10*3/uL NRBC/100 WBC Diff 0.2 H (0.0-0.0) /100 WBCS Potassium 3.1 L (3.5-5.1) mmol/L Carbon Dioxide 38 H (22-30) mmol/L Glucose 134 H (74-99) mg/dL POC Glucose (mg/dL) 152 H (75-99) mg/dL Calcium 7.8 L (8.4-10.2) mg/dL Lactate Dehydrogenase (313-618) U/L C-Reactive Protein 6.6 H (<1.0) mg/dL Total Protein 5.0 L (6.3-8.2) g/dL Albumin 2.6 L (3.5-5.0) g/dL Procalcitonin (0.02-0.09) ng/mL 11/13/21 11/13/21 Range/Units 07:48 12:18 WBC (4.50-10.00) X 10*3/uL RBC (4.40-5.60) X 10*6/uL Hgb (13.0-17.0) g/dL Hct (39.6-50.0) % Plt Count (140-440) X 10*3/uL Plt Count Comment Absolute Nucleated RBC (0.00-0.00) X 10*3/uL Metamyelocytes % (0-0) % Myelocytes % (0-0) % Neutrophils # (Manual) (2.00-8.90) X 10*3/uL Lymphocytes # (Manual) (0.90-5.00) X 10*3/uL Monocytes # (Manual) (0.20-1.00) X 10*3/uL Eosinophils # (Manual) (0.04-0.35) X 10*3/uL NRBC/100 WBC Diff (0.0-0.0) /100 WBCS Potassium (3.5-5.1) mmol/L Carbon Dioxide (22-30) mmol/L Glucose (74-99) mg/dL POC Glucose (mg/dL) 283 H (75-99) mg/dL Calcium (8.4-10.2) mg/dL Lactate Dehydrogenase (313-618) U/L C-Reactive Protein (<1.0) mg/dL Total Protein (6.3-8.2) g/dL Albumin (3.5-5.0) g/dL Procalcitonin 1.83 H (0.02-0.09) ng/mL Assessment and Plan (1) Pneumonia Current Visit: Yes Status: Acute Code(s): J18.9 - PNEUMONIA, UNSPECIFIED ORGANISM SNOMED Code(s): 688049461 (2) Thrush Current Visit: Yes Status: Acute Code(s): B37.0 - CANDIDAL STOMATITIS SNOMED Code(s): 67431795 Plan: 1patient presented to hospital with increasing shortness of breath and weakness in this patient did have a bilateral lower extremity swelling recent diagnosis of metastatic poorly differentiated carcinoma , possibly combination of fluid overload plus minus a component of pneumonia, patient did have elevated CRP and procalcitonin level suggestive of pneumonia. 2patient blood culture has been negative and was unable to provide any sputum 3patient has shown clinical improvement, chest x-ray with no worsening, pro- calcitonin is trending down, patient to continue with the Zosyn and will monitor clinical course closely Time with Patient: Less than 30
[2021-11-13 17:30] LABS: Glucose,Whole Blood 364 mg/dL (75-99)
[2021-11-13] MEDS: amLODIPine 10 MG TAB PO SCH (20:25)
[2021-11-13] MEDS: TAMSULOSIN 0.4 MG CAP.ER.24H PO SCH (20:27)
[2021-11-13] MEDS: LOSARTAN 50 MG TAB PO SCH (20:28)
[2021-11-13] MEDS: MORPHINE SULFATE ER 15 MG TABLET PO SCH (20:37)
[2021-11-13 20:43] LABS: Glucose,Whole Blood 304 mg/dL (75-99)
[2021-11-13] MEDS: INSULIN DETEMIR (LEVEMIR) 100 UNIT/ML SYR SQ SCH (20:46)
--- NOTE | 2021-11-14 00:06 | P.PN ---
Subjective Progress Note Date: 11/13/21 This is a 55 year old male who presents with atrial fibrillation with RVR, and altered mental status. Patient was recently diagnosed with lung cancer not currently undergoing treatment. Bone scan today showing uptake involving the left rib is compatible with destructive lesions and also calvarium uptake highly suggestive of metastasis. There is also nonspecific uptake involving pubic symphysis and metastasis should also be in the differential. Currently rating pain a 4/10. Patient is on 13L high flow cannula with saturation of 92%, afebrile, heart rate controlled 92, blood pressure 124/75. Not currently wearing oxygen as outpatient. He has been transitioned to oral amiodarone and oral eliquis. He continues on IV zosyn, and has been transitioned to oral lasix. Potassium today 2.7 and patient has received additional replacement as well as 40 meq bid, pts expressed concern with ongoing low potassium prior to admission as well. Repeat potassium this afternoon. Oncology and pulmonary following along, cardiology has signed off as needed basis. 11/09/2021 Patient evaluated today resting in bed, family at the bedside. Continues on 13L HF cannula, denies shortness of breath at rest, tolerating diet. Patient was taking lasix and hydrochlorothiazide outpatient which were new medications in September of this year. He remains off hctz and has been started on IV lasix today. Potassium 3.2, magnesium 1.7 which were supplemented. White count 11.6, hgb 9.7, platelet count 101. Procalcitonin level remains elevated at 3.69. Continues on eliquis and amiodarone taper. He continues on IV zosyn, bronchodilators. Blood glucose has improved with addition of levemir and increase in novolog. Continue with current treatment plan. Patient and family updated on bone scan results, all questions were answered. 11/10/2021 Today patient is reporting pain to the left side of his head states there is a soft spot he can feel, additionally the pain he reports from the left rib region has been the most prevalent. He is also experiencing peripheral neuropathy which he is receiving gabapentin for. He states the pain medication is helping when he is receiving it but the dilaudid wears off fast, he is also using norco and tramadol alternating. Family at the bedside states that his pain is not controlled. Adjustments were made today. Family is waiting to meet with oncology. Patient needs outpatient MRI as his sleep apnea device is not compatible with MRI at this hospital. It was discussed with family that with his respiratory status and disease progression he most likely won't become stable enough for discharge. Family and patient would like to meet with pulmonary as well. Oxygen dropped to 89% on 13L High flow cannula this morning. Potassium today 3.1, was supplemented. Magnesium today improved to 2.0. White count 12.1, hgb 10.6. Procalcitonin yesterday 2.62. Repeat chest xray today showing b ilateral areas of multifocal infiltrate correlate for pneumonia. Findings are stable, with underlying neoplasm redemonstrated. Continues on IV Zosyn, IV lasix 40 mg Q 12, he is negative 4.5 L in the last 24 hours. Per family at the bedside this morning they are waiting for patients to arrive and will be meeting with oncology. 11/11/2021 Per patient his pain seems controlled at the time of my examination. Per family he had alot of pain this morning and states that patient is not sleeping well, then states he got dilaudid 4 hours ago and seems groggy. Offered a mild sleeping aide, which was refused by family as they do not want him to sleep through the night and then wake up in excruciating pain. Patient does not say much during this conversation although all questions are directed at patient. Plan today is for transfer to oncology unit when bed available and patient is offered palliative chemotherapy with carboplatin. Reinforced that the goal is not curative, but to possibly stabilize patient enough to be able to discharge home with family. He continues on 10L high flow cannula with oxygenation 92-95%, he is afebrile, heart rate 78, blood pressure 137/77. Labs today showing white count 12.8, hgb 10.2, sodium 140, potassium 3.1. He did receive a dose of IV decadron today. IV lasix has been decreased to daily. He continues on duonebs, pulmicort, perforomist. He is also continued on IV zosyn. He is also on potassium 60 meq BID. He remains in negative fluid balance. Pain management with tramadol 100 mg TID, norco 10 q4, dilaudid 0.4 mg Q3. He is also on gabapentin for neuropathy. 11/12/2021 Patient is sitting up in the chair today, he is in good spirits. Tolerated vicente motherapy well yest. Maintaining on 10 L High flow cannula, saturation 94%. Incentive spirometer has been ordered, he dose have improved aeration today. Follow up chest xray showing bilateral multifocal infiltrate correlate for pneumonia stable with underlying neoplasm. There is suspected metastasis to 6 and 7th rib. There are prominent bowel loops upper abdomen. He states he is moving bowels, and continues on colace BID with miralax as needed. Also has been started on oral pepcid BID. Discussed this with patient. He did state he slept well last night, there is melatonin as needed. Per family they feel patients pain is still not being managed although he reports pain is more controlled when in room. Pain management has been consulted. Continues on IV lasix daily he is in negative fluid balance. With mild peripheral edema. Labs reviewed today showing white count 13.4, hgb 9.9, sodium 143, potassium 3.4, mag 1.8. 11/13/2021 Patient evaluated today sitting up in the chair with family friend at the bedside. Patient was seen in consult by pain management without medication changes. Patients family have expressed concern with pain management and patient has been refusing tramadol. He mainly complaints of neuropathic pain and does not want to adjust gabapentin dosing. Family has refused fentanyl patch as patient had used outpatient at 50 mcg dosing and family states "he was loopy." Discussed pain management with patient in extent and he reports 5/10 pain at baseline regarding neuropathic pain as well as his back pain. He was hoping chemotherapy would help pain as well as decrease his oxygen needs. Family and patient are agreeable to try extended relief oral morphine and this was discussed with oncology as well. He continues on 10 L high flow cannula. Labs today showing white count 14.41, hgb 9.7, platelets 118, potassium 3.1. Review of Systems Constitutional: Reports fatigue, denied any fever. Cardio vascular: denied any chest pain, palpitations Gastrointestinal: denied any nausea, vomiting, diarrhea Pulmonary: Stable breathing, he is short of breath with ambulation, reports intermittent productive cough Neurologic denied any new focal deficits All inpatient medications were reviewed and appropriate changes in these medications as dictated in the interval history and assessment and plan. PHYSICAL EXAMINATION: GENERAL: The patient is alert and oriented x3. Well developed, well nourished. HEENT: Pupils are round and equally reacting to light. EOMI. No scleral icterus. No conjunctival pallor. Normocephalic, atraumatic. No pharyngeal erythema. No thyromegaly. CARDIOVASCULAR: S1 and S2 present. No murmurs, rubs, or gallops. PULMONARY: No crackles, no wheezing noted. He has diminished lung sounds. ABDOMEN: Soft, nontender, nondistended, normoactive bowel sounds. No palpable organomegaly. MUSCULOSKELETAL: No joint swelling or deformity. EXTREMITIES: No cyanosis, clubbing, or pedal edema. Mild lower extremity telma pheral edema. NEUROLOGICAL: Gross neurological examination did not reveal any focal deficits. SKIN: No rashes. Assessment and Plan Assessment Acute hypoxic respiratory failure which is multifactorial, component of bilateral pneumonia as well as lung cancer which has progressed. Continues on 10 L high flow cannula. He is also receiving empiric antibiotic coverage. 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 Continue on high flow oxygen support Continue on IV zosyn, bronchodilators Continue on IV lasix daily Indwelling catheter Amiodarone taper per cardiology Electrolyte replacement Pain management consultation Follow up labs in AM Cardiology has signed off Pulmonary and oncology following Patients prognosis is poor given his current multiple medical conditions and progression of cancer The impression and plan of care has been dictated by Angi Castaneda Nurse Practitioner as directed. Dr. Dick MD I have performed a history and physical examination and medical decision making of this patient, discussed the same with the dictator, and agree with the dictators assessment and plan as written, documented as a scribe. Based on total visit time, I have performed more than 50% of this visit. Objective - Vital Signs Vital signs: Vital Signs Temp 97.7 F 11/13/21 04:23 Pulse 92 11/13/21 08:53 Resp 18 11/13/21 04:23 BP 155/79 11/13/21 04:23 Pulse Ox 93 L 11/13/21 04:23 FiO2 100 11/06/21 07:54 Intake & Output 11/12/21 11/13/21 11/13/21 18:59 06:59 18:59 Intake Total 200 Output Total 3400 2500 2225 Balance -3400 -2300 -2229 Intake: Intake, IV Titration 200 Amount Piperacillin-Tazobactam 3 200 .375 gm In Sodium Chloride 0.9% 100 ml @ 25 mls/hr IVPB Q8HR [facility] Rx# :[id number] Output: Urine 3400 2500 2225 Other: Voiding Method Indwelling Catheter Indwelling Catheter Indwelling Catheter - Labs CBC & Chem 7: 11/13/21 07:48 11/13/21 07:48 Labs: Abnormal Lab Results - Last 24 Hours (Table) 11/12/21 11/12/21 11/12/21 Range/Units 08:02 11:48 15:00 Neutrophils # (Manual) 11.30 H (1.3-7.7) k/uL Metamyelocytes # (Man) 0.13 H (0) k/uL Myelocytes # (Manual) 0.27 H (0) k/uL Potassium (3.5-5.1) mmol/L Carbon Dioxide (22-30) mmol/L Glucose (74-99) mg/dL POC Glucose (mg/dL) 256 H (75-99) mg/dL Calcium (8.4-10.2) mg/dL Lactate Dehydrogenase 2263 H (313-618) U/L C-Reactive Protein (<1.0) mg/dL Total Protein (6.3-8.2) g/dL Albumin (3.5-5.0) g/dL 11/12/21 11/12/21 11/13/21 Range/Units 17:49 20:18 07:17 Neutrophils # (Manual) (1.3-7.7) k/uL Metamyelocytes # (Man) (0) k/uL Myelocytes # (Manual) (0) k/uL Potassium (3.5-5.1) mmol/L Carbon Dioxide (22-30) mmol/L Glucose (74-99) mg/dL POC Glucose (mg/dL) 296 H 377 H 152 H (75-99) mg/dL Calcium (8.4-10.2) mg/dL Lactate Dehydrogenase (313-618) U/L C-Reactive Protein (<1.0) mg/dL Total Protein (6.3-8.2) g/dL Albumin (3.5-5.0) g/dL 11/13/21 Range/Units 07:48 Neutrophils # (Manual) (1.3-7.7) k/uL Metamyelocytes # (Man) (0) k/uL Myelocytes # (Manual) (0) k/uL Potassium 3.1 L (3.5-5.1) mmol/L Carbon Dioxide 38 H (22-30) mmol/L Glucose 134 H (74-99) mg/dL POC Glucose (mg/dL) (75-99) mg/dL Calcium 7.8 L (8.4-10.2) mg/dL Lactate Dehydrogenase (313-618) U/L C-Reactive Protein 6.6 H (<1.0) mg/dL Total Protein 5.0 L (6.3-8.2) g/dL Albumin 2.6 L (3.5-5.0) g/dL Assessment and Plan Time with Patient: Less than 30
--- NOTE | 2021-11-14 00:06 | P.PN ---
Subjective Progress Note Date: 11/13/21 at the time of my exam, the patient was sitting in a chair, on oxygen. He is mildly short of breath at rest, but able to carry on a conversation. He was alert, appropriately responsive and oriented. However nursing had reported that the patient had had difficulty with intermittent pain exacerbations which apparently were not controlled to his and his family's satisfaction through the night. The patient confirmed that the left shoulder and left chest wall were the main sites of pain exacerbation. No fever/chills/nausea/vomiting. Objective - Vital Signs Vital signs: Vital Signs Temp 97.7 F 11/13/21 12:16 Pulse 90 11/13/21 19:38 Resp 18 11/13/21 20:00 BP 142/77 11/13/21 12:16 Pulse Ox 99 11/13/21 12:16 FiO2 100 11/06/21 07:54 Intake & Output 11/13/21 11/13/21 11/14/21 06:59 18:59 06:59 Intake Total 200 Output Total 2500 4225 Balance -2300 -4225 Intake: Intake, IV Titration 200 Amount Piperacillin-Tazobactam 3 200 .375 gm In Sodium Chloride 0.9% 100 ml @ 25 mls/hr IVPB Q8HR [facility] Rx# :[id number] Output: Urine 2500 4225 Other: Voiding Method Indwelling Catheter Indwelling Catheter Indwelling Catheter # Bowel Movements 1 - Constitutional General appearance: Present: no acute distress - EENT Eyes: Present: EOMI ENT: Present: hearing grossly normal, normal oropharynx - Neck Thyroid: bilateral: normal size - Respiratory Respiratory: bilateral: diminished, rales (at bases, mild) - Cardiovascular Rhythm: irregularly irregular Heart sounds: normal: S1, S2 - Gastrointestinal General gastrointestinal: Present: normal bowel sounds, soft - Integumentary Integumentary: Present: normal - Neurologic Neurologic: Present: CNII-XII intact - Musculoskeletal Musculoskeletal: Present: generalized weakness, strength equal bilaterally - Psychiatric Psychiatric: Present: A&O x's 3, appropriate affect - Labs CBC & Chem 7: 11/13/21 07:48 11/13/21 07:48 Labs: Abnormal Lab Results - Last 24 Hours (Table) 11/13/21 11/13/21 11/13/21 Range/Units 07:17 07:48 07:48 WBC 14.41 H (4.50-10.00) X 10*3/uL RBC 3.13 L (4.40-5.60) X 10*6/uL Hgb 9.7 L (13.0-17.0) g/dL Hct 29.2 L (39.6-50.0) % Plt Count 118 L (140-440) X 10*3/uL Plt Count Comment DECREASED A Absolute Nucleated RBC 0.03 H (0.00-0.00) X 10*3/uL Metamyelocytes % 1 H (0-0) % Myelocytes % 3 H (0-0) % Neutrophils # (Manual) 13.26 H (2.00-8.90) X 10*3/uL Lymphocytes # (Manual) 0.58 L (0.90-5.00) X 10*3/uL Monocytes # (Manual) 0 L (0.20-1.00) X 10*3/uL Eosinophils # (Manual) 0 L (0.04-0.35) X 10*3/uL NRBC/100 WBC Diff 0.2 H (0.0-0.0) /100 WBCS Potassium 3.1 L (3.5-5.1) mmol/L Carbon Dioxide 38 H (22-30) mmol/L Glucose 134 H (74-99) mg/dL POC Glucose (mg/dL) 152 H (75-99) mg/dL Calcium 7.8 L (8.4-10.2) mg/dL C-Reactive Protein 6.6 H (<1.0) mg/dL Total Protein 5.0 L (6.3-8.2) g/dL Albumin 2.6 L (3.5-5.0) g/dL Procalcitonin (0.02-0.09) ng/mL 11/13/21 11/13/21 11/13/21 Range/Units 07:48 12:18 17:26 WBC (4.50-10.00) X 10*3/uL RBC (4.40-5.60) X 10*6/uL Hgb (13.0-17.0) g/dL Hct (39.6-50.0) % Plt Count (140-440) X 10*3/uL Plt Count Comment Absolute Nucleated RBC (0.00-0.00) X 10*3/uL Metamyelocytes % (0-0) % Myelocytes % (0-0) % Neutrophils # (Manual) (2.00-8.90) X 10*3/uL Lymphocytes # (Manual) (0.90-5.00) X 10*3/uL Monocytes # (Manual) (0.20-1.00) X 10*3/uL Eosinophils # (Manual) (0.04-0.35) X 10*3/uL NRBC/100 WBC Diff (0.0-0.0) /100 WBCS Potassium (3.5-5.1) mmol/L Carbon Dioxide (22-30) mmol/L Glucose (74-99) mg/dL POC Glucose (mg/dL) 283 H 364 H (75-99) mg/dL Calcium (8.4-10.2) mg/dL C-Reactive Protein (<1.0) mg/dL Total Protein (6.3-8.2) g/dL Albumin (3.5-5.0) g/dL Procalcitonin 1.83 H (0.02-0.09) ng/mL 11/13/21 Range/Units 20:42 WBC (4.50-10.00) X 10*3/uL RBC (4.40-5.60) X 10*6/uL Hgb (13.0-17.0) g/dL Hct (39.6-50.0) % Plt Count (140-440) X 10*3/uL Plt Count Comment Absolute Nucleated RBC (0.00-0.00) X 10*3/uL Metamyelocytes % (0-0) % Myelocytes % (0-0) % Neutrophils # (Manual) (2.00-8.90) X 10*3/uL Lymphocytes # (Manual) (0.90-5.00) X 10*3/uL Monocytes # (Manual) (0.20-1.00) X 10*3/uL Eosinophils # (Manual) (0.04-0.35) X 10*3/uL NRBC/100 WBC Diff (0.0-0.0) /100 WBCS Potassium (3.5-5.1) mmol/L Carbon Dioxide (22-30) mmol/L Glucose (74-99) mg/dL POC Glucose (mg/dL) 304 H (75-99) mg/dL Calcium (8.4-10.2) mg/dL C-Reactive Protein (<1.0) mg/dL Total Protein (6.3-8.2) g/dL Albumin (3.5-5.0) g/dL Procalcitonin (0.02-0.09) ng/mL Microbiology - Last 24 Hours (Table) 11/13/21 08:45 Sputum Culture - Preliminary Sputum Assessment and Plan (1) Metastatic cancer Narrative/Plan: the patient has a recent diagnosis of metastatic cancer, but lung nodule, as well as symptomatic bone metastasis. Biopsy had shown poorly differentiated carcinoma, which could not be further classified, for example, as to squamous cell versus adenoca. based on immunohistochemistry, the primary site could not be confirmed, either. Clinically, based the finding of a lung nodule as the dominant vessel lesion, a lung primary is felt to be a reasonable differential - The patient is status post carboplatin. This was given 2 days ago. Tolerance of the chemotherapy appears to have been reasonably good so far. Monitor counts and chemistries with supplementation as needed - Prognosis is guarded. The patient has an aggressive presentation, he had presented with acute respiratory failure, and mental status changes. He overall remains weak, and performance status was felt to be likely too poor to withstand appropriately aggressive treatment for his malignancy. after detailed discussion of options, including comfort care, the family had opted to try single agent chemotherapy, with understanding of the risks versus benefits. Current Visit: Yes Status: Acute Code(s): C79.9 - SECONDARY MALIGNANT NEOPLASM OF UNSPECIFIED SITE SNOMED Code(s): 742128543 (2) Acute hypoxemic respiratory failure Narrative/Plan: this has improved considerably, with the patient currently on high flow nasal cannula. Mental status has also improved significantly. There is therefore felt that the acute respiratory failure was more likely due to pneumonia. Deferred to the admitting service, as well as pulmonary medicine for continued management of pneumonia. Current Visit: Yes Status: Acute Code(s): J96.01 - ACUTE RESPIRATORY FAILURE WITH HYPOXIA SNOMED Code(s): 042611478 (3) Hyperthyroidism Current Visit: Yes Status: Acute Code(s): E05.90 - THYROTOXICOSIS, UNSP WITHOUT THYROTOXIC CRISIS OR STORM SNOMED Code(s): 21488391 (4) Altered mental status Current Visit: Yes Status: Acute Code(s): R41.82 - ALTERED MENTAL STATUS, UNSPECIFIED SNOMED Code(s): 307226970 (5) Atrial fibrillation with rapid ventricular response Current Visit: Yes Status: Acute Code(s): I48.91 - UNSPECIFIED ATRIAL FIBRILLATION SNOMED Code(s): 590474903495289 (6) Hypokalemia Current Visit: Yes Status: Acute Code(s): E87.6 - HYPOKALEMIA SNOMED Code(s): 98062847 (7) Leukocytosis Current Visit: No Status: Acute Code(s): D72.829 - ELEVATED WHITE BLOOD CELL COUNT, UNSPECIFIED SNOMED Code(s): 089369725 (8) Pedal edema Current Visit: No Status: Acute Code(s): R60.0 - LOCALIZED EDEMA SNOMED Code(s): 154446287 (9) Neoplasm related pain Narrative/Plan: this is proven somewhat challenging to manage, especially given patient's presentation with acute respiratory failure requiring aggressive treatment, as well as need for a significant amount of opioids for pain control. Fortunately patient's respiratory status has improved. The patient is currently on Di laudid, and Neurontin. It was confirmed with nursing, that patient as well as family were satisfied with pain control through the night. I discussed with the patient, and the family, that given the frequency, and amount of use of short- acting opioid, the patient would be a reasonable candidate for prior long-acting preparation. He also discussed that frequent use of important short-acting opioid is more likely to cause him situation in the long-term, as well as peaks and troughs and efficacy. This can be mitigated with the use of a long-acting preparation, and shorter acting preparation result for breakthrough The rationale for the same was discussed in detail. The family stated that jasmin meyer did not want to use fentanyl, as apparently the patient had tolerance issues with that at home. He discussed MS Fiona. Message that the would make a decision later and inform us if she did want to try long-acting preparation. - surprisingly, to me, this stated that they were satisfied with the patient's level of pain control! It was, however confirmed with nursing. On the morning shift, that they're definitely expressed dissatisfaction regarding his pain control through the right - I will also discuss with family about starting patient on IV bisphosphonate given his bone metastases, as well as consideration of local radiation Current Visit: Yes Status: Acute Code(s): G89.3 - NEOPLASM RELATED PAIN ( ACUTE) (CHRONIC) SNOMED Code(s): 45405935203359
[2021-11-14] MEDS: GABAPENTIN 400 MG CAP PO SCH ×5 (00:52→22:46)
[2021-11-14] MEDS: PIPERACILLIN-TAZOBACTAM 3.375 GM in SODIUM CHLORIDE 0.9% 100 ML IVPB SCH ×3 (00:53→17:33)
[2021-11-14] MEDS: HYDROcodone/APAP 10-325MG 1 EACH TAB PO PRN ×3 (04:17→15:55)
[2021-11-14 06:25] LABS: Basophils # (A) 0.1 k/uL (0-0.2); Basophils % (A) 1 %; Eosinophils % (A) 0 %; HCT 28.4 % (39.0-53.0); HGB 9.5 gm/dL (13.0-17.5); Lymphocytes # (A) 0.8 k/uL (1.0-4.8); Lymphocytes % (A) 5 %; MCH 31.2 pg (25.0-35.0); MCHC 33.5 g/dL (31.0-37.0); MCV 93.1 fL (80.0-100.0); Mean Platelet Volume 8.6; Monocytes # (A) 0.4 k/uL (0-1.0); Monocytes % (A) 3 %; Neutrophils # (A) 12.4 k/uL (1.3-7.7); Neutrophils % (A) 90 %; Platelet Count 120 k/uL (150-450); RBC 3.05 m/uL (4.30-5.90); RDW 13.7 % (11.5-15.5); WBC 13.8 k/uL (3.8-10.6)
[2021-11-14 06:35] LABS: ALT 33 U/L (4-49); AST 25 U/L (17-59); African American GFR (CKD) >90 (>60 ml/min/1.73 sqM); Albumin 2.7 g/dL (3.5-5.0); Albumin/Globulin Ratio 1.1; Alkaline Phosphatase 83 U/L (38-126); Anion Gap 3 mmol/L; Blood Urea Nitrogen 15 mg/dL (9-20); Calcium 7.9 mg/dL (8.4-10.2); Carbon Dioxide 38 mmol/L (22-30); Chloride 101 mmol/L (98-107); Globulin 2.5 g/dL; Glucose 79 mg/dL (74-99); Magnesium 2.1 mg/dL (1.6-2.3); Non-African American GFR(CKD) >90 (>60 ml/min/1.73 sqM); Sodium 142 mmol/L (137-145); Total Bilirubin 0.5 mg/dL (0.2-1.3); Total Protein 5.2 g/dL (6.3-8.2)
[2021-11-14] MEDS: HYDROmorphone 1 MG/ML 1 ML SYRINGE IVP PRN (07:13)
[2021-11-14] MEDS: NON FORMULARY DRUG (Empagliflozin [Jardiance] 25 MG Tablet) PO SCH (07:17)
[2021-11-14 07:19] LABS: Glucose,Whole Blood 97 mg/dL (75-99)
[2021-11-14] MEDS: INSULIN ASPART (NovoLOG) 100 UNIT/ML VIAL SQ SCH ×7 (07:38→21:29)
[2021-11-14] MEDS: FOLIC ACID 1 MG TAB PO SCH (08:04)
[2021-11-14] MEDS: AMIODARONE 200 MG TAB PO SCH ×2 (08:04→20:15)
[2021-11-14] MEDS: FORMOTEROL FUMARATE 20 MCG/2 ML NEBU INHALATION SCH ×2 (08:04→21:12)
[2021-11-14] MEDS: FAMOTIDINE 20 MG TAB PO SCH ×2 (08:04→20:16)
[2021-11-14] MEDS: CHOLECALCIFEROL 125 MCG (5000 IU) TABLET PO SCH (08:04)
[2021-11-14] MEDS: POTASSIUM CHLORIDE ER 20 MEQ TAB.ER PO SCH ×4 (08:04→20:18)
[2021-11-14] MEDS: PARoxetine 20 MG TAB PO SCH (08:04)
[2021-11-14] MEDS: IPRATROPIUM-ALBUTEROL 3 ML NEB INHALATION SCH ×3 (08:04→21:12)
[2021-11-14] MEDS: APIXABAN 5 MG TAB PO SCH ×2 (08:04→20:16)
[2021-11-14] MEDS: FLUCONAZOLE 100 MG TAB PO SCH (08:04)
[2021-11-14] MEDS: BUDESONIDE 1 MG/2 ML NEBU INHALATION SCH ×2 (08:04→21:12)
[2021-11-14] MEDS: METOPROLOL TARTRATE 50 MG TAB PO SCH ×2 (08:04→20:17)
[2021-11-14] MEDS: MAGNESIUM OXIDE 400 MG TAB PO SCH ×2 (08:04→20:15)
[2021-11-14] MEDS: FUROSEMIDE 10 MG/ML 4 ML VIAL IV SCH (08:05)
[2021-11-14] MEDS: MORPHINE SULFATE ER 15 MG TABLET PO SCH ×2 (08:05→20:18)
[2021-11-14] MEDS: DOCUSATE 100 MG CAP PO SCH (08:06)
[2021-11-14] MEDS ORDERED: POTASSIUM CHLORIDE ER 20 MEQ TAB.ER PO STA (08:49)
[2021-11-14 12:28] LABS: Glucose,Whole Blood 214 mg/dL (75-99)
[2021-11-14] MEDS ORDERED: HYDROmorphone 0.5 MG/0.5 ML SYRINGE IM PRN (16:48)
[2021-11-14] MEDS ORDERED: HYDROcodone/APAP 10-325MG 1 EACH TAB PO PRN (16:49)
--- NOTE | 2021-11-14 17:05 | P.PN ---
Subjective Progress Note Date: 11/14/21 This is a 55 year old male who presents with atrial fibrillation with RVR, and altered mental status. Patient was recently diagnosed with lung cancer not currently undergoing treatment. Bone scan today showing uptake involving the left rib is compatible with destructive lesions and also calvarium uptake highly suggestive of metastasis. There is also nonspecific uptake involving pubic symphysis and metastasis should also be in the differential. Currently rating pain a 4/10. Patient is on 13L high flow cannula with saturation of 92%, afebrile, heart rate controlled 92, blood pressure 124/75. Not currently wearing oxygen as outpatient. He has been transitioned to oral amiodarone and oral eliquis. He continues on IV zosyn, and has been transitioned to oral lasix. Potassium today 2.7 and patient has received additional replacement as well as 40 meq bid, pts expressed concern with ongoing low potassium prior to admission as well. Repeat potassium this afternoon. Oncology and pulmonary following along, cardiology has signed off as needed basis. 11/09/2021 Patient evaluated today resting in bed, family at the bedside. Continues on 13L HF cannula, denies shortness of breath at rest, tolerating diet. Patient was taking lasix and hydrochlorothiazide outpatient which were new medications in September of this year. He remains off hctz and has been started on IV lasix today. Potassium 3.2, magnesium 1.7 which were supplemented. White count 11.6, hgb 9.7, platelet count 101. Procalcitonin level remains elevated at 3.69. Continues on eliquis and amiodarone taper. He continues on IV zosyn, bronchodilators. Blood glucose has improved with addition of levemir and increase in novolog. Continue with current treatment plan. Patient and family updated on bone scan results, all questions were answered. 11/10/2021 Today patient is reporting pain to the left side of his head states there is a soft spot he can feel, additionally the pain he reports from the left rib region has been the most prevalent. He is also experiencing peripheral neuropathy which he is receiving gabapentin for. He states the pain medication is helping when he is receiving it but the dilaudid wears off fast, he is also using norco and tramadol alternating. Family at the bedside states that his pain is not controlled. Adjustments were made today. Family is waiting to meet with oncology. Patient needs outpatient MRI as his sleep apnea device is not compatible with MRI at this hospital. It was discussed with family that with his respiratory status and disease progression he most likely won't become stable enough for discharge. Family and patient would like to meet with pulmonary as well. Oxygen dropped to 89% on 13L High flow cannula this morning. Potassium today 3.1, was supplemented. Magnesium today improved to 2.0. White count 12.1, hgb 10.6. Procalcitonin yesterday 2.62. Repeat chest xray today showing b ilateral areas of multifocal infiltrate correlate for pneumonia. Findings are stable, with underlying neoplasm redemonstrated. Continues on IV Zosyn, IV lasix 40 mg Q 12, he is negative 4.5 L in the last 24 hours. Per family at the bedside this morning they are waiting for patients to arrive and will be meeting with oncology. 11/11/2021 Per patient his pain seems controlled at the time of my examination. Per family he had alot of pain this morning and states that patient is not sleeping well, then states he got dilaudid 4 hours ago and seems groggy. Offered a mild sleeping aide, which was refused by family as they do not want him to sleep through the night and then wake up in excruciating pain. Patient does not say much during this conversation although all questions are directed at patient. Plan today is for transfer to oncology unit when bed available and patient is offered palliative chemotherapy with carboplatin. Reinforced that the goal is not curative, but to possibly stabilize patient enough to be able to discharge home with family. He continues on 10L high flow cannula with oxygenation 92-95%, he is afebrile, heart rate 78, blood pressure 137/77. Labs today showing white count 12.8, hgb 10.2, sodium 140, potassium 3.1. He did receive a dose of IV decadron today. IV lasix has been decreased to daily. He continues on duonebs, pulmicort, perforomist. He is also continued on IV zosyn. He is also on potassium 60 meq BID. He remains in negative fluid balance. Pain management with tramadol 100 mg TID, norco 10 q4, dilaudid 0.4 mg Q3. He is also on gabapentin for neuropathy. 11/12/2021 Patient is sitting up in the chair today, he is in good spirits. Tolerated vicente motherapy well yest. Maintaining on 10 L High flow cannula, saturation 94%. Incentive spirometer has been ordered, he dose have improved aeration today. Follow up chest xray showing bilateral multifocal infiltrate correlate for pneumonia stable with underlying neoplasm. There is suspected metastasis to 6 and 7th rib. There are prominent bowel loops upper abdomen. He states he is moving bowels, and continues on colace BID with miralax as needed. Also has been started on oral pepcid BID. Discussed this with patient. He did state he slept well last night, there is melatonin as needed. Per family they feel patients pain is still not being managed although he reports pain is more controlled when in room. Pain management has been consulted. Continues on IV lasix daily he is in negative fluid balance. With mild peripheral edema. Labs reviewed today showing white count 13.4, hgb 9.9, sodium 143, potassium 3.4, mag 1.8. 11/13/2021 Patient evaluated today sitting up in the chair with family friend at the bedside. Patient was seen in consult by pain management without medication changes. Patients family have expressed concern with pain management and patient has been refusing tramadol. He mainly complaints of neuropathic pain and does not want to adjust gabapentin dosing. Family has refused fentanyl patch as patient had used outpatient at 50 mcg dosing and family states "he was loopy." Discussed pain management with patient in extent and he reports 5/10 pain at baseline regarding neuropathic pain as well as his back pain. He was hoping chemotherapy would help pain as well as decrease his oxygen needs. Family and patient are agreeable to try extended relief oral morphine and this was discussed with oncology as well. He continues on 10 L high flow cannula. Labs today showing white count 14.41, hgb 9.7, platelets 118, potassium 3.1. 11/14/2021 Patient evaluated today sitting up in the chair, he has family at the bedside. He reports his pain is better controlled while on the MS contin. He previously has reported pain in both his back and legs as 5/10, and today he states it is less than 5/10 although does not quantify. We will cut back dilaudid and norco which are for breakthrough pain, this was discussed with patient and that we would like to wean off the dilaudid and control pain the oral medication. Medications were cut back to the time frames he has been receiving them at and will monitor for affectiveness. He is sleepy today, alert x 3. He had 3 episodes of loose stool throughout the night, states he was incontinent we will cut back on the colace to daily. Otherwise he is being followed by oncology, infectious disease. He is continued on IV zosyn. He is continued on IV lasix as well and is in negative fluid balance with -3.7 Liters overnight, his weight is also down about 12 lbs. We will continue for one more day and transition to oral lasix. Labs today 13.8, hemoglobin 9.5, platelet count 120, sodium 142, potassium 3.0, chloride 101, CO2 38, blood glucose in the 200s. Blood pressure is 146/80. Review of Systems Constitutional: Reports fatigue, denied any fever. Cardio vascular: denied any chest pain, palpitations Gastrointestinal: denied any nausea, vomiting, diarrhea Pulmonary: Stable breathing, he is short of breath with ambulation, reports intermittent productive cough Neurologic denied any new focal deficits All inpatient medications were reviewed and appropriate changes in these medications as dictated in the interval history and assessment and plan. PHYSICAL EXAMINATION: GENERAL: The patient is alert and oriented x3. Well developed, well nourished. HEENT: Pupils are round and equally reacting to light. EOMI. No scleral icterus. No conjunctival pallor. Normocephalic, atraumatic. No pharyngeal erythema. No thyromegaly. CARDIOVASCULAR: S1 and S2 present. No murmurs, rubs, or gallops. PULMONARY: No crackles, no wheezing noted. He has diminished lung sounds. ABDOMEN: Soft, nontender, nondistended, normoactive bowel sounds. No palpable organomegaly. MUSCULOSKELETAL: No joint swelling or deformity. EXTREMITIES: No cyanosis, clubbing, or pedal edema. Mild lower extremity peripheral edema. NEUROLOGICAL: Gross neurological examination did not reveal any focal deficits. SKIN: No rashes. Assessment and Plan Assessment Acute hypoxic respiratory failure which is multifactorial, component of bilateral pneumonia as well as lung cancer which has progressed. Continues on 10 L high flow cannula. He is also receiving empiric antibiotic coverage. 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 Continue on high flow oxygen support, can wean to 8L as oxygen is 98% on 10L hi flow cannula Continue on IV zosyn, bronchodilators Continue on IV lasix daily Indwelling catheter Amiodarone taper per cardiology Electrolyte replacement Pain management consultation Follow up labs in AM Cardiology has signed off Pulmonary and oncology following Patients prognosis is poor given his current multiple medical conditions and progression of cancer The impression and plan of care has been dictated by Angi Castaneda Nurse Practitioner as directed. Dr. Dick MD I have performed a history and physical examination and medical decision making of this patient, discussed the same with the dictator, and agree with the dictators assessment and plan as written, documented as a scribe. Based on total visit time, I have performed more than 50% of this visit. Objective - Vital Signs Vital signs: Vital Signs Temp 98.4 F 11/14/21 04:50 Pulse 88 11/14/21 08:32 Resp 18 11/14/21 04:50 BP 141/66 11/14/21 04:50 Pulse Ox 95 11/14/21 04:50 FiO2 100 11/06/21 07:54 Intake & Output 11/13/21 11/14/21 11/14/21 18:59 06:59 18:59 Intake Total 500 Output Total 4225 3800 2600 Balance -4225 -3300 -2600 Intake: Oral 500 Output: Urine 4225 3800 2600 Other: Voiding Method Indwelling Catheter Indwelling Catheter # Bowel Movements 1 1 - Labs CBC & Chem 7: 11/14/21 06:12 11/14/21 06:12 Labs: Abnormal Lab Results - Last 24 Hours (Table) 11/13/21 11/13/21 11/13/21 Range/Units 07:48 07:48 12:18 WBC 14.41 H (4.50-10.00) X 10*3/uL RBC 3.13 L (4.40-5.60) X 10*6/uL Hgb 9.7 L (13.0-17.0) g/dL Hct 29.2 L (39.6-50.0) % Plt Count 118 L (140-440) X 10*3/uL Plt Count Comment DECREASED A Absolute Nucleated RBC 0.03 H (0.00-0.00) X 10*3/uL Metamyelocytes % 1 H (0-0) % Myelocytes % 3 H (0-0) % Neutrophils # (1.3-7.7) k/uL Neutrophils # (Manual) 13.26 H (2.00-8.90) X 10*3/uL Lymphocytes # (1.0-4.8) k/uL Lymphocytes # (Manual) 0.58 L (0.90-5.00) X 10*3/uL Monocytes # (Manual) 0 L (0.20-1.00) X 10*3/uL Eosinophils # (Manual) 0 L (0.04-0.35) X 10*3/uL NRBC/100 WBC Diff 0.2 H (0.0-0.0) /100 WBCS Potassium (3.5-5.1) mmol/L Carbon Dioxide (22-30) mmol/L POC Glucose (mg/dL) 283 H (75-99) mg/dL Calcium (8.4-10.2) mg/dL Total Protein (6.3-8.2) g/dL Albumin (3.5-5.0) g/dL Procalcitonin 1.83 H (0.02-0.09) ng/mL 11/13/21 11/13/21 11/14/21 Range/Units 17:26 20:42 06:12 WBC 13.8 H (4.50-10.00) X 10*3/uL RBC 3.05 L (4.40-5.60) X 10*6/uL Hgb 9.5 L (13.0-17.0) g/dL Hct 28.4 L (39.6-50.0) % Plt Count 120 L (140-440) X 10*3/uL Plt Count Comment Absolute Nucleated RBC (0.00-0.00) X 10*3/uL Metamyelocytes % (0-0) % Myelocytes % (0-0) % Neutrophils # 12.4 H (1.3-7.7) k/uL Neutrophils # (Manual) (2.00-8.90) X 10*3/uL Lymphocytes # 0.8 L (1.0-4.8) k/uL Lymphocytes # (Manual) (0.90-5.00) X 10*3/uL Monocytes # (Manual) (0.20-1.00) X 10*3/uL Eosinophils # (Manual) (0.04-0.35) X 10*3/uL NRBC/100 WBC Diff (0.0-0.0) /100 WBCS Potassium (3.5-5.1) mmol/L Carbon Dioxide (22-30) mmol/L POC Glucose (mg/dL) 364 H 304 H (75-99) mg/dL Calcium (8.4-10.2) mg/dL Total Protein (6.3-8.2) g/dL Albumin (3.5-5.0) g/dL Procalcitonin (0.02-0.09) ng/mL 11/14/21 Range/Units 06:12 WBC (4.50-10.00) X 10*3/uL RBC (4.40-5.60) X 10*6/uL Hgb (13.0-17.0) g/dL Hct (39.6-50.0) % Plt Count (140-440) X 10*3/uL Plt Count Comment Absolute Nucleated RBC (0.00-0.00) X 10*3/uL Metamyelocytes % (0-0) % Myelocytes % (0-0) % Neutrophils # (1.3-7.7) k/uL Neutrophils # (Manual) (2.00-8.90) X 10*3/uL Lymphocytes # (1.0-4.8) k/uL Lymphocytes # (Manual) (0.90-5.00) X 10*3/uL Monocytes # (Manual) (0.20-1.00) X 10*3/uL Eosinophils # (Manual) (0.04-0.35) X 10*3/uL NRBC/100 WBC Diff (0.0-0.0) /100 WBCS Potassium 3.0 L (3.5-5.1) mmol/L Carbon Dioxide 38 H (22-30) mmol/L POC Glucose (mg/dL) (75-99) mg/dL Calcium 7.9 L (8.4-10.2) mg/dL Total Protein 5.2 L (6.3-8.2) g/dL Albumin 2.7 L (3.5-5.0) g/dL Procalcitonin (0.02-0.09) ng/mL Microbiology - Last 24 Hours (Table) 11/13/21 08:45 Gram Stain - Preliminary Sputum Sputum Culture - Preliminary Assessment and Plan Time with Patient: Less than 30
[2021-11-14 17:12] LABS: Glucose,Whole Blood 296 mg/dL (75-99)
[2021-11-14] MEDS: TAMSULOSIN 0.4 MG CAP.ER.24H PO SCH (20:15)
[2021-11-14] MEDS: amLODIPine 10 MG TAB PO SCH (20:16)
[2021-11-14] MEDS: LOSARTAN 50 MG TAB PO SCH (20:16)
[2021-11-14 20:49] LABS: Glucose,Whole Blood 268 mg/dL (75-99)
[2021-11-14] MEDS: INSULIN DETEMIR (LEVEMIR) 100 UNIT/ML SYR SQ SCH (21:29)
--- NOTE | 2021-11-14 22:53 | P.PN ---
Subjective Progress Note Date: 11/14/21 Principal diagnosis: Pneumonia Patient is a 55-year-old male with a recent diagnosis of poorly differentiated carcinoma with metastasis presented to hospital with increasing shortness of breath and lower extremity swelling chest x-ray with multifocal areas of consolidation concerning for possible pneumonia. On today's evaluation that is 11/14/2021, the patient continues to be afebrile, the patient is breathing comfortably on 10 L nasal cannula oxygen, the patient d enies chest pain , the patient cough is decreased intensity is mostly dry in nature Patient denies abdominal and no diarrhea Objective - Vital Signs Vital signs: Vital Signs Temp 97.5 F L 11/14/21 11:57 Pulse 64 11/14/21 12:18 Resp 18 11/14/21 11:57 BP 146/80 11/14/21 11:57 Pulse Ox 98 11/14/21 11:57 FiO2 100 11/06/21 07:54 Intake & Output 11/13/21 11/14/21 11/14/21 18:59 06:59 18:59 Intake Total 500 200 Output Total 4225 3800 4700 Balance -4225 -3300 -4500 Intake: Intake, IV Titration 200 Amount Piperacillin-Tazobactam 3 200 .375 gm In Sodium Chloride 0.9% 100 ml @ 25 mls/hr IVPB Q8HR [facility] Rx# :[id number] Oral 500 Output: Urine 4225 3800 4700 Other: Voiding Method Indwelling Catheter Indwelling Catheter # Bowel Movements 1 1 - Exam GENERAL DESCRIPTION: A middle-age male lying in bed in no distress RESPIRATORY SYSTEM: Unlabored breathing , decreased breath sounds at bases, no wheeze HEART: S1 S2 regular rate and rhythm , ABDOMEN: Soft , no tenderness EXTREMITIES: Trace edema feet - Labs CBC & Chem 7: 11/14/21 06:12 11/14/21 17:45 Labs: Abnormal Lab Results - Last 24 Hours (Table) 11/13/21 11/14/21 11/14/21 Range/Units 20:42 06:12 06:12 WBC 13.8 H (3.8-10.6) k/uL RBC 3.05 L (4.30-5.90) m/uL Hgb 9.5 L (13.0-17.5) gm/dL Hct 28.4 L (39.0-53.0) % Plt Count 120 L (150-450) k/uL Neutrophils # 12.4 H (1.3-7.7) k/uL Lymphocytes # 0.8 L (1.0-4.8) k/uL Potassium 3.0 L (3.5-5.1) mmol/L Carbon Dioxide 38 H (22-30) mmol/L POC Glucose (mg/dL) 304 H (75-99) mg/dL Calcium 7.9 L (8.4-10.2) mg/dL Total Protein 5.2 L (6.3-8.2) g/dL Albumin 2.7 L (3.5-5.0) g/dL 11/14/21 11/14/21 11/14/21 Range/Units 11:55 17:06 17:45 WBC (3.8-10.6) k/uL RBC (4.30-5.90) m/uL Hgb (13.0-17.5) gm/dL Hct (39.0-53.0) % Plt Count (150-450) k/uL Neutrophils # (1.3-7.7) k/uL Lymphocytes # (1.0-4.8) k/uL Potassium 3.2 L (3.5-5.1) mmol/L Carbon Dioxide (22-30) mmol/L POC Glucose (mg/dL) 214 H 296 H (75-99) mg/dL Calcium (8.4-10.2) mg/dL Total Protein (6.3-8.2) g/dL Albumin (3.5-5.0) g/dL Microbiology - Last 24 Hours (Table) 11/13/21 08:45 Gram Stain - Preliminary Sputum Sputum Culture - Preliminary Gram Neg Bacilli Assessment and Plan (1) Pneumonia Current Visit: Yes Status: Acute Code(s): J18.9 - PNEUMONIA, UNSPECIFIED ORGANISM SNOMED Code(s): 152934060 (2) Thrush Current Visit: Yes Status: Acute Code(s): B37.0 - CANDIDAL STOMATITIS SNOMED Code(s): 74187220 Plan: 1patient presented to hospital with increasing shortness of breath and weakness in this patient did have a bilateral lower extremity swelling recent diagnosis of metastatic poorly differentiated carcinoma , possibly combination of fluid overload plus minus a component of pneumonia, patient did have elevated CRP and procalcitonin level suggestive of pneumonia. 2patient blood culture has been negative and was unable to provide any sputum 3patient clinical condition remains to be stable, chest x-ray with no worsening, pro-calcitonin is trending down, patient currently being treated with the Zosyn and continue supportive care Time with Patient: Less than 30
--- NOTE | 2021-11-14 23:54 | P.PN ---
Subjective Progress Note Date: 11/14/21 the patient was sitting in the chair, on oxygen. He was still somewhat short of breath at rest, but did not appear to be in distress. Pain control appears to be better, per patient and family Objective - Vital Signs Vital signs: Vital Signs Temp 98.0 F 11/14/21 20:00 Pulse 88 11/14/21 20:00 Resp 16 11/14/21 20:00 BP 145/79 11/14/21 20:00 Pulse Ox 96 11/14/21 20:00 FiO2 100 11/06/21 07:54 Intake & Output 11/14/21 11/14/21 11/15/21 06:59 18:59 06:59 Intake Total 500 200 Output Total 3800 4700 Balance -3300 -4500 Intake: Intake, IV Titration 200 Amount Piperacillin-Tazobactam 3 200 .375 gm In Sodium Chloride 0.9% 100 ml @ 25 mls/hr IVPB Q8HR [facility] Rx# :[id number] Oral 500 Output: Urine 3800 4700 Other: Voiding Method Indwelling Catheter Indwelling Catheter # Bowel Movements 1 1 - Constitutional General appearance: Present: no acute distress - EENT Eyes: Present: EOMI ENT: Present: hearing grossly normal, normal oropharynx - Respiratory Respiratory: bilateral: diminished, rales (mild) - Cardiovascular Rhythm: regular Heart sounds: normal: S1, S2 - Gastrointestinal General gastrointestinal: Present: soft - Integumentary Integumentary: Present: normal - Musculoskeletal Musculoskeletal: Present: generalized weakness, strength equal bilaterally - Psychiatric Psychiatric: Present: A&O x's 3 - Labs CBC & Chem 7: 11/14/21 06:12 11/14/21 17:45 Labs: Abnormal Lab Results - Last 24 Hours (Table) 11/14/21 11/14/21 11/14/21 Range/Units 06:12 06:12 11:55 WBC 13.8 H (3.8-10.6) k/uL RBC 3.05 L (4.30-5.90) m/uL Hgb 9.5 L (13.0-17.5) gm/dL Hct 28.4 L (39.0-53.0) % Plt Count 120 L (150-450) k/uL Neutrophils # 12.4 H (1.3-7.7) k/uL Lymphocytes # 0.8 L (1.0-4.8) k/uL Potassium 3.0 L (3.5-5.1) mmol/L Carbon Dioxide 38 H (22-30) mmol/L POC Glucose (mg/dL) 214 H (75-99) mg/dL Calcium 7.9 L (8.4-10.2) mg/dL Total Protein 5.2 L (6.3-8.2) g/dL Albumin 2.7 L (3.5-5.0) g/dL 11/14/21 11/14/21 11/14/21 Range/Units 17:06 17:45 20:47 WBC (3.8-10.6) k/uL RBC (4.30-5.90) m/uL Hgb (13.0-17.5) gm/dL Hct (39.0-53.0) % Plt Count (150-450) k/uL Neutrophils # (1.3-7.7) k/uL Lymphocytes # (1.0-4.8) k/uL Potassium 3.2 L (3.5-5.1) mmol/L Carbon Dioxide (22-30) mmol/L POC Glucose (mg/dL) 296 H 268 H (75-99) mg/dL Calcium (8.4-10.2) mg/dL Total Protein (6.3-8.2) g/dL Albumin (3.5-5.0) g/dL Microbiology - Last 24 Hours (Table) 11/13/21 08:45 Gram Stain - Preliminary Sputum Sputum Culture - Preliminary Gram Neg Bacilli Assessment and Plan Assessment: the patient is status post 1 cycle of carbo, which she appears to have tolerated well so far. Platelet count mildly low today, but well within a safe range. Continue to monitor. (1) Metastatic cancer Current Visit: Yes Status: Acute Code(s): C79.9 - SECONDARY MALIGNANT NEOPLASM OF UNSPECIFIED SITE SNOMED Code(s): 826600054 (2) Acute hypoxemic respiratory failure Narrative/Plan: improved, with treatment of pneumonia. ongoing management of same, per ID and pulmonary medicine. Current Visit: Yes Status: Acute Code(s): J96.01 - ACUTE RESPIRATORY FAILURE WITH HYPOXIA SNOMED Code(s): 210346880 (3) Hyperthyroidism Current Visit: Yes Status: Acute Code(s): E05.90 - THYROTOXICOSIS, UNSP WITHOUT THYROTOXIC CRISIS OR STORM SNOMED Code(s): 63107467 (4) Altered mental status Current Visit: Yes Status: Acute Code(s): R41.82 - ALTERED MENTAL STATUS, UNSPECIFIED SNOMED Code(s): 141815203 (5) Atrial fibrillation with rapid ventricular response Current Visit: Yes Status: Acute Code(s): I48.91 - UNSPECIFIED ATRIAL FIBRIL LATION SNOMED Code(s): 968367162918099 (6) Leukocytosis Current Visit: No Status: Acute Code(s): D72.829 - ELEVATED WHITE BLOOD CELL COUNT, UNSPECIFIED SNOMED Code(s): 492005859 (7) Pedal edema Current Visit: No Status: Acute Code(s): R60.0 - LOCALIZED EDEMA SNOMED Code(s): 681565919 (8) Neoplasm related pain Narrative/Plan: patient's pain control is improved with the addition of MS Contin. According to nursing, he has been able to manage with [place] for breakthrough pain, and is requiring definitely decreased doses of Dilaudid. we also discussed adding IV bisphosphonate. However, the patient states that he is having some ongoing dental issues. We will attempt to confirm that with his . If he does have significant ongoing dental issues, he would be a candidate for the same. Current Visit: Yes Status: Acute Code(s): G89.3 - NEOPLASM RELATED PAIN (ACUTE) (CHRONIC) SNOMED Code(s): 36999797519694
[2021-11-15] MEDS: PIPERACILLIN-TAZOBACTAM 3.375 GM in SODIUM CHLORIDE 0.9% 100 ML IVPB SCH ×3 (00:28→16:30)
[2021-11-15] MEDS: GABAPENTIN 400 MG CAP PO SCH ×4 (05:01→22:29)
[2021-11-15 07:17] LABS: Glucose,Whole Blood 133 mg/dL (75-99)
[2021-11-15 07:17] LABS: ALT 31 U/L (4-49); AST 24 U/L (17-59); African American GFR (CKD) >90 (>60 ml/min/1.73 sqM); Albumin 2.6 g/dL (3.5-5.0); Albumin/Globulin Ratio 1.1; Alkaline Phosphatase 84 U/L (38-126); Anion Gap 0 mmol/L; Blood Urea Nitrogen 14 mg/dL (9-20); Carbon Dioxide 40 mmol/L (22-30); Chloride 100 mmol/L (98-107); Globulin 2.3 g/dL; Glucose 128 mg/dL (74-99); Non-African American GFR(CKD) >90 (>60 ml/min/1.73 sqM); Potassium 3.9 mmol/L (3.5-5.1); Sodium 140 mmol/L (137-145); Total Bilirubin 0.5 mg/dL (0.2-1.3); Total Protein 4.9 g/dL (6.3-8.2)
[2021-11-15] MEDS: INSULIN ASPART (NovoLOG) 100 UNIT/ML VIAL SQ SCH ×7 (07:26→22:25)
[2021-11-15] MEDS: METOPROLOL TARTRATE 50 MG TAB PO SCH ×2 (08:00→22:23)
[2021-11-15] MEDS: FAMOTIDINE 20 MG TAB PO SCH ×2 (08:00→22:24)
[2021-11-15] MEDS: POTASSIUM CHLORIDE ER 20 MEQ TAB.ER PO SCH ×4 (08:00→22:24)
[2021-11-15] MEDS: FLUCONAZOLE 100 MG TAB PO SCH (08:00)
[2021-11-15] MEDS: MAGNESIUM OXIDE 400 MG TAB PO SCH ×2 (08:01→22:22)
[2021-11-15] MEDS: APIXABAN 5 MG TAB PO SCH ×2 (08:01→22:23)
[2021-11-15] MEDS: MORPHINE SULFATE ER 15 MG TABLET PO SCH ×2 (08:01→22:22)
[2021-11-15] MEDS: FUROSEMIDE 10 MG/ML 4 ML VIAL IV SCH (08:02)
[2021-11-15] MEDS: AMIODARONE 200 MG TAB PO SCH ×2 (08:02→22:23)
[2021-11-15] MEDS: FOLIC ACID 1 MG TAB PO SCH (08:02)
[2021-11-15] MEDS: CHOLECALCIFEROL 125 MCG (5000 IU) TABLET PO SCH (08:03)
[2021-11-15] MEDS: NON FORMULARY DRUG (Empagliflozin [Jardiance] 25 MG Tablet) PO SCH (08:04)
[2021-11-15] MEDS: PARoxetine 20 MG TAB PO SCH (08:04)
[2021-11-15] MEDS ORDERED: DOCUSATE 100 MG CAP PO SCH (09:00)
[2021-11-15] MEDS: IPRATROPIUM-ALBUTEROL 3 ML NEB INHALATION SCH ×3 (09:06→20:33)
[2021-11-15] MEDS: FORMOTEROL FUMARATE 20 MCG/2 ML NEBU INHALATION SCH ×2 (09:07→20:33)
[2021-11-15] MEDS: BUDESONIDE 1 MG/2 ML NEBU INHALATION SCH ×2 (09:07→20:33)
[2021-11-15 11:31] LABS: Glucose,Whole Blood 360 mg/dL (75-99)
[2021-11-15] MEDS: HYDROcodone/APAP 10-325MG 1 EACH TAB PO PRN ×3 (11:57→22:29)
[2021-11-15] MEDS ORDERED: HYDROmorphone 0.5 MG/0.5 ML SYRINGE IVP PRN (14:26)
[2021-11-15] MEDS ORDERED: LOPERAMIDE 2 MG CAP PO PRN (14:27)
[2021-11-15] MEDS ORDERED: DOCUSATE 100 MG CAP PO PRN (14:27)
--- NOTE | 2021-11-15 14:35 | P.PN ---
Subjective Progress Note Date: 11/15/21 This is a 55 year old male who presents with atrial fibrillation with RVR, and altered mental status. Patient was recently diagnosed with lung cancer not currently undergoing treatment. Bone scan today showing uptake involving the left rib is compatible with destructive lesions and also calvarium uptake highly suggestive of metastasis. There is also nonspecific uptake involving pubic symphysis and metastasis should also be in the differential. Currently rating pain a 4/10. Patient is on 13L high flow cannula with saturation of 92%, afebrile, heart rate controlled 92, blood pressure 124/75. Not currently wearing oxygen as outpatient. He has been transitioned to oral amiodarone and oral eliquis. He continues on IV zosyn, and has been transitioned to oral lasix. Potassium today 2.7 and patient has received additional replacement as well as 40 meq bid, pts expressed concern with ongoing low potassium prior to admission as well. Repeat potassium this afternoon. Oncology and pulmonary following along, cardiology has signed off as needed basis. 11/09/2021 Patient evaluated today resting in bed, family at the bedside. Continues on 13L HF cannula, denies shortness of breath at rest, tolerating diet. Patient was taking lasix and hydrochlorothiazide outpatient which were new medications in September of this year. He remains off hctz and has been started on IV lasix today. Potassium 3.2, magnesium 1.7 which were supplemented. White count 11.6, hgb 9.7, platelet count 101. Procalcitonin level remains elevated at 3.69. Continues on eliquis and amiodarone taper. He continues on IV zosyn, bronchodilators. Blood glucose has improved with addition of levemir and increase in novolog. Continue with current treatment plan. Patient and family updated on bone scan results, all questions were answered. 11/10/2021 Today patient is reporting pain to the left side of his head states there is a soft spot he can feel, additionally the pain he reports from the left rib region has been the most prevalent. He is also experiencing peripheral neuropathy which he is receiving gabapentin for. He states the pain medication is helping when he is receiving it but the dilaudid wears off fast, he is also using norco and tramadol alternating. Family at the bedside states that his pain is not controlled. Adjustments were made today. Family is waiting to meet with oncology. Patient needs outpatient MRI as his sleep apnea device is not compatible with MRI at this hospital. It was discussed with family that with his respiratory status and disease progression he most likely won't become stable enough for discharge. Family and patient would like to meet with pulmonary as well. Oxygen dropped to 89% on 13L High flow cannula this morning. Potassium today 3.1, was supplemented. Magnesium today improved to 2.0. White count 12.1, hgb 10.6. Procalcitonin yesterday 2.62. Repeat chest xray today showing b ilateral areas of multifocal infiltrate correlate for pneumonia. Findings are stable, with underlying neoplasm redemonstrated. Continues on IV Zosyn, IV lasix 40 mg Q 12, he is negative 4.5 L in the last 24 hours. Per family at the bedside this morning they are waiting for patients to arrive and will be meeting with oncology. 11/11/2021 Per patient his pain seems controlled at the time of my examination. Per family he had alot of pain this morning and states that patient is not sleeping well, then states he got dilaudid 4 hours ago and seems groggy. Offered a mild sleeping aide, which was refused by family as they do not want him to sleep through the night and then wake up in excruciating pain. Patient does not say much during this conversation although all questions are directed at patient. Plan today is for transfer to oncology unit when bed available and patient is offered palliative chemotherapy with carboplatin. Reinforced that the goal is not curative, but to possibly stabilize patient enough to be able to discharge home with family. He continues on 10L high flow cannula with oxygenation 92-95%, he is afebrile, heart rate 78, blood pressure 137/77. Labs today showing white count 12.8, hgb 10.2, sodium 140, potassium 3.1. He did receive a dose of IV decadron today. IV lasix has been decreased to daily. He continues on duonebs, pulmicort, perforomist. He is also continued on IV zosyn. He is also on potassium 60 meq BID. He remains in negative fluid balance. Pain management with tramadol 100 mg TID, norco 10 q4, dilaudid 0.4 mg Q3. He is also on gabapentin for neuropathy. 11/12/2021 Patient is sitting up in the chair today, he is in good spirits. Tolerated vicente motherapy well yest. Maintaining on 10 L High flow cannula, saturation 94%. Incentive spirometer has been ordered, he dose have improved aeration today. Follow up chest xray showing bilateral multifocal infiltrate correlate for pneumonia stable with underlying neoplasm. There is suspected metastasis to 6 and 7th rib. There are prominent bowel loops upper abdomen. He states he is moving bowels, and continues on colace BID with miralax as needed. Also has been started on oral pepcid BID. Discussed this with patient. He did state he slept well last night, there is melatonin as needed. Per family they feel patients pain is still not being managed although he reports pain is more controlled when in room. Pain management has been consulted. Continues on IV lasix daily he is in negative fluid balance. With mild peripheral edema. Labs reviewed today showing white count 13.4, hgb 9.9, sodium 143, potassium 3.4, mag 1.8. 11/13/2021 Patient evaluated today sitting up in the chair with family friend at the bedside. Patient was seen in consult by pain management without medication changes. Patients family have expressed concern with pain management and patient has been refusing tramadol. He mainly complaints of neuropathic pain and does not want to adjust gabapentin dosing. Family has refused fentanyl patch as patient had used outpatient at 50 mcg dosing and family states "he was loopy." Discussed pain management with patient in extent and he reports 5/10 pain at baseline regarding neuropathic pain as well as his back pain. He was hoping chemotherapy would help pain as well as decrease his oxygen needs. Family and patient are agreeable to try extended relief oral morphine and this was discussed with oncology as well. He continues on 10 L high flow cannula. Labs today showing white count 14.41, hgb 9.7, platelets 118, potassium 3.1. 11/14/2021 Patient evaluated today sitting up in the chair, he has family at the bedside. He reports his pain is better controlled while on the MS contin. He previously has reported pain in both his back and legs as 5/10, and today he states it is less than 5/10 although does not quantify. We will cut back dilaudid and norco which are for breakthrough pain, this was discussed with patient and that we would like to wean off the dilaudid and control pain the oral medication. Medications were cut back to the time frames he has been receiving them at and will monitor for affectiveness. He is sleepy today, alert x 3. He had 3 episodes of loose stool throughout the night, states he was incontinent we will cut back on the colace to daily. Otherwise he is being followed by oncology, infectious disease. He is continued on IV zosyn. He is continued on IV lasix as well and is in negative fluid balance with -3.7 Liters overnight, his weight is also down about 12 lbs. We will continue for one more day and transition to oral lasix. Labs today 13.8, hemoglobin 9.5, platelet count 120, sodium 142, potassium 3.0, chloride 101, CO2 38, blood glucose in the 200s. Blood pressure is 146/80. 11/15/2021 Patient evaluated today sitting in bed. His pedal edema has increased significantly since yesterday, will given an extra dose of IV lasix today and will continue on IV lasix daily for now. Can MANDY wrap lower extremities as well. Patient is doing well on the morphine ER and has requested his norco be increased back to Q4 hour for breakthrough pain. Discussed increased the extended relief morphine and patient did not comment. Otherwise, he has been weaned down to 2-3L of oxygen via nasal cannula and saturations around 93%. He continues with incentive spirometry. He is continued on IV Zosyn and is being followed closely by infectious disease as well. He is having soft bowel movements a few times a day, colace is PRN daily and also can use imodium as needed. If he has not had a BM in 2-3 days should start back on colace daily to avoid constipation from narcotic use. Oncology following along and patient states he is going to get another dose of chemotherapy most likely on monday and will also be evaluated by radiologist. Most likely will discharge after when outpatient arrangements have been made for chemo /radiation. Otherwise he has met oxygen requirements for discharge from a medical standpoint, antiobiotics per infectious disease. PT/OT following. Potassium today is 3.9. Blood pressure 123/69 Review of Systems Constitutional: Reports fatigue, denied any fever. Cardio vascular: denied any chest pain, palpitations Gastrointestinal: denied any nausea, vomiting, reports soft BMs Pulmonary: Denies shortness of breath at rest, intermittent cough Neurologic denied any new focal deficits All inpatient medications were reviewed and appropriate changes in these medications as dictated in the interval history and assessment and plan. PHYSICAL EXAMINATION: GENERAL: The patient is alert and oriented x3. Well developed, well nourished. HEENT: Pupils are round and equally reacting to light. EOMI. No scleral icterus. No conjunctival pallor. Normocephalic, atraumatic. No pharyngeal erythema. No thyromegaly. CARDIOVASCULAR: S1 and S2 present. No murmurs, rubs, or gallops. PULMONARY: No crackles, no wheezing noted. He has diminished lung sounds. There is improved aeration today ABDOMEN: Soft, nontender, nondistended, normoactive bowel sounds. No palpable organomegaly. MUSCULOSKELETAL: No joint swelling or deformity. EXTREMITIES: No cyanosis, clubbing, or 2-3 + Pedal edema today NEUROLOGICAL: Gross neurological examination did not reveal any focal deficits. SKIN: No rashes. Assessment and Plan Assessment Acute hypoxic respiratory failure which is multifactorial, component of bilateral pneumonia as well as lung cancer which has progressed. He is clinically improving, his oxygen needs are down to 2-3 Liters of oxygen and he does continue on IV antibiotics Paroxysmal atrial fibrillation, maintaining sinus rhythm continues on oral amiodarone taper, anticoagulation with eliquis Altered mental status from acute metabolic encephalopathy, CT scan negative, imp roving mentation Recent diagnosis Non-small cell lung cancer with metastasis to the bone he is status post chemotherapy while inpatient and has been started on extended release oral morphine with norco for breakthrough pain and his pain control has improved. 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 Troponin leak most likely related to atrial fibrillation with RVR Diabetes Mellitus type 2, recent diagnosis Oral thrush Sick euthyroid syndrome Pulmonary hypertension History of hypertension History of sleep apnea with CPAP use, also has an implanted sleep apnea device Former tobacco use Chronic back pain GI Prophylaxis DVT Prophylaxis Plan This is a 55 year old male with metastatic lung cancer status post chemotherapy. Continue to wean oxygen support as tolerated Continue on IV zosyn, bronchodilators Continue on IV lasix daily, will given an extra dose of IV lasix today MANDY wrap bilateral lower extremity starting with feet Indwelling catheter Amiodarone taper per cardiology Electrolyte replacement Pain management consultation Follow up labs in AM Cardiology has signed off Pulmonary and oncology following Clinically patient has improved and is now on 2-3 Liters of nasal cannula which is adequate for discharge. Pending oncology and infectious disease recommendations for discharge. PT/OT has been re-consulted The impression and plan of care has been dictated by Angi Castaneda, Nurse Practitioner as directed. Dr. Dick MD I have performed a history and physical examination and medical decision making of this patient, discussed the same with the dictator, and agree with the dictators assessment and plan as written, documented as a scribe. Based on total visit time, I have performed more than 50% of this visit. Objective - Vital Signs Vital signs: Vital Signs Temp 98.2 F 11/15/21 04:51 Pulse 67 11/15/21 09:32 Resp 16 11/15/21 04:51 BP 152/81 11/15/21 04:51 Pulse Ox 97 11/15/21 04:51 FiO2 100 11/06/21 07:54 Intake & Output 11/14/21 11/15/21 11/15/21 18:59 06:59 18:59 Intake Total 200 840 Output Total 4700 2000 2650 Balance -4500 -1161 -2650 Intake: Intake, IV Titration 200 Amount Piperacillin-Tazobactam 3 200 .375 gm In Sodium Chloride 0.9% 100 ml @ 25 mls/hr IVPB Q8HR [facility] Rx# :[id number] Oral 840 Output: Urine 4700 1999 2650 Stool 1 Other: Voiding Method Indwelling Catheter Indwelling Catheter # Bowel Movements 1 - Labs CBC & Chem 7: 11/14/21 06:12 11/15/21 06:01 Labs: Abnormal Lab Results - Last 24 Hours (Table) 11/14/21 11/14/21 11/14/21 Range/Units 11:55 17:06 17:45 Potassium 3.2 L (3.5-5.1) mmol/L Carbon Dioxide (22-30) mmol/L Creatinine (0.66-1.25) mg/dL Glucose (74-99) mg/dL POC Glucose (mg/dL) 214 H 296 H (75-99) mg/dL Calcium (8.4-10.2) mg/dL Total Protein (6.3-8.2) g/dL Albumin (3.5-5.0) g/dL 11/14/21 11/15/21 11/15/21 Range/Units 20:47 06:01 07:12 Potassium (3.5-5.1) mmol/L Carbon Dioxide 40 H (22-30) mmol/L Creatinine 0.65 L (0.66-1.25) mg/dL Glucose 128 H (74-99) mg/dL POC Glucose (mg/dL) 268 H 133 H (75-99) mg/dL Calcium 8.0 L (8.4-10.2) mg/dL Total Protein 4.9 L (6.3-8.2) g/dL Albumin 2.6 L (3.5-5.0) g/dL 11/15/21 Range/Units 11:29 Potassium (3.5-5.1) mmol/L Carbon Dioxide (22-30) mmol/L Creatinine (0.66-1.25) mg/dL Glucose (74-99) mg/dL POC Glucose (mg/dL) 360 H (75-99) mg/dL Calcium (8.4-10.2) mg/dL Total Protein (6.3-8.2) g/dL Albumin (3.5-5.0) g/dL Microbiology - Last 24 Hours (Table) 11/13/21 08:45 Gram Stain - Preliminary Sputum Sputum Culture - Preliminary Klebsiella pneumoniae Assessment and Plan Time with Patient: Less than 30
--- NOTE | 2021-11-15 15:38 | P.PN ---
Subjective Progress Note Date: 11/15/21 Principal diagnosis: Poorly differentiated carcinoma, unknown primary Patient appears to be clinically stable and overall doing a but better. His pain much more controlled on long acting pain medication, will ensure a bowel protocol is added. Two sisters and at bedside. Objective - Vital Signs Vital signs: Vital Signs Temp 97.6 F 11/15/21 12:15 Pulse 79 11/15/21 12:15 Resp 16 11/15/21 12:15 BP 123/69 11/15/21 12:15 Pulse Ox 93 L 11/15/21 12:52 FiO2 100 11/06/21 07:54 Intake & Output 11/14/21 11/15/21 11/15/21 18:59 06:59 18:59 Intake Total 200 840 Output Total 4700 2000 2650 Balance -4500 -1161 -2650 Intake: Intake, IV Titration 200 Amount Piperacillin-Tazobactam 3 200 .375 gm In Sodium Chloride 0.9% 100 ml @ 25 mls/hr IVPB Q8HR [facility] Rx# :[id number] Oral 840 Output: Urine 4700 1999 2650 Stool 1 Other: Voiding Method Indwelling Catheter Indwelling Catheter # Bowel Movements 1 - Exam - Constitutional General appearance: Present: average body habitus, cooperative, no acute distress - EENT Eyes: Present: anicteric sclerae, EOMI ENT: Present: hearing grossly normal - Respiratory Respiratory: bilateral: diminished, other (shallow resp) - Musculoskeletal Musculoskeletal: Present: generalized weakness - Psychiatric Psychiatric: Present: A&O x's 3 - Labs CBC & Chem 7: 11/14/21 06:12 11/15/21 06:01 Labs: Abnormal Lab Results - Last 24 Hours (Table) 11/14/21 11/14/21 11/14/21 Range/Units 17:06 17:45 20:47 Potassium 3.2 L (3.5-5.1) mmol/L Carbon Dioxide (22-30) mmol/L Creatinine (0.66-1.25) mg/dL Glucose (74-99) mg/dL POC Glucose (mg/dL) 296 H 268 H (75-99) mg/dL Calcium (8.4-10.2) mg/dL Total Protein (6.3-8.2) g/dL Albumin (3.5-5.0) g/dL 11/15/21 11/15/21 11/15/21 Range/Units 06:01 07:12 11:29 Potassium (3.5-5.1) mmol/L Carbon Dioxide 40 H (22-30) mmol/L Creatinine 0.65 L (0.66-1.25) mg/dL Glucose 128 H (74-99) mg/dL POC Glucose (mg/dL) 133 H 360 H (75-99) mg/dL Calcium 8.0 L (8.4-10.2) mg/dL Total Protein 4.9 L (6.3-8.2) g/dL Albumin 2.6 L (3.5-5.0) g/dL Microbiology - Last 24 Hours (Table) 11/13/21 08:45 Gram Stain - Preliminary Sputum Sputum Culture - Preliminary Klebsiella pneumoniae Assessment and Plan (1) Adenocarcinoma, lung Current Visit: Yes Status: Deleted Code(s): C34.90 - MALIGNANT NEOPLASM OF UNSP PART OF UNSP BRONCHUS OR LUNG SNOMED Code(s): 394857125 (2) Acute hypoxemic respiratory failure Narrative/Plan: Pulmonology following Improved 6-7L Current Visit: Yes Status: Acute Code(s): J96.01 - ACUTE RESPIRATORY FAILURE WITH HYPOXIA SNOMED Code(s): 316484936 (3) Hyperthyroidism Narrative/Plan: Further work-up In alignment with metabolic picture Current Visit: Yes Status: Acute Code(s): E05.90 - THYROTOXICOSIS, UNSP WIT HOUT THYROTOXIC CRISIS OR STORM SNOMED Code(s): 31329909 (4) Altered mental status Narrative/Plan: Improved today Possible component metabolic syndrome with marked elevation in glucose, marked hypokalemia, increased thyroid function - COntinues to improve with more stable and spread out pain relef and oxygenation Current Visit: Yes Status: Acute Code(s): R41.82 - ALTERED MENTAL STATUS, UNSPECIFIED SNOMED Code(s): 879554467 (5) Atrial fibrillation with rapid ventricular response Current Visit: Yes Status: Acute Code(s): I48.91 - UNSPECIFIED ATRIAL FIBRILLATION SNOMED Code(s): 686184215874896 (6) Hypokalemia Narrative/Plan: Replace and check stat mag Cortisol pending Current Visit: Yes Status: Acute Code(s): E87.6 - HYPOKALEMIA SNOMED Code(s): 09265333 (7) Leukocytosis Current Visit: No Status: Acute Code(s): D72.829 - ELEVATED WHITE BLOOD CELL COUNT, UNSPECIFIED SNOMED Code(s): 621839009 (8) Pedal edema Narrative/Plan: Doppler neg IImproved Current Visit: No Status: Acute Code(s): R60.0 - LOCALIZED EDEMA SNOMED Code(s): 799132445 Plan: PET scsan with FDG avity to bone, and only lung mass, ? acute situation as infectious versus actual progression. CT without contrast of HEad neg, will need with contrast Imaging regarding possible Thrombus IVC and Osseous mets not clear CT Bone scan ordered and Ultrasound with doppler abdomen Await resolution of acute issues then can determine ongoing treatment plan and confirmation of primary location Guardian 360 without approved actionable mutations for anticipated lung ca - Malika atic BRCA2 and PIK mutations Status post one treatment of carboplatin Greater than 35 minutes with patient, family answering all questions Dr. Greer: I have completed the full history and physical and developed the complete impression and plan, agree with dictation dictated as a ascribe
[2021-11-15] MEDS ORDERED: FUROSEMIDE 10 MG/ML 4 ML VIAL IV ONE (16:00)
[2021-11-15 17:23] LABS: Glucose,Whole Blood 371 mg/dL (75-99)
[2021-11-15 20:11] LABS: Glucose,Whole Blood 384 mg/dL (75-99)
[2021-11-15] MEDS: LOSARTAN 50 MG TAB PO SCH (22:23)
[2021-11-15] MEDS: amLODIPine 10 MG TAB PO SCH (22:23)
[2021-11-15] MEDS: TAMSULOSIN 0.4 MG CAP.ER.24H PO SCH (22:24)
[2021-11-15] MEDS: INSULIN DETEMIR (LEVEMIR) 100 UNIT/ML SYR SQ SCH (22:27)
--- NOTE | 2021-11-15 22:47 | P.PN ---
Subjective Progress Note Date: 11/15/21 Principal diagnosis: Pneumonia Patient is a 55-year-old male with a recent diagnosis of poorly differentiated carcinoma with metastasis presented to hospital with increasing shortness of breath and lower extremity swelling chest x-ray with multifocal areas of consolidation concerning for possible pneumonia. On today's evaluation that is 11/15/2021, the patient remains to be afebrile, the patient is breathing comfortably and is down to 7 L nasal cannula oxygen, the patient denies chest pain , the patient cough has decreased intensity and not bringing up any sputum Patient denies abdominal and no diarrhea Objective - Vital Signs Vital signs: Vital Signs Temp 97.6 F 11/15/21 12:15 Pulse 79 11/15/21 12:15 Resp 16 11/15/21 12:15 BP 123/69 11/15/21 12:15 Pulse Ox 90 L 11/15/21 12:15 FiO2 100 11/06/21 07:54 Intake & Output 11/14/21 11/15/21 11/15/21 18:59 06:59 18:59 Intake Total 200 840 Output Total 4700 2000 2650 Balance -4500 -1161 -2650 Intake: Intake, IV Titration 200 Amount Piperacillin-Tazobactam 3 200 .375 gm In Sodium Chloride 0.9% 100 ml @ 25 mls/hr IVPB Q8HR [facility] Rx# :[id number] Oral 840 Output: Urine 4700 1999 2650 Stool 1 Other: Voiding Method Indwelling Catheter Indwelling Catheter # Bowel Movements 1 - Exam GENERAL DESCRIPTION: A middle-age male lying in bed in no distress RESPIRATORY SYSTEM: Unlabored breathing , decreased breath sounds at bases, no wheeze HEART: S1 S2 regular rate and rhythm , ABDOMEN: Soft , no tenderness EXTREMITIES: Trace edema feet - Labs CBC & Chem 7: 11/14/21 06:12 11/15/21 06:01 Labs: Abnormal Lab Results - Last 24 Hours (Table) 11/14/21 11/14/21 11/14/21 Range/Units 17:06 17:45 20:47 Potassium 3.2 L (3.5-5.1) mmol/L Carbon Dioxide (22-30) mmol/L Creatinine (0.66-1.25) mg/dL Glucose (74-99) mg/dL POC Glucose (mg/dL) 296 H 268 H (75-99) mg/dL Calcium (8.4-10.2) mg/dL Total Protein (6.3-8.2) g/dL Albumin (3.5-5.0) g/dL 11/15/21 11/15/21 11/15/21 Range/Units 06:01 07:12 11:29 Potassium (3.5-5.1) mmol/L Carbon Dioxide 40 H (22-30) mmol/L Creatinine 0.65 L (0.66-1.25) mg/dL Glucose 128 H (74-99) mg/dL POC Glucose (mg/dL) 133 H 360 H (75-99) mg/dL Calcium 8.0 L (8.4-10.2) mg/dL Total Protein 4.9 L (6.3-8.2) g/dL Albumin 2.6 L (3.5-5.0) g/dL Microbiology - Last 24 Hours (Table) 11/13/21 08:45 Gram Stain - Preliminary Sputum Sputum Culture - Preliminary Klebsiella pneumoniae Assessment and Plan (1) Pneumonia Current Visit: Yes Status: Acute Code(s): J18.9 - PNEUMONIA, UNSPECIFIED ORGANISM SNOMED Code(s): 589908106 (2) Thrush Current Visit: Yes Status: Acute Code(s): B37.0 - CANDIDAL STOMATITIS SNOMED Code(s): 31729570 Plan: 1patient presented to hospital with increasing shortness of breath and weakness in this patient did have a bilateral lower extremity swelling recent diagnosis of metastatic poorly differentiated carcinoma , possibly combination of fluid overload plus minus a component of pneumonia, patient did have elevated CRP and procalcitonin level suggestive of pneumonia. 2patient blood culture has been negative and was unable to provide any sputum 3patient slowly clinically improving and is requiring less oxygen, chest x-ray with no worsening, pro-calcitonin is trending down, patient currently being tr eated with the Zosyn and continue supportive care Time with Patient: Less than 30
[2021-11-16] MEDS: PIPERACILLIN-TAZOBACTAM 3.375 GM in SODIUM CHLORIDE 0.9% 100 ML IVPB SCH ×2 (00:27→07:49)
[2021-11-16] MEDS: HYDROcodone/APAP 10-325MG 1 EACH TAB PO PRN ×3 (05:33→15:48)
[2021-11-16] MEDS: GABAPENTIN 400 MG CAP PO SCH ×2 (05:34→12:59)
[2021-11-16 07:32] LABS: Glucose,Whole Blood 154 mg/dL (75-99)
[2021-11-16] MEDS: INSULIN ASPART (NovoLOG) 100 UNIT/ML VIAL SQ SCH ×5 (07:49→18:35)
[2021-11-16] MEDS: POTASSIUM CHLORIDE ER 20 MEQ TAB.ER PO SCH ×2 (07:50)
[2021-11-16] MEDS: PARoxetine 20 MG TAB PO SCH (07:51)
[2021-11-16] MEDS: FAMOTIDINE 20 MG TAB PO SCH (07:51)
[2021-11-16] MEDS: FLUCONAZOLE 100 MG TAB PO SCH (07:51)
[2021-11-16] MEDS: AMIODARONE 200 MG TAB PO SCH (07:51)
[2021-11-16] MEDS: FOLIC ACID 1 MG TAB PO SCH (07:51)
[2021-11-16] MEDS: CHOLECALCIFEROL 125 MCG (5000 IU) TABLET PO SCH (07:51)
[2021-11-16] MEDS: MAGNESIUM OXIDE 400 MG TAB PO SCH (07:51)
[2021-11-16] MEDS: MORPHINE SULFATE ER 15 MG TABLET PO SCH (07:52)
[2021-11-16] MEDS: METOPROLOL TARTRATE 50 MG TAB PO SCH (07:52)
[2021-11-16] MEDS: FUROSEMIDE 10 MG/ML 4 ML VIAL IV SCH (07:52)
[2021-11-16] MEDS: APIXABAN 5 MG TAB PO SCH (07:52)
[2021-11-16] MEDS: BUDESONIDE 1 MG/2 ML NEBU INHALATION SCH (08:51)
[2021-11-16] MEDS: FORMOTEROL FUMARATE 20 MCG/2 ML NEBU INHALATION SCH (08:51)
[2021-11-16] MEDS: IPRATROPIUM-ALBUTEROL 3 ML NEB INHALATION SCH ×2 (08:51→12:42)
[2021-11-16 09:26] LABS: Basophils # (A) 0.01 X 10*3/uL (0.00-0.10); Basophils % (A) 0.1 %; Eosinophils # (A) 0 X 10*3/uL (0.04-0.35); Eosinophils % (A) 0 %; HCT 26.1 % (39.6-50.0); HGB 8.9 g/dL (13.0-17.0); Immature Grans, Automated 2.2 %; Lymphocytes # (A) 1.06 X 10*3/uL (0.90-5.00); Lymphocytes % (A) 8.5 %; MCH 31.6 pg (27.0-32.0); MCHC 34.1 g/dL (32.0-37.0); MCV 92.6 fL (80.0-97.0); Mean Platelet Volume 11.1 fL (9.5-12.2); Monocytes # (A) 0.26 X 10*3/uL (0.20-1.00); Monocytes % (A) 2.1 %; NRBC Per 100 WBC 0.5 /100 WBCS (0.0-0.0); Neutrophils # (A) 10.92 X 10*3/uL (1.80-7.70); Neutrophils % (A) 87.1 %; Platelet Count 120 X 10*3/uL (140-440); RBC 2.82 X 10*6/uL (4.40-5.60); RDW 13.8 % (11.5-14.5); WBC 12.53 X 10*3/uL (4.50-10.00)
[2021-11-16 09:30] LABS: Magnesium 2.3 mg/dL (1.5-2.4)
[2021-11-16 09:32] LABS: African American GFR (CKD) 140.4 (60.0-200.0); BUN/Creat Ratio 21.6 Ratio (12.00-20.00); Blood Urea Nitrogen 10.8 mg/dL (9.0-27.0); Calcium 8.2 mg/dL (8.7-10.3); Non-African American GFR(CKD) 121.1 (60.0-200.0); Potassium 2.9 mmol/L (3.5-5.5)
[2021-11-16] MEDS: NON FORMULARY DRUG (Empagliflozin [Jardiance] 25 MG Tablet) PO SCH (09:39)
[2021-11-16 12:39] LABS: Glucose,Whole Blood 155 mg/dL (75-99)
[2021-11-16] MEDS ORDERED: POTASSIUM CHLORIDE ER 20 MEQ TAB.ER PO STA (12:39)
[2021-11-16 13:52] VITALS: BP 110/64; PULSE 60; RESP 19; TEMP 98.3
--- NOTE | 2021-11-16 15:39 | P.DS ---
Providers Date of admission: 11/04/21 18:37 Attending physician: David Ward Consults: 11/04/21 18:32 Consult Physician Urgent Consulting Provider: [facility] Consult Reason/Comments: A. fib with rapid ventricular response Do you want consulting provider notified?: Yes 11/05/21 11:09 Consult Physician Urgent Consulting Provider: Denilson Valentine Consult Reason/Comments: shortness of breath, lung cancer, hypoxia Do you want consulting provider notified?: Already Contacted 11/05/21 12:59 Consult Physician Routine Consulting Provider: Gissel Sandhu Consult Reason/Comments: sepsis Do you want consulting provider notified?: Yes 11/05/21 13:16 Consult Physician Routine Consulting Provider: Reinier Artis Consult Reason/Comments: Lung CA Do you want consulting provider notified?: Yes 11/05/21 13:56 Consult Physician Routine Consulting Provider: Ortiz Voss Consult Reason/Comments: ams Do you want consulting provider notified?: Yes 11/15/21 15:42 Consult Physician Routine Consulting Provider: Balaji Lopez Consult Reason/Comments: pallaiitive xrt to upper back Do you want consulting provider notified?: Yes Primary care physician: [facility] Hospital Course: Final Diagnosis Acute hypoxic respiratory failure which is multifactorial, component of bilateral pneumonia as well as lung cancer which has progressed. He is clinically improving, his oxygen needs are down to 2-3 Liters of oxygen, He has been treated inpatient with IV antibiotics and will discharge on 5 more days of oral antibiotics. Paroxysmal atrial fibrillation, maintaining sinus rhythm continues on oral amiodarone taper, anticoagulation with eliquis Altered mental status from acute metabolic encephalopathy, CT scan negative, improving mentation Recent diagnosis Non-small cell lung cancer with metastasis to the bone he is status post chemotherapy while inpatient and has been started on extended release oral morphine with norco for breakthrough pain and his pain control has improved. 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 He has been weaned down to 2-3 L of oxygen via nasal cannula. He has been discharged on MS Contin 50 mg extended release every 12 hours, Pompey 10 every 4 hours as needed for breakthrough pain as well as gabapentin has been increased to 400 mg every 6 hours. He was seen in consultation by Dr.Al Stein for pain management services and will follow-up with the pain clinic on discharge. He has an appointment with Dr. Lopez for radiation tomorrow. Patient will follow up with Dr Artis on discharge. Patient requires glucometer on discharge for blood glucose monitoring as he is a recently diagnosed diabetic and his A1C 9.3 this admission Patient requires a hospital bed on discharge as he needs his head of bed up 30* for his COPD and metastatic lung cancer Patient requires nebulizer on discharge for management of his COPD Hospital Course This is a 55 year old male who presents with atrial fibrillation with RVR, and altered mental status. Patient was recently diagnosed with lung cancer with metastatic disease not currently undergoing treatment. He presents in hypoxic respiratory failure requiring 15 Liter high flow cannula oxygen support and she had a was also started on amiodarone infusion for atrial fibrillation he had rapid ventricular rate on admission as well. He underwent chest CT which is showing new consolidation in the lung bases along with small effusions and there is enlargement in the left upper lobe opacity and enlargement of skeletal masses. He was started on empiric antibiotic coverage with IV zosyn, started on broncho dilators. His procalitonin level on admission was found to be 3.35. He has been following with Dr. Kraus and Dr. Ramirez outpatient, and was started on fentanyl patch outpatient and family states it only made him loopy and he stopped taking. He does present with significant pain radiating a 5/10 to his left rib cage as well as peripheral neuropathic pain and his gabapentin has been increased. Patient underwent bone scan which confirms metastatic disease to his left sixth and seventh rib cage and pelvis. Oncology had requested MRI to rule out brain metastasis however patient has a CPAP interfaces incompatible with MRI machine at hospital and as can be done outpatient. He also presents with concern for pneumonia and was seen in consultation by pulmonary services as well as infectious disease. He has been transitioned to oral amiodarone and oral eliquis, and has since converted to normal sinus rhythm. He was evaluated in co nsultation by neurology, his mentation has improved this hospital stay. Patient was also treated for volume overload with IV lasix which improved and although his lungs show improved aeration he has pedal edema that is about 2-3 +. He has struggled with hypokalemia while in patient which family states has been an ongoing concern outpatient, and he did reach a level of 3.9 while inpatient. He has been supplemented with baseline of 60 meq oral potassium twice with additional supplementation. Patient was moved to the oncology unit and under went IV chemotherapy with carboplatin on November 11. Over the next few days after chemotherapy patient was able to be weaned down to 2-3 L of oxygen and has reached the point medically where he is stable enough for discharge home to continue with chemoradiation outpatient which will mostly be palliative. He was also recently diagnosed as a diabetic and was on jardiance outpatient his A1C was found to be 9.3 this admission and we will discharge the patient on jardiance and injectible insulin. Additional Diagnostics Labs on admission showing white count 11.5, hemoglobin 12.3, sodium 139, potassium 2.5, chloride 94, CO2 41, BUN 22, creatinine 0.65, blood glucose 353. Troponin elevated at 0.039, 0.033, 0.042. Urinalysis is negative. Urine drug toxicology is negative on admission. Gram stain culture showing klebsiella pneuomoniae and Aspergillus Fumigatus Echocardiogram was completed showing an ejection fraction of 55-60% with mild tricuspid regurgitation. There is no pericardial effusion. Underwent brain CT which is negative exam. Venous Doppler negative for bilateral DVT. Inferior vena cava Doppler negative for inferior vena cava thrombus. 11/16/2021 Patient is evaluated today sitting up in the chair. His is at the bedside. He continues on bronchodilators and will continue these on discharge he will be given a nebulizer. Additionally he states adequate pain control with current regimen as noted above. He will follow up with oncology and pain management services outpatient any additional changes will be made at that time. Today patient denies chest pain, denies shortness of breath. He is maintaining oxygen saturation around 94% to 3 L of nasal cannula. His lungs are clear today. He is using incentive spirometry which is instructed to continue on discharge 10 times an hour. He has report an occasional nonproductive cough. Infectious disease has prescription patient for discharge and he will complete a course of antibiotic therapy with oral Avelox 400 mg daily for the next 5 days. He is scheduled to see Dr. Lopez with radiology services tomorrow. He also denies any nausea or vomiting. He has had a few episodes of diarrhea over the last couple days. This has resolved. S1 S2 auscultated he is in regular rate and rhythm. His abdomen is soft and nontender. His mentation is improved drastically over this hospital stay he is now alert 3 and appropriate. He did receive an extra dose of IV Lasix yesterday for increased pedal edema. Unfortunately his potassium dropped back down to 2.9 he did receive a total of 120 mEq of potassium table take another 60 mEq of potassium tonight we did give repeat labs for 2-3 days outpatient. Labs today are showing a white count of 12.53, hemoglobin 8.9, platelet count 120, sodium 145, BUN 10.8, creatinine 0.5, glucose in the 150s, magnesium 2.3. He is afebrile, heart rate 60s, blood pressure 110/64, he is 99% on 3 L nasal cannula. Patient will be discharged home with a guarded prognosis continue care with primary physician Dr. Jt Liang, Dr. Balaji Lopez with radiology services, [facility] pain clinic, Dr. Kraus, Dr. Veronica. Please see medication reconciliation for list of current medication. Thank you for allowing us to participate in the care of this patient. The impression and plan of care has been dictated by Angi Castaneda, Nurse Practitioner as directed. Dr. Dick MD I have performed a history and physical examination and medical decision making of this patient, discussed the same with the dictator, and agree with the dictators assessment and plan as written, documented as a scribe. Based on total visit time, I have performed more than 50% of this visit. Patient Condition at Discharge: Fair Plan - Discharge Summary Discharge Rx Participant: No New Discharge Prescriptions: New Apixaban [Eliquis] 5 mg PO BID 30 Days #60 tab Amiodarone [Cordarone] 200 mg PO BID #120 tab Docusate [Colace] 100 mg PO DAILY PRN #30 cap PRN Reason: Constipation Ipratropium-Albuterol Nebulize [Duoneb 0.5 mg-3 mg/3 ml Soln] 3 ml INHALATION RT-Q6H PRN #60 each PRN Reason: Shortness Of Breath Or Wheezing Folic Acid 1 mg PO DAILY #30 tab Potassium Chloride ER [K-Dur 20] 60 meq PO BID 30 Days #180 tab Insulin Detemir [Levemir Flextouch Pen] 15 units SQ HS #2 each Morphine Sulfate ER [Ms Contin] 15 mg PO Q12HR 7 Days #14 tab HYDROcodone/APAP 10-325MG [Pompey 10-325] 1 each PO Q4HR PRN 7 Days #28 tab PRN Reason: MODERATE Pain Budesonide [Pulmicort] 1 mg INHALATION RT-BID #60 each Cholecalciferol [Vitamin D3 (125 Mcg = 5000 Iu)] 125 mcg PO DAILY #30 tab Gabapentin [Neurontin] 400 mg PO Q6HR 7 Days #28 cap Moxifloxacin HCl [Avelox] 400 mg PO DAILY 5 Days #5 tab Loperamide [Imodium] 2 mg PO QID PRN #0 cap PRN Reason: Diarrhea Furosemide [Lasix] 40 mg PO DAILY PRN #15 tablet PRN Reason: edema Melatonin 5 mg PO HS PRN tab PRN Reason: Insomnia polyethylene glycoL 3350 [Miralax] 17 gm PO DAILY PRN packet PRN Reason: Constipation Insulin Aspart [NovoLOG Flexpen] 12 units SQ AC-TID #3 each Famotidine [Pepcid] 20 mg PO BID #60 tab Formoterol Fumarate [Perforomist] 20 mcg INHALATION RT-BID #60 each Continue PARoxetine [Paxil] 20 mg PO DAILY traMADol HCL [Ultram] 100 mg PO TID PRN PRN Reason: Pain Potassium Chloride ER [K-Dur 20] 40 meq PO BID Metoprolol Tartrate [Lopressor] 25 mg PO BID Losartan Potassium 100 mg PO HS Tamsulosin HCl [Flomax] 0.4 mg PO HS amLODIPine [Norvasc] 10 mg PO HS Empagliflozin [Jardiance] 25 mg PO DAILY Furosemide [Lasix] 80 mg PO DAILY Discontinued Gabapentin 300 mg PO Q6H fentaNYL 50MCG/HR PATCH [Duragesic 50MCG/HR] 50 mcg TRANSDERM Q72H Discharge Medication List PARoxetine [Paxil] 20 mg PO DAILY 11/26/18 [History] traMADol HCL [Ultram] 100 mg PO TID PRN 11/26/18 [History] Tamsulosin HCl [Flomax] 0.4 mg PO HS 10/12/21 [History] Empagliflozin [Jardiance] 25 mg PO DAILY 11/04/21 [History] Furosemide [Lasix] 80 mg PO DAILY 11/04/21 [History] Losartan Potassium 100 mg PO HS 11/04/21 [History] Metoprolol Tartrate [Lopressor] 25 mg PO BID 11/04/21 [History] Potassium Chloride ER [K-Dur 20] 40 meq PO BID 11/04/21 [History] amLODIPine [Norvasc] 10 mg PO HS 11/04/21 [History] Apixaban [Eliquis] 5 mg PO BID 30 Days #60 tab 11/05/21 [Rx] Amiodarone [Cordarone] 200 mg PO BID #120 tab 11/08/21 [Rx] Budesonide [Pulmicort] 1 mg INHALATION RT-BID #60 each 11/16/21 [Rx] Cholecalciferol [Vitamin D3 (125 Mcg = 5000 Iu)] 125 mcg PO DAILY #30 tab 11/16/21 [Rx] Docusate [Colace] 100 mg PO DAILY PRN #30 cap 11/16/21 [Rx] Famotidine [Pepcid] 20 mg PO BID #60 tab 11/16/21 [Rx] Folic Acid 1 mg PO DAILY #30 tab 11/16/21 [Rx] Formoterol Fumarate [Perforomist] 20 mcg INHALATION RT-BID #60 each 11/16/21 [Rx] Furosemide [Lasix] 40 mg PO DAILY PRN #15 tablet 11/16/21 [Rx] Gabapentin [Neurontin] 400 mg PO Q6HR 7 Days #28 cap 11/16/21 [Rx] HYDROcodone/APAP 10-325MG [Pompey 10-325] 1 each PO Q4HR PRN 7 Days #28 tab 11/16/21 [Rx] Insulin Aspart [NovoLOG Flexpen] 12 units SQ AC-TID #3 each 11/16/21 [Rx] Insulin Detemir [Levemir Flextouch Pen] 15 units SQ HS #2 each 11/16/21 [Rx] Ipratropium-Albuterol Nebulize [Duoneb 0.5 mg-3 mg/3 ml Soln] 3 ml INHALATION RT-Q6H PRN #60 each 11/16/21 [Rx] Loperamide [Imodium] 2 mg PO QID PRN #0 cap 11/16/21 [Rx] Melatonin 5 mg PO HS PRN tab 06/14/22 [Rx] Morphine Sulfate ER [Ms Contin] 15 mg PO Q12HR 7 Days #14 tab 11/16/21 [Rx] Moxifloxacin HCl [Avelox] 400 mg PO DAILY 5 Days #5 tab 11/16/21 [Rx] Potassium Chloride ER [K-Dur 20] 60 meq PO BID 30 Days #180 tab 11/16/21 [Rx] polyethylene glycoL 3350 [Miralax] 17 gm PO DAILY PRN packet 11/16/21 [Rx] Follow up Appointment(s)/Referral(s): Jt Liang MD [Primary Care Provider] - 1-2 days [facility], [NON-STAFF] - Balaji Lopez MD [STAFF PHYSICIAN] - 11/17/21 8:30 am (Appt with Radiation/Oncology Wed, November 16, 2021 at 8:30am at [facility] [place] 1st floor. Come in at [facility]) [facility] Clinic,[facility] [NON-STAFF] - 1 Week Troy Kraus MD [STAFF PHYSICIAN] - 11/16/21 4:45 pm Acosta Veronica MD [STAFF PHYSICIAN] - 1 Week Ambulatory/Diagnostic Orders: Basic Metabolic Panel [LAB.AMB] Time Frame: 2 Days, Location: None Selected Complete Blood Count w/diff [LAB.AMB] Time Frame: 2 Days, Location: None Selected Magnesium [LAB.AMB] Time Frame: 2 Days, Location: None Selected Patient Instructions/Handouts: Amiodarone (By mouth), Morphine, Slow Release (By mouth), Apixaban (By mouth), A-fib (Atrial Fibrillation) (ED) Activity/Diet/Wound Care/Special Instructions: Amiodarone Taper Instructions: Take Amiodarone 400mg Twice a day from 11/06/2021-11/12/2021 Take Amiodarone 200mg Twice a day starting 11/13/2021 for one month On 12/12/2021 Take Amiodarone 200mg daily. Further changes by your wire frame dipper in the office when you follow up. Continue to weight yourself daily in you have gained 2-3 lbs overnight or 5-7 lbs in one week notify provider Take lasix 80 mg PO daily and can take an extra 40 mg PO of lasix in the afternoon if you have are having an increase in lower extremity edema. Continue using nasal cannula oxygen support 2-3 Liters If you are short of breath check pulse oximeter and notify provider Continue with Budesonide and Formoterol BID and can use Duoneb every 6 hours as needed for shortness of breath or wheezing Check blood glucose before meals three times a day. Levemir 15 units HS Novolog fast acting insulin 12 units with meals, if youre sugar is less than 130 give 6 units with meals Antibiotic therapy with Avelox oral for the next 5 days Monitor for fever Continue with pepcid to avoid stomach upset. Can hold colace for liquid/loose stools if you have not had a BM for 2-3 days resume colace daily to avoid constipation. Pain control with Ms Contin extended relief 15 mg Q12 hours Pompey 10 every 4 hours for break through pain Continue with gabapentin 400 mg every 6 hours A 7 day supply of medication has been given on discharge please follow up with your oncologist or brush painter after discharge within [address], operate heavy machinery or drink alcohol while taking these medications. Take as prescribed, if your pain is not controlled please notify your provider. Discharge Disposition: HOME WITH HOME HEALTH SERVICES
--- NOTE | 2021-11-16 16:46 | P.CONS ---
History of Present Illness - Reason for Consult Consult date: 11/16/21 lower back pain Requesting physician: Reinier Artis - Chief Complaint low back pain - History of Present Illness The patient is a 55-year-old male with a history of newly diagnosed metastatic poorly differentiated carcinoma (further sub-typing not possible), likely originating from the left upper lung. The patient was hospitalized secondary to altered mental status, was found to have atrial fibrillation with rapid response as well as likely pneumonia. He has clinically improved, and is near discharge, however he is having difficulty controlling pain in his low back likely secondary to bony metastatic disease. The patient's oncologic history began this past September, when he had an abnormal CT scan of the chest. He had further workup with pulmonology. A PET/CT perfor [facility] on October 01, 2021 revealed a lobulated 2.5 centimeter mass in the left upper lung with an SUV of 7. There were multiple other abnormal bone areas appreciated including disease within the sacrum, left rib and left humeral head. On October 14, the patient underwent bronchoscopy with biopsy. There was endobronchial disease appreciated in the left upper lobe, and biopsy of this area revealed poorly differentiated carcinoma with extensive necrosis. Further tumor subtyping unfortunately was not possible. It was felt that this was a lung cancer based on imaging. The patient was evaluated by Dr. Kraus in medical oncology. He was planning to initiate systemic therapy as NGS testing was sent out. Unfortunately, the patient was admitted to the hospital on November 04 secondary to altered mental status. He presented with bilateral lower extremity edema and was found to be in atrial fibrillation. A CT scan of the head was unremarkable. The patient did have CT imaging of the chest that was concerning for infectious changes. He initially had a high oxygen requirement, and was treated for p neumonia. He has been since improving and is now weaned down to 3 L. The patient unfortunately has been having continued difficulty with lower back pain. He states that this seems to start in the mid lower back right around the belt line. The pain can be anywhere from 4-10 out of 10. The pain can radiate around the hips. He also has pain along the left chest wall, although this is slightly less notable. He has had slightly better control of his pain in the last few days with MS Contin 15 mg, gabapentin and [place] 10 mg every 4 hours. The patient states he is able to ambulate with a walker. Review of Systems Constitutional: Denies chills, Denies fever Ears, nose, mouth and throat: Denies headache Cardiovascular: Reports decreased exercise tolerance, Reports dyspnea on exertion Respiratory: Denies cough, Denies hemoptysis Gastrointestinal: Denies change in bowel habits Genitourinary: Denies flank pain Musculoskeletal: Reports as per HPI Integumentary: Denies rash Neurological: Denies aphasia, Denies ataxia, Denies confusion Past Medical History Past Medical History: Diabetes Mellitus, Hypertension, Musculoskeletal Disorder, Prostate Disorder, Sleep Apnea/CPAP/BIPAP Additional Past Medical History / Comment(s): started having high blood pressure September 2021, mass in lung and lower spine,apnea implant-upper rt chest, back & leg pain related to herniated discs,hx enlarged prostate History of Any Multi-Drug Resistant Organisms: None Reported Past Surgical History: Hernia Repair Additional Past Surgical History / Comment(s): epidural pain procedures, colonoscopy,left inguinal hernia repair Past Anesthesia/Blood Transfusion Reactions: No Reported Reaction Past Psychological History: Depression Smoking Status: Current every day smoker Past Alcohol Use History: None Reported Additional Past Alcohol Use History / Comment(s): quit smoking 09-10-21,down to <ppd started smoking at age 21 Past Drug Use History: None Reported - Past Family History Brother(s) Family Medical History: Cancer Additional Family Medical History / Comment(s): had liver CA at age 12. rhab domyosarcoma Medications and Allergies Home Medications Medication Instructions Recorded Confirmed Type PARoxetine [Paxil] 20 mg PO DAILY 11/26/18 11/04/21 History traMADol HCL [Ultram] 100 mg PO TID PRN 11/26/18 11/04/21 History Tamsulosin HCl [Flomax] 0.4 mg PO HS 10/12/21 11/04/21 History Empagliflozin [Jardiance] 25 mg PO DAILY 11/04/21 11/04/21 History Furosemide [Lasix] 80 mg PO DAILY 11/04/21 11/04/21 History Losartan Potassium 100 mg PO HS 11/04/21 11/04/21 History Metoprolol Tartrate [Lopressor] 25 mg PO BID 11/04/21 11/04/21 History Potassium Chloride ER [K-Dur 20] 40 meq PO BID 11/04/21 11/04/21 History amLODIPine [Norvasc] 10 mg PO HS 11/04/21 11/04/21 History Apixaban [Eliquis] 5 mg PO BID 30 Days #60 tab 11/05/21 Rx Amiodarone [Cordarone] 200 mg PO BID #120 tab 11/08/21 Rx Budesonide [Pulmicort] 1 mg INHALATION RT-BID #60 each 11/16/21 Rx Cholecalciferol [Vitamin D3 (125 125 mcg PO DAILY #30 tab 11/16/21 Rx Mcg = 5000 Iu)] Docusate [Colace] 100 mg PO DAILY PRN #30 cap 11/16/21 Rx Famotidine [Pepcid] 20 mg PO BID #60 tab 11/16/21 Rx Folic Acid 1 mg PO DAILY #30 tab 11/16/21 Rx Formoterol Fumarate [Perforomist] 20 mcg INHALATION RT-BID #60 each 11/16/21 Rx Furosemide [Lasix] 40 mg PO DAILY PRN #15 tablet 11/16/21 Rx Gabapentin [Neurontin] 400 mg PO Q6HR 7 Days #28 cap 11/16/21 Rx HYDROcodone/APAP 10-325MG [[place] 1 each PO Q4HR PRN 7 Days #28 tab 11/16/21 Rx 10-325] Insulin Aspart [NovoLOG Flexpen] 12 units SQ AC-TID #3 each 11/16/21 Rx Insulin Detemir [Levemir Flextouch 15 units SQ HS #2 each 11/16/21 Rx Pen] Ipratropium-Albuterol Nebulize 3 ml INHALATION RT-Q6H PRN #60 each 11/16/21 Rx [Duoneb 0.5 mg-3 mg/3 ml Soln] Loperamide [Imodium] 2 mg PO QID PRN #0 cap 11/16/21 Rx Melatonin 5 mg PO HS PRN tab 11/16/21 Rx Morphine Sulfate ER [Ms Contin] 15 mg PO Q12HR 7 Days #14 tab 11/16/21 Rx Moxifloxacin HCl [Avelox] 400 mg PO DAILY 5 Days #5 tab 11/16/21 Rx Potassium Chloride ER [K-Dur 20] 60 meq PO BID 30 Days #180 tab 11/16/21 Rx polyethylene glycoL 3350 [Miralax] 17 gm PO DAILY PRN packet 11/16/21 Rx Allergies Allergy/AdvReac Type Severity Reaction Status Date / Time No Known Allergies Allergy Verified 11/04/21 18:08 Physical Exam Vitals: Vital Signs Temp Pulse Pulse Pulse Pulse Pulse Pulse 11/16/21 12:52 65 11/16/21 12:42 62 11/16/21 12:35 98.3 F 60 11/16/21 10:28 64 81 78 11/16/21 09:11 75 11/16/21 09:01 76 11/16/21 08:52 72 11/16/21 08:25 69 11/16/21 05:00 98.6 F 58 L 11/15/21 20:52 88 11/15/21 20:46 88 11/15/21 20:34 87 11/15/21 20:00 97.7 F 99 Pulse Resp BP BP Pulse Ox Pulse Ox Pulse Ox 11/16/21 12:52 11/16/21 12:42 11/16/21 12:35 19 110/64 99 11/16/21 10:28 88 97 94 L 11/16/21 09:11 11/16/21 09:01 11/16/21 08:52 96 11/16/21 08:25 125/69 94 L 11/16/21 05:00 16 115/60 95 11/15/21 20:52 11/15/21 20:46 11/15/21 20:34 92 L 11/15/21 20:00 16 114/69 97 Pulse Ox Pulse Ox 11/16/21 12:52 11/16/21 12:42 11/16/21 12:35 11/16/21 10:28 93 L 83 L 11/16/21 09:11 11/16/21 09:01 11/16/21 08:52 11/16/21 08:25 11/16/21 05:00 11/15/21 20:52 11/15/21 20:46 11/15/21 20:34 11/15/21 20:00 Intake and Output 11/16/21 11/16/21 11/16/21 06:59 14:59 22:59 Intake Total 1200 Output Total 3000 3000 Balance -1800 -3000 Intake: Oral 1200 Output: Urine 3000 3000 Uretheral (Palacios) 3000 3000 Other: Voiding Method Indwelling Catheter - Constitutional General appearance: no acute distress - EENT Eyes: EOMI, PERRLA ENT: hearing grossly normal - Neck Neck: no lymphadenopathy - Respiratory Respiratory: bilateral: CTA - Cardiovascular Rhythm: regular - Gastrointestinal General gastrointestinal: no distended, no tenderness - Integumentary Integumentary: no calor, no cellulitis - Neurologic Neurologic: CNII-XII intact - Musculoskeletal Musculoskeletal: strength equal bilaterally - Psychiatric Psychiatric: A&O x's 3, appropriate affect Results CBC & Chem 7: 11/16/21 06:25 11/16/21 06:25 Labs: Abnormal Lab Results - Last 24 Hours (Table) 11/15/21 11/15/21 11/16/21 Range/Units 17:21 20:09 06:25 WBC 12.53 H (4.50-10.00) X 10*3/uL RBC 2.82 L (4.40-5.60) X 10*6/uL Hgb 8.9 L (13.0-17.0) g/dL Hct 26.1 L (39.6-50.0) % Plt Count 120 L (140-440) X 10*3/uL Absolute Nucleated RBC 0.06 H (0.00-0.00) X 10*3/uL Immature Gran # 0.28 H (0.00-0.04) X 10*3/uL Neutrophils # 10.92 H (1.80-7.70) X 10*3/uL Eosinophils # 0 L (0.04-0.35) X 10*3/uL NRBC/100 WBC Diff 0.5 H (0.0-0.0) /100 WBCS Potassium (3.5-5.5) mmol/L Carbon Dioxide (20.0-27.5) mmol/L Creatinine (0.6-1.5) mg/dL BUN/Creatinine Ratio (12.00-20.00) Ratio Glucose (70-110) mg/dL POC Glucose (mg/dL) 371 H 384 H (75-99) mg/dL Calcium (8.7-10.3) mg/dL 11/16/21 11/16/21 11/16/21 Range/Units 06:25 07:30 12:37 WBC (4.50-10.00) X 10*3/uL RBC (4.40-5.60) X 10*6/uL Hgb (13.0-17.0) g/dL Hct (39.6-50.0) % Plt Count (140-440) X 10*3/uL Absolute Nucleated RBC (0.00-0.00) X 10*3/uL Immature Gran # (0.00-0.04) X 10*3/uL Neutrophils # (1.80-7.70) X 10*3/uL Eosinophils # (0.04-0.35) X 10*3/uL NRBC/100 WBC Diff (0.0-0.0) /100 WBCS Potassium 2.9 L (3.5-5.5) mmol/L Carbon Dioxide 35.0 H (20.0-27.5) mmol/L Creatinine 0.5 L (0.6-1.5) mg/dL BUN/Creatinine Ratio 21.60 H (12.00-20.00) Ratio Glucose 66 L (70-110) mg/dL POC Glucose (mg/dL) 154 H 155 H (75-99) mg/dL Calcium 8.2 L (8.7-10.3) mg/dL Microbiology - Last 24 Hours (Table) 11/13/21 08:45 Gram Stain - Preliminary Sputum Sputum Culture - Preliminary Klebsiella pneumoniae Aspergillus fumigatus CT scan - chest: report reviewed, image reviewed CT Scan - head: report reviewed, image reviewed Assessment and Plan Assessment: The patient is a 55-year-old male with a history of newly diagnosed metastatic poorly differentiated carcinoma (further sub-typing not possible), likely originating from the left upper lung. The patient was hospitalized secondary to altered mental status, was found to have atrial fibrillation with rapid response as well as likely pneumonia. He has clinically improved, and is near discharge, however he is having difficulty controlling pain in his low back likely secondary to bony metastatic disease. He did have one cycle of chemotherapy during his hospital stay - well tolerated (Carbo). 1. Lower back pain: Reviewing the patient's PET scan, the most likely source of this low back pain is metastatic disease involving the sacrum. This heavily involves the middle and right sacrum. This correlates well with the patient's reported pain. I discussed with the patient that he would likely benefit from a palliative course of radiation to this region. I explained he would first need a CT simulation for treatment planning. I discussed that radiotherapy would be delivered over approximately 1 week. The patient is likely being discharged today, and therefore we will set him to see us tomorrow at 8:30 in the morning for his CT simulation. If the patient continues having left chest wall pain, we will likely concurrently treat the left sixth rib lesion as this was a dominant lesion on his prior imaging as well. 2. Poorly differentiated carcinoma: As noted above, the patient started and tolerated his first cycle of chemotherapy without significant difficulty. I discussed with the patient that we could perform his radiotherapy at the same time as his ongoing chemotherapy without interruption. We will coordinate this further with medical oncology. Time with Patient: Greater than 30
== END 2021-11-16 19:18 | disposition home health service (06) | DRG 308 ==
LOC: EC 14:28 → 3SCARD 18:37 → 5NMEDONC 11-11 13:05
PROVIDERS: ADMIT Hospitalist; ATTEND Hospitalist
PROC: 5A0955A Assistance with Respiratory Ventilation, Greater than 96 Consecutive Hours, High Flow/Velocity Cannula (ICD-10-PCS; principal; 2021-11-07)
DX: I48.0 Paroxysmal atrial fibrillation (principal); J18.9 Pneumonia, unspecified organism; G93.41 Metabolic encephalopathy; J96.01 Acute respiratory failure with hypoxia; J44.0 Chronic obstructive pulmonary disease with (acute) lower respiratory infection; J44.1 Chronic obstructive pulmonary disease with (acute) exacerbation; B37.0 Candidal stomatitis; C34.12 Malignant neoplasm of upper lobe, left bronchus or lung; C79.51 Secondary malignant neoplasm of bone; E22.2 Syndrome of inappropriate secretion of antidiuretic hormone; I27.20 Pulmonary hypertension, unspecified; I10 Essential (primary) hypertension; G89.3 Neoplasm related pain (acute) (chronic); Z96.89 Presence of other specified functional implants; E05.90 Thyrotoxicosis, unspecified without thyrotoxic crisis or storm; E07.81 Sick-euthyroid syndrome; R77.8 Other specified abnormalities of plasma proteins; E11.65 Type 2 diabetes mellitus with hyperglycemia; T50.2X5A Adverse effect of carbonic-anhydrase inhibitors, benzothiadiazides and other diuretics, initial encounter; E87.6 Hypokalemia; F17.210 Nicotine dependence, cigarettes, uncomplicated; G47.30 Sleep apnea, unspecified; E87.70 Fluid overload, unspecified; G62.9 Polyneuropathy, unspecified; M51.26 Other intervertebral disc displacement, lumbar region; M51.27 Other intervertebral disc displacement, lumbosacral region; M51.36 Other intervertebral disc degeneration, lumbar region; N40.0 Benign prostatic hyperplasia without lower urinary tract symptoms; T38.0X5A Adverse effect of glucocorticoids and synthetic analogues, initial encounter; Z79.01 Long term (current) use of anticoagulants; Z79.4 Long term (current) use of insulin; Z79.84 Long term (current) use of oral hypoglycemic drugs; Z79.899 Other long term (current) drug therapy; Z80.0 Family history of malignant neoplasm of digestive organs; Z85.118 Personal history of other malignant neoplasm of bronchus and lung; Z92.21 Personal history of antineoplastic chemotherapy; Z98.890 Other specified postprocedural states; Z79.891 Long term (current) use of opiate analgesic; Z79.51 Long term (current) use of inhaled steroids
CPT/HCPCS: 36415; 70470; 71045; 71046; 71275; 76775; 78306; 80048; 80051; 80053; 80061; 80306; 81003; 82140; 82247; 82306; 82533; 82607; 82746; 83036; 83605; 83615; 83735; 83880; 84132; 84145; 84425; 84432; 84439; 84443; 84450; 84460; 84481; 84484; 85025; 85379; 85610; 85730; 86140; 86376; 86800; 87040; 87070; 87077; 87186; 87205; 93005; 93306; 93970; 94640; 94760; 96365; 96375; 99291

== ENCOUNTER → 2021-11-20 | Outpatient (CLI) | payer MEDICAID ==
[2021-11-20 17:28] LABS: Basophils # (A) 0.01 X 10*3/uL (0.00-0.10); Basophils % (A) 0.1 %; Eosinophils # (A) 0 X 10*3/uL (0.04-0.35); Eosinophils % (A) 0 %; HCT 24.3 % (39.6-50.0); HGB 7.7 g/dL (13.0-17.0); Immature Grans, Automated 0.9 %; Lymphocytes # (A) 1.04 X 10*3/uL (0.90-5.00); Lymphocytes % (A) 8.8 %; MCH 30.7 pg (27.0-32.0); MCHC 31.7 g/dL (32.0-37.0); MCV 96.8 fL (80.0-97.0); Mean Platelet Volume 11.2 fL (9.5-12.2); Monocytes # (A) 0.39 X 10*3/uL (0.20-1.00); Monocytes % (A) 3.3 %; NRBC Per 100 WBC 0.2 /100 WBCS (0.0-0.0); Neutrophils # (A) 10.26 X 10*3/uL (1.80-7.70); Neutrophils % (A) 86.9 %; Platelet Count 133 X 10*3/uL (140-440); RBC 2.51 X 10*6/uL (4.40-5.60); RDW 15.8 % (11.5-14.5); WBC 11.81 X 10*3/uL (4.50-10.00)
[2021-11-20 18:07] LABS: Magnesium 2.1 mg/dL (1.5-2.4)
[2021-11-20 18:12] LABS: BUN/Creat Ratio 28.26 Ratio (12.00-20.00); Blood Urea Nitrogen 19.5 mg/dL (9.0-27.0); Calcium 8.4 mg/dL (8.7-10.3); Carbon Dioxide 29.2 mmol/L (20.0-27.5); Non-African American GFR(CKD) 106.1 (60.0-200.0); Potassium 3.9 mmol/L (3.5-5.5)
== END | disposition home or self-care (01) ==
LOC: LABWHC1 11:56
PROVIDERS: ATTEND Emergency Medicine
DX: E83.42 Hypomagnesemia (principal); E87.6 Hypokalemia; D72.829 Elevated white blood cell count, unspecified
CPT/HCPCS: 36415; 80048; 83735; 85025

== ENCOUNTER 2021-11-24 16:24 | Inpatient (IN) | payer MEDICAID ==
[2021-11-24 17:31] LABS: Anisocytosis Slight; HCT 23.8 % (39.0-53.0); MCH 32.2 pg (25.0-35.0); MCHC 33.3 g/dL (31.0-37.0); MCV 96.6 fL (80.0-100.0); Macrocytosis Slight; Mean Platelet Volume 8.4; Platelet Count 158 k/uL (150-450); Poikilocytosis Slight; RBC 2.46 m/uL (4.30-5.90); RDW 17.4 % (11.5-15.5)
[2021-11-24 17:43] LABS: ALT 37 U/L (4-49); AST 28 U/L (17-59); African American GFR (CKD) >90 (>60 ml/min/1.73 sqM); Alkaline Phosphatase 98 U/L (38-126); Anion Gap 5 mmol/L; Blood Urea Nitrogen 23 mg/dL (9-20); Calcium 7.9 mg/dL (8.4-10.2); Carbon Dioxide 29 mmol/L (22-30); Chloride 103 mmol/L (98-107); Glucose 128 mg/dL (74-99); Magnesium 2.2 mg/dL (1.6-2.3); Non-African American GFR(CKD) >90 (>60 ml/min/1.73 sqM); Potassium 3.9 mmol/L (3.5-5.1); Sodium 137 mmol/L (137-145); Total Bilirubin 0.5 mg/dL (0.2-1.3); Total Protein 5.4 g/dL (6.3-8.2)
[2021-11-24 17:49] LABS: HGB 7.9 gm/dL (13.0-17.5)
[2021-11-24 17:55] LABS: INR 1.1 (<1.2); Partial Thromboplastin Time 22.9 sec (22.0-30.0); Prothrombin Time 11.6 sec (9.0-12.0)
--- NOTE | 2021-11-24 18:11 | XR ---
EXAMINATION TYPE: XR chest 1V portable DATE OF EXAM: 11/24/2021 COMPARISON: 11/12/2021 HISTORY: Chest pain TECHNIQUE: There is 8 cm masslike infiltrate in the medial left upper lobe. There is irregular 5 cm m asslike infiltrate inferior and lateral to the left pulmonary hilum. No heart failure seen. Heart siz e is normal. No pleural effusion. This probably also some infiltrate below the right pulmonary hilum. FINDINGS: IMPRESSION: Pulmonary infiltrates improved slightly in the left upper lobe at the lung apex compared to old exam. No significant change in the other lung amato. There is clearing of some atelectasis ri ght lung base compared to old exam.
[2021-11-24] MEDS ORDERED: SODIUM CHLORIDE 0.9% 1,000 ML IV SCH (18:45)
[2021-11-24] MEDS ORDERED: DEXTROSE 5% IN WATER 100 ML with AMIODARONE 150 MG IV ONE (18:45)
--- NOTE | 2021-11-24 18:54 | ED ---
General Adult HPI - General Chief complaint: Recheck/Abnormal Lab/Rx Stated complaint: SHANEKA,Hypotensive,from [facility] Time Seen by Provider: 11/24/21 17:04 Source: patient, family Mode of arrival: wheelchair Limitations: no limitations - History of Present Illness Initial comments: Tyrone is a 56yo M with since a past medical history, most significant for metastatic lung ca, recent admission for new onset A. fib with RVR. Patient was discharged home on amiodarone, much were wall and Joana. He is followed up outpatient with his oncologist and today was at radiology appointment for radiation, he was noted to be hypotensive and was sent to the ER for evaluation. Patient is thought he might just be dehydrated however on arrival his heart rate was in the 150s he was again in A. fib with RVR. Patient denies any chest pain. He has chronic shortness of breath, he is on 3 L nasal cannula but today has increased his oxygen to 5 L. - Related Data Home Medications Medication Instructions Recorded Confirmed PARoxetine [Paxil] 20 mg PO DAILY 11/26/18 11/24/21 Tamsulosin HCl [Flomax] 0.4 mg PO HS 10/12/21 11/24/21 Empagliflozin [Jardiance] 25 mg PO DAILY 11/04/21 11/24/21 Furosemide [Lasix] 40 - 80 mg PO DAILY 11/04/21 11/24/21 Losartan Potassium 100 mg PO HS 11/04/21 11/24/21 Metoprolol Tartrate [Lopressor] 25 mg PO BID 11/04/21 11/24/21 HYDROcodone/APAP 10-325MG [[place] 1 tab PO Q4HR PRN 11/24/21 11/24/21 10-325] Spironolactone [Aldactone] 25 mg PO DAILY 11/24/21 11/24/21 Previous Rx's Medication Instructions Recorded Apixaban [Eliquis] 5 mg PO BID 30 Days #60 tab 11/05/21 Amiodarone [Cordarone] 200 mg PO BID #120 tab 11/08/21 Budesonide [Pulmicort] 1 mg INHALATION RT-BID #60 each 11/16/21 Cholecalciferol [Vitamin D3 (125 125 mcg PO DAILY #30 tab 11/16/21 Mcg = 5000 Iu)] Famotidine [Pepcid] 20 mg PO BID #60 tab 11/16/21 Folic Acid 1 mg PO DAILY #30 tab 11/16/21 Formoterol Fumarate [Perforomist] 20 mcg INHALATION RT-BID #60 each 11/16/21 Gabapentin [Neurontin] 400 mg PO Q6HR 7 Days #28 cap 11/16/21 Insulin Aspart [NovoLOG Flexpen] 12 units SQ AC-TID #3 each 11/16/21 Insulin Detemir [Levemir Flextouch 15 units SQ HS #2 each 11/16/21 Pen] Morphine Sulfate ER [Ms Contin] 15 mg PO Q12HR 7 Days #14 tab 11/16/21 Potassium Chloride ER [K-Dur 20] 60 meq PO BID 30 Days #180 tab 11/16/21 Allergies Allergy/AdvReac Type Severity Reaction Status Date / Time No Known Allergies Allergy Verified 11/24/21 19:51 Review of Systems ROS Statement: Those systems with pertinent positive or pertinent negative responses have been documented in the HPI. ROS Other: All systems not noted in ROS Statement are negative. Past Medical History Past Medical History: Diabetes Mellitus, Hypertension, Musculoskeletal Disorder, Prostate Disorder, Sleep Apnea/CPAP/BIPAP Additional Past Medical History / Comment(s): started having high blood pressure September 2021, mass in lung and lower spine,apnea implant-upper rt chest, back & leg pain related to herniated discs,hx enlarged prostate History of Any Multi-Drug Resistant Organisms: None Reported Past Surgical History: Hernia Repair Additional Past Surgical History / Comment(s): epidural pain procedures, colonoscopy,left inguinal hernia repair Past Anesthesia/Blood Transfusion Reactions: No Reported Reaction Past Psychological History: Depression Smoking Status: Current every day smoker Past Alcohol Use History: None Reported Past Drug Use History: None Reported - Past Family History Brother(s) Family Medical History: Cancer Additional Family Medical History / Comment(s): had liver CA at age 12. rhabdomyosarcoma General Exam - General Exam Comments Initial Comments: Physical Exam GENERAL: Chronically ill appearing HENT: Normocephalic, Atraumatic. EYES: PERRL, EOMI Conjunctival pallor PULMONARY: Tachypnea CARDIOVASCULAR: Tachycardia, irregular ABDOMEN: Soft and nontender SKIN: Pale, bruising on extremities : Palacios in place NEUROLOGIC: Patient is alert and oriented x3 poor outside medical sales representative Moving all extremities spontaneously MUSCULOSKELETAL: General atrophy PSYCHIATRIC: appropriate Limitations: no limitations Course Vital Signs 11/24/21 11/24/21 11/24/21 16:51 17:06 18:00 Temperature 97.6 F Pulse Rate 152 H 157 H Respiratory 18 18 20 Rate Blood Pressure 86/52 83/56 O2 Sat by Pulse 96 98 Oximetry Fraction of Inspired Oxygen (FIO2) 11/24/21 22:18 Temperature Pulse Rate Respiratory Rate Blood Pressure O2 Sat by Pulse Oximetry Fraction of 100 Inspired Oxygen (FIO2) EKG Findings - EKG Comments: EKG Findings:: EKG was obtained due to tachycardia, EKG was obtained 1646 rate is 156 rhythm is a narrow complex regular tachycardia concerning for an atrial flutter with 2-[address] depressions laterally no acute ST elevations noted evidence of acute infarction. Procedures - Procedural Sedation Indications: other ASA Class: III Mallampati Airway Score: 3 Preparation: cardiac/vascular sonographer applied, pulse oximeter, capnometry used, supplemental O2 applied, reversal agents at bedside, suction/airway equipment at bedside, IV secured Fentanyl: IV Fentanyl Dose: 1 Midazolam: IV Midazolam Dose: 5 Complications: none Patient Tolerated Procedure: well, no complications Medical Decision Making - Medical Decision Making Pt seen upon arrival, EKG concern for atrial flutter vs fib - patient hypotensive Labs, IVF ordered Patient care discussed with Dr Shell who recommends electrical cardioversion, however patient family resistant as he is palliative and they are concerned about pain management and sedation, would prefer medication, Dr Shell recommends Amiodarone. Amiodarone ordered Pt BP improving without meds LAbs with multiple abnormalities BNP elevated, trop elevated, chronic anemia stable Patient received hours of amiodarone without improvement in HR Care was again discussed with patient and who now agree to sedation and cardioversion Patient was sedated with Versed and Fentanyl Synchronized cardioversion was attempted with 100j x1 and 200j x2, patient converted from atrial flutter to atrial fibrillation briefly, however resumed atrial flutter with HR 151 within 10min patient care again discussed with Dr Shell who recommends small dose of cardizem, continue amiodarone - Lab Data Result diagrams: 11/24/21 17:11 11/24/21 17:11 Lab Results 11/24/21 11/24/21 11/24/21 Range/Units 17:11 17:11 17:11 WBC 8.8 (3.8-10.6) k/uL RBC 2.46 L (4.30-5.90) m/uL Hgb 7.9 L D (13.0-17.5) gm/dL Hct 23.8 L (39.0-53.0) % MCV 96.6 (80.0-100.0) fL MCH 32.2 (25.0-35.0) pg MCHC 33.3 (31.0-37.0) g/dL RDW 17.4 H (11.5-15.5) % Plt Count 158 (150-450) k/uL MPV 8.4 Neutrophils % (Manual) 83 % Band Neuts % (Manual) 3 % Lymphocytes % (Manual) 7 % Monocytes % (Manual) 7 % Neutrophils # (Manual) 7.50 (1.3-7.7) k/uL Lymphocytes # (Manual) 0.62 L (1.0-4.8) k/uL Monocytes # (Manual) 0.62 (0-1.0) k/uL Nucleated RBCs 2 H (0-0) /100 WBC Manual Slide Review Performed Polychromasia Present Poikilocytosis Slight Anisocytosis Slight Macrocytosis Slight PT 11.6 (9.0-12.0) sec INR 1.1 (<1.2) APTT 22.9 (22.0-30.0) sec Sodium 137 (137-145) mmol/L Potassium 3.9 (3.5-5.1) mmol/L Chloride 103 (98-107) mmol/L Carbon Dioxide 29 (22-30) mmol/L Anion Gap 5 mmol/L BUN 23 H (9-20) mg/dL Creatinine 0.76 (0.66-1.25) mg/dL Est GFR (CKD-EPI)AfAm >90 (>60 ml/min/1.73 sqM) Est GFR (CKD-EPI)NonAf >90 (>60 ml/min/1.73 sqM) Glucose 128 H (74-99) mg/dL Calcium 7.9 L (8.4-10.2) mg/dL Magnesium 2.2 (1.6-2.3) mg/dL Total Bilirubin 0.5 (0.2-1.3) mg/dL AST 28 (17-59) U/L ALT 37 (4-49) U/L Alkaline Phosphatase 98 (38-126) U/L Troponin I (0.000-0.034) ng/mL NT-Pro-B Natriuret Pep pg/mL Total Protein 5.4 L (6.3-8.2) g/dL Albumin 3.0 L (3.5-5.0) g/dL 11/24/21 11/24/21 Range/Units 17:11 17:11 WBC (3.8-10.6) k/uL RBC (4.30-5.90) m/uL Hgb (13.0-17.5) gm/dL Hct (39.0-53.0) % MCV (80.0-100.0) fL MCH (25.0-35.0) pg MCHC (31.0-37.0) g/dL RDW (11.5-15.5) % Plt Count (150-450) k/uL MPV Neutrophils % (Manual) % Band Neuts % (Manual) % Lymphocytes % (Manual) % Monocytes % (Manual) % Neutrophils # (Manual) (1.3-7.7) k/uL Lymphocytes # (Manual) (1.0-4.8) k/uL Monocytes # (Manual) (0-1.0) k/uL Nucleated RBCs (0-0) /100 WBC Manual Slide Review Polychromasia Poikilocytosis Anisocytosis Macrocytosis PT (9.0-12.0) sec INR (<1.2) APTT (22.0-30.0) sec Sodium (137-145) mmol/L Potassium (3.5-5.1) mmol/L Chloride (98-107) mmol/L Carbon Dioxide (22-30) mmol/L Anion Gap mmol/L BUN (9-20) mg/dL Creatinine (0.66-1.25) mg/dL Est GFR (CKD-EPI)AfAm (>60 ml/min/1.73 sqM) Est GFR (CKD-EPI)NonAf (>60 ml/min/1.73 sqM) Glucose (74-99) mg/dL Calcium (8.4-10.2) mg/dL Magnesium (1.6-2.3) mg/dL Total Bilirubin (0.2-1.3) mg/dL AST (17-59) U/L ALT (4-49) U/L Alkaline Phosphatase (38-126) U/L Troponin I 0.767 H* (0.000-0.034) ng/mL NT-Pro-B Natriuret Pep 33929 pg/mL Total Protein (6.3-8.2) g/dL Albumin (3.5-5.0) g/dL Critical Care Time Critical Care Time: Yes Total Critical Care Time: 45 Critical Care Time: Critical Care Time 45 Critical care time was exclusive of separately billable procedures and treating other patients and teaching time. Critical care was necessary to treat or prevent imminent or life-threatening deterioration. Given the critical condition in which the patient arrived, the patient was immediately assessed by myself and the nurse, and cardiac monitoring initiated due to the potential for rapid decompensation of the patient's clinical condition. During the course of the patients stay, I spent a considerable amount of time at the bedside performing serial re-evaluations of the patient's hemodynamic and clinical status because of the recognized potential threat to life or limb in this condition. I then had a chance to review not only all of the available current laboratory and radiographic studies obtained today, but I also reviewed old records available to me at the time. Additionally, any ancillary information available including vine fruit farming supervisor records were reviewed. Sequential vital signs were obtained. Disposition Clinical Impression: Atrial fibrillation with RVR, Heart failure, NSTEMI (non-ST elevated myocardial infarction), Metastatic lung cancer (metastasis from lung to other site) Disposition: ADMITTED IP TO THIS HOSP Condition: Serious
[2021-11-24] MEDS ORDERED: DEXTROSE 5% IN WATER 250 ML with AMIODARONE 300 MG IV ONE (19:00)
[2021-11-24 19:10] LABS: Band Neutrophils % 3 %; Lymphocytes # (M) 0.62 k/uL (1.0-4.8); Monocytes # (M) 0.62 k/uL (0-1.0); Neutrophils % (M) 83 %; Nucleated Red Blood Cells 2 /100 WBC (0-0); Total Cells Counted 100; WBC 8.8 k/uL (3.8-10.6)
[2021-11-24 19:11] LABS: Polychromasia Present
[2021-11-24] MEDS ORDERED: NALOXONE 0.4 MG/ML 1 ML VIAL IV PRN (20:23)
[2021-11-24] MEDS ORDERED: fentaNYL (PF) 50 MCG/ML 2 ML AMP IVP STA (21:53)
[2021-11-24] MEDS ORDERED: MIDAZOLAM 1 MG/ML 5 ML VIAL IV STA (21:53)
[2021-11-24] MEDS ORDERED: DILTIAZEM 5 MG/ML 5 ML VIAL IVP STA (22:40)
[2021-11-25] MEDS ORDERED: DILTIAZEM 125 MG in SODIUM CHLORIDE 0.9% 100 ML IV SCH (01:00)
--- NOTE | 2021-11-25 01:02 | P.HPIM ---
History of Present Illness H&P Date: 11/24/21 The patient is a 56-year-old male with extensive PMH including recently diagnosed non-small cell stage IV lung cancer (currently undergoing palliative radiation), recently diagnosed paroxysmal A. fib on Eliquis, COPD, hypertension, BPH who presents to the emergency room with complaints of shortness of breath and lower extremity edema. Of note, the patient was previously admitted from 11/04-11/16 for hypoxic respiratory failure secondary to pneumonia, A. fib, and COPD exacerbation. The patient notes that following his discharge, he quickly developed worsening lower extremity edema. He also has difficulty performing basic ADLs due to his severe shortness of breath. Denied experiencing chest d iscomfort, fever, chills nausea, vomiting, abdominal pain, diarrhea. Upon presentation in the emergency room, the patient was noted to be in a flutter with RVR with EKG showing a rate of 156. Chest x-ray revealed pulmonary persistent left-sided infiltrates. Laboratory evaluation was remarkable for hemoglobin of 7.9, troponin 0.767, proBNP 11,100. Cardioversion was attempted for the patient with conscious sedation by the ED physician. Patient converted to A. fib with a rate of 120-130s. Review of systems: Pertinent positives and negatives as discussed in HPI, a complete review of systems was performed and all other systems are negative. Physical examination: General: Ill-appearing male, no distress, appears older than stated age, overweight Derm: no unusual rashes/lesions, warm Head: atraumatic, normocephalic, symmetric Eyes: EOMI, no lid lag, anicteric sclera, pupils equal round reactive to light ENT: Nose and ears atraumatic Neck: No cervical lymphadenopathy, trachea midline, supple Mouth: no lip lesion, mucus membranes moist Cardiovascular: S1S2 reg, no murmur, positive dorsalis pedis pulse bilateral, 2+ bilateral lower extremity pitting edema to thighs Lungs: Scattered rhonchi and rales, no wheezing, no accessory muscle use Abdominal: soft, nontender to palpation, no guarding Ext: muscle strength 4 out of 5 in all 4 extremities grossly, no gross muscle atrophy, no contractures, Neuro: CN II-XI grossly intact, no gross focal neuro deficits Psych: Alert, oriented, appropriate affect Assessment/plan Shortness of breath and lower extremity edema -Suspected due to a flutter with RVR -Case was discussed with Cardiology by the ED physician and Amiodarone was ini tiated as well as a single dose of Cardizem -Continue with Cardizem infusion -Cardiology consulted -Cardiac monitoring Elevated troponin, suspected due to a flutter with RVR -Management as per above Normocytic anemia in setting of stage IV lung cancer undergoing radiation -Continue to monitor for and transfuse as needed -DVT prophylaxis -Eliquis The patient is admitted with an anticipated greater than 2 midnight stay for evaluation of A flutter CODE STATUS: Full Code (Discussed with who noted that the patient continues to be a Full Code) Discussed with: Patient, Anticipated discharge date: 2-[address]: Home Past Medical History Past Medical History: Diabetes Mellitus, Hypertension, Musculoskeletal Disorder, Prostate Disorder, Sleep Apnea/CPAP/BIPAP Additional Past Medical History / Comment(s): started having high blood pressure September 2021, mass in lung and lower spine,apnea implant-upper rt chest, back & leg pain related to herniated discs,hx enlarged prostate History of Any Multi-Drug Resistant Organisms: None Reported Past Surgical History: Hernia Repair Additional Past Surgical History / Comment(s): epidural pain procedures, colonoscopy,left inguinal hernia repair Past Anesthesia/Blood Transfusion Reactions: No Reported Reaction Past Psychological History: Depression Smoking Status: Current every day smoker Past Alcohol Use History: None Reported Past Drug Use History: None Reported - Past Family History Brother(s) Family Medical History: Cancer Additional Family Medical History / Comment(s): had liver CA at age 12. rhabdomyosarcoma Medications and Allergies Home Medications Medication Instructions Recorded Confirmed Type PARoxetine [Paxil] 20 mg PO DAILY 11/26/18 11/24/21 History Tamsulosin HCl [Flomax] 0.4 mg PO HS 10/12/21 11/24/21 History Empagliflozin [Jardiance] 25 mg PO DAILY 11/04/21 11/24/21 History Furosemide [Lasix] 40 - 80 mg PO DAILY 11/04/21 11/24/21 History Losartan Potassium 100 mg PO HS 11/04/21 11/24/21 History Metoprolol Tartrate [Lopressor] 25 mg PO BID 11/04/21 11/24/21 History Apixaban [Eliquis] 5 mg PO BID 30 Days #60 tab 11/05/21 11/24/21 Rx Amiodarone [Cordarone] 200 mg PO BID #120 tab 11/08/21 11/24/21 Rx Budesonide [Pulmicort] 1 mg INHALATION RT-BID #60 each 11/16/21 11/24/21 Rx Cholecalciferol [Vitamin D3 (125 125 mcg PO DAILY #30 tab 11/16/21 11/24/21 Rx Mcg = 5000 Iu)] Famotidine [Pepcid] 20 mg PO BID #60 tab 11/16/21 11/24/21 Rx Folic Acid 1 mg PO DAILY #30 tab 11/16/21 11/24/21 Rx Formoterol Fumarate [Perforomist] 20 mcg INHALATION RT-BID #60 each 11/16/21 11/24/21 Rx Gabapentin [Neurontin] 400 mg PO Q6HR 7 Days #28 cap 11/16/21 11/24/21 Rx Insulin Aspart [NovoLOG Flexpen] 12 units SQ AC-TID #3 each 11/16/21 11/24/21 Rx Insulin Detemir [Levemir Flextouch 15 units SQ HS #2 each 11/16/21 11/24/21 Rx Pen] Morphine Sulfate ER [Ms Contin] 15 mg PO Q12HR 7 Days #14 tab 11/16/21 11/24/21 Rx Potassium Chloride ER [K-Dur 20] 60 meq PO BID 30 Days #180 tab 11/16/21 11/24/21 Rx HYDROcodone/APAP 10-325MG [[place] 1 tab PO Q4HR PRN 11/24/21 11/24/21 History 10-325] Spironolactone [Aldactone] 25 mg PO DAILY 11/24/21 11/24/21 History Allergies Allergy/AdvReac Type Severity Reaction Status Date / Time No Known Allergies Allergy Verified 11/24/21 19:51 Physical Exam Vitals: Vital Signs Temp Pulse Resp BP Pulse Ox FiO2 11/24/21 22:18 100 11/24/21 18:00 20 11/24/21 17:06 157 H 18 83/56 98 11/24/21 16:51 97.6 F 152 H 18 86/52 96 Intake and Output 11/24/21 11/24/21 11/25/21 14:59 22:59 06:59 Other: Weight 96.162 kg Results CBC & Chem 7: 11/24/21 17:11 06/22/22 17:11 Labs: Abnormal Lab Results - Last 24 Hours (Table) 11/24/21 11/24/21 11/24/21 Range/Units 17:11 17:11 17:11 RBC 2.46 L (4.30-5.90) m/uL Hgb 7.9 L D (13.0-17.5) gm/dL Hct 23.8 L (39.0-53.0) % RDW 17.4 H (11.5-15.5) % Lymphocytes # (Manual) 0.62 L (1.0-4.8) k/uL Nucleated RBCs 2 H (0-0) /100 WBC BUN 23 H (9-20) mg/dL Glucose 128 H (74-99) mg/dL Calcium 7.9 L (8.4-10.2) mg/dL Troponin I 0.767 H* (0.000-0.034) ng/mL Total Protein 5.4 L (6.3-8.2) g/dL Albumin 3.0 L (3.5-5.0) g/dL
[2021-11-25] MEDS: HYDROcodone/APAP 10-325MG 1 EACH TAB PO PRN ×3 (03:14→14:32)
[2021-11-25] MEDS: FORMOTEROL FUMARATE 20 MCG/2 ML NEBU INHALATION SCH ×2 (06:46→20:56)
[2021-11-25] MEDS: BUDESONIDE 1 MG/2 ML NEBU INHALATION SCH ×2 (06:46→20:56)
[2021-11-25] MEDS: GABAPENTIN 400 MG CAP PO SCH ×3 (07:06→17:49)
[2021-11-25] MEDS ORDERED: FUROSEMIDE 40 MG TAB PO SCH (09:00)
--- NOTE | 2021-11-25 09:17 | P.PN ---
Subjective Progress Note Date: 11/25/21 Hospital Course: The patient is a 56-year-old male with extensive PMH including recently diagnosed non-small cell stage IV lung cancer (currently undergoing palliative radiation), recently diagnosed paroxysmal A. fib on Eliquis, COPD, hypertension, and BPH. He presented to the emergency room with complaints of shortness of breath and lower extremity edema. Of note, the patient was previously admitted from 11/04-11/16 for hypoxic respiratory failure secondary to pneumonia, A. fib, and COPD exacerbation. The patient notes that following his discharge, he quick ly developed worsening lower extremity edema. He also has difficulty performing basic ADLs due to his severe shortness of breath. Denied experiencing chest discomfort, fever, chills nausea, vomiting, abdominal pain, diarrhea. Upon presentation in the emergency room, the patient was noted to be in a flutter with RVR with EKG showing a rate of 156. Chest x-ray revealed pulmonary persistent left-sided infiltrates. Laboratory evaluation was remarkable for hemoglobin of 7.9, troponin 0.767, proBNP 11,100. Cardioversion was attempted for the patient with conscious sedation by the ED physician. Patient converted to A. fib with a rate of 120-130s. Patient was admitted under our services with consultation to cardiology, palliative care and oncology. Physical examination: Patient seen and fully evaluated at bedside this morning along with sister and aunt. Patient appeared to be in moderate distress due to pain. Patient reported uncontrolled pain in his lower back at this time. Patient remains in atrial fibrillation/flutter. Order placed for Dilaudid 1 mg IVP and reordered patient's home medications including morphine. Patient currently denies having any dizziness, lightheadedness, chest pain, palpitations, or experiencing any numbness/tingling/weakness. General: non toxic, no distress, appears older than biological age, chronically ill-appearing Derm: warm, dry Head: atraumatic, normocephalic, symmetric Eyes: EOMI, no lid lag, anicteric sclera Mouth: no lip lesion, mucus membranes moist Cardiovascular: S1S2 reg, no murmur, positive posterior tibial pulse bilateral, Lungs: CTA bilateral, no rhonchi, no rales , no accessory muscle use Abdominal: soft, nontender to palpation, no guarding, no appreciable organomegaly Ext: no gross muscle atrophy, no edema, no contractures. 2+ pitting bilateral lower extremity edema, 3+ in bilateral feet Neuro: CN II-XI grossly intact, no focal neuro deficits Psych: Alert, oriented, appropriate affect Assessment and plan of care: Paroxysmal atrial fibrillation/typical atrial flutter with RVR Shortness of breath and lower extremity edema Elevated troponin, suspected due to a flutter with RVR -Status post unsuccessful cardioversion under conscious sedation in the ED -Continue amiodarone -Cardiology following -Cardiac monitoring -Continue anticoagulation with Eliquis. 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 -Oncology and palliative care consulted. -Continue symptomatic care and pain management. CODE STATUS: Full Code DVT prophylaxis: Eliquis Discussed with: Patient, Anticipated discharge date: Clinical course to determine Anticipated discharge place: Home A total of 38 minutes was spent on the care of this complex patient more than 50% of the time was spent in counseling and care coordination. Objective - Vital Signs Vital signs: Vital Signs Temp 97.6 F 11/24/21 16:51 Pulse 85 11/25/21 07:14 Resp 18 11/25/21 06:00 BP 138/93 11/25/21 06:00 Pulse Ox 92 L 11/25/21 06:47 FiO2 100 11/24/21 22:18 Intake & Output 11/24/21 11/25/21 11/25/21 18:59 06:59 18:59 Weight 96.162 kg - Labs CBC & Chem 7: 11/24/21 17:11 11/24/21 17:11 Labs: Abnormal Lab Results - Last 24 Hours (Table) 11/24/21 11/24/21 11/24/21 Range/Units 17:11 17:11 17:11 RBC 2.46 L (4.30-5.90) m/uL Hgb 7.9 L D (13.0-17.5) gm/dL Hct 23.8 L (39.0-53.0) % RDW 17.4 H (11.5-15.5) % Lymphocytes # (Manual) 0.62 L (1.0-4.8) k/uL Nucleated RBCs 2 H (0-0) /100 WBC BUN 23 H (9-20) mg/dL Glucose 128 H (74-99) mg/dL Calcium 7.9 L (8.4-10.2) mg/dL Troponin I 0.767 H* (0.000-0.034) ng/mL Total Protein 5.4 L (6.3-8.2) g/dL Albumin 3.0 L (3.5-5.0) g/dL
[2021-11-25] MEDS ORDERED: HYDROmorphone 1 MG/ML 1 ML SYRINGE IVP STA (09:23)
--- NOTE | 2021-11-25 11:13 | P.PN ---
Progress Note - Text Progress Note Date: 11/25/21 Patient and family present (sister and aunt) request Palliative Care consult be done when his , Phoebe, is present. Family given contact information. They stated Phoebe is busy with her son today, but will call when she is here. Digna Ames [facility] Palliative Care [place] [phone] Email: [email or web address]
[2021-11-25] MEDS: FAMOTIDINE 20 MG TAB PO SCH ×2 (11:24→21:10)
[2021-11-25] MEDS: AMIODARONE 200 MG TAB PO SCH ×2 (11:24→21:09)
[2021-11-25] MEDS: POTASSIUM CHLORIDE ER 20 MEQ TAB.ER PO SCH ×2 (11:24→21:13)
[2021-11-25] MEDS: CHOLECALCIFEROL 125 MCG (5000 IU) TABLET PO SCH (11:25)
[2021-11-25] MEDS: METOPROLOL TARTRATE 25 MG TAB PO SCH ×2 (11:25→21:11)
[2021-11-25] MEDS: APIXABAN 5 MG TAB PO SCH ×2 (11:25→21:10)
[2021-11-25] MEDS: MORPHINE SULFATE ER 15 MG TABLET PO SCH ×2 (11:25→21:10)
[2021-11-25] MEDS: PARoxetine 20 MG TAB PO SCH (11:25)
[2021-11-25] MEDS: SPIRONOLACTONE 25 MG TAB PO SCH (11:25)
[2021-11-25] MEDS: FOLIC ACID 1 MG TAB PO SCH (11:26)
[2021-11-25 12:05] LABS: Glucose,Whole Blood 230 mg/dL (70-110)
[2021-11-25] MEDS: DILTIAZEM ORAL 30 MG TAB PO SCH ×3 (12:09→21:19)
--- NOTE | 2021-11-25 12:26 | P.CRDCN ---
History of Present Illness Consult date: 11/25/21 History of present illness: HISTORY OF PRESENT ILLNESS: This is a 56-year-old male with a past medical history significant for hypertension, atrial fibrillation, lung cancer with metastasis to the bone, former nicotine dependence, pulmonary hypertension, and diabetes. Patient follows in the office with Dr. Veronica. We have been asked to see the patient in consultation for A. fib with RVR. Patient examined at the bedside. Patient presented to the hospital secondary to worsening lower extremity edema. In the emergency room the patient was found to be in atrial flutter with RVR. He was also noted to be hypotensive. He was cardioverted in the emergency room by the ER physician with a total of 3 shocks. The patient converted from atrial flutter to atrial fibrillation briefly. However he went back into a flutter with RVR according to the emergency room physician note. The patient was started on IV Cardizem. This morning he is maintaining sinus mechanism. * EKG reveals a flutter with RVR * Chest xray pulmonary infiltrates improved slightly in the left upper lobe at the lung apex compared to old exam. No significant change in the other lung amato. There is clearing of some atelectasis right lung base compared to old exam. * Laboratory data: WBC 8.8. Hemoglobin 7.9. Platelet count 158. Sodium 137. Potassium 3.9. BUN 23. Creatinine 0.76. ProBNP 11,100. Troponin 0.767. * Current home cardiac medications include Eliquis 5 mg twice a day, amiodarone 200 mg twice a day, Aldactone 25 mg daily, Lasix 40 mg daily, metoprolol tartrate 25 mg twice a day, losartan 100 mg at night * Most recent echocardiogram obtained 09/2021 revealed EF 5560%, trace amount of aortic regurgitation, mild tricuspid regurgitation, moderate pulmonary hypertension with RVSP of 51 mmHg * Cardiac catheterization history: Unknown REVIEW OF SYSTEMS: At the time of my exam: CONSTITUTIONAL: Denies fever or chills. HEENT: Denies blurred vision, vision changes, or eye pain. Denies hemoptysis CARDIOVASCULAR: Denies chest pain. Denies orthopnea. Denies PND. Denies palpitations RESPIRATORY: Denies shortness of breath. GASTROINTESTINAL: Denies abdominal pain. Denies nausea or vomiting. HEMATOLOGIC: Denies bleeding disorders. GENITOURINARY: Denies any blood in urine. SKIN: Denies pruitis. Denies rash. PHYSICAL EXAM: VITAL SIGNS: Reviewed. GENERAL: Well-developed in no acute distress. HEENT: Head is normocephalic. Pupils are equal, round. Sclerae anicteric. Mucous membranes of the mouth are moist. Neck supple. No JVD or thyromegaly LUNGS: Respirations even and unlabored. Lungs diminished bilaterally. HEART: Regular rate and rhythm. S1 and S2 heard. ABDOMEN: Soft. Nondistended. Nontender. EXTREMITIES: Normal range of motion. No clubbing or cyanosis. Peripheral pulses intact. 2+ bilateral lower extremity edema NEUROLOGIC: Awake and alert. Oriented x 3. ASSESSMENT: Paroxysmal atrial fibrillation/typical atrial flutter with RVR, status post cardioversion in the emergency room Acute congestive heart failure with increased lower extremity edema, BNP 11,100 Recently diagnosed lung cancer with metastasis to the bone Elevated troponin, likely related to atrial fibrillation/flutter with RVR Hypertension Diabetes Pulmonary hypertension Chronic lower extremity edema Former tobacco use PLAN: No need to repeat echocardiogram as this was performed in September 2021 Discontinue IV Cardizem Begin oral Cardizem 30 mg 3 times a day Continue additional home cardiac medications Continue telemetry monitoring Increase Lasix to 40 mg twice a day secondary to increased lower extremity edema Further recommendations pending patient's course Nurse practitioner note has been reviewed by physician. Signing provider agrees with the documented findings, assessment, and plan of care. Past Medical History Past Medical History: Diabetes Mellitus, Hypertension, Musculoskeletal Disorder, Prostate Disorder, Sleep Apnea/CPAP/BIPAP Additional Past Medical History / Comment(s): started having high blood pressure September 2021, mass in lung and lower spine,apnea implant-upper rt chest, back & leg pain related to herniated discs,hx enlarged prostate History of Any Multi-Drug Resistant Organisms: None Reported Past Surgical History: Hernia Repair Additional Past Surgical History / Comment(s): epidural pain procedures, colonoscopy,left inguinal hernia repair Past Anesthesia/Blood Transfusion Reactions: No Reported Reaction Past Psychological History: Depression Smoking Status: Current every day smoker Past Alcohol Use History: None Reported Past Drug Use History: None Reported - Past Family History Brother(s) Family Medical History: Cancer Additional Family Medical History / Comment(s): had liver CA at age 12. rhabdomyosarcoma Medications and Allergies Home Medications Medication Instructions Recorded Confirmed Type PARoxetine [Paxil] 20 mg PO DAILY 11/26/18 11/24/21 History Tamsulosin HCl [Flomax] 0.4 mg PO HS 10/12/21 11/24/21 History Empagliflozin [Jardiance] 25 mg PO DAILY 11/04/21 11/24/21 History Furosemide [Lasix] 40 - 80 mg PO DAILY 11/04/21 11/24/21 History Losartan Potassium 100 mg PO HS 11/04/21 11/24/21 History Metoprolol Tartrate [Lopressor] 25 mg PO BID 11/04/21 11/24/21 History Apixaban [Eliquis] 5 mg PO BID 30 Days #60 tab 11/05/21 11/24/21 Rx Amiodarone [Cordarone] 200 mg PO BID #120 tab 11/08/21 11/24/21 Rx Budesonide [Pulmicort] 1 mg INHALATION RT-BID #60 each 11/16/21 11/24/21 Rx Cholecalciferol [Vitamin D3 (125 125 mcg PO DAILY #30 tab 11/16/21 11/24/21 Rx Mcg = 5000 Iu)] Famotidine [Pepcid] 20 mg PO BID #60 tab 11/16/21 11/24/21 Rx Folic Acid 1 mg PO DAILY #30 tab 11/16/21 11/24/21 Rx Formoterol Fumarate [Perforomist] 20 mcg INHALATION RT-BID #60 each 11/16/21 11/24/21 Rx Gabapentin [Neurontin] 400 mg PO Q6HR 7 Days #28 cap 11/16/21 11/24/21 Rx Insulin Aspart [NovoLOG Flexpen] 12 units SQ AC-TID #3 each 11/16/21 11/24/21 Rx Insulin Detemir [Levemir Flextouch 15 units SQ HS #2 each 11/16/21 11/24/21 Rx Pen] Morphine Sulfate ER [Ms Contin] 15 mg PO Q12HR 7 Days #14 tab 11/16/21 11/24/21 Rx Potassium Chloride ER [K-Dur 20] 60 meq PO BID 30 Days #180 tab 11/16/21 11/24/21 Rx HYDROcodone/APAP 10-325MG [[place] 1 tab PO Q4HR PRN 11/24/21 11/24/21 History 10-325] Spironolactone [Aldactone] 25 mg PO DAILY 11/24/21 11/24/21 History Allergies Allergy/AdvReac Type Severity Reaction Status Date / Time No Known Allergies Allergy Verified 11/24/21 19:51 Physical Exam Vitals: Vital Signs Temp Pulse Pulse Resp BP BP Pulse Ox 11/25/21 11:21 97.6 F 103 H 16 148/90 94 L 11/25/21 10:04 91 16 126/83 97 11/25/21 07:14 85 11/25/21 07:03 104 H 11/25/21 07:01 107 H 11/25/21 06:47 93 92 L 11/25/21 06:00 94 18 138/93 97 11/25/21 02:10 87 18 112/80 96 11/25/21 00:50 94 18 110/71 94 L 11/24/21 22:18 11/24/21 20:45 168 H 18 87/64 89 L 11/24/21 18:00 20 11/24/21 17:06 157 H 18 83/56 98 11/24/21 16:51 97.6 F 152 H 18 86/52 96 FiO2 11/25/21 11:21 11/25/21 10:04 11/25/21 07:14 11/25/21 07:03 11/25/21 07:01 11/25/21 06:47 11/25/21 06:00 11/25/21 02:10 11/25/21 00:50 11/24/21 22:18 100 11/24/21 20:45 11/24/21 18:00 11/24/21 17:06 11/24/21 16:51 Intake and Output 11/24/21 11/25/21 11/25/21 22:59 06:59 14:59 Other: Weight 96.162 kg Results 11/24/21 17:11 11/24/21 17:11 Cardiac Enzymes 11/24/21 11/24/21 Range/Units 17:11 17:11 AST 28 (17-59) U/L Troponin I 0.767 H* (0.000-0.034) ng/mL Coagulation 11/24/21 Range/Units 17:11 PT 11.6 (9.0-12.0) sec APTT 22.9 (22.0-30.0) sec CBC 11/24/21 Range/Units 17:11 WBC 8.8 (3.8-10.6) k/uL RBC 2.46 L (4.30-5.90) m/uL Hgb 7.9 L D (13.0-17.5) gm/dL Hct 23.8 L (39.0-53.0) % Plt Count 158 (150-450) k/uL Comprehensive Metabolic Panel 11/24/21 Range/Units 17:11 Sodium 137 (137-145) mmol/L Potassium 3.9 (3.5-5.1) mmol/L Chloride 103 (98-107) mmol/L Carbon Dioxide 29 (22-30) mmol/L BUN 23 H (9-20) mg/dL Creatinine 0.76 (0.66-1.25) mg/dL Glucose 128 H (74-99) mg/dL Calcium 7.9 L (8.4-10.2) mg/dL AST 28 (17-59) U/L ALT 37 (4-49) U/L Alkaline Phosphatase 98 (38-126) U/L Total Protein 5.4 L (6.3-8.2) g/dL Albumin 3.0 L (3.5-5.0) g/dL Current Medications Generic Name Dose Route Start Last Admin Trade Name Freq PRN Reason Stop Dose Admin Hydrocodone Bitart/Acetaminophen 1 each 11/25/21 01:00 11/25/21 07:06 Hydrocodone/Apap 10-325mg 1 Each Tab PO 1 each Q4HR PRN Administration MODERATE Pain Amiodarone HCl 200 mg 11/25/21 09:00 11/25/21 11:24 Amiodarone 200 Mg Tab PO 200 mg BID AL Administration Apixaban 5 mg 11/25/21 09:00 11/25/21 11:25 Apixaban 5 Mg Tab PO 5 mg BID AL Administration Protocol Budesonide 1 mg 11/25/21 08:00 11/25/21 06:46 Budesonide 1 Mg/2 Ml Nebu INHALATION 1 mg RT-BID AL Administration Cholecalciferol 125 mcg 11/25/21 09:00 11/25/21 11:25 Cholecalciferol 125 Mcg (5000 Iu) Tablet PO 125 mcg DAILY AL Administration Diltiazem HCl 30 mg 11/25/21 10:45 11/25/21 12:09 Diltiazem Oral 30 Mg Tab PO 30 mg TID AL Administration Famotidine 20 mg 11/25/21 09:00 11/25/21 11:24 Famotidine 20 Mg Tab PO 20 mg BID AL Administration Folic Acid 1 mg 11/25/21 09:00 11/25/21 11:26 Folic Acid 1 Mg Tab PO 1 mg DAILY AL Administration Formoterol Fumarate 20 mcg 11/25/21 08:00 11/25/21 06:46 Formoterol Fumarate 20 Mcg/2 Ml Nebu INHALATION 20 mcg RT-BID AL Administration Furosemide 40 mg 11/25/21 16:00 Furosemide 40 Mg Tab PO BID@0900,1600 AL Gabapentin 400 mg 11/25/21 06:00 11/25/21 12:09 Gabapentin 400 Mg Cap PO 400 mg Q6HR AL Administration Insulin Detemir 10 unit 11/25/21 21:00 Insulin Detemir (Levemir) 100 Unit/Ml Syr SQ HS AL Losartan Potassium 100 mg 11/25/21 21:00 Losartan 50 Mg Tab PO HS AL Metoprolol Tartrate 25 mg 11/25/21 09:00 11/25/21 11:25 Metoprolol Tartrate 25 Mg Tab PO 25 mg BID AL Administration Morphine Sulfate 15 mg 11/25/21 09:30 11/25/21 11:25 Morphine Sulfate Er 15 Mg Tablet PO 15 mg Q12HR AL Administration Protocol Naloxone HCl 0.2 mg 11/24/21 20:23 Naloxone 0.4 Mg/Ml 1 Ml Vial IV Q2M PRN Opioid Reversal Paroxetine HCl 20 mg 11/25/21 09:00 11/25/21 11:25 Paroxetine 20 Mg Tab PO 20 mg DAILY AL Administration Potassium Chloride 60 meq 11/25/21 09:00 11/25/21 11:24 Potassium Chloride Er 20 Meq Tab.Er PO 60 meq BID AL Administration Spironolactone 25 mg 11/25/21 09:00 11/25/21 11:25 Spironolactone 25 Mg Tab PO 25 mg DAILY AL Administration Tamsulosin HCl 0.4 mg 11/25/21 21:00 Tamsulosin 0.4 Mg Cap.Er.24h PO HS AL Intake and Output 11/24/21 11/25/21 11/25/21 22:59 06:59 14:59 Other: Weight 96.162 kg 11/24/21 17:11 11/24/21 17:11
[2021-11-25 15:08] LABS: Anisocytosis Slight; HCT 25.7 % (39.0-53.0); HGB 8.3 gm/dL (13.0-17.5); Hypochromasia Slight; MCH 32.3 pg (25.0-35.0); MCHC 32.5 g/dL (31.0-37.0); MCV 99.4 fL (80.0-100.0); Macrocytosis Slight; Mean Platelet Volume 8.8; Platelet Count 153 k/uL (150-450); Poikilocytosis Slight; RBC 2.58 m/uL (4.30-5.90); RDW 17.1 % (11.5-15.5)
[2021-11-25 17:06] LABS: Band Neutrophils % 2 %; Neutrophils % (M) 88 %; Nucleated Red Blood Cells 6 /100 WBC (0-0); Total Cells Counted 100
[2021-11-25 17:07] LABS: Lymphocytes # (M) 0.55 k/uL (1.0-4.8); Monocytes # (M) 0.24 k/uL (0-1.0); Polychromasia Present; WBC 7.9 k/uL (3.8-10.6)
[2021-11-25] MEDS: FUROSEMIDE 40 MG TAB PO SCH (17:12)
[2021-11-25 17:21] LABS: Glucose,Whole Blood 306 mg/dL (70-110)
[2021-11-25] MEDS: INSULIN ASPART (NovoLOG) 100 UNIT/ML VIAL SQ SCH ×2 (17:33→21:13)
[2021-11-25 20:39] LABS: Glucose,Whole Blood 209 mg/dL (70-110)
--- NOTE | 2021-11-25 20:39 | P.CONS ---
History of Present Illness - Reason for Consult Consult date: 11/25/21 lung Cancer Requesting physician: Gene Mahajan - History of Present Illness Tyrone presented with Cough, weakness, loss of functional status, no weight loss. He was seen by Dr. Kraus on 10/21/2021 as outpatient. Had progressive massive edema in lower extremities X 2 weeks with negative dopplers. He was found to have 2.5 cm PRATEEK lesion > Brobchoscopy & Bx by Dr Medel: Poorly differentiated Carcinoma. The patient smoked 1-2 PPD X 40 years till 1 months ago. He is C/O low back pain X 4-6 weeks, denies Hx of trauma During this visit the plan for further evaluation of IVC thrombus, brain mets a nd targeted mutations was ordered. He was unable to have MRI due to implant so CT head was ordered. Unfortunety CT head without contrast is not the best to identify metastatic disease. He recently presented in early November after was concerned with increased confusion. During hospital stay his aggressive cancer was felt to be responsible for his primary symptoms and pain control, ICU care, oxygen, and one rounf of carboplatin AUC 5 was given. He did well and actually at the end of week was sustaining on adequate level of oxygen to be discharged home. He presented to radiation today and was found with hypotension, HR 150s, and hypoxic so sent back to ER. Chest xray re-reveals infiltrates, overall appeared improved. He has been admitted with Afib and RVR, BLE edema. His and nephew are COVID positive and aunt here today. She was concerned his diuretics were improperly given at home due to some confusion from doctor then pharmacist orders, and likely received over or under amount. Since discharged and being home after last recent hospitalization, home care and physical therapy did not start, had not come to house, palliaitive care was not following and patient grew weak very quickly. Review of Systems All systems: negative Past Medical History Past Medical History: Diabetes Mellitus, Hypertension, Musculoskeletal Disorder, Prostate Disorder, Sleep Apnea/CPAP/BIPAP Additional Past Medical History / Comment(s): started having high blood pressure September 2021, mass in lung and lower spine,apnea implant-upper rt chest, back & leg pain related to herniated discs,hx enlarged prostate History of Any Multi-Drug Resistant Organisms: None Reported Past Surgical History: Hernia Repair Additional Past Surgical History / Comment(s): epidural pain procedures, colonoscopy,left inguinal hernia repair Past Anesthesia/Blood Transfusion Reactions: No Reported Reaction Past Psychological History: Depression Smoking Status: Current every day smoker Past Alcohol Use History: None Reported Past Drug Use History: None Reported - Past Family History Brother(s) Family Medical History: Cancer Additional Family Medical History / Comment(s): had liver CA at age 12. rhabdomyosarcoma Medications and Allergies Home Medications Medication Instructions Recorded Confirmed Type PARoxetine [Paxil] 20 mg PO DAILY 11/26/18 11/24/21 History Tamsulosin HCl [Flomax] 0.4 mg PO HS 10/12/21 11/24/21 History Empagliflozin [Jardiance] 25 mg PO DAILY 11/04/21 11/24/21 History Furosemide [Lasix] 40 - 80 mg PO DAILY 11/04/21 11/24/21 History Losartan Potassium 100 mg PO HS 11/04/21 11/24/21 History Metoprolol Tartrate [Lopressor] 25 mg PO BID 11/04/21 11/24/21 History Apixaban [Eliquis] 5 mg PO BID 30 Days #60 tab 11/05/21 11/24/21 Rx Amiodarone [Cordarone] 200 mg PO BID #120 tab 11/08/21 11/24/21 Rx Budesonide [Pulmicort] 1 mg INHALATION RT-BID #60 each 11/16/21 11/24/21 Rx Cholecalciferol [Vitamin D3 (125 125 mcg PO DAILY #30 tab 11/16/21 11/24/21 Rx Mcg = 5000 Iu)] Famotidine [Pepcid] 20 mg PO BID #60 tab 11/16/21 11/24/21 Rx Folic Acid 1 mg PO DAILY #30 tab 11/16/21 11/24/21 Rx Formoterol Fumarate [Perforomist] 20 mcg INHALATION RT-BID #60 each 11/16/21 11/24/21 Rx Gabapentin [Neurontin] 400 mg PO Q6HR 7 Days #28 cap 11/16/21 11/24/21 Rx Insulin Aspart [NovoLOG Flexpen] 12 units SQ AC-TID #3 each 11/16/21 11/24/21 Rx Insulin Detemir [Levemir Flextouch 15 units SQ HS #2 each 11/16/21 11/24/21 Rx Pen] Morphine Sulfate ER [Ms Contin] 15 mg PO Q12HR 7 Days #14 tab 11/16/21 11/24/21 Rx Potassium Chloride ER [K-Dur 20] 60 meq PO BID 30 Days #180 tab 11/16/21 11/24/21 Rx HYDROcodone/APAP 10-325MG [Carlton 1 tab PO Q4HR PRN 11/24/21 11/24/21 History 10-325] Spironolactone [Aldactone] 25 mg PO DAILY 11/24/21 11/24/21 History Allergies Allergy/AdvReac Type Severity Reaction Status Date / Time No Known Allergies Allergy Verified 11/24/21 19:51 Physical Exam Vitals: Vital Signs Temp Pulse Pulse Resp BP BP Pulse Ox 11/25/21 11:21 97.6 F 103 H 16 148/90 94 L 11/25/21 10:04 91 16 126/83 97 11/25/21 07:14 85 11/25/21 07:03 104 H 11/25/21 07:01 107 H 11/25/21 06:47 93 92 L 11/25/21 06:00 94 18 138/93 97 11/25/21 02:10 87 18 112/80 96 11/25/21 00:50 94 18 110/71 94 L 11/24/21 22:18 11/24/21 20:45 168 H 18 87/64 89 L 11/24/21 18:00 20 11/24/21 17:06 157 H 18 83/56 98 11/24/21 16:51 97.6 F 152 H 18 86/52 96 FiO2 11/25/21 11:21 11/25/21 10:04 11/25/21 07:14 11/25/21 07:03 11/25/21 07:01 11/25/21 06:47 11/25/21 06:00 11/25/21 02:10 11/25/21 00:50 11/24/21 22:18 100 11/24/21 20:45 11/24/21 18:00 11/24/21 17:06 11/24/21 16:51 Intake and Output 11/24/21 11/25/21 11/25/21 22:59 06:59 14:59 Output Total 50 Balance -50 Output: Urine 50 Other: Weight 96.162 kg - Constitutional General appearance: Present: average body habitus, cooperative, no acute distress - EENT Eyes: Present: anicteric sclerae, EOMI ENT: Present: hearing grossly normal - Respiratory Respiratory: bilateral: diminished, other (shallow resp) - Musculoskeletal Musculoskeletal: Present: generalized weakness - Psychiatric Psychiatric: Present: A&O x's 3 Results CBC & Chem 7: 11/25/21 14:22 11/24/21 17:11 Labs: Abnormal Lab Results - Last 24 Hours (Table) 11/24/21 11/24/21 11/24/21 Range/Units 17:11 17:11 17:11 RBC 2.46 L (4.30-5.90) m/uL Hgb 7.9 L D (13.0-17.5) gm/dL Hct 23.8 L (39.0-53.0) % RDW 17.4 H (11.5-15.5) % Lymphocytes # (Manual) 0.62 L (1.0-4.8) k/uL Nucleated RBCs 2 H (0-0) /100 WBC BUN 23 H (9-20) mg/dL Glucose 128 H (74-99) mg/dL POC Glucose (mg/dL) (70-110) mg/dL Calcium 7.9 L (8.4-10.2) mg/dL Troponin I 0.767 H* (0.000-0.034) ng/mL Total Protein 5.4 L (6.3-8.2) g/dL Albumin 3.0 L (3.5-5.0) g/dL 11/25/21 Range/Units 12:02 RBC (4.30-5.90) m/uL Hgb (13.0-17.5) gm/dL Hct (39.0-53.0) % RDW (11.5-15.5) % Lymphocytes # (Manual) (1.0-4.8) k/uL Nucleated RBCs (0-0) /100 WBC BUN (9-20) mg/dL Glucose (74-99) mg/dL POC Glucose (mg/dL) 230 H (70-110) mg/dL Calcium (8.4-10.2) mg/dL Troponin I (0.000-0.034) ng/mL Total Protein (6.3-8.2) g/dL Albumin (3.5-5.0) g/dL Chest x-ray: report reviewed Assessment and Plan Plan: Assessment and Plan (1) Adenocarcinoma, lung Current Visit: Yes Status: Deleted Code(s): C34.90 - MALIGNANT NEOPLASM OF UNSP PART OF UNSP BRONCHUS OR LUNG SNOMED Code(s): 312334546 (2) Acute hypoxemic respiratory failure Narrative/Plan: Pulmonology following Improved 6-7L Current Visit: Yes Status: Acute Code(s): J96.01 - ACUTE RESPIRATORY FAILURE WITH HYPOXIA SNOMED Code(s): 804711589 (3) Hyperthyroidism Narrative/Plan: Further work-up In alignment with metabolic picture Current Visit: Yes Status: Acute Code(s): E05.90 - THYROTOXICOSIS, UNSP WITHOUT THYROTOXIC CRISIS OR STORM SNOMED Code(s): 39205765 (4) Altered mental status Narrative/Plan: Improved today Possible component metabolic syndrome with marked elevation in glucose, marked hypokalemia, increased thyroid function - COntinues to improve with more stable and spread out pain relef and oxygenation Current Visit: Yes Status: Acute Code(s): R41.82 - ALTERED MENTAL STATUS, UNSPECIFIED SNOMED Code(s): 663870115 (5) Atrial fibrillation with rapid ventricular response Current Visit: Yes Status: Acute Code(s): I48.91 - UNSPECIFIED ATRIAL FIBR ILLATION SNOMED Code(s): 741217512314589 - Recurrent and cardiology manageing (6) Hypokalemia Narrative/Plan: Replace and check stat mag Cortisol pending Current Visit: Yes Status: Acute Code(s): E87.6 - HYPOKALEMIA SNOMED Code(s): 12783917 (7) Leukocytosis Current Visit: No Status: Acute Code(s): D72.829 - ELEVATED WHITE BLOOD CELL COUNT, UNSPECIFIED SNOMED Code(s): 925756449 (8) Pedal edema Narrative/Plan: Doppler neg IImproved Current Visit: No Status: Acute Code(s): R60.0 - LOCALIZED EDEMA SNOMED Code(s): 784269702 Plan: PET scan with FDG avity to bone, and only lung mass, ? acute situation as infectious versus actual progression. CT without contrast of HEad neg, will need with contrast Imaging regarding possible Thrombus IVC and Osseous mets not clear CT Bone scan ordered and Ultrasound with doppler abdomen Status post one treatment of carboplatin Carbo on 11/12/21 No actionable mutation in NGS Patient will be tested for covid due to and nephew close contacts positive As far as discharge, he will need support set up prior, I will ask to confirm this case management is on case to assist and this is arranged prior. He will need PT/OT/Pallaitive care (weekly visits by palliaitive care) and Home care in addition. If no infectious process and able to resolve current hospitalization issues then will plan for chemotherapy to continue next week. Discussed with patient, family and Dr. Kraus
[2021-11-25] MEDS: TAMSULOSIN 0.4 MG CAP.ER.24H PO SCH (21:10)
[2021-11-25] MEDS: LOSARTAN 50 MG TAB PO SCH (21:11)
[2021-11-25] MEDS: INSULIN DETEMIR (LEVEMIR) 100 UNIT/ML SYR SQ SCH (21:19)
[2021-11-26] MEDS: GABAPENTIN 400 MG CAP PO SCH ×5 (00:09→21:10)
[2021-11-26] MEDS: HYDROcodone/APAP 10-325MG 1 EACH TAB PO PRN ×3 (02:38→22:07)
[2021-11-26] MEDS ORDERED: DILTIAZEM DRIP BOLUS FROM BAG 1 MG SOLN IV ONE (04:09)
[2021-11-26] MEDS: DILTIAZEM 125 MG in SODIUM CHLORIDE 0.9% 100 ML IV SCH (04:22)
[2021-11-26 06:19] LABS: Glucose,Whole Blood 130 mg/dL (70-110)
[2021-11-26] MEDS: INSULIN ASPART (NovoLOG) 100 UNIT/ML VIAL SQ SCH ×4 (06:36→21:28)
[2021-11-26] MEDS: FORMOTEROL FUMARATE 20 MCG/2 ML NEBU INHALATION SCH ×2 (07:41→20:27)
[2021-11-26] MEDS: BUDESONIDE 1 MG/2 ML NEBU INHALATION SCH ×2 (07:54→20:27)
[2021-11-26] MEDS: AMIODARONE 200 MG TAB PO SCH ×2 (08:28→21:09)
[2021-11-26] MEDS: POTASSIUM CHLORIDE ER 20 MEQ TAB.ER PO SCH ×2 (08:28→21:25)
[2021-11-26] MEDS: METOPROLOL TARTRATE 25 MG TAB PO SCH ×2 (08:29→21:09)
[2021-11-26] MEDS: FOLIC ACID 1 MG TAB PO SCH (08:29)
[2021-11-26] MEDS: FUROSEMIDE 40 MG TAB PO SCH ×2 (08:29→18:23)
[2021-11-26] MEDS: APIXABAN 5 MG TAB PO SCH ×2 (08:29→21:09)
[2021-11-26] MEDS: MORPHINE SULFATE ER 15 MG TABLET PO SCH (08:29)
[2021-11-26] MEDS: FAMOTIDINE 20 MG TAB PO SCH ×2 (08:29→21:20)
[2021-11-26] MEDS: CHOLECALCIFEROL 125 MCG (5000 IU) TABLET PO SCH (08:29)
[2021-11-26] MEDS: DILTIAZEM ORAL 30 MG TAB PO SCH (08:29)
[2021-11-26] MEDS: PARoxetine 20 MG TAB PO SCH (08:29)
[2021-11-26] MEDS: SPIRONOLACTONE 25 MG TAB PO SCH (08:30)
--- NOTE | 2021-11-26 10:16 | P.PN ---
Subjective Progress Note Date: 11/26/21 Principal diagnosis: Stage 4 lung cancer, PNA Patient declined drastically since yesterday.He is requiring a non rebreather. at bedside and long discussion with her on goals of care, it does not appear she is grasping that his overall prognosis is grave. She did however say she was concerned that her son has covid and if he is going to he will not be able to say goodbye. Objective - Vital Signs Vital signs: Vital Signs Temp 98.5 F 11/26/21 03:40 Pulse 119 H 11/26/21 08:07 Resp 12 11/26/21 03:40 BP 116/84 11/26/21 06:38 Pulse Ox 94 L 11/26/21 06:38 FiO2 100 11/24/21 22:18 Intake & Output 11/25/21 11/26/21 11/26/21 18:59 06:59 18:59 Output Total 950 720 Balance -950 -720 Weight 92 kg Output: Urine 950 720 Other: Voiding Method External Catheter External Catheter - Exam - Constitutional General appearance: Present: average body habitus, cooperative, no acute distress - EENT Eyes: Present: anicteric sclerae, EOMI ENT: Present: hearing grossly normal - Respiratory Respiratory: bilateral: diminished, other (shallow resp) - Musculoskeletal Musculoskeletal: Present: generalized weakness - Psychiatric Psychiatric: unresponsive non rebreather - Labs CBC & Chem 7: 11/26/21 09:02 11/26/21 09:49 Labs: Abnormal Lab Results - Last 24 Hours (Table) 11/25/21 11/25/21 11/25/21 Range/Units 12:02 14:22 17:05 RBC 2.58 L (4.30-5.90) m/uL Hgb 8.3 L (13.0-17.5) gm/dL Hct 25.7 L (39.0-53.0) % RDW 17.1 H (11.5-15.5) % Lymphocytes # (Manual) 0.55 L (1.0-4.8) k/uL Nucleated RBCs 6 H (0-0) /100 WBC POC Glucose (mg/dL) 230 H 306 H (70-110) mg/dL 11/25/21 11/26/21 Range/Units 20:37 06:17 RBC (4.30-5.90) m/uL Hgb (13.0-17.5) gm/dL Hct (39.0-53.0) % RDW (11.5-15.5) % Lymphocytes # (Manual) (1.0-4.8) k/uL Nucleated RBCs (0-0) /100 WBC POC Glucose (mg/dL) 209 H 130 H (70-110) mg/dL Assessment and Plan Plan: Assessment and Plan (1) Adenocarcinoma, lung Current Visit: Yes Status: Deleted Code(s): C34.90 - MALIGNANT NEOPLASM OF UNSP PART OF UNSP BRONCHUS OR LUNG SNOMED Code(s): 713390546 PET scan with FDG avity to bone, and only lung mass, ? acute situation as infectious versus actual progression. CT without contrast of HEad neg, will need with contrast Imaging regarding possible Thrombus IVC and Osseous mets not clear CT Bone scan ordered and Ultrasound with doppler abdomen (2) Acute hypoxemic respiratory failure Narrative/Plan: Current Visit: Yes Status: Acute Code(s): J96.01 - ACUTE RESPIRATORY FAILURE WITH HYPOXIA SNOMED Code(s): 177029874 (3) Pedal edema Narrative/Plan: Doppler neg Improvong Current Visit: No Status: Acute Code(s): R60.0 - LOCALIZED EDEMA SNOMED Code(s): 325763057 (4) Altered mental status Narrative/Plan: Current Visit: Yes Status: Acute Code(s): R41.82 - ALTERED MENTAL STATUS, UNSPECIFIED SNOMED Code(s): 752562959 (5) Atrial fibrillation with rapid ventricular response Current Visit: Yes Status: Acute Code(s): I48.91 - UNSPECIFIED ATRIAL FIBRILLATION SNOMED Code(s): 731030364615021 - Recurrent and cardiology manageing (6) Hypokalemia Narrative/Plan: Current Visit: Yes Status: Acute Code(s): E87.6 - HYPOKALEMIA SNOMED Code(s): 66236377 (7) Leukocytosis Current Visit: No Status: Acute Code(s): D72.829 - ELEVATED WHITE BLOOD CELL COUNT, UNSPECIFIED SNOMED Code(s): 368663230 Plan: Declining status and goals of care discussed with patient's . Overall clinically patient rapidly declining. She is not taking well and not understanding the recommendation of hospice. I have offered to check for PE/PNA progression but did express that treatment of this (if acute issue found) may be beneficial, if at all, in the short term only if at all. CTA without PE but extensive bilateral infiltrates
[2021-11-26 10:42] LABS: ALT 47 U/L (4-49); African American GFR (CKD) >90 (>60 ml/min/1.73 sqM); Albumin 2.9 g/dL (3.5-5.0); Anion Gap 4 mmol/L; Blood Urea Nitrogen 26 mg/dL (9-20); Calcium 7.8 mg/dL (8.4-10.2); Carbon Dioxide 30 mmol/L (22-30); Chloride 104 mmol/L (98-107); Glucose 140 mg/dL (74-99); Non-African American GFR(CKD) >90 (>60 ml/min/1.73 sqM); Sodium 138 mmol/L (137-145); Total Protein 5.3 g/dL (6.3-8.2)
[2021-11-26 11:03] LABS: Anisocytosis Slight; HCT 23.4 % (39.0-53.0); HGB 8.1 gm/dL (13.0-17.5); Hypochromasia Slight; MCH 34.1 pg (25.0-35.0); MCHC 34.5 g/dL (31.0-37.0); MCV 98.9 fL (80.0-100.0); Macrocytosis Slight; Mean Platelet Volume 9.2; Platelet Count 142 k/uL (150-450); Poikilocytosis Slight; RBC 2.36 m/uL (4.30-5.90)
[2021-11-26 11:04] LABS: Magnesium 2.1 mg/dL (1.6-2.3); Potassium 4.1 mmol/L (3.5-5.1)
[2021-11-26 11:05] LABS: AST 45 U/L (17-59); Alkaline Phosphatase 94 U/L (38-126)
[2021-11-26 11:38] LABS: Glucose,Whole Blood 161 mg/dL (70-110)
[2021-11-26] MEDS ORDERED: HYDROmorphone 1 MG/ML 1 ML SYRINGE IVP STA (11:42)
--- NOTE | 2021-11-26 13:56 | P.PN ---
Subjective Progress Note Date: 11/26/21 HISTORY OF PRESENT ILLNESS: This is a 56-year-old male with a past medical history significant for hypertension, atrial fibrillation, lung cancer with metastasis to the bone, former nicotine dependence, pulmonary hypertension, and diabetes. Patient follows in the office with Dr. Veronica. We have been asked to see the patient in consultation for A. fib with RVR. Patient examined at the bedside. Patient presented to the hospital secondary to worsening lower extremity edema. In the emergency room the patient was found to be in atrial flutter with RVR. He was also noted to be hypotensive. He was cardioverted in the emergency room by the ER physician with a total of 3 shocks. The patient converted from atrial flutter to atrial fibrillation briefly. However he went back into a flutter with RVR according to the emergency room physician note. The patient was started on IV Cardizem. This morning he is maintaining sinus mechanism. * EKG reveals a flutter with RVR * Chest xray pulmonary infiltrates improved slightly in the left upper lobe at the lung apex compared to old exam. No significant change in the other lung amato. There is clearing of some atelectasis right lung base compared to old exam. * Laboratory data: WBC 8.8. Hemoglobin 7.9. Platelet count 158. Sodium 137. Potassium 3.9. BUN 23. Creatinine 0.76. ProBNP 11,100. Troponin 0.767. * Current home cardiac medications include Eliquis 5 mg twice a day, amiodarone 200 mg twice a day, Aldactone 25 mg daily, Lasix 40 mg daily, metoprolol tartrate 25 mg twice a day, losartan 100 mg at night * Most recent echocardiogram obtained 09/2021 revealed EF 5560%, trace amount of aortic regurgitation, mild tricuspid regurgitation, moderate pulmonary hypertension with RVSP of 51 mmHg * Cardiac catheterization history: Unknown 11/26/2021 Patient examined this morning at the bedside. Patient denies chest pain or pressure. He reports shortness of breath and continued lower extremity edema. Patient went back into A. fib with RVR and was started on IV Cardizem which is currently infusing at 5 mg an hour. He remains in atrial fibrillation with a heart rate in the 90s. PHYSICAL EXAM: VITAL SIGNS: Reviewed. GENERAL: Well-developed in no acute distress. HEENT: Head is normocephalic. Pupils are equal, round. Sclerae anicteric. Mucous membranes of the mouth are moist. Neck supple. No JVD or thyromegaly LUNGS: Respirations even and unlabored. Lungs diminished bilaterally. HEART: Irregular rate and rhythm. S1 and S2 heard. ABDOMEN: Soft. Nondistended. Nontender. EXTREMITIES: Normal range of motion. No clubbing or cyanosis. Peripheral pulses intact. 2+ bilateral lower extremity edema NEUROLOGIC: Awake and alert. Oriented x 3. ASSESSMENT: Paroxysmal atrial fibrillation/typical atrial flutter with RVR, status post cardioversion in the emergency room Acute congestive heart failure with increased lower extremity edema, BNP 11,100 Recently diagnosed lung cancer with metastasis to the bone Elevated troponin, likely related to atrial fibrillation/flutter with RVR Hypertension Diabetes Pulmonary hypertension Chronic lower extremity edema Former tobacco use PLAN: Continue current cardiac medications Continue IV Cardizem Further recommendations pending patient's course Nurse practitioner note has been reviewed by physician. Signing provider agrees with the documented findings, assessment, and plan of care. Objective - Vital Signs Vital signs: Vital Signs Temp 98.3 F 11/26/21 08:00 Pulse 119 H 11/26/21 08:07 Resp 18 11/26/21 08:00 BP 125/61 11/26/21 08:00 Pulse Ox 90 L 11/26/21 08:00 FiO2 100 11/24/21 22:18 Intake & Output 11/25/21 11/26/21 11/26/21 18:59 06:59 18:59 Output Total 950 720 Balance -950 -720 Weight 92 kg Output: Urine 950 720 Other: Voiding Method External Catheter External Catheter External Catheter - Labs CBC & Chem 7: 11/26/21 09:02 11/26/21 09:49 Labs: Abnormal Lab Results - Last 24 Hours (Table) 11/25/21 11/25/21 11/25/21 Range/Units 14:22 17:05 20:37 RBC 2.58 L (4.30-5.90) m/uL Hgb 8.3 L (13.0-17.5) gm/dL Hct 25.7 L (39.0-53.0) % RDW 17.1 H (11.5-15.5) % Plt Count (150-450) k/uL Lymphocytes # (Manual) 0.55 L (1.0-4.8) k/uL Nucleated RBCs 6 H (0-0) /100 WBC BUN (9-20) mg/dL Glucose (74-99) mg/dL POC Glucose (mg/dL) 306 H 209 H (70-110) mg/dL Calcium (8.4-10.2) mg/dL Total Protein (6.3-8.2) g/dL Albumin (3.5-5.0) g/dL 11/26/21 11/26/21 11/26/21 Range/Units 06:17 09:02 09:49 RBC 2.36 L (4.30-5.90) m/uL Hgb 8.1 L (13.0-17.5) gm/dL Hct 23.4 L (39.0-53.0) % RDW 18.0 H (11.5-15.5) % Plt Count 142 L (150-450) k/uL Lymphocytes # (Manual) (1.0-4.8) k/uL Nucleated RBCs (0-0) /100 WBC BUN 26 H (9-20) mg/dL Glucose 140 H (74-99) mg/dL POC Glucose (mg/dL) 130 H (70-110) mg/dL Calcium 7.8 L (8.4-10.2) mg/dL Total Protein 5.3 L (6.3-8.2) g/dL Albumin 2.9 L (3.5-5.0) g/dL 11/26/21 Range/Units 11:36 RBC (4.30-5.90) m/uL Hgb (13.0-17.5) gm/dL Hct (39.0-53.0) % RDW (11.5-15.5) % Plt Count (150-450) k/uL Lymphocytes # (Manual) (1.0-4.8) k/uL Nucleated RBCs (0-0) /100 WBC BUN (9-20) mg/dL Glucose (74-99) mg/dL POC Glucose (mg/dL) 161 H (70-110) mg/dL Calcium (8.4-10.2) mg/dL Total Protein (6.3-8.2) g/dL Albumin (3.5-5.0) g/dL
[2021-11-26 14:13] VITALS: BMI 27.5
--- NOTE | 2021-11-26 15:33 | P.CONS ---
History of Present Illness - Reason for Consult Consult date: 11/26/21 Goals of care Requesting physician: Gene Mahajan - Chief Complaint shortness of breath - History of Present Illness The patient is a 56-year-old male with extensive PMH including recently diagnosed non-small cell stage IV lung cancer (currently undergoing palliative radiation), recently diagnosed paroxysmal A. fib (on Eliquis), COPD, hypertension, and BPH who presents to the emergency room with complaints of shortness of breath and lower extremity edema. He went for his radiation treatment today and was found to hypotensive, tachycardic, and hypoxic and was sent to the emergency room. Of note, the patient was previously admitted from 11/04-11/16 for hypoxic respiratory failure secondary to pneumonia, A. fib, and COPD exacerbation. The patient notes that following his discharge, he quickly developed worsening lower extremity edema. He also has difficulty performing basic ADLs due to his severe shortness of breath. Denied experiencing chest discomfort, fever, chills nausea, vomiting, abdominal pain, diarrhea. Upon presentation in the emergency room, the patient was noted to be in a flutter with RVR with EKG showing a rate of 156. Chest x-ray revealed pulmonary persistent left-sided infiltrates. Laboratory evaluation was remarkable for hemoglobin of 7.9, troponin 0.767, proBNP 11,100. Cardioversion was attempted for the patient with conscious sedation by the ED physician. Patient converted to A. fib with a rate of 120-130s. Review of Systems Constitutional: Reports as per HPI Past Medical History Past Medical History: Diabetes Mellitus, Hypertension, Musculoskeletal Disorder, Prostate Disorder, Sleep Apnea/CPAP/BIPAP Additional Past Medical History / Comment(s): started having high blood pressure September 2021, mass in lung and lower spine,apnea implant-upper rt chest, back & leg pain related to herniated discs,hx enlarged prostate History of Any Multi-Drug Resistant Organisms: None Reported Past Surgical History: Hernia Repair Additional Past Surgical History / Comment(s): epidural pain procedures, colonoscopy,left inguinal hernia repair Past Anesthesia/Blood Transfusion Reactions: No Reported Reaction Past Psychological History: Depression Smoking Status: Current every day smoker Past Alcohol Use History: None Reported Past Drug Use History: None Reported - Past Family History Brother(s) Family Medical History: Cancer Additional Family Medical History / Comment(s): had liver CA at age 12. rhabdomyosarcoma Medications and Allergies Home Medications Medication Instructions Recorded Confirmed Type PARoxetine [Paxil] 20 mg PO DAILY 11/26/18 11/24/21 History Tamsulosin HCl [Flomax] 0.4 mg PO HS 10/12/21 11/24/21 History Empagliflozin [Jardiance] 25 mg PO DAILY 11/04/21 11/24/21 History Furosemide [Lasix] 40 - 80 mg PO DAILY 11/04/21 11/24/21 History Losartan Potassium 100 mg PO HS 11/04/21 11/24/21 History Metoprolol Tartrate [Lopressor] 25 mg PO BID 11/04/21 11/24/21 History Apixaban [Eliquis] 5 mg PO BID 30 Days #60 tab 11/05/21 11/24/21 Rx Amiodarone [Cordarone] 200 mg PO BID #120 tab 11/08/21 11/24/21 Rx Budesonide [Pulmicort] 1 mg INHALATION RT-BID #60 each 11/16/21 11/24/21 Rx Cholecalciferol [Vitamin D3 (125 125 mcg PO DAILY #30 tab 11/16/21 11/24/21 Rx Mcg = 5000 Iu)] Famotidine [Pepcid] 20 mg PO BID #60 tab 11/16/21 11/24/21 Rx Folic Acid 1 mg PO DAILY #30 tab 11/16/21 11/24/21 Rx Formoterol Fumarate [Perforomist] 20 mcg INHALATION RT-BID #60 each 11/16/21 11/24/21 Rx Gabapentin [Neurontin] 400 mg PO Q6HR 7 Days #28 cap 11/16/21 11/24/21 Rx Insulin Aspart [NovoLOG Flexpen] 12 units SQ AC-TID #3 each 11/16/21 11/24/21 Rx Insulin Detemir [Levemir Flextouch 15 units SQ HS #2 each 11/16/21 11/24/21 Rx Pen] Morphine Sulfate ER [Ms Contin] 15 mg PO Q12HR 7 Days #14 tab 11/16/21 11/24/21 Rx Potassium Chloride ER [K-Dur 20] 60 meq PO BID 30 Days #180 tab 11/16/21 11/24/21 Rx HYDROcodone/APAP 10-325MG [Whitney 1 tab PO Q4HR PRN 11/24/21 11/24/21 History 10-325] Spironolactone [Aldactone] 25 mg PO DAILY 11/24/21 11/24/21 History Allergies Allergy/AdvReac Type Severity Reaction Status Date / Time No Known Allergies Allergy Verified 11/24/21 19:51 Physical Exam Vitals: Vital Signs Temp Pulse Pulse Resp BP Pulse Ox 11/26/21 08:07 119 H 11/26/21 08:00 98.3 F 130 H 18 125/61 90 L 11/26/21 07:54 120 H 11/26/21 07:52 120 H 11/26/21 07:42 117 H 11/26/21 06:38 116/84 94 L 11/26/21 03:40 98.5 F 81 12 108/60 96 11/25/21 23:58 97.5 F L 67 14 100/65 92 L 11/25/21 21:12 82 11/25/21 20:57 84 11/25/21 20:00 98 F 86 12 115/79 93 L 11/25/21 15:47 97.9 F 94 19 124/74 92 L Intake and Output 11/25/21 11/26/21 11/26/21 22:59 06:59 14:59 Output Total 900 720 Balance -900 -720 Output: Urine 900 720 Other: Voiding Method External Catheter External Catheter External Catheter Weight 92 kg 92 kg General: Appears older than biological age, chronically ill-appearing, Lethargic, No acute distress. HEENT: Head is atraumatic, normocephalicPupils equal, round and reactive to light bilaterally. CV: Heart regular in rate and rhythm positive S1 and S2. No clicks, rubs or murmurs. Peripheral pulses equal. 2/4 Lungs: DIminished throughout, shallow breaths. No wheezes rales or rhonchi. Respirations even and nonlabored. No intercostal retractions. 6L NC Abdomen/GI: Soft. Bowel sounds present in all 4 quadrants. Bowel sounds normoactive. No abdominal tenderness. : External catheter with clear yellow urine Musculoskeletal/ Extremities: No tenderness on muscular exam. No ecchymosis. Vascular: Radial pulses equal. 2/4. n 2+ pitting bilateral LE edema, 3+pedal edema bilaterally Skin: Warm and dry. No rash. Neurologic: CN II-XI grossly intact. Lethargic, but awakens easily. Psychiatric: Appropriate mood and affect. Results CBC & Chem 7: 11/26/21 09:02 11/26/21 09:49 Labs: Abnormal Lab Results - Last 24 Hours (Table) 11/25/21 11/25/21 11/25/21 Range/Units 14:22 17:05 20:37 RBC 2.58 L (4.30-5.90) m/uL Hgb 8.3 L (13.0-17.5) gm/dL Hct 25.7 L (39.0-53.0) % RDW 17.1 H (11.5-15.5) % Plt Count (150-450) k/uL Lymphocytes # (Manual) 0.55 L (1.0-4.8) k/uL Nucleated RBCs 6 H (0-0) /100 WBC BUN (9-20) mg/dL Glucose (74-99) mg/dL POC Glucose (mg/dL) 306 H 209 H (70-110) mg/dL Calcium (8.4-10.2) mg/dL Total Protein (6.3-8.2) g/dL Albumin (3.5-5.0) g/dL 11/26/21 11/26/21 11/26/21 Range/Units 06:17 09:02 09:49 RBC 2.36 L (4.30-5.90) m/uL Hgb 8.1 L (13.0-17.5) gm/dL Hct 23.4 L (39.0-53.0) % RDW 18.0 H (11.5-15.5) % Plt Count 142 L (150-450) k/uL Lymphocytes # (Manual) (1.0-4.8) k/uL Nucleated RBCs (0-0) /100 WBC BUN 26 H (9-20) mg/dL Glucose 140 H (74-99) mg/dL POC Glucose (mg/dL) 130 H (70-110) mg/dL Calcium 7.8 L (8.4-10.2) mg/dL Total Protein 5.3 L (6.3-8.2) g/dL Albumin 2.9 L (3.5-5.0) g/dL 11/26/21 Range/Units 11:36 RBC (4.30-5.90) m/uL Hgb (13.0-17.5) gm/dL Hct (39.0-53.0) % RDW (11.5-15.5) % Plt Count (150-450) k/uL Lymphocytes # (Manual) (1.0-4.8) k/uL Nucleated RBCs (0-0) /100 WBC BUN (9-20) mg/dL Glucose (74-99) mg/dL POC Glucose (mg/dL) 161 H (70-110) mg/dL Calcium (8.4-10.2) mg/dL Total Protein (6.3-8.2) g/dL Albumin (3.5-5.0) g/dL Chest x-ray: report reviewed Assessment and Plan Assessment: Reason for consult - Goals of care Social * 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 no Functional Assessment * Able to walk independently - No, required assistance * Assistive devices - walker * Able to use the bathroom independently - no * Continent - yes * Require assistance bathing- yes * Able to feed self - yes * Who prepares meals - * How many meals a day eaten - 3 meals/day + protein shakes * What percentage of meals eaten daily - 10% * Able to clean house/do laundry - no * Transportation - * Able to shop - no * Who manages medications - * Who manages finances - PPS score - 50% Psychological/Emotional * Dementia present - No * Insight and judgment - not intact * Depression - yes * Suicidal thoughts - abigail * Good support system - yes * Patients goals - prolonged survival per * Frequent hospitalizations - no * Desire to keep coming back to the hospital for treatment - yes Plan: Symptoms * Pain - CPOT 3, + chronic lowr back pain, continue Whitney, Neurotin, and MSContin * Fatigue - + weakness and fatigue * SOB - yes, uses 3L O2 at home, on 6L NC today. continue pulmicort, perforomist, lasix, aldactone * Insomnia - * N/V - No * Anxiety - No * Depression - Yes, continue paxil * Confusion - Yes * Agitation - No * Hallucinations - No * Appetite/weight loss - + recent decrease in appetite. Continue regular diet and strawberry ensure TIDWM * Dysphagia - no * Constipation - no * Incontinence - yes, has external catheter, continue flomax * Itch - no Summary/Goals - The patient's , sister, and aunt were present for meeting. Palliative care services and philosophies explained. Education was provided to the patient's , Phoebe, regarding his lung cancer and his radiation treatments. She seemed surprised that they were palliative treatments. She was very tearful, emotional support provided. Phoebe states she has noticed a gradual decline in the patient's mentation. He is sharp and with it at times, but forgetful and seems slow to process things at other times. The patient's overall poor status and poor prognosis overwhelmed Phoebe. The family present seemed to have a good understanding of the treatments and the prognosis and assisted in explaining it to Phoebe. She ultimately decided to take things one day at a time. She would like to get him back to baseline and take him home with palliative care. She understands that as the patient's condition deteriorates, she will eventually need hospice services. She agreed to make him a full DNR. Recommendations - Discharge home with visiting nurse, PT/OT, and palliative care when cleared medically Advanced Directives - None, Information provided by patient advocate Code Status - DNR Thank you for this consult Digna Ames [facility] Palliative Care [place]ink [phone] Email: [email or web address] Time with Patient: Greater than 30
[2021-11-26] MEDS ORDERED: HYDROmorphone 1 MG/ML 1 ML SYRINGE IVP PRN (15:36)
[2021-11-26 15:39] LABS: Lymphocytes # (M) 0.62 k/uL (1.0-4.8); Metamyelocytes # (M) 0.08 k/uL (0); Metamyelocytes % 1 %; Monocytes # (M) 0.31 k/uL (0-1.0); Neutrophils # (M) 6.86 k/uL (1.3-7.7); Neutrophils % (M) 88 %; Nucleated Red Blood Cells 6 /100 WBC (0-0); Total Cells Counted 200; WBC 7.8 k/uL (3.8-10.6)
[2021-11-26 15:40] LABS: Polychromasia Present; Toxic Granulation Present
--- NOTE | 2021-11-26 15:46 | P.PN ---
Subjective Progress Note Date: 11/26/21 Hospital Course: The patient is a 56-year-old male with extensive PMH including recently diagnosed non-small cell stage IV lung cancer (currently undergoing palliative radiation), recently diagnosed paroxysmal A. fib on Eliquis, COPD, hypertension, and BPH. He presented to the emergency room with complaints of shortness of breath and lower extremity edema. Of note, the patient was previously admitted from 11/04-11/16 for hypoxic respiratory failure secondary to pneumonia, A. fib, and COPD exacerbation. The patient notes that following his discharge, he quick ly developed worsening lower extremity edema. He also has difficulty performing basic ADLs due to his severe shortness of breath. Denied experiencing chest discomfort, fever, chills nausea, vomiting, abdominal pain, diarrhea. Upon presentation in the emergency room, the patient was noted to be in a flutter with RVR with EKG showing a rate of 156. Chest x-ray revealed pulmonary persistent left-sided infiltrates. Laboratory evaluation was remarkable for hemoglobin of 7.9, troponin 0.767, proBNP 11,100. Cardioversion was attempted for the patient with conscious sedation by the ED physician. Patient converted to A. fib with a rate of 120-130s. Patient was admitted under our services with consultation to cardiology, palliative care and oncology. Physical examination: Patient seen and fully evaluated at bedside this morning along with , sister and aunt. Family reports patient's pain has increased and patient in agreement with this. Patient's MS Contin was discontinued and patient started on Dilaudid 1 mg IVP every 4 hours. Patient and family meeting with palliative care to discuss current plan of care going forward. Patient has converted back to normal sinus rhythm at this time. Patient currently denies having any dizziness, lightheadedness, chest pain, palpitations, or experiencing any numbness/tingling/weakness. General: non toxic, no distress, appears older than biological age, chronically ill-appearing Derm: warm, dry Head: atraumatic, normocephalic, symmetric Eyes: EOMI, no lid lag, anicteric sclera Mouth: no lip lesion, mucus membranes moist Cardiovascular: Regular rate and rhythm, S1S2 reg, no murmur, positive posterior tibial pulse bilateral, Lungs: CTA bilateral, no rhonchi, no rales , no accessory muscle use Abdominal: soft, nontender to palpation, no guarding, no appreciable organomegaly Ext: no gross muscle atrophy, no edema, no contractures. 2+ pitting bilateral lower extremity edema, 3+ in bilateral feet Neuro: CN II-XI grossly intact, no focal neuro deficits Psych: Alert, oriented, appropriate affect Assessment and plan of care: Paroxysmal atrial fibrillation/typical atrial flutter with RVR Shortness of breath and lower extremity edema secondary to acute on chronic diastolic heart failure Elevated troponin, suspected due to a flutter with RVR and acute on chronic diastolic heart failure -Status post unsuccessful cardioversion under conscious sedation in the ED -Continue amiodarone and metoprolol -Cardiology following, increase Lasix to 40 mg twice a day -Cardiac monitoring -Continue anticoagulation with Eliquis. -Echocardiogram completed 12/02/21 revealed an EF of 50-55%. 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 -Oncology and palliative care consulted. -Continue symptomatic care and pain management. CODE STATUS: Full Code DVT prophylaxis: Eliquis Discussed with: Patient, Anticipated discharge date: Clinical course to determine Anticipated discharge place: Home with palliative care A total of 35 minutes was spent on the care of this complex patient more than 50% of the time was spent in counseling and care coordination. Objective - Vital Signs Vital signs: Vital Signs Temp 98.5 F 11/26/21 03:40 Pulse 119 H 11/26/21 08:07 Resp 12 11/26/21 03:40 BP 116/84 11/26/21 06:38 Pulse Ox 94 L 11/26/21 06:38 FiO2 100 11/24/21 22:18 Intake & Output 11/25/21 11/26/21 11/26/21 18:59 06:59 18:59 Output Total 950 720 Balance -950 -720 Weight 92 kg Output: Urine 950 720 Other: Voiding Method External Catheter External Catheter - Labs CBC & Chem 7: 11/26/21 09:02 11/26/21 09:49 Labs: Abnormal Lab Results - Last 24 Hours (Table) 11/25/21 11/25/21 11/25/21 Range/Units 12:02 14:22 17:05 RBC 2.58 L (4.30-5.90) m/uL Hgb 8.3 L (13.0-17.5) gm/dL Hct 25.7 L (39.0-53.0) % RDW 17.1 H (11.5-15.5) % Lymphocytes # (Manual) 0.55 L (1.0-4.8) k/uL Nucleated RBCs 6 H (0-0) /100 WBC POC Glucose (mg/dL) 230 H 306 H (70-110) mg/dL 11/25/21/ Range/Units 20:37 06:17 RBC (4.30-5.90) m/uL Hgb (13.0-17.5) gm/dL Hct (39.0-53.0) % RDW (11.5-15.5) % Lymphocytes # (Manual) (1.0-4.8) k/uL Nucleated RBCs (0-0) /100 WBC POC Glucose (mg/dL) 209 H 130 H (70-110) mg/dL
[2021-11-26 17:08] LABS: Glucose,Whole Blood 116 mg/dL (70-110)
--- NOTE | 2021-11-26 19:08 | CT ---
EXAMINATION TYPE: CT angio chest DATE OF EXAM: 11/26/2021 COMPARISON: 11/05/2021 HISTORY: PE Chest pain CT DLP: 427.6 mGycm Automated exposure control for dose reduction was used. CONTRAST: Performed without and with IV Contrast, patient injected with 100 ml mL of Isovue 370. Images obtained from the thoracic inlet to the diaphragm with IV contrast. There is bilateral airspace consolidation and atelectasis in the lower lung amato. There is also air space lingula consolidation of the left upper lobe. Heart size is fairly normal. No pericardial effusion. Bony thorax is intact. Sternum is intact. No evidence of filling defect in the pulmonary arteries. There is no mediastinal adenopathy. Thoracic aorta is intact. No aneurysm. The bony thorax is intact. No compression fracture. Sternum is intact. IMPRESSION: Extensive bilateral pulmonary infiltrates. There is improvement in the right lower lobe compared to o ld exam. There is slight improvement in the left upper lobe. Findings likely related to pneumonia. No evidence of pulmonary embolism.
[2021-11-26] MEDS: CEFEPIME 2 GM in SODIUM CHLORIDE 0.9% 100 ML IVPB SCH (20:30)
[2021-11-26 21:07] LABS: Glucose,Whole Blood 136 mg/dL (70-110)
[2021-11-26] MEDS: LOSARTAN 50 MG TAB PO SCH (21:20)
[2021-11-26] MEDS: TAMSULOSIN 0.4 MG CAP.ER.24H PO SCH (21:20)
[2021-11-26] MEDS: INSULIN DETEMIR (LEVEMIR) 100 UNIT/ML SYR SQ SCH (21:28)
[2021-11-27] MEDS ORDERED: LORazepam 2 MG/ML INJ IV PRN (00:28)
[2021-11-27] MEDS: GABAPENTIN 400 MG CAP PO SCH ×4 (00:44→18:02)
[2021-11-27] MEDS ORDERED: ATROPINE OPHTH SOLN 1% 5ML BTL SUBLINGUAL PRN (01:00)
[2021-11-27] MEDS ORDERED: MORPHINE SULFATE (100 MG/2 ML) 100 MG in SODIUM CHLORIDE 0.9% 100 ML IV SCH (01:00)
[2021-11-27 04:14] VITALS: BP 156/106; PULSE 91; RESP 16; TEMP 97.3
[2021-11-27] MEDS: CEFEPIME 2 GM in SODIUM CHLORIDE 0.9% 100 ML IVPB SCH ×2 (05:22→18:02)
[2021-11-27] MEDS: DILTIAZEM 125 MG in SODIUM CHLORIDE 0.9% 100 ML IV SCH (05:23)
[2021-11-27 06:11] LABS: Glucose,Whole Blood 180 mg/dL (70-110)
[2021-11-27] MEDS: INSULIN ASPART (NovoLOG) 100 UNIT/ML VIAL SQ SCH ×3 (06:50→18:02)
[2021-11-27] MEDS: BUDESONIDE 1 MG/2 ML NEBU INHALATION SCH (09:10)
[2021-11-27] MEDS: FORMOTEROL FUMARATE 20 MCG/2 ML NEBU INHALATION SCH (09:10)
[2021-11-27] MEDS: APIXABAN 5 MG TAB PO SCH (12:48)
[2021-11-27] MEDS: CHOLECALCIFEROL 125 MCG (5000 IU) TABLET PO SCH (12:48)
[2021-11-27] MEDS: AMIODARONE 200 MG TAB PO SCH (12:48)
[2021-11-27] MEDS: POTASSIUM CHLORIDE ER 20 MEQ TAB.ER PO SCH (12:49)
[2021-11-27] MEDS: PARoxetine 20 MG TAB PO SCH (12:49)
[2021-11-27] MEDS: FOLIC ACID 1 MG TAB PO SCH (12:49)
[2021-11-27] MEDS: FUROSEMIDE 40 MG TAB PO SCH ×2 (12:49→18:02)
[2021-11-27] MEDS: METOPROLOL TARTRATE 25 MG TAB PO SCH (12:49)
[2021-11-27] MEDS: SPIRONOLACTONE 25 MG TAB PO SCH (12:49)
[2021-11-27] MEDS: FAMOTIDINE 20 MG TAB PO SCH (12:49)
--- NOTE | 2021-11-27 16:26 | P.DS ---
Providers Date of admission: 11/24/21 20:23 Expected date of discharge: 11/27/21 Attending physician: Sully Melo MD Consults: 11/24/21 20:23 Consult Physician Stat Consulting Provider: Jhonatan Mckinney Consult Reason/Comments: rvr Do you want consulting provider notified?: Already Contacted 11/25/21 09:18 Consult to Palliative Care Routine Consulting Provider: Digna Ames Consult Reason/Comments: family would like to discuss palliative care prior to determining code stat Do you want consulting provider notified?: Yes 11/25/21 11:00 Consult Physician Routine Consulting Provider: Royal Sandhu Consult Reason/Comments: lung cancer, pt. known to service Do you want consulting provider notified?: Yes Primary care physician: Jt Liang - Discharge Diagnosis(es) (1) Metastatic lung cancer (metastasis from lung to other site) Patient was undergoing palliative radiation. He is recently hospitalized for respiratory failure secondary to pulmonary infiltrates. Per the family the patient was declining at home the [facility] care to his hospitalization. Current Visit: Yes Status: Acute Hospital Course: The patient is 56-year-old female with a history of recently diagnosed non-small cell lung cancer stage IV ongoing palliative radiation. The patient was hospitalized with paroxysmal atrial fibrillation he was on at requests he presented with shortness of breath lower extremity edema. The patient in the emergency room was noted to be in flutter with RVR with a rate of 156. Chest x- ray showed persistent left-sided pulmonary infiltrates. Laboratory evaluation showed hemoglobin 7.9 troponin of 0.76 LMP BNP of 1100 there was an attempt to cardiovert the patient with conscious sedation. The patient is then placed on Cardizem drip he was hospitalized cardiology consult on the patient. The patient did not make good clinical progress. He was seen by cardiology and by palliative care. Overall decline in his functional status and poor prognosis, the agreed for hospice. The patient was placed on comfort measures with a morphine drip will be converted to liquid morphine, sublingual Ativan for comfort. Patient will be transitioned home with hospice care. Time spend 35 minutes Patient Condition at Discharge: Poor Plan - Discharge Summary Discharge Rx Participant: Yes New Discharge Prescriptions: Continue RX: LORazepam ORAL CONC [Ativan Intensol] 2 mg PO BID PRN #30 ml MDD 120 mg PRN Reason: Agitation Or Acute Anxiety RX: Morphine Sulfate ER [Ms Contin] 15 mg PO Q12HR 7 Days #14 tab RX: MORPHINE ORAL WANDER CONC 20mg/mL [Roxanol Oral Soln Conc 20MG/ML] 20 mg PO Q2HR PRN #20 ml PRN Reason: Pain No Action RX: HYDROcodone/APAP 10-325MG [[place] 10-325] 1 tab PO Q4HR PRN PRN Reason: MODERATE Pain Discharge Medication List RX: HYDROcodone/APAP 10-325MG [[place] 10-325] 1 tab PO Q4HR PRN 11/24/21 [History] RX: LORazepam ORAL CONC [Ativan Intensol] 2 mg PO BID PRN #30 ml MDD 120 mg 11/27/21 [Rx] RX: MORPHINE ORAL WANDER CONC 20mg/mL [Roxanol Oral Soln Conc 20MG/ML] 20 mg PO Q2HR PRN #20 ml 11/27/21 [Rx] RX: Morphine Sulfate ER [Ms Contin] 15 mg PO Q12HR 7 Days #14 tab 11/27/21 [Rx] Follow up Appointment(s)/Referral(s): Jt Liang MD [Primary Care Provider] - 1-2 days [facility], [NON-STAFF] - Care,[facility]iative [NON-STAFF] -
[2021-11-27] MEDS ORDERED: MORPHINE CONC SOLN 10mg/0.5mL ORAL SYRG SL ONE (18:00)
== END 2021-11-27 18:32 | disposition hospice, home (50) | DRG 308 ==
LOC: EC 16:24 → 3SCARD 20:23
PROVIDERS: ADMIT Internal Medicine; ATTEND Internal Medicine
PROC: 5A2204Z Restoration of Cardiac Rhythm, Single (ICD-10-PCS; principal; 2021-11-24)
DX: I48.0 Paroxysmal atrial fibrillation (principal); J96.01 Acute respiratory failure with hypoxia; I50.33 Acute on chronic diastolic (congestive) heart failure; J18.9 Pneumonia, unspecified organism; C79.51 Secondary malignant neoplasm of bone; J44.0 Chronic obstructive pulmonary disease with (acute) lower respiratory infection; C34.12 Malignant neoplasm of upper lobe, left bronchus or lung; J98.11 Atelectasis; I27.20 Pulmonary hypertension, unspecified; I95.9 Hypotension, unspecified; I11.0 Hypertensive heart disease with heart failure; E11.65 Type 2 diabetes mellitus with hyperglycemia; I48.3 Typical atrial flutter; Z51.5 Encounter for palliative care; Z66 Do not resuscitate; Z20.822 Contact with and (suspected) exposure to COVID-19; E88.81 Metabolic syndrome and other insulin resistance; D63.0 Anemia in neoplastic disease; F32.A Depression, unspecified; E86.0 Dehydration; E05.90 Thyrotoxicosis, unspecified without thyrotoxic crisis or storm; G47.30 Sleep apnea, unspecified; M54.50 Low back pain, unspecified; N40.1 Benign prostatic hyperplasia with lower urinary tract symptoms; N39.498 Other specified urinary incontinence; E87.6 Hypokalemia; R77.8 Other specified abnormalities of plasma proteins; F17.211 Nicotine dependence, cigarettes, in remission; Z79.84 Long term (current) use of oral hypoglycemic drugs; Z79.891 Long term (current) use of opiate analgesic; Z79.899 Other long term (current) drug therapy; Z87.39 Personal history of other diseases of the musculoskeletal system and connective tissue; Z87.19 Personal history of other diseases of the digestive system; Z98.890 Other specified postprocedural states; Z80.0 Family history of malignant neoplasm of digestive organs; Z80.8 Family history of malignant neoplasm of other organs or systems
CPT/HCPCS: 31500; 36415; 71045; 71275; 80053; 83735; 83880; 84484; 85025; 85610; 85730; 87040; 87635; 93005; 94640; 96374; 96375; 99291